=== PATIENT | female | born 1970 | race Caucasian/White ===

== ENCOUNTER 2017-07-28 09:56 | Emergency (ER) | payer BC ==
[~2017-07-28] VITALS: Ht 162.6 cm; Wt 95.7 kg
[~2017-07-28 09:56] MED LIST: FLONASE; HYDROCODONE; IMITREX100 MG; LOSARTAN POTAS100 MG PO; MONTELUKAST SOD10 MG PO; NORTRIPTYLINE H25 MG; PROMETHAZINE; PROPRANOLOL HCL80 MG PO; PROTONIX; SINGULAIR
--- OUTSIDE RECORDS SUMMARY | 2017-07-28 09:59 | XMS REPORT | Summary of Care ---
Author Author Mellissa Weldon M.A. Organization Unknown Address [facility] Phone Unavailable Care Team Providers Care Icu Manager Name Role Phone JOSE Rudd, MARGAUX Gonsalez Unavailable LUDWIG DILLON N.P. Unavailable Unavailable JOSE CLEMENTE MO, MARGAUX SALAZAR Unavailable Unavailable Unavailable Unavailable Functional Status Name Dates Details Functional status health issues are not documented Status: Name Dates Details Cognitive status health issues are not documented Status: Problems Name Dates Details Hematuria (599.70, R31.9) Status: Active Mitral valve prolapse syndrome (424.0, I34.1) Status: Active Abnormal glucose (790.29, R73.09) Status: Active Screening for malignant neoplasm of breast (V76.10, Z12.31) Status: Active Hyperglycemia (790.29, R73.9) Status: Active Acute recurrent sinusitis (461.9, J01.91) Status: Active Tracheobronchitis (490, J40) Status: Active Acute bronchitis (466.0, J20.9) Status: Active Acute situational disturbance (308.3, F43.0) Status: Active Anxiety (300.00, F41.9) Status: Active Depression (311, F32.9) Status: Active Palpitation (785.1, R00.2) Status: Active Tachycardia (785.0, R00.0) Status: Active Snoring (786.09, R06.83) Status: Active Dizziness (780.4, R42) Status: Active Urinary frequency (788.41, R35.0) Status: Active Pelvic pressure in female (625.8, R10.2) Status: Active 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) Status: Active Urinary incontinence (788.30, R32) Status: Active TMJ (temporomandibular joint syndrome) (524.60, M26.609) Status: Active Chest pain (786.50, R07.9) Status: Active Palpitations (785.1, R00.2) Status: Active Burning with urination (788.1, R30.0) Status: Active Sinusitis (473.9, J32.9) Status: Active Vertigo (780.4, R42) Status: Active Nausea and vomiting (787.01, R11.2) Status: Active Chronic gastroesophageal reflux disease (530.81, K21.9) Status: Active Ear pressure, left (388.8, H93.8X2) Status: Active Neck pain on left side (723.1, M54.2) Status: Active Myofascial pain on left side (729.1, M79.1) Status: Active Allergic conjunctivitis of both eyes (372.14, H10.13) Status: Active Allergic rhinitis (477.9, J30.9) Status: Active BPPV (benign paroxysmal positional vertigo) (386.11, H81.10) Status: Active Hyperlipidemia (272.4, E78.5) Status: Active Acute sinusitis (461.9, J01.90) Status: Active Marcie vaginitis (112.1, B37.3) Status: Active History of Urinary urgency (788.63, R39.15) Status: Resolved Urinary urgency (788.63, R39.15) Status: Active Otalgia of left ear (388.70, H92.02) Status: Active Immunity status testing (V72.61, Z01.84) Status: Active Hepatic steatosis (571.8, K76.0) Status: Active Postcholecystectomy diarrhea (564.4, R19.7) Status: Active Immunity status testing (V72.61, Z01.84) Status: Active Hepatic steatosis (571.8, K76.0) Status: Active History of RUQ abdominal pain (789.01, R10.11) Status: Resolved Acute URI (465.9, J06.9) Status: Active Orthostatic hypotension (458.0, I95.1) Status: Active Asthma (493.90, J45.909) Status: Active Low back pain radiating to right lower extremity (724.2, M54.5) Status: Active Elevated hemoglobin A1c (790.29, R73.09) Status: Active Screening for hypothyroidism (V77.0, Z13.29) Status: Active 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, M51.36) Status: Active DJD (degenerative joint disease), lumbar (721.3, M47.816) Status: Active Lumbar foraminal stenosis (724.02, M99.83) Status: Active Lower back pain (724.2, M54.5) Status: Active Need for hepatitis A immunization (V05.3, Z23) Status: Active Need for hepatitis B vaccination (V05.3, Z23) Status: Active Personal history of urinary tract infection (V13.02, Z87.440) Status: Active Acute right lumbar radiculopathy (724.4, M54.16) Status: Active Acute low back pain (724.2, M54.5) Status: Active Acute pharyngitis with influenza (487.1, J11.1) Status: Active Acute tracheobronchitis (466.0, J20.9) Status: Active Acute pharyngitis due to other specified organisms (462, J02.8) Status: Active Left otitis media (382.9, H66.92) Status: Active Acute non-recurrent maxillary sinusitis (461.0, J01.00) Status: Active GERD (gastroesophageal reflux disease) (530.81, K21.9) Status: Active Essential (primary) hypertension (401.9, I10) Status: Active Continuous left upper quadrant pain (789.02, R10.12) Status: Active Common migraine without aura (346.10, G43.009) Status: Active Hiatal hernia with GERD (530.81, K21.9) Status: Active History of anemia (V12.3, Z86.2) Status: Active Need for Tdap vaccination (V06.1, Z23) Status: Active Fatigue (780.79, R53.83) Status: Active Sleep apnea (780.57, G47.30) Status: Active Daytime somnolence (780.54, R40.0) Status: Active Migraine headache (346.90, G43.909) Status: Active Impaired fasting glucose (790.21, R73.01) Status: Active Pre-diabetes (790.29, R73.03) Status: Active Left upper quadrant pain (789.02, R10.12) Status: Active Acute bronchitis due to infection (466.0, J20.8) Status: Active Other acute sinusitis, recurrence not specified (461.8, J01.80) Status: Active Medications Name Dates Details Montelukast Sodium 10 MG Oral Tablet TAKE 1 TABLET BY MOUTH DAILY Quantity: 90 MARGAUX GARCIA M.D. * Start : 18-Aug-2013 Active Pantoprazole Sodium 40 MG Oral Tablet Delayed Release TAKE 1 TABLET BY MOUTH DAILY * Quantity: 90 Refills: 2 MARGAUX GARCIA M.D. * Start : 02-Jan-2014 Active Azelastine HCl - 0.05 % Ophthalmic Solution INSTILL 1 DROP IN EACH EYE TWICE DAILY NEEDED * Quantity: 6 Refills: 0 MARGAUX GARCIA M.D. * Start : 23-Jun-2015 Active TRUEtest Test In Vitro Strip Use as directed by physician * Quantity: 100 Refills: 0 DILLON N.P.LUDWIG * Start : 03-Aug-2015 Active Fluticasone Propionate 50 MCG/ACT Nasal Suspension SHAKE LIQUID AND USE 1 SPRAY IN EACH NOSTRIL TWICE DAILY * Quantity: 16 Refills: 0 MARGAUX GARCIA M.D. * Start : 29-Jan-2017 Active Gabapentin 300 MG Oral Capsule TAKE 1 CAPSULE BY MOUTH THREE TIMES DAILY * Quantity: 90 Refills: 0 MARGAUX GARCIA M.D. * Start : 23-May-2017 Active Excedrin Migraine TABS as needed * Refills: 0 Active Proventil HFA 108 (90 Base) MCG/ACT Inhalation Aerosol Solution INHALE 2 PUFFS BY MOUTH EVERY 4 HOURS NEEDED FOR WHEEZING * Quantity: 1 Refills: 2 MARGAUX GARCIA M.D. * Start : 05-Jul-2017 Active 6.7 GM Inhaler Albuterol Sulfate (2.5 MG/3ML) 0.083% Inhalation Nebulization Solution * Refills: 0 Active Cefdinir 300 MG Oral Capsule TAKE 1 CAPSULE EVERY 12 HOURS DAILY. * Quantity: 20 Refills: 0 DILLON N.P., LUDWIG * Start : 26-Jul-2017 End : 05-Aug-2017 Active Benzonatate 100 MG Oral Capsule 1-2 caps as needed every 8 hours wit mucinex DM or Delsym OTC. * Quantity: 30 Refills: 1 DILLON N.P., LUDWIG * Start : 26-Jul-2017 Active PredniSONE 10 MG Oral Tablet 1 tab po bid x 5d, then 1 tab po qd x 5d. * Quantity: 15 Refills: 0 DILLON N.P., LUDWIG * Start : 26-Jul-2017 Active Mucinex DM TB12 TAKE 1 TO 2 TABLETS EVERY 12 HOURS NEEDED. * Refills: 0 Active Allergies and Adverse Reactions Name Dates Details Amoxicillin TABS (Allergy) Status: Active Sulfa Drugs (Allergy) Status: Active Adhesive Tape (Allergy) Status: Active Past Medical History Name Dates Details History of Chronic migraine without aura, without mention of intractable migraine without mention of status migrainosus (346.70, G43.709) Status: Resolved History of essential hypertension (V12.59, Z86.79) Status: Resolved History of Fatty liver (571.8, K76.0) Status: Resolved History of RUQ abdominal pain (789.01, R10.11) Status: Resolved History of sinusitis (V12.69, Z87.09) Status: Resolved History of Urinary urgency (788.63, R39.15) Status: Resolved Personal history of asthma (V12.69, Z87.09) Status: Resolved Procedures Procedure Dates Details History of Inguinal Hernia Repair Completed History of Right Breast Lumpectomy Completed History of Cholecystectomy Completed History of Anoscopy For Polyp Removal Completed History of Destruction Of Flat Warts By Laser Completed Immunization Name Dates Details Td (adult), unspecified formulation on: 18-Jul-2003 Hepatitis B on: 24-Oct-2003 Fluvirin INJ on: 19-Nov-2013 Influenza on: Jan-2016 Hepatitis A Lot #: [id number] on: 15-Feb-2016 Hep B (Recombinant) Lot #: [id number] on: 15-Feb-2016 Hepatitis B Lot #: [id number] on: 16-Mar-2016 Hepatitis A, adult Lot #: [id number] on: 21-Aug-2016 Hepatitis B, adult Lot #: [id number] on: 21-Aug-2016 Fluzone INJ on: 15-Dec-2016 Tdap (Adacel) Lot #: [id number] on: 15-Mar-2017 Family History Name Dates Details Family history of Cancer Comments: Family History Status: Active Family history of Diabetes Mellitus (V18.0) Comments: Family History Status: Active Family history of Coronary Artery Disease (V17.49) Comments: Family History Status: Active Family history of Hypothyroidism Comments: Family History Status: Active Name Dates Details Family history of Hypertension (V17.49) Status: Active Family history of Diabetes Mellitus (V18.0) Status: Active Name Dates Details Family history of liver cancer (V16.0, Z80.0) Status: Active Name Dates Details Family history of malignant neoplasm of thyroid (V16.8, Z80.8) Status: Active Social History Name Dates Details - Status: Name Dates Details Never smoker Vital Signs Date Test Result Details [id number] BP Systolic 135 mm[Hg] Status: Comments: Location: LUE; Position: Sitting BP Diastolic 81 mm[Hg] Status: Comments: Location: LUE; Position: Sitting Height 64 in Status: Weight 206.6 lb Status: Body Mass Index Calculated 35.46 kg/m2 Status: Body Surface Area Calculated 1.98 m2 Status: Temperature 97.6 f Status: Comments: Method: Oral Heart Rate 83 /min Status: Respiration Rate 18 /min Status: O2 SAT 97 % Status: 76-Ave-558096:45 BP Systolic 131 mm[Hg] Status: Comments: Location: LUE; Position: Sitting BP Diastolic 84 mm[Hg] Status: Comments: Location: LUE; Position: Sitting Height 64 in Status: Weight 212.25 lb Status: Body Mass Index Calculated 36.43 kg/m2 Status: Body Surface Area Calculated 2.01 m2 Status: Temperature 98.1 f Status: Comments: Method: Temporal Heart Rate 83 /min Status: Comments: Location: L Brachial Artery; Respiration Rate 16 /min Status: O2 SAT 98 % Status: Results Date Description Value Details Results not documented Plan of Care Name Dates Details Planned Observations Planned Goals not documented Instructions Name Dates Details Instructions not documented Encounters Appointment; LUDWIG DILLON NP Encounter Diagnosis: Problem not documented On: 18-Aug-2015 10:30 Appointment; IRAIS SEWELL NP Encounter Diagnosis: Problem not documented On: 06-Nov-2015 10:45 Appointment; MARGAUX GARCIA M.D. Encounter Diagnosis: Problem not documented On: 06-Jan-2016 13:45 Appointment; MARGAUX GARCIA M.D. Encounter Diagnosis: Problem not documented On: 17-Jan-2016 9:00 Appointment; MARGAUX GARCIA M.D. Encounter Diagnosis: Problem not documented On: 15-Feb-2016 9:00 Appointment; MARGAUX GARCIA M.D. Encounter Diagnosis: Problem not documented On: 28-Feb-2016 10:30 Appointment; MARGAUX GARCIA M.D. Encounter Diagnosis: Problem not documented On: 16-Mar-2016 8:00 Appointment; MARGAUX GARCIA M.D. Encounter Diagnosis: Problem not documented On: 04-May-2016 9:30 Appointment; MARGAUX GARCIA M.D. Encounter Diagnosis: Problem not documented On: 29-Jun-2016 13:45 Appointment; MARGAUX GARCIA M.D. Encounter Diagnosis: Problem not documented On: 13-Jul-2016 11:00 Appointment; MARGAUX GARCIA M.D. Encounter Diagnosis: Problem not documented On: 28-Jul-2016 11:00 Appointment; MARGAUX GARCIA M.D. Encounter Diagnosis: Problem not documented On: 21-Aug-2016 8:00 Appointment; MARGAUX GARCIA M.D. Encounter Diagnosis: Problem not documented On: 08-Sep-2016 10:00 Appointment; MARGAUX GARCIA M.D. Encounter Diagnosis: Problem not documented On: 19-Jan-2017 9:00 Appointment; MARGAUX GARCIA M.D. Encounter Diagnosis: Problem not documented On: 15-Mar-2017 9:00 Appointment; MARGAUX GARCIA M.D. Encounter Diagnosis: Problem not documented On: 04-May-2017 8:00 Appointment; MARGAUX GARCIA M.D. Encounter Diagnosis: Problem not documented On: 04-May-2017 8:15 Appointment; MARGAUX GARCIA M.D. Encounter Diagnosis: Problem not documented On: 01-Jun-2017 9:30 Appointment; LUDWIG DILLON NP Encounter Diagnosis: Problem not documented On: 26-Jul-2017 10:30 Appointment; LUDWIG DILLON NP Encounter Diagnosis: Problem not documented On: 28-Jul-2017 9:15
[2017-07-28] MEDS ORDERED: SODIUM CHLORIDE 0.9% 1000ML 1,000 ML IV STA (10:10)
[2017-07-28] MEDS ORDERED: ALBUTEROL SULF 0.083% NEB SOLN 3 ML NEB NEB NR (10:10)
[2017-07-28] MEDS ORDERED: IPRATROPIUM BROMIDE 0.02% 2.5 ML NEB NEB STA (10:10)
[2017-07-28] MEDS ORDERED: DEXAMETHASONE SOD PHOS 10 MG/1 ML VIAL IV ONE (10:15)
[2017-07-28] MEDS ORDERED: ACETAMINOPHEN/CODEINE ELIX 120-12 MG/5 ML UDC PO ONE (10:15)
[2017-07-28 10:38] LABS: BASOPHILS % 0.5 % (0.0-1.0); EOSINOPHILS % 0.5 % (0.0-6.0); HEMATOCRIT 40.1 % (34.2-44.1); HEMOGLOBIN 13.9 g/dL (12.0-16.0); LYMPHOCYTES # (AUTO) 0.9 (1.0-3.2); LYMPHOCYTES % 10.7 % (18.0-39.1); MEAN CORPUSCULAR HEMOGLOBIN 29.8 pg (28-32); MEAN CORPUSCULAR HGB CONC 34.7 g/dL (31-35); MEAN CORPUSCULAR VOLUME 86.1 fL (81-99); MONOCYTES # (AUTO) 0.7 (0.2-0.8); MONOCYTES % 8.5 % (4.4-11.3); NEUTROPHILS # (AUTO) 6.8 (2.1-6.9); NEUTROPHILS % 79.3 % (38.7-80.0); PLATELET COUNT 268 x10e3/uL (140-360); RED BLOOD COUNT 4.66 x10e6/uL (3.6-5.1); RED CELL DISTRIBUTION WIDTH 12.8 % (11.7-14.4)
[2017-07-28 10:53] LABS: CLARITY,URINE SL CLOUDY (CLEAR); COLOR,URINE YELLOW (YELLOW)
[2017-07-28 10:54] LABS: BILIRUBIN,URINE NEGATIVE (NEGATIVE); KETONES,URINE NEGATIVE (NEGATIVE); LEUKOCYTE ESTERASE ,URINE NEGATIVE (NEGATIVE); NITRITE,URINE NEGATIVE (NEGATIVE); PROTEIN,URINE DIPSTICK NEGATIVE (NEGATIVE); URINE UROBILINOGEN 0.2 mg/dL (0.2 - 1)
[2017-07-28 10:57] LABS: BACTERIA,URINE FEW /HPF; CREATINE KINASE 113 IU/L (29-168); EPITHELIAL CELLS,URINE FEW /LPF; RBC,URINE 0-5 /HPF (0-5); WBC,URINE (MAN) 0-5 /HPF (0-5)
[2017-07-28 10:59] LABS: ALANINE AMINOTRANSFERASE 26 IU/L (0-55); ALBUMIN 3.9 g/dL (3.5-5.0); ALBUMIN/GLOBULIN RATIO 0.9 (0.8-2.0); ALKALINE PHOSPHATASE 99 IU/L (40-150); ANION GAP 14.6 mmol/L (8-16); BLOOD UREA NITROGEN 10 mg/dL (7-26); BUN/CREATININE RATIO 13 (6-25); CALCIUM 9.9 mg/dL (8.4-10.2); CARBON DIOXIDE 23 mmol/L (22-29); CHLORIDE 101 mmol/L (98-107); CREATINE KINASE 342 IU/L (29-168); CREATININE, SERUM 0.78 mg/dL (0.57-1.11); EST GLOMERULAR FILTRATION RATE > 60 ML/MIN (60-); GLUCOSE 140 mg/dL (74-118); POTASSIUM 3.6 mmol/L (3.5-5.1); SODIUM 135 mmol/L (136-145)
--- NOTE | 2017-07-28 11:49 | Diagnostic Imaging Report ---
EXAMINATION: CHEST 2 VIEWS 07/28/2017 10:10 AM COMPARISON: None INDICATION: Shortness of breath DISCUSSION: LINES: None. LUNGS: The lungs are well inflated and clear. No pneumonia or pulmonary edema. PLEURA: No pleural effusion or pneumothorax. HEART AND MEDIASTINUM: The cardiomediastinal silhouette is unremarkable. BONES AND SOFT TISSUES: No acute osseous lesion. The soft tissues are normal. IMPRESSION: No acute cardiopulmonary disease. Darryl Herrera MD Signed by: Dr. Darryl Herrera M.D. on 07/28/2017 11:45 AM
[2017-07-28 12:38] VITALS: BP 128/75
== END 2017-07-28 12:40 | disposition home or self-care (01) ==
LOC: ER 10:01
DX: R05 Cough (principal); J20.9 Acute bronchitis, unspecified; J45.909 Unspecified asthma, uncomplicated
CPT/HCPCS: 36415; 71046; 80053; 81001; 82550; 82553; 83880; 84484; 85025; 85379; 87086; 93005; 99284; J1100; J7030

== ENCOUNTER 2018-10-07 08:05 | Observation (INO) | payer BC ==
[~2018-10-07] VITALS: Ht 162.6 cm; Wt 95.7 kg
--- OUTSIDE RECORDS SUMMARY | 2018-10-07 08:07 | XMS REPORT | Summary of Care ---
Author Author [facility] Outpatient Imaging [facility]patient [facility] Address Unknown Phone Unavailable Encounter HQ Encntr_alias(FIN) [id number] Date(s): 06/29/16 - 06/29/16 [facility] [address] [facility], [address] [place] [phone] Discharge Disposition: Home or Self Care Attending Physician: Bonnie Delcid MD Vital Signs No data available for this section Problem List No data available for this section Allergies, Adverse Reactions, Alerts No data available for this section Medications No data available for this section Results No data available for this section Immunizations No data available for this section Procedures No data available for this section Social History No data available for this section Assessment and Plan No data available for this section
--- OUTSIDE RECORDS SUMMARY | 2018-10-07 08:07 | XMS REPORT | Summary of Care ---
Author Author [facility] Outpatient [facility] - [place] Organization [facility] [place] Address Unknown Phone Unavailable Encounter HQ Encntr_alias(FIN) [id number] Date(s): 06/15/17 - 06/15/17 [facility] [place] [address] [place] [phone] Encounter Diagnosis Left upper quadrant pain (Final) - 06/21/17 Hepatomegaly, not elsewhere classified (Final) - Discharge Disposition: Home or Self Care Attending [...]
--- OUTSIDE RECORDS SUMMARY | 2018-10-07 08:07 | XMS REPORT | Summary of Care ---
Author Author [facility] Outpatient Imaging [facility] Outpatient Imaging [facility] Address Unknown Phone Unavailable Encounter HQ Encntr_alias(FIN) [id number] Date(s): 08/09/17 - 08/09/17 [facility] Imaging [facility] [address] [facility], [address] [place] [phone] Discharge Disposition: Home or Self Care Attending Physician: Karthikeyan Jennings MD Vital Signs No data available for [...]
--- OUTSIDE RECORDS SUMMARY | 2018-10-07 08:07 | XMS REPORT | Continuity of Care Document ---
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 Name Role Phone [employer] Unavailable Unavailable Problems Problem Status Onset Date Classification Date Reported Comments Source Left upper quadrant pain 06/22/2017 09/21/2017 [facility] [place] M54.5 - LOW BACK PAIN Active 06/29/2016 [facility] [place] R92.2 - INCONCLUSIVE MAMMOGRAM Active 12/31/2014 [facility] [place] V76.12 - SCREEN MAMMOGRA Active 12/10/2013 [facility] [place] Mastodynia 08/20/2017 [facility] [place] Hepatomegaly, not elsewhere classified 09/21/2017 [facility] [place] Medications Medication Details Route Status Patient Instructions Ordering Provider Order Date Source Losartan Potassium 100 Mg Tablet, 25 Mg Oral Daily Active 07/28/2017 [facility] Propranolol Hcl 80 Mg Cap.sa.24h, 80 Mg Oral Daily Active 07/28/2017 [facility] Flonase , Active 06/27/2016 [facility] Nortriptyline Hcl 25 Mg Capsule, Daily Active 06/27/2016 [facility] Singulair , Active 06/27/2016 [facility] Sumatriptan Succinate (Imitrex) 100 Mg Tablet, as needed for Headache Active 06/27/2016 [facility] Hydrocodone , Active 12/30/2013 [facility] Promethazine , Active 12/30/2013 [facility] Montelukast Sodium 10 Mg Tablet Daily Active [facility] Protonix Active [facility] Allergies, Adverse Reactions, Alerts Substance Category Reaction Severity Reaction type Status Date Reported Comments Source Sulfa (Sulfonamide Antibiotics) RASH Mild Allergy to Substance Active 06/28/2009 [facility] Amoxicillin RASH Mild Allergy to Substance Active 06/28/2009 [facility] ADHESIVE TAPE BLISTER TURN TO OPEN WOUND Mild Allergy to Substance Active 06/28/2009 [facility] Immunizations No Data Provided for This Section Results Order Name Results Value Reference Range Date Interpretation Comments Source Automated blood basophil count (count/volume) Automated blood basophil count (count/volume) 0.0 0.0 - 0.1 07/28/2017 [facility] Automated blood basophil count as percentage of total leukocytes Automated blood basophil count as percentage of total leukocytes 0.5 0.0 - 1.0 07/28/2017 [facility] Automated blood eosinophil count Automated blood eosinophil count 0.0 0.0 - 0.4 07/28/2017 [facility] Automated blood eosinophil count as percentage of total leukocytes Automated blood eosinophil count as percentage of total leukocytes 0.5 0.0 - 6.0 07/28/2017 [facility] Automated blood hematocrit (volume fraction) Automated blood hematocrit (volume fraction) 40.1 34.2 - 44.1 07/28/2017 [facility] Automated blood lymphocyte count as percentage ot total leukocytes Automated blood lymphocyte count as percentage ot total leukocytes 10.7 18.0 - 39.1 07/28/2017 [facility] Automated blood monocyte count as percentage of total leukocytes Automated blood monocyte count as percentage of total leukocytes 8.5 4.4 - 11.3 07/28/2017 [facility] Automated blood neutrophil count Automated blood neutrophil count 6.8 2.1 - 6.9 07/28/2017 [facility] Automated blood platelet count (count/volume) Automated blood platelet count (count/volume) 268 140 - 360 07/28/2017 [facility] Automated blood segmented neutrophil count as percentage of total leukocytes Automated blood segmented neutrophil count as percentage of total leukocytes 79.3 38.7 - 80.0 07/28/2017 [facility] Automated erythrocyte mean corpuscular hemoglobin (mass per erythrocyte) Automated erythrocyte mean corpuscular hemoglobin (mass per erythrocyte) 29.8 28 - 32 07/28/2017 [facility] Automated erythrocyte mean corpuscular hemoglobin concentration measurement (mass/volume) Automated erythrocyte mean corpuscular hemoglobin concentration measurement (mass/volume) 34.7 31 - 35 07/28/2017 [facility] Automated erythrocyte mean corpuscular volume Automated erythrocyte mean corpuscular volume 86.1 81 - 99 07/28/2017 [facility] Automated urine sediment leukocyte count by microscopy (number/high power field) Automated urine sediment leukocyte count by microscopy (number/high power field) <5 0 - 5 07/28/2017 [facility] Bacteria detection in urine sediment by light microscopy Bacteria detection in urine sediment by light microscopy FEW NONE 07/28/2017 [facility] Blood erythrocytes automated count (number/volume) Blood erythrocytes automated count (number/volume) 4.66 3.6 - 5.1 07/28/2017 [facility] Blood hemoglobin measurement (moles/volume) Blood hemoglobin measurement (moles/volume) 13.9 12.0 - 16.0 07/28/2017 [facility] Blood leukocytes automated count (number/volume) Blood leukocytes automated count (number/volume) 8.58 4.8 - 10.8 07/28/2017 [facility] Blood lymphocytes count (number/volume) Blood lymphocytes count (number/volume) 0.9 1.0 - 3.2 07/28/2017 [facility] Blood monocytes automated count (number/volume) Blood monocytes automated count (number/volume) 0.7 0.2 - 0.8 07/28/2017 [facility] Epithelial cells detection in urine sediment by light microscopy Epithelial cells detection in urine sediment by light microscopy FEW NONE 07/28/2017 [facility] Erythrocytes detection in urine sediment by light microscopy Erythrocytes detection in urine sediment by light microscopy <5 0 - 5 07/28/2017 [facility] Estimated glomerular filtration rate (GFR) determination Estimated glomerular filtration rate (GFR) determination >60 60 07/28/2017 [facility] Fibrin D-dimer DDU measurement in platelet poor plasma (mass/volume) Fibrin D-dimer DDU measurement in platelet poor plasma (mass/volume) 0.41 0.00 - 0.45 07/28/2017 [facility] Glucose measurement Glucose measurement 140 74 - 118 07/28/2017 [facility] Plasma globulin measurement (mass/volume) Plasma globulin measurement (mass/volume) 4.5 2.3 - 3.5 07/28/2017 [facility] Serum or plasma alanine aminotransferase measurement (enzymatic activity/volume) Serum or plasma alanine aminotransferase measurement (enzymatic activity/volume) 26 0 - 55 07/28/2017 [facility] Serum or plasma albumin measurement (mass/volume) Serum or plasma albumin measurement (mass/volume) 3.9 3.5 - 5.0 07/28/2017 [facility] Serum or plasma albumin/globulin mass ratio Serum or plasma albumin/globulin mass ratio 0.9 0.8 - 2.0 07/28/2017 [facility] Serum or plasma alkaline phosphatase measurement (enzymatic activity/volume) Serum or plasma alkaline phosphatase measurement (enzymatic activity/volume) 99 40 - 150 07/28/2017 [facility] Serum or plasma anion gap Serum or plasma anion gap 14.6 8 - 16 07/28/2017 [facility] Serum or plasma calcium measurement (mass/volume) Serum or plasma calcium measurement (mass/volume) 9.9 8.4 - 10.2 07/28/2017 [facility] Serum or plasma carbon dioxide, total measurement (moles/volume) Serum or plasma carbon dioxide, total measurement (moles/volume) 23 22 - 29 07/28/2017 [facility] Serum or plasma chloride measurement (moles/volume) Serum or plasma chloride measurement (moles/volume) 101 98 - 107 07/28/2017 [facility] Serum or plasma creatine kinase MB measurement (mass/volume) Serum or plasma creatine kinase MB measurement (mass/volume) 1.30 0 - 5.0 07/28/2017 [facility] Serum or plasma creatine kinase measurement (enzymatic activity/volume) Serum or plasma creatine kinase measurement (enzymatic activity/volume) 342 29 - 168 07/28/2017 [facility] Serum or plasma creatinine measurement (mass/volume) Serum or plasma creatinine measurement (mass/volume) 0.78 0.57 - 1.11 07/28/2017 [facility] Serum or plasma potassium measurement (moles/volume) Serum or plasma potassium measurement (moles/volume) 3.6 3.5 - 5.1 07/28/2017 [facility] Serum or plasma protein measurement (mass/volume) Serum or plasma protein measurement (mass/volume) 8.4 6.5 - 8.1 07/28/2017 [facility] Serum or plasma sodium measurement (moles/volume) Serum or plasma sodium measurement (moles/volume) 135 136 - 145 07/28/2017 [facility] Serum or plasma total bilirubin measurement (mass/volume) Serum or plasma total bilirubin measurement (mass/volume) 0.6 0.2 - 1.2 07/28/2017 [facility] Serum or plasma urea nitrogen measurement (mass/volume) Serum or plasma urea nitrogen measurement (mass/volume) 10 7 - 26 07/28/2017 [facility] Serum or plasma urea nitrogen/creatinine mass ratio Serum or plasma urea nitrogen/creatinine mass ratio 13 6 - 25 07/28/2017 [facility] Specific gravity of Urine by Test strip Specific gravity of Urine by Test strip 1.015 1.010 - 1.025 07/28/2017 [facility] Troponin I measurement by highly sensitive enzyme immunoassay Troponin I measurement by highly sensitive enzyme immunoassay <0.001 0 - 0.300 07/28/2017 [facility] Urine clarity Urine clarity SL CLOUDY CLEAR 07/28/2017 [facility] Urine color determination Urine color determination YELLOW YELLOW 07/28/2017 [facility] Urine erythrocytes detection Urine erythrocytes detection TRACE NEGATIVE 07/28/2017 [facility] Urine glucose detection Urine glucose detection NEGATIVE NEGATIVE 07/28/2017 [facility] Urine ketones detection by automated test strip Urine ketones detection by automated test strip NEGATIVE NEGATIVE 07/28/2017 [facility] Urine leukocyte esterase detection by dipstick Urine leukocyte esterase detection by dipstick NEGATIVE NEGATIVE 07/28/2017 [facility] Urine nitrite detection Urine nitrite detection NEGATIVE NEGATIVE 07/28/2017 [facility] Urine pH measurement by automated test strip Urine pH measurement by automated test strip 6 5 - 7 07/28/2017 [facility] Urine protein measurement by test strip (mass/volume) Urine protein measurement by test strip (mass/volume) NEGATIVE NEGATIVE 07/28/2017 [facility] Urine total bilirubin measurement (mass/volume) Urine total bilirubin measurement (mass/volume) NEGATIVE NEGATIVE 07/28/2017 [facility] Urine urobilinogen measurement by test strip (mass/volume) Urine urobilinogen measurement by test strip (mass/volume) 0.2 0.2 - 1 07/28/2017 [facility] Red Cell Distribution Width 12.8 11.7 - 14.4 07/28/2017 [facility] IM GRANULOCYTES % 0.5 0.0 - 1.0 07/28/2017 [facility] Absolute Immature Granulocyte (auto 0.04 0 - 0.1 07/28/2017 [facility] Aspartate Amino Transf (AST/SGOT) 23 5 - 34 07/28/2017 [facility] B-Type Natriuretic Peptide 14.9 0 - 100 07/28/2017 [facility] Pathology Reports No Data Provided for This Section Diagnostic Reports Report Value Date Source Breast Mammo Scrn BERT incl CAD MA BILATERAL DIGITAL SCREENING MAMMOGRAM WITH CAD: 07/03/2018 CLINICAL: Encounter For Screening Mammogram For Malignant Neoplasm Of Breast/Z12.31. Current study was evaluated with a Computer Aided Detection (CAD) system. COMPARISON:Comparison is made to exams dated: 05/14/2017 mammogram, 01/07/2015 mammogram, 12/06/2012 mammogram, and 04/30/2009 mammogram - [facility]. TECHNIQUE: Mammographic views were obtained using digital acquisition. Current study was also evaluated with a Computer Aided Detection (CAD) system. FINDINGS: There are scattered fibroglandular densities in both breasts. There is a benign mass in the right breast. There also is a biopsy clip in the right breast. No significant masses, calcifications, or other findings are seen in either breast. There has been no significant interval change. IMPRESSION: BENIGN RECOMMENDATION:There is no mammographic evidence of malignancy. A 1 year screening mammogram is recommended.(07/04/2019) This exam was interpreted at [id number] at [facility]. Professional services are provided by the [facility]. Kathrine Huang M.D. to/penrad:07/04/2018 07:41:17 Sewing Machine Tester(s): RT Blayne(R)(M), [facility] letter sent: BI-RADS 1/2 Mammogram BI-RADS: 2 Benign 07/03/2018 [place] [facility] Pelvis w Pelvis Transvaginal US EXAM: Pelvis w Pelvis Transvaginal US HISTORY: - R10.2 Pelvic and perineal pain COMPARISON: None Technique: Transabdominal Transvaginal Waldron scale and color doppler with limited spectral doppler imaging of the uterus and ovaries. Findings: The uterus measures 7.6 x 3.4 x 4.3 cm. The endometrial stripe measures 0.4 cm. The right ovary measures 3.5 x 2.3 x 2.8 cm. There is normal doppler flow. There is a 2.4 x 2.0 x 2.5 cm complex cyst in the right ovary. The left ovary measures 2.3 x 1.2 x 2.1 cm. There is normal doppler flow. There are nabothian cysts in the cervix. There is no free fluid. IMPRESSION: Complex cyst in the left ovary measures up to 2.3 cm. Recommendations for f/u of complex cysts1: Indeterminate cyst - other, not classic for but suggestive of hemorrhagic cyst, endometrioma or dermoid: Pre-menopause: < 7 cm: US f/u 6-12 weeks. If unchanged, f/u with US or consider MR w/IVC. If these do not confirm endometrioma or dermoid, consider surgical evaluation. >7 cm: Consider MR w/IVC or surgical evaluation. 1. Recommendations based upon the 2010 SRU Consensus Conference Statement on the Management of asymptomatic ovarian and adnexal cysts imaged at US. Radiology. 2009;256(3):273-54 07/03/2018 [facility] [place] [facility] Sinus paranasal series DX EXAM: PARANASAL SINUS 3 VIEWS DATE: 08/09/2017 11:32 AM CDT INDICATION: - J01.91 Acute recurrent sinusitis, unspecified COMPARISON: None TECHNIQUE: 3 views of the paranasal sinuses DISCUSSION: Mild peripheral opacification of the maxillary sinuses, right worse in left. No air-fluid levels. No sinus atelectasis or sinus wall thickening. No bony abnormality identified. IMPRESSION: Mild bilateral peripheral opacification of the maxillary sinuses, right greater than left, consistent with mucosal disease. 08/09/2017 [facility] Abdomen complete US EXAM: Abdomen complete US HISTORY: R10.12 Left upper quadrant pain - R10.12 Left upper quadrant pain COMPARISON: None FINDINGS: Liver: Measures 18 cm in length (normal: 13-17 cm). Echogenicity is increased, suggesting fatty infiltration and/or chronic hepatocellular disease. This decreases sensitivity for focal liver lesions although none is seen. Portal vein is patent with hepatopedal flow. Biliary: The gallbladder is absent. There is no biliary duct dilation. Mid common bile duct measures 4 mm in diameter. Pancreas: No focal lesion. However, certain portions are obscured by overlying bowel gas and unable to be evaluated. Spleen: Measures 10.6 cm in maximal dimension (normal < 13 cm). No focal lesion is seen. Kidneys: Right and left measure 10.9 and 11.4 cm in length, respectively (normal for age). No hydronephrosis, suspicious renal mass, or large shadowing stone. Vascular: Visualized portions of the IVC are patent. No obvious aneurysmal dilatation of the aorta. IMPRESSION: Mild hepatomegaly. Hepatic echogenicity suggests fatty infiltration and/or chronic hepatocellular disease. 06/15/2017 [facility] [place] [facility] Ribs unilateral DX Clinical History : , - continuous left upper quadrant pain Exam : Left rib series 05/14/2017 10:15 AM NURSERYPERSON Comparisons : none Findings : There is no acute fracture or dislocation of the ribs. There is no periosteal reaction to suggest non-displaced fracture. There is no evidence of pneumothorax. The visualized portions of the lungs are clear without focal consolidation or pleural effusion. The heart and mediastinal contours are normal in appearance. The thoracic spine is age appropriate. The shoulders are unremarkable. Limited evaluation of the upper abdomen demonstrates no gross abnormalities. Patient is status post cholecystectomy. Impression: No acute fracture or dislocation of the left ribs. 05/14/2017 [facility] Breast Limited Uni US COMPLETE ULTRASOUND OF LEFT BREAST: 05/14/2017 CLINICAL: N64.4 Mastodynia/N64.4 Mastodynia. COMPARISON:Comparison is made to exams dated: 05/14/2017 mammogram, 01/07/2015 mammogram, 12/06/2012 mammogram, and 04/30/2009 mammogram - [facility]. TECHNIQUE: Color flow and real-time ultrasound of the left breast four quadrants were performed on the areas of interest. FINDINGS: No abnormalities were seen sonographically in the left breast. No sonographic correlate is identified for the patient's breast pain. IMPRESSION: BENIGN RECOMMENDATION:Clinical management of the patient's pain is recommended. There is no sonographic evidence of malignancy. A 1 year screening mammogram is recommended.(05/15/2018) This exam was interpreted at [id number] for [facility]. Professional services are provided by the [facility]. Shahbaz Perez M.D., cm/kimberly:05/14/2017 10:14:35 Sewing Machine Tester(s): Rubina Muñoz [facility] letter sent: BI-RADS 1/2 Ultrasound BI-RADS: 2 Benign 05/14/2017 [facility] Breast Mammo Diag BERT incl CAD MA BILATERAL DIGITAL DIAGNOSTIC MAMMOGRAM WITH CAD: 05/14/2017 CLINICAL: N64.4 Mastodynia/N64.4 Mastodynia. Current study was evaluated with a Computer Aided Detection (CAD) system. COMPARISON:Comparison is made to exams dated: 01/07/2015 mammogram, 12/06/2012 mammogram, and 04/30/2009 mammogram - [facility]. TECHNIQUE: Mammographic views were obtained using digital acquisition. Current study was also evaluated with a Computer Aided Detection (CAD) system. FINDINGS: The tissue of both breasts is heterogeneously dense, which could obscure detection of small masses. There is a biopsy clip in the right breast. No significant masses, calcifications, or other findings are seen in either breast. IMPRESSION: BENIGN RECOMMENDATION:There is no mammographic abnormality seen in the left breast to correspond with the pain; however, further workup with ultrasound is recommended. There is no mammographic evidence of malignancy. This exam was interpreted at [id number] for [facility]. Professional services are provided by the [facility]. Shahbaz Perez M.D. cm/penrad:05/14/2017 10:13:42 Sewing Machine Tester(s): RT Blayne(R)(M), [facility] Mammogram BI-RADS: 2 Benign 05/14/2017 [place] [facility] Spine lumbar wo contrast MRI MRI LUMBAR SPINE WITHOUT CONTRAST 07/14/2016 9:08 AM CDT COMPARISON: 03/07/2013 MRI exam. TECHNIQUE: Sagittal T1, sagittal T2 with fat saturation, axial T1 and axial T2 images were obtained. No intravenous gadolinium was given. FINDINGS: The conus medullaris terminates at the L1-L2 level. T12-L1: Unremarkable. L1-L2: Unremarkable. L2-L3: Moderate facet arthrosis. No central canal or foraminal stenosis. L3-L4: Stable mild disc desiccation with approximately 2 mm disc bulge, without central canal stenosis. Mild bilateral foraminal stenosis due to disc bulge encroachment is present, with minimal mass effect on the bilateral L3 exiting nerve roots. L4-L5: Stable significant disc desiccation and approximately 3 mm posterior disc osteophyte complex with minimal central canal stenosis. There is stable mild bilateral foraminal stenosis without significant mass effect on exiting nerve roots. L5-S1: Unremarkable. IMPRESSION: 1. L3-L4 mild bilateral foraminal stenosis with minimal mass effect on bilateral L3 nerve roots. 2. Stable L4-L5 Yolanda changes with mild central canal stenosis and mild bilateral foraminal stenosis. 07/14/2016 [facility] Spine Lumbar Comp w Bend views DX EXAM: XR LUMBAR SPINE 7 VIEWS DATE: 06/29/2016 4:13 PM CDT INDICATION: M54.5 Low back pain COMPARISON: Lumbar spine radiograph on 01/10/2013 and lumbar spine magnetic resonance imaging on 03/07/2013. TECHNIQUE: AP, lateral, coned lateral, LPO, RPO, flexion, extension views of the lumbar spine FINDINGS: 5 nonrib bearing, lumbar-type vertebral bodies are present. Vertebral body heights and disk heights are preserved. There is no spondylolysis or spondylolisthesis. There is no abnormal motion upon flexion or extension. No soft tissue abnormality is identified. Surgical clips are appreciated in the right upper quadrant of the abdomen. IMPRESSION: No acute abnormality. 06/29/2016 [facility] Chest 2 views DX Exam: Two-view chest x-ray Reason for Exam: Chest pain. Right upper quadrant abdominal pain. Comparison Exam: None Discussion: Cardiomediastinal silhouette is within normal limits. Both hemidiaphragms well visualized. No pulmonary edema or pleural effusions. No focal lung consolidations. Trachea is midline. No acute bony abnormalities. Impression: 1. No acute cardiopulmonary abnormalities. 01/11/2016 [facility] Abdomen complete US EXAM: Abdomen ultrasound. CLINICAL HX: R10.11 Right upper quadrant pain. . . TECHNIQUE: Grayscale and Doppler sonogram of the abdomen. COMPARISON: Abdomen ultrasound: 05/27/2009. FINDINGS: Pancreas: Visualized portion is unremarkable. Aorta: Visualized portion is unremarkable. IVC: Visualized portion is unremarkable. Liver: Parenchyma: Diffuse increased echogenicity Length: 15.3 cm. Main portal vein: Diameter: 0.9 cm. Normal directional flow. Gallbladder: Surgically absent. Common bile duct: Diameter: 0.2 cm. Right kidney: Length: 11 cm. No hydronephrosis. Left kidney: Length: 11.4 cm. No hydronephrosis. Spleen: Measures 10 cm. IMPRESSION: 1. Diffuse increased echogenicity of the liver which can be seen with fatty infiltration (favored) and other chronic hepatocellular disease. 01/11/2016 [facility] Digital Mammo Screening Bert MA - DIGITAL MAMMO SCREENING BERT MA BILATERAL DIGITAL SCREENING MAMMOGRAM WITH CAD: 01/07/2015 CLINICAL: Routine. Current study was evaluated with a Computer Aided Detection (CAD) system. Comparison is made to exams dated: 12/06/2012 mammogram and 04/30/2009 mammogram - [facility]. The tissue of both breasts is heterogeneously dense, which could obscure detection of small masses. There is a biopsy clip in the right breast. No significant masses, calcifications, or other findings are seen in either breast. There has been no significant interval change. IMPRESSION: BENIGN There is no mammographic evidence of malignancy. A 1 year screening mammogram is recommended. Schuyler kaur/penrad:01/07/2015 11:41:20 Sewing Machine Tester: Angelica PÉREZ(R)(M), [facility] This exam was dictated and interpreted by [id number] for [facility]. letter sent: Normal exam Mammogram BI-RADS: 2 Benign 01/07/2015 [facility] Spine lumbar wo contrast MRI LUMBAR SPINE MRI Mar 07, 2013 08:49:59 AM. TECHNIQUE: Sagittal T1, sagittal T2 with fat saturation, axial T1 and axial T2 images were obtained. FINDINGS: The vertebrae are normal in shape, signal intensity and alignment. The intervertebral disks are well hydrated and normal in height, except for L4-L5 which is significantly desiccated and L3-L4 which is mildly desiccated. The spinal canal is normal in size and the foramina are patent. The paravertebral soft tissues are normal. The conus medullaris terminates normally at the T12-L1 level. There is no intradural mass lesion. L1-L2: Unremarkable L2-L3: Unremarkable L3-L4: Mild disc bulge, facet hypertrophy, and ligamentum flavum thickening without evidence of disc herniation nor significant stenosis. L4-L5: Mild disc bulge with midline radial annular tear, facet hypertrophy, and ligamentum flavum thickening without evidence of disc herniation nor significant stenosis. L5-S1: Mild facet hypertrophy without evidence of disc herniation nor significant stenosis. IMPRESSION: Small radial annular tear at L4-L5 without ruben herniation may result in locoregional pain. No explanation for patient's right lumbar radiculopathy. Consider MR of the pelvis to evaluate for piriformis syndrome. 03/07/2013 NEPTALI Bello Spine lumbar minimum 4 views EXAMINATION: Lumbar spine series DISCUSSION: There is normal alignment of the lumbar spine vertebral bodies. No fractures or dislocations are seen. The pedicles and transverse processes are intact. If clinical concern persists may consider further evaluation with CT and/or MRI of the lumbar spine. IMPRESSION: Normal lumbar spine series. 01/10/2013 NEPTALI Bello Consultation Notes No Data Provided for This Section Discharge Summaries No Data Provided for This Section History and Physicals No Data Provided for This Section Vital Signs No Data Provided for This Section Encounters Location Location Details Encounter Type Encounter Number Reason For Visit Attending Provider ADM Date DC Date Status Source [facility] [place] [facility] [id number] Dara Reece 01/07/2015 01/08/2015 [facility] [place] [facility] [place] [facility] [id number] Margaux Delcid 01/11/2016 01/12/2016 [facility] [place] [facility] [place] [facility] [id number] Margaux Delcid 06/29/2016 06/30/2016 [facility] [place] [facility] [id number] Margaux Delcid 07/14/2016 07/15/2016 [facility] [place] [facility] [place] [facility] [id number] Calos Narayanan 05/14/2017 05/15/2017 [facility] [place] [facility] [place] [facility] [id number] Margaux Delcid 06/15/2017 06/16/2017 [facility] [place] Departed Emergency Room [id number] MAHESH SKY MD 07/28/2017 07/28/2017 [facility] [place] [facility] [id number] Karthikeyan Jennings 08/09/2017 08/10/2017 [facility] [place] [facility] [id number] Dara Reece 07/03/2018 07/04/2018 [facility] [place] Procedures Procedure Code Date Perfomer Comments Source X-ray of chest, two views [id number] 07/28/2017 JOSE DANIEL LR [facility] Assessment and Plan No Data Provided for This Section Plan of Care Plan of Care Date Source Discharge Date 07/28/17 12:40pm Disposition HOME, SELF-CARE Condition at Discharge Stable Instructions/Education Provided Bronchitis (Acute) - Adult Forms Provided Work/School Excuse Prescriptions See Medication Section Referrals MARGAUX DELCID Address: [address] [place] [address] Additional Instructions/Education 1. increase oral fluids 2. continue medications as prescribed 3. follow up with pcp in 1-2 dyas without fail 4. return to ed as needed 07/28/2017 [facility] Social History Social History Date Source No data available for this section 07/04/2018 [place] Bello No data available for this section 08/10/2017 [place] Cheek Smoking Status Start Date Stop Date Never Smoker 07/28/2017 [facility] Family History No Data Provided for This Section Advance Directives Order Name Results Value Date Source Advance Directives Advance Directives Directive Response Recorded Date/Time Does the patient have an advance directive? No 01/25/08 5:34pm If yes, is advance directive on file with [facility]? No 01/25/08 5:34pm If not on file with [facility] will patient provide a copy? Yes 06/27/16 7:44am Do you have a Directive to Physician? No 07/28/17 10:20am Do you have a Medical Power of Aprn? No 07/28/17 10:20am Do you have an out of hospital Do Not Resuscitate Order? No 07/28/17 10:20am Do you have any special needs we should be aware of? No 07/28/17 10:20am Do you have a support person here with you today? No 07/28/17 10:20am Did patient receive Notice of Privacy Practices? Yes 07/28/17 10:20am Did patient receive patient rights and responsibilities? Yes 07/28/17 10:20am 07/28/2017 [facility] Functional Status No Data Provided for This Section
--- OUTSIDE RECORDS SUMMARY | 2018-10-07 08:07 | XMS REPORT | Summary of Care ---
Author Author [facility] [place] Organization [facility] [place] Address Unknown Phone Unavailable Encounter HQ Juan Carlosntr_aliyee(FIN) [id number] Date(s): 01/07/15 - 01/07/15 [facility] [place] [address] [place], [place] [address] [phone] Discharge Disposition: Home Attending Physician: Dara Reece MD Vital Signs No data available for [...]
--- OUTSIDE RECORDS SUMMARY | 2018-10-07 08:07 | XMS REPORT | Summary of Care ---
Author Author [facility] - [place] Organization [facility] [place] Address Unknown Phone Unavailable Encounter HQ Juan Carlosntr_aliyee(FIN) [id number] Date(s): 01/07/15 - 01/07/15 [facility] [place] [address] [place] [address]- [facility] [phone] Discharge Disposition: Home Attending Physician: Dara Reece [...]
--- OUTSIDE RECORDS SUMMARY | 2018-10-07 08:07 | XMS REPORT | Summary of Care ---
Author Author [facility] Outpatient Imaging - [facility] [place] Address Unknown Phone Unavailable Encounter HQ Encntr_alias(FIN) [id number] Date(s): 05/14/17 - 05/14/17 [facility] Out[facility] - [place] [address] [place] [phone] Encounter Diagnosis Mastodynia (Final) - Left upper quadrant pain (Final) - 05/17/17 Discharge Disposition: Home or Self Care Attending Physician: Calos Narayanan MD Vital Signs No data available for [...]
--- OUTSIDE RECORDS SUMMARY | 2018-10-07 08:07 | XMS REPORT | Summary of Care ---
Author Author [facility] [place] Organization [facility] [place] Address Unknown Phone Unavailable Encounter HQ Encntr_alias(FIN) [id number] Date(s): 07/14/16 - 07/14/16 [facility] [place] [address] [place] [phone] Discharge Disposition: Home or Self Care Attending [...]
--- OUTSIDE RECORDS SUMMARY | 2018-10-07 08:07 | XMS REPORT | Summary of Care ---
Author Author [facility] [place] Organization [facility] [place] Address Unknown Phone Unavailable Encounter HQ Encntr_alias(FIN) [id number] Date(s): 07/03/18 - 07/03/18 [facility] - [place] [address] [place] [address] [phone] Discharge Disposition: Home or Self Care Attending Physician: Dara Reece MD Referring Physician: Dara Reece MD Vital Signs No [...]
--- OUTSIDE RECORDS SUMMARY | 2018-10-07 08:07 | XMS REPORT ---
Author Author [facility] Address Unknown Phone Unavailable Care Team Providers Care Music Leader Name Role Phone Jose SKY Unavailable Unavailable Problems This patient has no known problems. Allergies, Adverse Reactions, Alerts This patient has no known allergies or adverse reactions. Medications This patient has no known medications. Results Test Description Test Time Test Comments Text Results Atomic Results Result Comments CHEST [address] [address] Patient Name: MICAH GONSALEZ MR #: [id number] : 1970 Age/Sex: 47/F Req #: [id number] Adm Physician: Ordered by: MAHESH SKY MD Report #: [id number] Location: ER Room/Bed: Procedure: [id number] DX/CHEST 2 VIEWS Exam Date: 07/28/17 Exam Time: 1030 REPORT STATUS: Signed EXAMINATION: CHEST 2 VIEWS 07/28/2017 10:10 AM COMPARISON: None INDICATION: Shortness of breath DISCUSSION: LINES: None. LUNGS: The lungs are well inflated and clear. No pneumonia or pulmonary edema. PLEURA: No pleural effusion or pneumothorax. HEART AND MEDIASTINUM: The cardiomediastinal silhouette is unremarkable. BONES AND SOFT TISSUES: No acute osseous lesion. The soft tissues are normal. IMPRESSION: No acute cardiopulmonary disease. Kong Benson MD Signed by: Dr. Kong Benson M.D. on 07/28/2017 11:45 AM Dictated By: KONG BENSON MD [id number] Transcribed By: BERNIE on 07/28/17 1145 COPY TO: MAHESH SKY MD
--- OUTSIDE RECORDS SUMMARY | 2018-10-07 08:07 | XMS REPORT | Summary of Care ---
Author Author [facility] [place] [facility] [place] Address Unknown Phone Unavailable Encounter HQ Encntr_alias(FIN) [id number] Date(s): 01/11/16 - 01/11/16 [facility] [place] [address] [place] [phone] Discharge Disposition: Home or Self Care Attending [...]
--- OUTSIDE RECORDS SUMMARY | 2018-10-07 08:08 | XMS REPORT | Summary of Care ---
Author Author Kofi Huitron, Niurka Lewis Unknown Address Unknown Phone Unavailable Care Team Providers Care Rotary Engraver Name Role Phone JOSE Rudd, MARGAUX Unavailable Unavailable NUGENT N.P., LOLI Unavailable Unavailable VIANEY N.P., DEVI Unavailable Unavailable JOSE CLEMENTE IA, MARGAUX MARTIN Unavailable Unavailable VIANEY MERCHANDISER, DEVI Unavailable Unavailable MAGDALENA CLEMENTE IA, ALFREDO OCONNELL Unavailable Unavailable Unavailable Unavailable Functional Status Name Dates Details Functional status health issues are not documented Status: Name Dates Details Cognitive status health issues are not documented Status: Problems Name Dates Details Hematuria (599.70, R31.9) Status: Active Mitral valve prolapse syndrome (424.0, I34.1) Status: Active Abnormal glucose (790.29, R73.09) Status: Active Screening for malignant neoplasm of breast (V76.10, Z12.39) Status: Active Tracheobronchitis (490, J40) Status: Active [...] (temporomandibular joint syndrome) (524.60, M26.609) Status: Active Palpitations (785.1, R00.2) Status: Active Burning with urination (788.1, R30.0) Status: Active Vertigo (780.4, R42) Status: Active Nausea and vomiting (787.01, R11.2) Status: Active Chronic gastroesophageal reflux disease (530.81, K21.9) Status: Active Neck pain on left side (723.1, M54.2) Status: Active Myofascial pain on left side (729.1, M79.18) Status: Active Allergic conjunctivitis of both eyes (372.14, H10.13) Status: Active BPPV (benign paroxysmal positional vertigo) (386.11, H81.10) Status: Active Hyperlipidemia (272.4, E78.5) Status: Active Marcie vaginitis (112.1, B37.3) Status: [...] Active Orthostatic hypotension (458.0, I95.1) Status: Active Screening for hypothyroidism (V77.0, Z13.29) [...] tract infection (V13.02, Z87.440) Status: Active Acute pharyngitis with influenza (487.1, J11.1) Status: Active Acute tracheobronchitis (466.0, J20.9) Status: Active Acute pharyngitis due to other specified organisms (462, J02.8) Status: Active Acute non-recurrent maxillary sinusitis (461.0, [...] Active Migraine headache (346.90, G43.909) Status: Active Left upper quadrant pain (789.02, R10.12) Status: Active Failure of outpatient treatment (V49.89, Z78.9) Status: Active Fever (780.60, R50.9) Status: Active Symptoms of upper respiratory infection (URI) (786.09, R09.89) Status: Active Chest pain (786.50, R07.9) Status: Active Acute recurrent sinusitis (461.9, J01.91) Status: Active Maxillary opacification (793.0, R93.0) Status: Active Acute bronchitis due to other specified organisms (466.0, J20.8) Status: Active Moderate persistent asthma with acute exacerbation (493.92, J45.41) Status: Active Ear pressure, left (388.8, H93.8X2) Status: Active Yeast infection (112.9, B37.9) Status: Active Elevated hemoglobin A1c (790.29, R73.09) Status: Active Hyperglycemia (790.29, R73.9) Status: Active Impaired fasting glucose (790.21, R73.01) Status: Active Obesity (BMI 30-39.9) (278.00, E66.9) Status: Active Left maxillary sinusitis (473.0, J32.0) Status: Active Acute suppurative otitis media of left ear without spontaneous rupture of tympanic membrane, recurrence not specified (382.00, H66.002) Status: Active Acute non-recurrent sinusitis of other sinus (461.8, J01.80) Status: Active Sinusitis (473.9, J32.9) Status: Active Screening for diabetes mellitus (V77.1, Z13.1) Status: Active Screening for lipid disorders (V77.91, Z13.220) Status: Active Acute right lumbar radiculopathy (724.4, M54.16) Status: Active Low back pain radiating to right lower extremity (724.2, M54.5) Status: Active Encounter for well adult exam with abnormal findings (V70.0, Z00.01) Status: Active Acute bronchitis due to infection (466.0, J20.8) Status: Active Pre-diabetes (790.29, R73.03) Status: Active Complex cyst of right ovary (620.2, N83.291) Status: Active Depression screening negative (V79.0, Z13.31) Status: Active Obesity (BMI 30.0-34.9) (278.00, E66.9) Status: Active Encounter to discuss test results (V65.49, Z71.2) Status: Active Acute low back pain (724.2, M54.5) Status: Active Acute exacerbation of mild persistent extrinsic asthma (493.02, J45.31) Status: Active Allergic rhinitis (477.9, J30.9) Status: Active Medications Name Dates Details Montelukast Sodium 10 MG Oral Tablet TAKE 1 TABLET BY MOUTH DAILY Quantity: 90 MARGAUX GARCIA M.D. * Start : 18-Aug-2013 Active Pantoprazole Sodium 40 MG Oral Tablet Delayed Release TAKE 1 TABLET BY MOUTH DAILY. PATIENT NEEDS APPOINTMENT * Quantity: 90 Refills: 1 MARGAUX GARCIA M.D. * Start : 16-Aug-2018 Active Gabapentin 300 MG Oral Capsule TAKE 1 CAPSULE BY MOUTH THREE TIMES DAILY * Quantity: 270 Refills: 0 JOSE Rudd MARGAUX * Start : 28-Jul-2016 Active Albuterol Sulfate (2.5 MG/3ML) 0.083% Inhalation Nebulization Solution USE 1 UNIT DOSE FOUR TIMES A DAY UNTIL WELL * Quantity: 1 Refills: 1 MARGAUX GARCIA M.D. Active 60 x 3 ML Plas Cont Budesonide 0.5 MG/2ML Inhalation Suspension USE 1 UNIT DOSE VIA NEBULIZER EVERY 12 HOURS UNTIL WELL * Quantity: 1 Refills: 1 JOSE Rudd, MARGAUX * Start : 31-Jul-2017 Active 30 x 2 ML Plas Cont Azelastine HCl - 0.15 % Nasal Solution One spray each nostril twice a day * Quantity: 1 Refills: 1 MARGAUX GARCIA M.D. * Start : 21-Aug-2017 Active 30 ML [place] Btl OneTouch Verio w/Device Kit For daily glucose monitoring * Quantity: 1 Refills: 0 NUGENT N.P., LOLI * Start : 18-Sep-2017 Active OneTouch Verio In Vitro Strip CHECK 2 TIMES DAILY * Quantity: 2 Refills: 2 NUGENT N.P., LOLI * Start : 18-Sep-2017 Active 100 Strip Box OneTouch Addison Martinez Fine For glucose monitoring twice daily * Quantity: 2 Refills: 2 NUGENT N.P., LOLI * Start : 18-Sep-2017 Active 100 Unit Box Naproxen 500 MG Oral Tablet * Refills: 0 Active Azelastine HCl - 0.05 % Ophthalmic Solution * Refills: 0 Active Olopatadine HCl - 0.2 % Ophthalmic Solution * Refills: 0 Active Fluticasone Propionate 50 MCG/ACT Nasal Suspension SPRAY ONE SPRAY IN EACH NOSTRIL TWICE DAILY * Quantity: 16 Refills: 0 MARGAUX GARCIA M.D. Active predniSONE 10 MG Oral Tablet Take 3 tabs by mouth once daily for 3 days, then 2 tabs by mouth daily for 3 day s, then 1 tab by mouth daily for 3 days * Quantity: 18 Refills: 0 VIANEY N.P., DEVI * Start : 01-Oct-2018 Active Flovent HFA 110 MCG/ACT Inhalation Aerosol Inhale 1 puff twice daily. Rinse mouth after * Quantity: 1 Refills: 2 VIANEY N.P., DEVI * Start : 01-Oct-2018 Active 12 GM Inhaler ProAir HFA 108 (90 Base) MCG/ACT Inhalation Aerosol Solution INHALE 1 TO 2 PUFFS EVERY 4 TO 6 HOURS NEEDED. * Quantity: 1 Refills: 2 VIANEY N.P., DEVI * Start : 01-Oct-2018 Active 8.5 GM Inhaler Symbicort 80-4.5 MCG/ACT Inhalation Aerosol INHALE 2 PUFFS TWICE DAILY. RINSE MOUTH AFTER USE. * Quantity: 1 Refills: 2 VIANEY N.P., DEVI * Start : 02-Oct-2018 Active 10.2 GM Inhaler Allergies and Adverse Reactions Name Dates Details [...] Influenza on: Jan-2016 Hepatitis A Lot #: [id number] on: 15-Feb-2016 Hep B (Recombinant) Lot #: [id number] on: 15-Feb-2016 Hepatitis B Lot #: [id number] on: 16-Mar-2016 Hepatitis A, adult Lot #: [id number] on: 21-Aug-2016 Hepatitis B, adult Lot #: [id number] on: 21-Aug-2016 Fluzone INJ on: 15-Dec-2016 Tdap (Adacel) Lot #: [id number] on: 15-Mar-2017 Family History Name Dates Details [...] smoker Vital Signs Date Test Result Details [id number]-48200:15 BP Systolic 110 mm[Hg] Status: Comments: Location: E; Position: Sitting BP Diastolic 77 mm[Hg] Status: Comments: Location: LUE; Position: Sitting Height 64 in Status: Weight 203.375 lb Status: Body Mass Index Calculated 34.91 kg/m2 Status: Body Surface Area Calculated 1.97 m2 Status: Temperature 96.9 f Status: Comments: Method: Temporal Heart Rate 66 /min Status: Respiration Rate 16 /min Status: O2 SAT 99 % Status: Results Date Description Value Details Results not documented Plan of Care Name Dates Details Planned Observations Planned Goals not documented Planned Encounters Appointment; DEVI WINTERS NP On: 21-Oct-2018 16:30 Interventions Provided Medication Changes* Montelukast Sodium 10 MG Oral Tablet - Renew Instructions Name Dates Details Instructions not documented Encounters Appointment; MARGAUX GARCIA M.D. Encounter Diagnosis: Problem [...] Problem not documented On: 26-Jul-2017 10:30 Appointment; MARGAUX GARCIA M.D. Encounter Diagnosis: Problem not documented On: 31-Jul-2017 13:15 Appointment; MARGAUX GARCIA M.D. Encounter Diagnosis: Problem not documented On: 03-Aug-2017 8:15 Appointment; LUDWIG DILLON NP Encounter Diagnosis: Problem not documented On: 09-Aug-2017 10:00 Appointment; MARGAUX GARCIA M.D. Encounter Diagnosis: Problem not documented On: 21-Aug-2017 14:15 Appointment; JEAN-PIERRE RANGEL M.D. Encounter Diagnosis: Problem not documented On: 13-Sep-2017 9:00 Appointment; [address] Encounter Diagnosis: Problem not documented On: 17-Sep-2017 13:00 Appointment; JEAN-PIERRE RANGEL M.D. Encounter Diagnosis: Problem not documented On: 04-Oct-2017 10:15 Appointment; CIRO [address] Encounter Diagnosis: Problem not documented On: 05-Nov-2017 15:00 Appointment; GRAZYNA ROSS P.A. Encounter Diagnosis: Problem not documented On: 20-Mar-2018 15:00 Appointment; MARGAUX GARCIA M.D. Encounter Diagnosis: Problem not documented On: 22-Mar-2018 10:30 Appointment; DEVI WINTERS NP Encounter Diagnosis: Problem not documented On: 29-Apr-2018 10:00 Appointment; MARGAUX GARCIA M.D. Encounter Diagnosis: Problem not documented On: 09-Jul-2018 14:15 Appointment; DEVI WINTERS NP Encounter Diagnosis: Problem not documented On: 01-Oct-2018 9:00
[2018-10-07] MEDS ORDERED: SODIUM CHLORIDE 0.9% 1000ML 1,000 ML IV STA (08:28)
[2018-10-07] MEDS ORDERED: ALBUTEROL SULF 0.083% NEB SOLN 3 ML NEB NEB STA (08:34)
[2018-10-07] MEDS ORDERED: METHYLPREDNISOLONE SOD SUCC 125 MG/2ML VIAL IV ONE (08:45)
[2018-10-07] MEDS ORDERED: IPRATROPIUM BROMIDE 0.02% 2.5 ML NEB NEB ONE (08:45)
[2018-10-07] MEDS ORDERED: ASPIRIN 81 MG CHEW TAB PO ONE (09:00)
--- NOTE | 2018-10-07 09:21 | Diagnostic Imaging Report ---
EXAMINATION: CHEST 2 VIEWS INDICATION: Cough COMPARISON: Chest radiograph 07/28/2017 FINDINGS: TUBES and LINES: None. LUNGS: The lung volumes are normal. No focal consolidation or pulmonary edema. PLEURA: No pleural effusion or pneumothorax. HEART AND MEDIASTINUM: The cardiomediastinal silhouette is normal in size and contour. BONES AND SOFT TISSUES: No acute fracture or dislocation. UPPER ABDOMEN: No free air under the diaphragm. IMPRESSION: No focal pneumonia or pulmonary edema. Signed by: Faith Arevalo MD on 10/07/2018 9:18 AM
--- NOTE | 2018-10-07 09:23 | NUR ---
PATIENT TO ROOM 7 AT THIS TIME; RT NOTIFIED OF NEED FOR NEB TREATMENTS
[2018-10-07 09:27] LABS: BASOPHILS # (AUTO) 0.1 (0.0-0.1); BASOPHILS % 0.8 % (0.0-1.0); EOSINOPHILS # (AUTO) 0.2 (0.0-0.4); EOSINOPHILS % 2.4 % (0.0-6.0); HEMATOCRIT 37.1 % (34.2-44.1); LYMPHOCYTES # (AUTO) 3.2 (1.0-3.2); LYMPHOCYTES % 33.5 % (18.0-39.1); MEAN CORPUSCULAR HEMOGLOBIN 29.8 pg (28-32); MEAN CORPUSCULAR VOLUME 85.1 fL (81-99); MONOCYTES # (AUTO) 0.6 (0.2-0.8); MONOCYTES % 6.6 % (4.4-11.3); NEUTROPHILS # (AUTO) 5.4 (2.1-6.9); NEUTROPHILS % 56.3 % (38.7-80.0); PLATELET COUNT 310 x10e3/uL (140-360); RED BLOOD COUNT 4.36 x10e6/uL (3.6-5.1); RED CELL DISTRIBUTION WIDTH 13.3 % (11.7-14.4)
[2018-10-07 09:29] LABS: BILIRUBIN,URINE NEGATIVE (NEGATIVE); CLARITY,URINE CLEAR (CLEAR); COLOR,URINE YELLOW (YELLOW); KETONES,URINE NEGATIVE (NEGATIVE); LEUKOCYTE ESTERASE ,URINE NEGATIVE (NEGATIVE); NITRITE,URINE NEGATIVE (NEGATIVE); PROTEIN,URINE DIPSTICK NEGATIVE (NEGATIVE); URINE UROBILINOGEN 0.2 mg/dL (0.2 - 1)
[2018-10-07 09:51] LABS: ALANINE AMINOTRANSFERASE 21 IU/L (0-55); ALBUMIN/GLOBULIN RATIO 1.2 (0.8-2.0); ALKALINE PHOSPHATASE 79 IU/L (40-150); ANION GAP 15.3 mmol/L (8-16); BACTERIA,URINE FEW /HPF; BLOOD UREA NITROGEN 9 mg/dL (7-26); BUN/CREATININE RATIO 11 (6-25); CALCIUM 9.3 mg/dL (8.4-10.2); CARBON DIOXIDE 22 mmol/L (22-29); CHLORIDE 108 mmol/L (98-107); CREATINE KINASE 48 IU/L (29-168); CREATININE, SERUM 0.79 mg/dL (0.57-1.11); EPITHELIAL CELLS,URINE FEW /LPF; EST GLOMERULAR FILTRATION RATE > 60 ML/MIN (60-); GLUCOSE 116 mg/dL (74-118); MAGNESIUM 2.2 MG/DL (1.3-2.1); POTASSIUM 3.3 mmol/L (3.5-5.1); SODIUM 142 mmol/L (136-145)
[2018-10-07 09:54] LABS: PREGNANCY TEST, URINE NEGATIVE (NEGATIVE)
[2018-10-07 10:00] LABS: INR 0.89; PROTHROMBIN TIME 12.5 seconds (11.9-14.5)
[2018-10-07 10:01] LABS: PARTIAL THROMBOPLASTIN TIME 30.5 seconds (23.8-35.5)
[2018-10-07 10:10] LABS: THYROID STIMULATING HORMONE 3.236 uIU/mL (0.350-4.940)
[2018-10-07] MEDS ORDERED: POTASSIUM CHLORIDE 20 MEQ TAB CR PO STA (10:16)
[2018-10-07] MEDS: ALBUTEROL/IPRATROPIUM 3 ML NEB NEB SCH ×4 (11:00→23:00)
--- OUTSIDE RECORDS SUMMARY | 2018-10-07 11:11 | XMS REPORT | Continuity of Care Document ---
Author Author [employer] Organization [employer] Address Unknown Phone Unavailable Care Team Providers Care Spray Technician Name Role Phone Connexity Information SeeControl Unavailable Unavailable Problems Problem Status Onset Date Classification Date Reported Comments Source Left upper quadrant pain 06/22/2017 09/21/2017 [facility] [place] M54.5 - LOW BACK PAIN Active 06/29/2016 [facility] [place] R92.2 - INCONCLUSIVE MAMMOGRAM Active 12/31/2014 [facility] [place] V76.12 - SCREEN MAMMOGRA Active 12/10/2013 [facility] [place] Mastodynia 08/20/2017 [facility] [place] Hepatomegaly, not elsewhere classified 09/21/2017 [facility] [place] Medications Medication Details Route Status Patient Instructions Ordering Provider Order Date Source Losartan Potassium 100 Mg Tablet, 25 Mg Oral Daily Active 07/28/2017 [facility] Propranolol Hcl 80 Mg Cap.sa.24h, 80 Mg Oral Daily Active 07/28/2017 [facility] Flonase , Active 06/27/2016 [facility] Nortriptyline Hcl 25 Mg Capsule, Daily Active 06/27/2016 [facility] Singulair , Active 06/27/2016 [facility] Sumatriptan Succinate (Imitrex) 100 Mg Tablet, as needed for Headache Active 06/27/2016 [facility] Hydrocodone , Active 12/30/2013 [facility] Promethazine , Active 12/30/2013 [facility] Montelukast Sodium 10 Mg Tablet Daily Active [facility] Protonix Active [facility] Allergies, Adverse Reactions, Alerts Substance Category Reaction Severity Reaction type Status Date Reported Comments Source Sulfa (Sulfonamide Antibiotics) RASH Mild Allergy to Substance Active 06/28/2009 [facility] Amoxicillin RASH Mild Allergy to Substance Active 06/28/2009 [facility] ADHESIVE TAPE BLISTER TURN TO OPEN WOUND Mild Allergy to Substance Active 06/28/2009 [facility] Immunizations No Data Provided for This Section Results Order Name Results Value Reference Range Date Interpretation Comments Source Automated blood basophil count (count/volume) Automated blood basophil count (count/volume) 0.0 0.0 - 0.1 07/28/2017 [facility] Automated blood basophil count as percentage of total leukocytes Automated blood basophil count as percentage of total leukocytes 0.5 0.0 - 1.0 07/28/2017 [facility] Automated blood eosinophil count Automated blood eosinophil count 0.0 0.0 - 0.4 07/28/2017 [facility] Automated blood eosinophil count as percentage of total leukocytes Automated blood eosinophil count as percentage of total leukocytes 0.5 0.0 - 6.0 07/28/2017 [facility] Automated blood hematocrit (volume fraction) Automated blood hematocrit (volume fraction) 40.1 34.2 - 44.1 07/28/2017 [facility] Automated blood lymphocyte count as percentage ot total leukocytes Automated blood lymphocyte count as percentage ot total leukocytes 10.7 18.0 - 39.1 07/28/2017 [facility] Automated blood monocyte count as percentage of total leukocytes Automated blood monocyte count as percentage of total leukocytes 8.5 4.4 - 11.3 07/28/2017 [facility] Automated blood neutrophil count Automated blood neutrophil count 6.8 2.1 - 6.9 07/28/2017 [facility] Automated blood platelet count (count/volume) Automated blood platelet count (count/volume) 268 140 - 360 07/28/2017 [facility] Automated blood segmented neutrophil count as percentage of total leukocytes Automated blood segmented neutrophil count as percentage of total leukocytes 79.3 38.7 - 80.0 07/28/2017 [facility] Automated erythrocyte mean corpuscular hemoglobin (mass per erythrocyte) Automated erythrocyte mean corpuscular hemoglobin (mass per erythrocyte) 29.8 28 - 32 07/28/2017 [facility] Automated erythrocyte mean corpuscular hemoglobin concentration measurement (mass/volume) Automated erythrocyte mean corpuscular hemoglobin concentration measurement (mass/volume) 34.7 31 - 35 07/28/2017 [facility] Automated erythrocyte mean corpuscular volume Automated erythrocyte mean corpuscular volume 86.1 81 - 99 07/28/2017 [facility] Automated urine sediment leukocyte count by microscopy (number/high power field) Automated urine sediment leukocyte count by microscopy (number/high power field) <5 0 - 5 07/28/2017 [facility] Bacteria detection in urine sediment by light microscopy Bacteria detection in urine sediment by light microscopy FEW NONE 07/28/2017 [facility] Blood erythrocytes automated count (number/volume) Blood erythrocytes automated count (number/volume) 4.66 3.6 - 5.1 07/28/2017 [facility] Blood hemoglobin measurement (moles/volume) Blood hemoglobin measurement (moles/volume) 13.9 12.0 - 16.0 07/28/2017 [facility] Blood leukocytes automated count (number/volume) Blood leukocytes automated count (number/volume) 8.58 4.8 - 10.8 07/28/2017 [facility] Blood lymphocytes count (number/volume) Blood lymphocytes count (number/volume) 0.9 1.0 - 3.2 07/28/2017 [facility] Blood monocytes automated count (number/volume) Blood monocytes automated count (number/volume) 0.7 0.2 - 0.8 07/28/2017 [facility] Epithelial cells detection in urine sediment by light microscopy Epithelial cells detection in urine sediment by light microscopy FEW NONE 07/28/2017 [facility] Erythrocytes detection in urine sediment by light microscopy Erythrocytes detection in urine sediment by light microscopy <5 0 - 5 07/28/2017 [facility] Estimated glomerular filtration rate (GFR) determination Estimated glomerular filtration rate (GFR) determination >60 60 07/28/2017 [facility] Fibrin D-dimer DDU measurement in platelet poor plasma (mass/volume) Fibrin D-dimer DDU measurement in platelet poor plasma (mass/volume) 0.41 0.00 - 0.45 07/28/2017 [facility] Glucose measurement Glucose measurement 140 74 - 118 07/28/2017 [facility] Plasma globulin measurement (mass/volume) Plasma globulin measurement (mass/volume) 4.5 2.3 - 3.5 07/28/2017 [facility] Serum or plasma alanine aminotransferase measurement (enzymatic activity/volume) Serum or plasma alanine aminotransferase measurement (enzymatic activity/volume) 26 0 - 55 07/28/2017 [facility] Serum or plasma albumin measurement (mass/volume) Serum or plasma albumin measurement (mass/volume) 3.9 3.5 - 5.0 07/28/2017 [facility] Serum or plasma albumin/globulin mass ratio Serum or plasma albumin/globulin mass ratio 0.9 0.8 - 2.0 07/28/2017 [facility] Serum or plasma alkaline phosphatase measurement (enzymatic activity/volume) Serum or plasma alkaline phosphatase measurement (enzymatic activity/volume) 99 40 - 150 07/28/2017 [facility] Serum or plasma anion gap Serum or plasma anion gap 14.6 8 - 16 07/28/2017 [facility] Serum or plasma calcium measurement (mass/volume) Serum or plasma calcium measurement (mass/volume) 9.9 8.4 - 10.2 07/28/2017 [facility] Serum or plasma carbon dioxide, total measurement (moles/volume) Serum or plasma carbon dioxide, total measurement (moles/volume) 23 22 - 29 07/28/2017 [facility] Serum or plasma chloride measurement (moles/volume) Serum or plasma chloride measurement (moles/volume) 101 98 - 107 07/28/2017 [facility] Serum or plasma creatine kinase MB measurement (mass/volume) Serum or plasma creatine kinase MB measurement (mass/volume) 1.30 0 - 5.0 07/28/2017 [facility] Serum or plasma creatine kinase measurement (enzymatic activity/volume) Serum or plasma creatine kinase measurement (enzymatic activity/volume) 342 29 - 168 07/28/2017 [facility] Serum or plasma creatinine measurement (mass/volume) Serum or plasma creatinine measurement (mass/volume) 0.78 0.57 - 1.11 07/28/2017 [facility] Serum or plasma potassium measurement (moles/volume) Serum or plasma potassium measurement (moles/volume) 3.6 3.5 - 5.1 07/28/2017 [facility] Serum or plasma protein measurement (mass/volume) Serum or plasma protein measurement (mass/volume) 8.4 6.5 - 8.1 07/28/2017 [facility] Serum or plasma sodium measurement (moles/volume) Serum or plasma sodium measurement (moles/volume) 135 136 - 145 07/28/2017 [facility] Serum or plasma total bilirubin measurement (mass/volume) Serum or plasma total bilirubin measurement (mass/volume) 0.6 0.2 - 1.2 07/28/2017 [facility] Serum or plasma urea nitrogen measurement (mass/volume) Serum or plasma urea nitrogen measurement (mass/volume) 10 7 - 26 07/28/2017 [facility] Serum or plasma urea nitrogen/creatinine mass ratio Serum or plasma urea nitrogen/creatinine mass ratio 13 6 - 25 07/28/2017 [facility] Specific gravity of Urine by Test strip Specific gravity of Urine by Test strip 1.015 1.010 - 1.025 07/28/2017 [facility] Troponin I measurement by highly sensitive enzyme immunoassay Troponin I measurement by highly sensitive enzyme immunoassay <0.001 0 - 0.300 07/28/2017 [facility] Urine clarity Urine clarity SL CLOUDY CLEAR 07/28/2017 [facility] Urine color determination Urine color determination YELLOW YELLOW 07/28/2017 [facility] Urine erythrocytes detection Urine erythrocytes detection TRACE NEGATIVE 07/28/2017 [facility] Urine glucose detection Urine glucose detection NEGATIVE NEGATIVE 07/28/2017 [facility] Urine ketones detection by automated test strip Urine ketones detection by automated test strip NEGATIVE NEGATIVE 07/28/2017 [facility] Urine leukocyte esterase detection by dipstick Urine leukocyte esterase detection by dipstick NEGATIVE NEGATIVE 07/28/2017 [facility] Urine nitrite detection Urine nitrite detection NEGATIVE NEGATIVE 07/28/2017 [facility] Urine pH measurement by automated test strip Urine pH measurement by automated test strip 6 5 - 7 07/28/2017 [facility] Urine protein measurement by test strip (mass/volume) Urine protein measurement by test strip (mass/volume) NEGATIVE NEGATIVE 07/28/2017 [facility] Urine total bilirubin measurement (mass/volume) Urine total bilirubin measurement (mass/volume) NEGATIVE NEGATIVE 07/28/2017 [facility] Urine urobilinogen measurement by test strip (mass/volume) Urine urobilinogen measurement by test strip (mass/volume) 0.2 0.2 - 1 07/28/2017 [facility] Red Cell Distribution Width 12.8 11.7 - 14.4 07/28/2017 [facility] IM GRANULOCYTES % 0.5 0.0 - 1.0 07/28/2017 [facility] Absolute Immature Granulocyte (auto 0.04 0 - 0.1 07/28/2017 [facility] Aspartate Amino Transf (AST/SGOT) 23 5 - 34 07/28/2017 [facility] B-Type Natriuretic Peptide 14.9 0 - 100 07/28/2017 [facility] Pathology Reports No Data Provided for This [...] mammogram, 12/06/2012 mammogram, and 04/30/2009 mammogram - [facility]. TECHNIQUE: Mammographic views were obtained [...] is recommended.(07/04/2019) This exam was interpreted at [id number] at [facility]. Professional services are provided by the [facility]. Kathrine Huang M.D. to/penrad:07/04/2018 07:41:17 Boxing Instructor(s): RT Blayne(R)(M), [facility] [place] Bello letter sent: BI-RADS 1/2 [...] and adnexal cysts imaged at US. Radiology. 2009;256(3):573-54 07/03/2018 [facility] [place] Sinus paranasal series [...] than left, consistent with mucosal disease. 08/09/2017 [facility] Abdomen complete US EXAM: Abdomen complete US [...] : Left rib series 05/14/2017 10:15 AM CATALOG LIBRARIAN Comparisons : none Findings : There is [...] mammogram, 12/06/2012 mammogram, and 04/30/2009 mammogram - [facility]. TECHNIQUE: Color flow and real-time [...] is recommended.(05/15/2018) This exam was interpreted at [id number] for NEPTALI Bello. Professional services are provided by the [facility]. Shahbaz Perez M.D., cm/kimberly:05/14/2017 10:14:35 Boxing Instructor(s): Rubina Muñoz [facility] letter sent: BI-RADS 1/2 Ultrasound BI-RADS: 2 Benign 05/14/2017 NE[facility]I Bello Breast Mammo Diag BERT incl CAD MA BILATERAL DIGITAL DIAGNOSTIC MAMMOGRAM WITH CAD: 05/14/2017 CLINICAL: N64.4 Mastodynia/N64.4 Mastodynia. Current study was evaluated with a Computer Aided Detection (CAD) system. COMPARISON:Comparison is made to exams dated: 01/07/2015 mammogram, 12/06/2012 mammogram, and 04/30/2009 mammogram - [facility]. TECHNIQUE: Mammographic views were obtained [...] of malignancy. This exam was interpreted at [id number] for NEPTALI Bello. Professional services are provided by the [facility]. Shahbaz Perez M.D. cm/penrad:05/14/2017 10:13:42 Boxing Instructor(s): RT Blayne(R)(M), [facility] Mammogram BI-RADS: 2 Benign 05/14/2017 [...] the abdomen. IMPRESSION: No acute abnormality. 06/29/2016 [facility] Chest 2 views DX Exam: Two-view chest x-ray Reason for Exam: Chest pain. Right upper quadrant abdominal pain. Comparison Exam: None Discussion: Cardiomediastinal silhouette is within normal limits. Both hemidiaphragms well visualized. No pulmonary edema or pleural effusions. No focal lung consolidations. Trachea is midline. No acute bony abnormalities. Impression: 1. No acute cardiopulmonary abnormalities. 01/11/2016 [facility] Abdomen complete US EXAM: Abdomen ultrasound. CLINICAL [...] (favored) and other chronic hepatocellular disease. 01/11/2016 [facility] Digital Mammo Screening Bert MA - DIGITAL MAMMO SCREENING BERT MA BILATERAL DIGITAL SCREENING MAMMOGRAM WITH CAD: 01/07/2015 CLINICAL: Routine. Current study was evaluated with a Computer Aided Detection (CAD) system. Comparison is made to exams dated: 12/06/2012 mammogram and 04/30/2009 mammogram - [facility]. The tissue of both breasts [...] screening mammogram is recommended. Schuyler kaur/penrad:01/07/2015 11:41:20 Boxing Instructor: Angelica PÉREZ(R)(M), [facility] This exam was dictated and interpreted by [id number] for NEPTALI Bello. letter sent: Normal exam [...] Provider ADM Date DC Date Status Source [facility] [place] [facility] [id number] Dara Reece 01/07/2015 01/08/[address] [facility] [place] [facility] [id number] Margaux Delcid 01/11/2016 01/12/[address] [place] [facility] Out[facility] - [place] Out[facility] [id number] Margaux Delcid 06/29/2016 06/30/2016 [facility] Outpatient Imaging - [place] [facility] [id number] Margaux Delcid 07/14/2016 07/15/[address] [place] [facility] [place] [facility] [id number] Calos Narayanan 05/14/2017 05/15/[address] [place] [facility] [place] [facility] [id number] Margaux Delcid 06/15/2017 06/16/2017 [facility] [place] Departed Emergency Room [id number] MAHESH SKY MD 07/28/2017 07/28/2017 [facility] Outpatient Imaging [facility] [place] Out[facility] [id number] Karthikeyan Jennings 08/09/2017 08/10/2017 [facility] [place] [facility] [id number] Dara Reece 07/03/2018 07/04/2018 [facility] [place] Procedures Procedure Code Date Perfomer Comments Source X-ray of chest, two views [id number] 07/28/2017 JOSE DANIEL LR [facility] Assessment and Plan No Data Provided for This Section Plan of Care Plan of Care Date Source Discharge Date 07/28/17 12:40pm Disposition HOME, SELF-CARE Condition at Discharge Stable Instructions/Education Provided Bronchitis (Acute) - Adult Forms Provided Work/School Excuse Prescriptions See Medication Section Referrals MARGAUX DELCID Address: [address] [place] [address] Additional Instructions/Education 1. increase oral fluids 2. continue medications as prescribed 3. follow up with pcp in 1-2 dyas without fail 4. return to ed as needed 07/28/2017 [facility] Social History Social History Date Source No data available for this section 07/04/2018 [place] No data available for this section 08/10/2017 [place] Smoking Status Start Date Stop Date Never Smoker 07/28/2017 [facility] Family History No Data Provided for This Section Advance Directives Order Name Results Value Date Source Advance Directives Advance Directives Directive Response Recorded Date/Time Does the patient have an advance directive? No 01/25/08 5:34pm If yes, is advance directive on file with [facility]? No 01/25/08 5:34pm If not on file with [facility] will patient provide a copy? Yes 06/27/16 7:44am Do you have a Directive to Physician? No 07/28/17 10:20am Do you have a Medical Power of Division Commander? No 07/28/17 10:20am Do you have an [...] rights and responsibilities? Yes 07/28/17 10:20am 07/28/2017 [facility] Functional Status No Data Provided for This Section
[2018-10-07] MEDS: ACETAMINOPHEN 325 MG TAB PO PRN ×2 (11:27→20:51)
[2018-10-07] MEDS: AZITHROMYCIN 500MG/NS 250 ML 250 ML IV SCH (11:27)
[2018-10-07 12:50] VITALS: BP 131/90
--- NOTE | 2018-10-07 12:50 | NUR ---
RCD PT FROM ER BY WHEEL CHAIR PT IS ALERT AND ORIENTED VITALS CHECKED PT RESTING ON BED NO SIGNS OF ANY DISTRESS NOTED ADMISSION ASSESSMENT AND HISTORY DONE INSTRUCTED TO PT REGARDING HOSPITAL POLICY AND ROUTINE BED LOW AND LOCKED CALL LIGHT IN REACH
[2018-10-07] MEDS ORDERED: SODIUM CHLORIDE 0.9% 250ML 250 ML ONE (13:14)
[2018-10-07 13:33] VITALS: BP 131/90
[2018-10-07 13:45] VITALS: BP 130/90
[2018-10-07 16:00] VITALS: BP 118/69
[2018-10-07] MEDS ORDERED: PREDNISONE 20 MG TAB PO ONE (18:00)
--- NOTE | 2018-10-07 18:44 | NUR ---
PT RESTING ON BED BED SIDE REPORT GIVEN TO ONCOMING NURSE
--- NOTE | 2018-10-07 18:52 | Consultation ---
DATE OF CONSULTATION: 10/07/2018 Cardiology Consultation Ms. Castelan is a pleasant 48-year-old woman, who presented to the emergency roomwith complaints of shortness of breath and left-sided chest and arm discomfort. HISTORY OF PRESENT ILLNESS: The patient reports that she has been short of breath for several days, especially fall at work and uses her inhaler and only gradually started noticing left shoulder and left arm discomfort. Not sure what the origin is. She has never had it before. PAST MEDICAL HISTORY: Significant for long-standing asthma. She uses an inhaler at home. She denies hypertension or diabetes. Reports she has been following a ketogenic diet lately. PERSONAL AND SOCIAL HISTORY: She is nonsmoker. FAMILY HISTORY: Father of liver cancer. Mother is alive with diabetes and hypertension. PHYSICAL EXAMINATION: GENERAL: At this time shows a pleasant obese woman, who appears to be comfortable. HEAD, EYES, EARS, NOSE, THROAT: Unremarkable. NECK: No jugular venous distention thorax. Chest wall is nontender. HEART: Sounds S1, S2 are equal. No murmurs. LUNGS: Clear. ABDOMEN: Protuberant. Normal bowel sounds. EXTREMITIES: No cyanosis, clubbing, or edema. EKG is unremarkable. Her BNP is less than 10. Troponin normal. Potassium 3.3. White count 9.5. Echocardiogram shows normal left ventricular function. EF 55% to 60%. ASSESSMENTS: 1. Musculoskeletal, probably pain. Chest pain, etiology not clear. 1. Asthma. PLAN: We will give one dose of prednisone now, both for lung problems and for possible musculoskeletal pain. We will plan to perform stress Myoview in the morning if she remains otherwise stable. Thank you for asking me to see her in consultation. MD CURTIS Rodriguez/JED /[id number]
[2018-10-07 18:54] LABS: CREATINE KINASE MB 0.6 ng/mL (0-5.0)
[2018-10-07 20:00] VITALS: BP 122/67
[2018-10-07 22:10] VITALS: BP 125/70
[2018-10-08] VITALS: BP 127/79
[2018-10-08 04:00] VITALS: BP 118/75
[2018-10-08] MEDS: ALBUTEROL/IPRATROPIUM 3 ML NEB NEB SCH ×4 (04:19→16:00)
[2018-10-08] MEDS: ACETAMINOPHEN 325 MG TAB PO PRN (06:02)
[2018-10-08 06:08] LABS: BASOPHILS % 0.1 % (0.0-1.0); HEMATOCRIT 38.8 % (34.2-44.1); HEMOGLOBIN 12.8 g/dL (12.0-16.0); LYMPHOCYTES # (AUTO) 1.6 (1.0-3.2); LYMPHOCYTES % 11.3 % (18.0-39.1); MEAN CORPUSCULAR HEMOGLOBIN 29.2 pg (28-32); MEAN CORPUSCULAR VOLUME 88.6 fL (81-99); MONOCYTES # (AUTO) 0.6 (0.2-0.8); MONOCYTES % 4.6 % (4.4-11.3); NEUTROPHILS # (AUTO) 11.5 (2.1-6.9); NEUTROPHILS % 83.3 % (38.7-80.0); PLATELET COUNT 300 x10e3/uL (140-360); RED BLOOD COUNT 4.38 x10e6/uL (3.6-5.1); RED CELL DISTRIBUTION WIDTH 13.4 % (11.7-14.4)
[2018-10-08 06:28] LABS: ALANINE AMINOTRANSFERASE 20 IU/L (0-55); ALBUMIN 3.7 g/dL (3.5-5.0); ALBUMIN/GLOBULIN RATIO 1.1 (0.8-2.0); ALKALINE PHOSPHATASE 70 IU/L (40-150); ANION GAP 14.8 mmol/L (8-16); BLOOD UREA NITROGEN 6 mg/dL (7-26); BUN/CREATININE RATIO 8 (6-25); CARBON DIOXIDE 21 mmol/L (22-29); CHLORIDE 106 mmol/L (98-107); CHOL/HDL RATIO 2.2 (3.0-3.6); CHOLESTEROL 151 MD/DL (0-199); CREATININE, SERUM 0.71 mg/dL (0.57-1.11); EST GLOMERULAR FILTRATION RATE > 60 ML/MIN (60-); GLUCOSE 145 mg/dL (74-118); HDL CHOLESTEROL 68 MG/DL (40-60); LDL CHOLESTEROL 63 MG/DL (60-130); POTASSIUM 3.8 mmol/L (3.5-5.1); SODIUM 138 mmol/L (136-145); TRIGLYCERIDES 98 MG/DL (0-149)
[2018-10-08 06:52] LABS: CREATINE KINASE MB 0.4 ng/mL (0-5.0)
[2018-10-08 07:52] VITALS: BP 130/64
[2018-10-08 07:53] VITALS: BP 130/64
[2018-10-08] MEDS: AZITHROMYCIN 500MG/NS 250 ML 250 ML IV SCH (08:42)
[2018-10-08] MEDS ORDERED: ASPIRIN 81 MG ENTERIC COATED PO SCH (09:00)
[2018-10-08 12:00] VITALS: BP 136/62
[2018-10-08] MEDS ORDERED: ONDANSETRON HCL INJ 2MG/ML 2ML 2 MG/ML VIAL IV PRN (12:30)
--- NOTE | 2018-10-08 14:54 | NUR ---
PT DISCUSSED IN BARRIER ROUNDS; PENDING STRESS TEST RESULTS AND PLAN FOR HOME TODAY
[2018-10-08 16:18] VITALS: BP 122/62
--- NOTE | 2018-10-08 17:39 | Myoview Stress Test ---
DATE OF STUDY: 10/07/2018 17:32:00 Stress Test - Treadmill ONLY The patient had resting perfusion images after injection of 11 mCi of technetium-99m Myoview. The patient exercised on Arturo protocol for a total of 5 minutes and 7 seconds. At maximum exercise, she was given 33 mCi of technetium-99m Myoview. Perfusion images were taken by rotational tomography. Comparison of resting and stress images show no evidence of any perfusion defect. Additionally, gated wall motion images were obtained and calculated ejection fraction normal at 68%. The EKG stress test showed no ischemia as well. FINAL IMPRESSION: 1. Negative stress Cardiolite perfusion with normal images. 2. Normal left ventricular function with calculated ejection fraction of 68%. MD CURTIS Rodriguez/EJD /[id number]
== END 2018-10-08 17:47 | disposition home or self-care (01) ==
LOC: ER 08:05 → ERHOLD 11:07 → MED/SURG2 13:03 → IMCU 22:24
PROVIDERS: ADMIT Internal Medicine; ATTEND Internal Medicine
DX: R07.89 Other chest pain (principal); Z79.51 Long term (current) use of inhaled steroids; J45.901 Unspecified asthma with (acute) exacerbation
CPT/HCPCS: 36415 ×2; 71046; 78452; 80053 ×2; 80061; 81001; 81025; 82550 ×2; 82553 ×2; 82948; 83735; 83880; 84443; 84484 ×2; 85025 ×2; 85610; 85730; 87086; 93005; 93017; 93306; 94640 ×4; 99284; A9502; G0378 ×2; J0456 ×2; J2405; J2930; J7030; J7050; J7512

== ENCOUNTER 2019-11-04 12:28 | Emergency (ER) | payer BC ==
[~2019-11-04] VITALS: Ht 162.6 cm; Wt 95.7 kg
--- NOTE | 2019-11-04 12:57 | NUR ---
3 ATTEMPTS TRYING TO GET EKG. PT TAKING DEEP BREATHS. MD AWARE. WILL TRY IN ROOM
--- NOTE | 2019-11-04 12:58 | Emergency Department Note ---
History of Present Illnes History of Present Illness Chief Complaint: Chest Pain History of Present Illness This is a 49 year old female Chief Complaint Comment STATES CP STARTED AROUND 1000 THIS MORNING AND STATES WHEN SHE TRIED TO GET OUT OF BED THE ROOM WAS SPINNING STATES HX OF VERTIGO BUT NOT THIS BAD STATES SHE KEPT FALLING OVER C/O NAUSEA NO VOMITING AND DIZZY SPELLS STATES SHE DOESN'T CURRENTLY HAVE CP MORE LIKE AN ACHE. Historian: Patient Arrival Mode: Car Corrugator Operator Required: No Onset (how long ago): hour(s) (2) Location: Head Quality: Dizzy Radiation: Reports non-radiation Severity: moderate Onset quality: sudden Duration (how long): hour(s) (2) Timing of current episode: sporadic Progression: waxing and waning Chronicity: recurrent Context: Reports recent illness (Sinus infection); Denies recent surgery Relieving factors: none Exacerbating factors: none Associated symptoms: Reports denies other symptoms Treatments prior to arrival: none Past Medical/Family History Physician Review I have reviewed the patient's past medical and family history. Any updates have been documented here. Past Medical History Recent Fever: No Clinical Suspicion of Infectio: No New/Unexplained Change in Ment: No Past Medical History: Hypertension, Asthma Other Medical History: HYPOGLYCEMIC Past Surgical History: Cholecysctectomy Other Surgery: HERNIA REPAIR ,UTRINE ABLATION , Social History Physically hurt or threatened: No Other Last Tetanus: UTD Review of Systems Review of Systems Constitutional: Reports no symptoms EENTM: Reports no symptoms Cardiovascular: Reports as per HPI, Reports chest pain (resolved now) Respiratory: Reports no symptoms Gastrointestinal: Reports no symptoms Genitourinary: Reports no symptoms Musculoskeletal: Reports no symptoms Integumentary: Reports no symptoms Neurological: Reports no symptoms, Reports other (Dizzy, room spinning) Psychological: Reports no symptoms Endocrine: Reports no symptoms Hematological/Lymphatic: Reports no symptoms Physical Exam Related Data Allergies: Coded Allergies: Sulfa (Sulfonamide Antibiotics) (Verified Allergy, Mild, RASH, 10/07/18) amoxicillin (Verified Allergy, Mild, RASH, 06/28/09) Uncoded Allergies: ADHESIVE TAPE (Allergy, Mild, BLISTER TURN TO OPEN WOUND, 06/28/09) Triage Vital Signs Vital Signs Date Time Temp Pulse Resp B/P (MAP) Pulse Ox O2 Delivery O2 Flow Rate FiO2 11/04/19 12:47 98.1 89 18 169/100 100 Room Air Vital signs reviewed: Yes Physical Exam CONSTITUTIONAL Constitutional: Present well-developed, Present well-nourished HENT HENT: Present normocephalic, Present atraumatic, Present oropharynx clear/moist, Present nose normal HENT L/R: Present left ext ear normal, Present right ext ear normal EYES Eyes: Reports PERRL, Reports conjunctivae normal NECK Neck: Present ROM normal PULMONARY Pulmonary: Present effort normal, Present breath sounds normal CARDIOVASCULAR Cardiovascular: Present regular rhythm, Present heart sounds normal, Present capillary refill normal, Present normal rate GASTROINTESTINAL Abdominal: Present soft, Present nontender, Present bowel sounds normal GENITOURINARY Genitourinary: Present exam deferred SKIN Skin: Present warm, Present dry MUSCULOSKELETAL Musculoskeletal: Present ROM normal NEUROLOGICAL Neurological: Present alert, Present oriented x 3, Present no gross motor or sensory deficits; Absent cranial nerve deficit, Absent sensory deficit (No cerebellar signs) PSYCHOLOGICAL Psychological: Present mood/affect normal, Present judgement normal Results Laboratory Lab results reviewed: Yes Imaging Imaging results reviewed: Yes Procedures 12 Lead ECG Interpretation ECG Interpretation : Corrugator Operator: Interpreted by ED physician Date: Nov 04, 2019 Rhythm: sinus rhythm Rate: normal QRS axis: normal ST segments normal: Yes T waves flattening: all Clinical Impression: non-specific ECG Assessment & Plan Medical Decision Making MDM 49-year-old female with history of recurrent vertigo presents to emergency department for an episode of chest pain approximately 3 hours ago and dizziness which is positional. Examination is very consistent with peripheral cause of vertigo. CT head is unremarkable. Cardiac pulmonary workup is unremarkable without cardiac cause of chest pain. She was given meclizine and Zofran which moderately relieved her symptoms. I discussed results in management patient and she will continue to take meclizine and Zofran at home as needed. Instructed her on maneuvers to help with BPPV. She'll follow up with her primary care provider or return to the emergency department or worsening symptoms. Patient is appropriate for discharge. Reassessment Reassessment time: 12:57 Reassessment Dizzy, vomiting Assessment & Plan Final Impression: (1) Vertigo Depart Disposition: HOME, SELF-CARE Last Vital Signs Date Time Temp Pulse Resp B/P (MAP) Pulse Ox O2 Delivery O2 Flow Rate FiO2 11/04/19 12:47 98.1 89 18 169/100 100 Room Air Home Meds Active Scripts Ondansetron Hcl* (ZOFRAN*) 4 Mg Tablet, 4 MG PO Q12H for nausea, #10 Prov:CALISTA ROD MD 11/04/19 Meclizine Hcl (MECLIZINE HCL) 12.5 Mg Tablet, 25 MG PO DAILY for dizziness, #10 TAB Prov:CALISTA ROD MD 11/04/19 Reported Medications Montelukast Sodium (MONTELUKAST SODIUM) 10 Mg Tablet, 10 MG PO DAILY, #30 TAB 06/27/16 [Protonix] No Conflict Check 05/22/11 CALISTA ROD MD Nov 04, 2019 12:58
[2019-11-04] MEDS ORDERED: MECLIZINE HCL 12.5 MG TAB PO ONE (13:00)
[2019-11-04] MEDS ORDERED: ONDANSETRON HCL INJ 2MG/ML 2ML 2 MG/ML VIAL ONE (13:12)
[2019-11-04] MEDS ORDERED: ONDANSETRON HCL INJ 2MG/ML 2ML 2 MG/ML VIAL IV STA (13:16)
[2019-11-04 13:25] LABS: BASOPHILS # (AUTO) 0.1 (0.0-0.1); BASOPHILS % 0.8 % (0.0-1.0); EOSINOPHILS # (AUTO) 0.3 (0.0-0.4); EOSINOPHILS % 3.4 % (0.0-6.0); HEMATOCRIT 39.6 % (34.2-44.1); HEMOGLOBIN 13.5 g/dL (12.0-16.0); LYMPHOCYTES # (AUTO) 1.6 (1.0-3.2); LYMPHOCYTES % 20.2 % (18.0-39.1); MEAN CORPUSCULAR HGB CONC 34.1 g/dL (31-35); MONOCYTES # (AUTO) 0.5 (0.2-0.8); MONOCYTES % 6.6 % (4.4-11.3); NEUTROPHILS # (AUTO) 5.3 (2.1-6.9); NEUTROPHILS % 67.9 % (38.7-80.0); PLATELET COUNT 281 x10e3/uL (140-360); RED CELL DISTRIBUTION WIDTH 13.4 % (11.7-14.4)
--- OUTSIDE RECORDS SUMMARY | 2019-11-04 13:26 | XMS REPORT | Summary of Care ---
Author Author [facility] Outpatient Imaging - [facility] Organization [facility] Outpatient Imaging - [facility] Address Unknown Phone Unavailable Encounter HQ Encntr_aliyee(FIN) [id number] Date(s): 01/24/19 - 01/24/19 [facility] Outpatient Imaging [facility] [address], [address] [place], [place] [address] [phone] Discharge Disposition: Home or Self Care Attending Physician: Bonnie Delcid MD Referring Physician: Bonnie Delcid MD Vital Signs No [...]
--- OUTSIDE RECORDS SUMMARY | 2019-11-04 13:26 | XMS REPORT | Summary of Care ---
Author Author [facility] Outpatient Imaging - [facility] Organization [facility] Outpatient Imaging - [facility] Address Unknown Phone Unavailable Encounter HQ Encntr_alias(FIN) [id number] Date(s): 12/06/18 - 12/06/18 [facility] Outpatient Imaging [facility] [address], [address] [place], [place] [address] [phone] Discharge Disposition: Home or Self Care Attending [...]
--- OUTSIDE RECORDS SUMMARY | 2019-11-04 13:26 | XMS REPORT ---
Author Author MICAH Nichols Organization Unknown Address Unknown Phone Care Team Providers Care Pvc Loader Name Role Phone NicholsAnn santiago PP Unavailable Reason for Referral No Reason for Referral was given. History of Present Illness No HPI available. 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 (Active) * Pantoprazole Sodium 40 MG Intravenous Solution Reconstituted; INFUSE MG PRN (Active) * Nortriptyline HCl 25 MG Oral Capsule; TAKE 1 CAPSULE DAILY (Active) * Propranolol HCl ER 80 MG Oral Capsule Extended Release 24 Hour; daily (Active) * B-12 CAPS; TAKE 1 CAPSULE DAILY (Active) * Multi-Vitamin TABS; TAKE 1 TABLET DAILY. (Active) * Probiotic Oral Capsule; TAKE 1 CAPSULE DAILY (Active) * Collagen CAPS; TAKE 1 CAPSULE DAILY (Active) * Vitamin D3 2000 UNIT Oral Capsule; TAKE 1 CAPSULE DAILY (Active) * Vitamin E CAPS; TAKE 1 CAPSULE DAILY (Active) * Fish Oil 1200 MG Oral Capsule; TAKE 2 CAPSULE DAILY (Active) * Vicodin TABS; TAKE TABLET PRN (Active) * Advil 200 MG Oral Capsule; TAKE 3 CAPSULE DAILY (Active) * Imitrex 100 MG Oral Tablet; TAKE TABLET PRN (Active) * Losartan Potassium 25 MG Oral Tablet; TAKE 1 TABLET DAILY DIRECTED.; Start Date: 01/10/2013; End Date: (Active) * PredniSONE 10 MG Oral Tablet; TAKE 2 TABLETS BY MOUTH QD X7DAYS THEN 1 TABLET BY MOUTH QD X7 DAYS.; Start Date: 01/10/2013; End Date: (Active) Allergies and Adverse Reactions * Amoxicillin TABS (Active) * Sulfa Drugs (Active) Past Medical History * History of Urinary Tract Infection (V13.02); (Resolved) * History of Hypertension (401.9); (Resolved) * History of Asthma (493.90); (Resolved) * History of Chronic Common Migraine (Without Aura) (346.70); (Resolved) * History of Fatty Liver (571.8); (Resolved) Procedures Procedure Procedure Date Date Completed Status Inguinal Hernia Repair - - Resolved Right Breast Lumpectomy - - Resolved Cholecystectomy - - Resolved Anoscopy For Polyp Removal - - Resol ava Immunization * Hepatitis B - Administered on: 10/24/2003 Family History * Family history of Cancer (Active) * Family history of Diabetes Mellitus (V18.0); (Active) * Family history of Coronary Artery Disease (V17.49); (Active) * Family history of Hypothyroidism (Active) * Maternal history of Hypertension (V17.49); (Active) * Maternal history of Diabetes Mellitus (V18.0); (Active) Social History * Marital History - Currently (Active) * Never A Smoker (Active) * Never Drank Alcohol (Active) * Never Used Drugs (Active) Treatment Plan * [QLH] HEMOGLOBIN A1c 01/27/2013 Routine * [QLH] CMP W/EGFR 01/27/2013 Routine * [QLH] CBC (INCLUDES DIFF/PLT) 01/27/2013 Routine * [QLH] IRON, TOTAL 01/27/2013 Routine * [QLH] SED RATE BY MODIFIED WESTERGREN 01/27/2013 Routine * [QLH] CULTURE, URINE, ROUTINE 01/10/2013 Routine * [QLH] URINALYSIS, COMPLETE 01/10/2013 Routine Advance Directives * No Advance Directives available. Encounters * AUDIT 01/10/2013 * FUP, Provider: MARGAUX GARCIA, Status: Tirso, Time: 10:45 AM 02/07/2013
--- OUTSIDE RECORDS SUMMARY | 2019-11-04 13:26 | XMS REPORT ---
Author Author MICAH Cerna Organization Unknown Address Unknown Phone Care Team Providers Care Sewer Name Role Phone Paulina Cerna PP Reason for Referral No Reason for Referral was given. History of Present Illness No HPI available. Problems * Normal Routine History And Physical Adult (V70.0); (Active) Medication * Montelukast Sodium 10 MG Oral Tablet (Active) * Pantoprazole Sodium 40 MG Intravenous Solution Reconstituted (Active) * Nortriptyline HCl 25 MG Oral Capsule (Active) * Propranolol HCl ER 80 MG Oral Capsule Extended Release 24 Hour (Active) * B-12 CAPS (Active) Allergies and Adverse Reactions * Amoxicillin TABS (Active) * Sulfa Drugs (Active) Past Medical History * History of Asthma (493.90); (Resolved) * History of Convulsions (780.39); (Resolved) * History of Chronic Common Migraine (Without Aura) (346.70); (Resolved) * History of Urinary Tract Infection (V13.02); (Resolved) * History of Fatty Liver (571.8); (Resolved) * History of Hypertension (401.9); (Resolved) Procedures Procedure Procedure Date Date Completed Status Cholecystectomy - - Resolved Inguinal Hernia Repair - - Resolved Right Breast Lumpectomy - - Resolved Immunization * Hepatitis B - Administered on: 10/24/2003 Family History * Family history of Diabetes Mellitus (V18.0); (Active) * Family history of Cancer (Active) * Family history of Coronary Artery Disease (V17.49); (Active) Social History * Marital History - Currently (Active) * Never Drank Alcohol (Active) * Never Used Drugs (Active) * Never A Smoker (Active) Advance Directives * No Advance Directives available. Encounters * AUDIT 10/24/2012
--- OUTSIDE RECORDS SUMMARY | 2019-11-04 13:26 | XMS REPORT | Summary of Care ---
Author Author [facility] Outpatient Imaging [facility] Organization [facility] Outpatient Imaging [facility] Address Unknown Phone Unavailable Encounter HQ Encntr_alias(FIN) [id number] Date(s): 10/09/18 - 10/09/18 [facility] Outpatient Imaging [place] Discharge Disposition: Home or Self Care Attending Physician: Karthikeyan Jennings MD Referring Physician: Karthikeyan Jennings MD Vital Signs No [...]
--- OUTSIDE RECORDS SUMMARY | 2019-11-04 13:26 | XMS REPORT ---
Author Author MICAH GARCIA Organization Unknown Address Unknown Phone Care Team Providers Care Safety Advisor Name Role Phone MARGAUX GARCIA PP Unavailable Reason for Referral No Reason [...] Capsule; TAKE 1 CAPSULE DAILY (Active) * B-12 CAPS; TAKE 1 CAPSULE DAILY (Active) * Multi-Vitamin TABS; TAKE 1 TABLET DAILY. (Active) * Propranolol HCl ER 80 MG Oral Capsule Extended Release 24 Hour; daily (Active) * Probiotic Oral Capsule; TAKE 1 CAPSULE DAILY (Active) * Collagen CAPS; TAKE 1 CAPSULE DAILY (Active) * Vitamin D3 2000 UNIT Oral Capsule; TAKE 1 CAPSULE DAILY (Active) * Vitamin E CAPS; TAKE 1 CAPSULE DAILY (Active) * Fish Oil 1200 MG Oral Capsule; TAKE 2 CAPSULE DAILY (Active) * Advil 200 MG Oral Capsule; TAKE 3 CAPSULE DAILY (Active) * Imitrex 100 MG Oral Tablet; TAKE TABLET PRN (Active) * Losartan Potassium 50 MG Oral Tablet; TAKE 1 TABLET DAILY DIRECTED.; Start Date: 01/10/2013 (Active) Allergies and Adverse Reactions * Amoxicillin [...] Never Used Drugs (Active) Treatment Plan * [[facility]] IRON, TOTAL 01/13/2013 Routine Advance Directives * No Advance Directives available. Encounters * AUDIT 04/08/2013 * OWEN, Provider: MARGAUX GARCIA, Status: Tirso, Time: 9:45 AM 04/11/2013
--- OUTSIDE RECORDS SUMMARY | 2019-11-04 13:26 | XMS REPORT ---
Author Author MICAH Nichols Organization Unknown Address Unknown Phone Care Team Providers Care Finishing Tunnel Operator Name Role Phone NicholsAnn PP Unavailable Reason for Referral No Reason for Referral was given. History of Present Illness No HPI available. 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 Encounters * AUDIT 01/10/2013 * FUP, Provider: MARGAUX GARCIA, Status: Tirso, Time: 10:45 AM 02/07/2013
--- OUTSIDE RECORDS SUMMARY | 2019-11-04 13:26 | XMS REPORT | Continuity of Care Document ---
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 M54.9 - DORSALGIA, UNSPECIFIED Active 01/24/2019 [facility] M77.12 - LATERAL EPICONDYLITIS, LEFT EL Active 12/06/2018 [facility] R19.7 - DIARRHEA, UNSPECIFIED Active 10/09/2018 [facility] Left upper quadrant pain 06/22/2017 09/21/2017 [facility] [place] M54.5 - LOW BACK PAIN Active 06/29/2016 [facility] R92.2 - INCONCLUSIVE MAMMOGRAM Active 12/31/2014 [facility] [place] V76.12 - SCREEN MAMMOGRA Active 12/10/2013 [facility] [place] Mastodynia 08/20/2017 [facility] [place] Hepatomegaly, not elsewhere classified 09/21/2017 [facility] [place] 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 [facility] Hyperglycemia Active 06/22/2013 [facility] Hypertension Active 06/22/2013 [facility] Anemia Active 06/22/2013 [facility] Lower Back Pain Active 06/22/2013 [facility] Hematuria Active 06/22/2013 [facility] Prediabetes Active 06/22/2013 [facility] Acute Sinusitis Active 06/22/2013 [facility] Common Migraine (Without Aura) Active 06/22/2013 [facility] Medications Medication Details Route Status Patient Instructions Ordering Provider Order Date Source Metoprolol 10 mg, Route: IV, O NCE, Dosing Weight 98.182, kg, Start date: 03/18/19 8:38:00 [employer]AT [employer] MECH[employer]IC, Stop date: 03/18/19 8:38:00 [employer]IC Inactive 03/18/[address] [facility] pantoprazole 40 MG Granules [Protonix] = 1 Pack, PO, Daily, # 30 ea, 0 Refill(s) Active 03/18/2019 [facility] nter sucralfate 1 g oral tablet 1 g m = 1 tab, PO, QID, 0 Refill(s) Active 03/18/[address] [facility] Albuterol 0.83 MG/ML Inhalant Solution 2.49 mg = 3 mL, INHALATION, Q6H, PRN wheezing, coughing, or shortness of breath, # 240 ea, 1 Refill(s) Active 03/18/[address] [facility] Symbicort 80/4.5 inhalation aerosol with adapter 2 puff, INHALATION, BID, # 6.9 gm, 0 Refill(s) Active 03/18/2019 [facility] nter montelukast 10 mg oral tablet 10 mg = 1 tab, PO, Bedtime, # 90 tab, 0 Refill(s) Active 03/18/2019 [facility] nter gabapentin 300 MG Oral Capsule 300 mg = 1 cap, PO, TID, # 270 cap, 0 Refill(s) Active 03/18/[address] [facility] Nitroglycerin 0.4 mg, Route: S L, ONCE, Dosing Weight 98.182, kg, Start date: 03/18/19 8:00:00 [employer]CH[employer]IC, Stop date: 03/18/19 8:00:00 [employer]IC Inactive 03/18/[address] [facility] SUMAtriptan Succinate 100 MG Oral Tablet ; Start Date: 06/22/2013 (Active) Active 06/22/2013 [facility] Fluticasone Propionate 50 MCG/ACT Nasal Suspension ; Start Date: 04/11/2013 (Active) Active 04/11/2013 [facility] Azithromycin 500 MG Oral Tablet ; Start Date: 04/11/2013 (Active) Active 04/11/2013 [facility] Losartan Potassium 50 MG Oral Tablet ; Start Date: 01/10/2013 (Active) Active 01/10/2013 [facility] Losartan Potassium 25 MG Oral Tablet ; Start Date: 01/10/2013 (Active) Active 01/10/2013 [facility] PredniSONE 10 MG Oral Tablet ; Start Date: 01/10/2013 (Active) Active 01/10/2013 [facility] Losartan Potassium 100 MG Oral Tablet ; Start Date: 01/10/2013 (Active) Active 01/10/2013 [facility] Montelukast Sodium 10 MG Oral Tablet (Active) Active [facility] Pantoprazole Sodium 40 MG Intravenous So lution Reconstituted (Active) A ctive [facility] Nortriptyline HCl 25 MG Oral Capsule (Active) Active [facility] Propranolol HCl ER 80 MG Oral Capsule Ex tended Release 24 Hour (Active) A ctive [facility] B-12 CAPS (Active) Active [facility] Multi-Vitamin TABS (Active) Active [facility] Probiotic Oral Capsule (Activ e) Active [facility] Collagen CAPS (Active) Active [facility] Vitamin D3 2000 UNIT Oral Capsule (Active) Active [facility] Vitamin E CAPS (Active) Active [facility] Fish Oil 1200 MG Oral Capsule (Active) Active [facility] Advil 200 MG Oral Capsule (Ac tive) Active [facility] Imitrex 100 MG Oral Tablet (A ctive) Active [facility] Vicodin TABS (Active) Active [facility] Propranolol HCl ER 80 MG Oral Capsule Ex tended Release 24 Hour (Active) A ctive [facility] Minastrin 24 Fe 1-20 MG-MCG(24) Oral Tablet Chewable (Active) Active [facility] Allergies, Adverse Reactions, Alerts Substance Category Reaction Severity Reaction type Status Date Reported Comments Source sulfa drugs Assertion Drug allergy Active [facility] amoxicillin Assertion Drug allergy Active [facility] Tape Assertion Allergy to substance Active [facility] Amoxicillin TABS drug allergy drug allergy Active [facility] Sulfa Drugs drug allergy drug allergy Active [facility] Immunizations Immunization Date Given Site Status Last Updated Comments Source Hepatitis B 10/24/2003 completed [facility] Results Order Name Results Value Reference Range Date Interpretation Comments Source CHEM PANEL POC Creatinine 0.8 0.5 - 1.4 03/18/[address] [facility] CHEM PANEL eGFR 87 03/18/2019 Result Comment: The eGFR is calculated using the CKD-EPI formula. In most young, healthy individuals the eGFR will be >90 mL/min/1.73m2. The eGFR declines with age. An eGFR of 60-89 may be normal in some populations, particularly the elderly, for whom the CKD-EPI formula has not been extensively validated. Use of the eGFR is not recommended in the following populations:

Individuals with unstable creatinine concentrations, including patients and those with serious co-morbid conditions.

Patients with extremes in muscle mass or diet.

The data above are obtained from the National Kidney Disease Education Program (NKDEP) which additionally recommends that when the eGFR is used in patients with extremes of body mass index for purposes of drug dosing, the eGFR should be multiplied by the estimated BMI. [facility] Pathology Reports No Data Provided for This Section Diagnostic Reports Report Value Date Source Heart/coronary art/graft w contrast CTA CORONARY CT ANGIOGRAPHY WITH CALCIUM SCORE REPORT DATE: March 18, 2019 QUALITY:Excellent CLINICAL HISTORY AND INDICATION: 48 year-old patient with chest pain here for evaluation of suspected coronary artery disease. This study is performed to avoid an invasive coronary angiogram and to assess risk of an acute coronary syndrome. 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 A dedicated, limited window, coronary imaging protocol was used, with single breath hold, prospective ECG gating, and automated arrhythmia rejection. 85 cc of low osmolar contrast agent: Om nipaque-350 was delivered via a 18 gauge IV catheter, utilizing a power injector, at 5 cc/sec injection rate, and followed by 50 cc of normal saline bolus as a chaser. Collimated images were reformatted at 0.5 mm intervals, and sent to an offline independent workstation for interpretation, using 3D anatomic reconstructions: curved multiplanar reconstructions (MPR), maximum intensity projections (MIP), and multi-planar imaging. For optimal image acquisition, (0.4) mg of sublingual Nitroglycerin was administered immediately prior to scanning, and a total of 10 mg of Metoprolol were administered IV 10 min. prior to scanning. Effective radiation dose administered: 3 mSv. Heart rate during image acquisition was approximately: 60 bpm. FINDINGS: This study is performed with a limited imaging window, and a dedicated protocol for visualization of the cardiac structures and epicardial coronary arteries. No extracardiac findings are reported in this study; imaging extracardiac findings requires additional imaging protocols, as clinically indicated. Atria and ventricles are normal in size. Valves with normal morphology. No intracardiac masses. No pericardial effusion, thickening, calcification or cysts. Aorta, pulmonary arteries and their main branches: normal anatomy. Pulmonary veins and venae cavae: normal anatomy. CORONARY ARTERY CALCIUM SCORE: Total: 0. Vessel Score Left Main Coronary Artery 0 Left Anterior Descending / Diagonals 0 Left Circumflex / Obtuse Marginals 0 Right Coronary / PDA / JERICA 0 CORONARY ARTERY DESCRIPTIONS: The coronary arteries arise in normal position. Left main coronary artery: Normal caliber vessel that bifurcates into the LAD and LCx. A ramus intermedius is also seen and appears patent with no evidence of plaque or stenosis. LM is patent with no evidence of plaque or stenosis. Left anterior descending coronary artery: Normal caliber vessel that gives off 2 patent diagonal branches. LAD is patent with no evidence of plaque or stenosis. Left circumflex coronary artery: Normal caliber, nondominant vessel that gives off 2 patent obtuse marginal branches. LCX is patent with no evidence of plaque or stenosis. Right Coronary artery: Normal caliber, dominant vessel that gives off 2 patent acute marginal branches, and terminates into PL and PDA branches. RCA is patent with no evidence of plaque or stenosis. IMPRESSIONS: 1. Total calcium score: 0. 2. No evidence of coronary plaque or st enosis, by CT angiography. 3. CAD-RADS: 0 (consider nonatheros clerotic causes of chest pain). 03/18/[address] 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 TECHNIQUE: AP, lateral swimmer's and lateral radiographs of the thoracic spine FINDINGS: Vertebral body heights, disc heights and alignment are preserved. Mild osteophyte formation seen throughout the thoracic spine No soft tissue abnormality is identified. IMPRESSION: No acute abnormality. Mild osteophyte formation throughout the thoracic spine. 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 Katherine and pulmonary vasculature are normal. Cardiomediastinal silhouette is normal in appearance. No acute bony abnormality is identified. Mild multilevel spondylosis is again seen in the thoracic spine. IMPRESSION: No acute cardiopulmonary abnormality. No significant change from 01/11/2016. 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 COMPARISON: CT of the abdomen and pelvis of 10/09/2018. TECHNIQUE: Supine and upright AP views of the abdomen FINDINGS: Lines, devices, and tubes: Surgical clips are again seen in the right upper quadrant of the abdomen from prior cholecystectomy. Lower thorax: Unremarkable where visualized. Bowel: Nonobstructive bowel gas pattern. No pneumatosis is seen. No free air is detected. Solid organs: No abnormal mass or organomegaly seen. Stable calcified phleboliths are seen within the pelvis. Bones: Normal. IMPRESSION: No acute intra-abdominal or intrapelvic findings. Bowel gas pattern is nonobstructive. The patient is status post cholecystectomy. 01/24/2019 [facility] Forearm 2 views DX EXAM: XR LE FT HUMERUS 2 VIEWS EXAM: XR LEFT FOREARM 2 VIEWS DATE: 12/06/2018 12:34 CDT INDICATION: - pain of left upper extremity COMPARISON: None TECHNIQUE: AP and lateral radiographs of the humerus and left forearm FINDINGS: No acute fracture or malalignment is identified. No osseous lesions No soft tissue abnormality is identified. IMPRESSION: 1. No acute abnormality in the left abigail aviva or left forearm. 2. No osseous lesions, joint or soft tis raymundo abnormality. 12/06/2018 [facility] Humerus 2 views DX EXAM: XR LE FT HUMERUS 2 VIEWS EXAM: XR LEFT FOREARM 2 VIEWS DATE: 12/06/2018 12:34 CDT INDICATION: - pain of left upper extremity COMPARISON: None TECHNIQUE: AP and lateral radiographs of the humerus and left forearm FINDINGS: No acute fracture or malalignment is identified. No osseous lesions No soft tissue abnormality is identified. IMPRESSION: 1. No acute abnormality in the left abigail aviva or left forearm. 2. No osseous lesions, joint or soft tis raymundo abnormality. 12/06/2018 [facility] Abdomen/Pelvis w IV contrast CT CT ABDOMEN AND PELVIS WITH CONTRAST DATED 10/09/2018. CLINICAL INDICATION: Diarrhea. Left lower quadrant abdominal pain. COMPARISON: None. TECHNIQUE: A CT of the abdomen and pelvis was performed using helical images from the thoracic outlet through the pubic symphysis after the administration of oral and intravenous contrast. Sagittal and coronal reconstructions were performed. IV CONTRAST: 100cc Omnipaque 300 GI CONTRAST: Yes CT imaging performed at this location utilizes radiation dose optimization techniques which include one or more of the following: -Automated exposure control -Adjustment of the mA and/or kV accordin g to patient size -Use of iterative reconstruction SyndicateRoom CT Radiation Dose DLP 1026 mGy-cm FINDINGS: SOLID ORGANS: No acute CT abnormalities of the liver, spleen, pancreas, adrenal glands or kidneys are detected. There is no CT evidence of acute renal collecting system obstruction or calcified renal collecting system stone BILIARY: The patient is status post cholecystectomy. No significant biliary ductal dilatation is identified. BOWEL: No acute CT abnormalities of the bowel are identified. The stomach and duodenum are unremarkable. No small bowel dilatation is present to suggest obstruction. The appendix is identified and is not acutely inflamed. There is no evidence of diverticular disease or inflammatory colonic wall thickening. PERITONEUM: No free intraperitoneal air or significant free intraperitoneal fluid. RETROPERITONEUM: The abdominal aorta is normal in caliber. No retroperitoneal mass or adenopathy. PELVIS: No abnormalities of the ovaries or adnexa are identified. The urinary bladder is unremarkable. LOWER CHEST: The lung bases appear clear of acute disease. ADDITIONAL COMMENTS: None. IMPRESSION: 1. No acute CT abnormalities of the abd omen or pelvis are detected. SL:131 10/09/2018 [facility] Breast Mammo Scrn BERT incl CAD MA BILATERAL DIGITAL SCREENING MAMMOGRAM WITH CAD: 07/03/2018 CLINICAL: Encounter For Screening Mammogram For Malignant Neoplasm Of Breast/Z12.31. Current study was evaluated with a Computer Aided Detection (CAD) system. COMPARISON:Comparison is made to exams dated: 05/14/2017 mammogram, 01/07/2015 mammogram, 12/06/2012 mammogram, and 04/30/2009 mammogram - [facility]. TECHNIQUE: Mammographic views were obtained using digital [...] is recommended.(07/04/2019) This exam was interpreted at [id number] at [facility]. Professional services are provided by the [facility] Diagnostic Imaging. Kathrine Huang M.D. to/penrad:07/04/2018 07:41:17 [employer] Operator(s): RT Blayne(R)(M), [facility] letter sent: BI-RADS 1/2 Mammogram BI-RADS: 2 Benign 07/03/2018 [facility] Pelvis w Pelvis Transvaginal US Correction for typo in the impression. The complex ovarian cyst is on the RIGHT. EXAM: Pelvis w Pelvis Transvaginal US HISTORY: [...] cm: Consider MR w/IVC or surgical evaluation. _ 1. Recommendations based upon the 2010 S RU Consensus Conference Statement on the Management of asymptomatic ovarian and adnexal cysts imaged at US. Radiology. 2009;256(3):943-54 07/03/2018 [facility] [place] Sinus paranasal series DX EXAM : PARANASAL SINUS 3 VIEWS DATE: 08/09/2017 11:32 [...] than left, consistent with mucosal disease. 08/09/2017 [facility] Abdomen complete US EXAM: Abdo men complete US HISTORY: R10.12 Left upper quadrant [...] fatty infiltration and/or chronic hepatocellular disease. 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 05/14/2017 [facility] [place] Breast Limited Uni US COMPLETE ULTRASOUND OF LEFT BREAST: 05/14/2017 CLINICAL: N64.4 Mastodynia/N64.4 Mastodynia. COMPARISON:Comparison is made to exams dated: 05/14/2017 mammogram, 01/07/2015 mammogram, 12/06/2012 mammogram, and 04/30/2009 mammogram - [facility]. TECHNIQUE: Color flow and real-time ultrasound of [...] is recommended.(05/15/2018) This exam was interpreted at [id number] for Eugenia. Professional services are provided by the [facility] Division of Diagnostic Imaging. Shahbaz Perez M.D., cm/penrad:05/14/2017 10:14:35 [employer] Operator(s): Rubina Muñoz [facility] letter sent: BI-RADS 1/2 Ultrasound BI-RADS: 2 Benign 05/14/2017 [facility] Breast Mammo Diag BERT incl CAD MA BILATERAL DIGITAL DIAGNOSTIC MAMMOGRAM WITH CAD: 05/14/2017 CLINICAL: N64.4 Mastodynia/N64.4 Mastodynia. Current study was evaluated with a Computer Aided Detection (CAD) system. COMPARISON:Comparison is made to exams dated: 01/07/2015 mammogram, 12/06/2012 mammogram, and 04/30/2009 mammogram - [facility]. TECHNIQUE: Mammographic views were obtained using digital [...] of malignancy. This exam was interpreted at [id number] for Eugenia. Professional services are provided by the [facility] Division of Diagnostic Imaging. Shahbaz Perez M.D., cm/penrad:05/14/2017 10:13:42 [employer] Operator(s): Maryanne Aguilera, RT(R)(M), [facility] Mammogram BI-RADS: 2 Benign 05/14/2017 [facility] Spine lumbar wo contrast MRI M RI LUMBAR SPINE WITHOUT CONTRAST 07/14/2016 9:08 AM [...] Unremarkable. IMPRESSION: 1. L3-L4 mild bilateral foraminal stenos is with minimal mass effect on bilateral L3 nerve roots. 2. Stable L4-L5 Yolanda changes with mild central canal stenosis and mild bilateral foraminal stenosis. 07/14/2016 [facility] Spine Lumbar Comp w Bend views DX [...] the abdomen. IMPRESSION: No acute abnormality. 06/29/2016 [facility] Chest 2 views DX Exam: Two-vie w chest x-ray Reason for Exam: Chest pain. Right upper quadrant abdominal pain. Comparison Exam: None Discussion: Cardiomediastinal silhouette is within normal limits. Both hemidiaphragms well visualized. No pulmonary edema or pleural effusions. No focal lung consolidations. Trachea is midline. No acute bony abnormalities. Impression: 1. No acute cardiopulmonary abnormaliti es. 01/11/2016 [facility] Abdomen complete US EXAM: Abdomen ultrasound. CLINICAL [...] (favored) and other chronic hepatocellular disease. 01/11/2016 [facility] Digital Mammo Screening Bert MA - DIGITAL MAMMO SCREENING BERT MA BILATERAL DIGITAL SCREENING MAMMOGRAM WITH CAD: 01/07/2015 CLINICAL: Routine. Current study was evaluated with a Computer Aided Detection (CAD) system. Comparison is made to exams dated: 12/06/2012 mammogram and 04/30/2009 mammogram - [facility]. The tissue of both breasts is heterogeneously dense, which could obscure detection of small masses. There is a biopsy clip in the right breast. No significant masses, calcifications, or other findings are seen in either breast. There has been no significant interval change. IMPRESSION: BENIGN There is no mammographic evidence of malignancy. A 1 year screening mammogram is recommended. Schuyler kaur/penrad:01/07/2015 11:41:20 [employer] Operator: Angelica PÉREZ(Sera)(M), [facility] This exam was dictated and interpreted by [id number] for Eug[facility]. letter sent: Normal exam Mammogram BI-RADS: 2 Benign 01/07/2015 [facility] [place] Spine lumbar wo contrast MRI L UMBAR SPINE MRI Mar 07, 2013 08:49:59 AM. [...] pelvis to evaluate for piriformis syndrome. 03/07/2013 [facility] Spine lumbar minimum 4 views E XAMINATION: Lumbar spine series DISCUSSION: There is normal alignment of the lumbar spine vertebral bodies. No fractures or dislocations are seen. The pedicles and transverse processes are intact. If clinical concern persists may consider further evaluation with CT and/or MRI of the lumbar spine. IMPRESSION: Normal lumbar spine series. 01/10/2013 [facility] Consultation Notes No Data Provided for This Section Discharge Summaries No Data Provided for This Section History and Physicals No Data Provided for This Section Vital Signs Vital Sign Value Date Comments Source Heart Rate 79 03/18/[address] [facility] Respitory Rate 18 03/18/[address] [facility] Systolic (mm Hg) 121 03/18/[address] [facility] Diastolic (mm Hg) 76 03/18/[address] [facility] Heart Rate 59 03/18/[address] [facility] Respitory Rate 18 03/18/[address] [facility] Systolic (mm Hg) 125 03/18/[address] [facility] Diastolic (mm Hg) 63 03/18/[address] [facility] Heart Rate 62 03/18/[address] [facility] Respitory Rate 18 03/18/[address] [facility] Systolic (mm Hg) 123 03/18/[address] [facility] Diastolic (mm Hg) 65 03/18/[address] [facility] Height 162.56 cm 03/18/[address] [facility] Weight 98.182 03/18/[address] [facility] BMI Calculated 37.15 03/18/[address] [facility] Encounters Location Location Details Encounter Type Encounter Number Reason For Visit Attending Provider ADM Date DC Date Status Source AUDIT [id number] 10/24/2012 10/24/2012 [facility] AUDIT [id number] 01/10/2013 01/10/2013 [facility] AUDIT [id number] 01/10/2013 01/10/2013 [facility] AUDIT [id number] 02/05/2013 02/06/2013 [facility] OWEN Provkeerthi courtney: MARGAUX DELCID, Status: Pen, Time: 10:45 AM [id number] 02/08/20 13 01/10/2013 [facility] Mirian WEAVER courtney: MARGAUX DELCID, Status: Pen, Time: 1:00 PM [id number] 02/08/20 13 02/06/2013 [facility] AUDIT [id number] 02/07/2013 02/07/2013 [facility] AUDIT [id number] 04/08/2013 04/08/2013 [facility] OWEN Provkeerthi courtney: MARGAUX DELCID, Status: Pen, Time: 9:45 AM [id number] 04/11/19 14 04/08/2013 [facility] AUDIT [id number] 04/12/2013 04/12/2013 [facility] AUDIT [id number] 06/22/2013 06/22/2013 [facility] OWEN Provkeerthi courtney: MARGAUX DELCID, Status: Pen, Time: 8:00 AM [id number] 08/30/19 14 06/22/2013 [facility] [place] [facility] [id number] 04 Dara Reece 01/07/2015 01/08/2015 [facility] [place] [facility] [place] [facility] [id number] 05 Margaux Delcid 01/11/2016 01/12/2016 [facility] [place] [facility] [place] [facility] [id number] 06 Margaux Delcid [facility]/29[facility]2016 [facility] [facility] [place] [facility] [id number] 07 Margaux Kinneyine 07/14/2016 07/15/2016 [facility] [place] [facility] [place] [facility] [id number] Calos Narayanan 05/14/2017 05/15/2017 [facility] [place] [facility] [place] [facility] [id number] 09 Margaux Kinneyine 06/15/2017 06/16/2017 [facility] [place] [facility] [place] [facility] [id number] Karthikeyan Jennings 08/09/2017 08/10/2017 [facility] [place] [facility] [id number] Dara Reece 07/03/2018 07/04/2018 [facility] [place] [facility] Out[facility] [place] [facility] [id number] 12 Karthikeyan Jennings 10/09/2018 10/10/2018 [id number] [facility] [place] [facility] [id number] 13 Margaux Delcid 12/06/2018 12/07/2018 [facility] [place] [facility] [id number] 14 Margaux Kinneyine 01/24/2019 01/25/2019 [facility] [id number] Kristopher Alicea 03/1803/19/[address] [facility] Procedures No Data Provided for This Section Assessment and Plan No Data Provided for This Section Plan of Care Plan of Care Date Source [QLH] IRON, TOTAL 01/13/2013 Routine[QLH ] CMP W/EGFR 08/17/2013 Routine[QLH] HEMOGLOBIN A1c 08/17/2013 [facility] Digital Mammo Screening Bert [id number] 05/09/2013 Routine 06/22/2013 [facility] [QLH] IRON, TOTAL 01/13/2013 Routine[QLH ] CMP W/EGFR 08/17/2013 Routine[QLH] HEMOGLOBIN A1c 08/17/2013 Routine 04/12/2013 [facility] [QLH] IRON, TOTAL 01/13/2013 Routine 04/08/2013 [facility] [QLH] IRON, TOTAL 01/13/2013 Routine 02/07/2013 [facility] [QLH] IRON, TOTAL 01/13/2013 Routine 02/06/2013 [facility] [QLH] HEMOGLOBIN A1c 01/27/2013 Routine[ QLH] CMP W/EGFR 01/27/2013 Routine[QLH] CBC (INCLUDES DIFF/PLT) 01/27/2013 Routine[QLH] IRON, TOTAL 01/27/2013 Routine[QLH] SED RATE BY MODIFIED WESTERGREN 01/27/2013 Routine[QLH] CULTURE, URINE, ROUTINE 01/10/2013 Routine[QLH] URINALYSIS, COMPLETE 01/10/2013 Routine 01/10/2013 [facility] [QLH] HEMOGLOBIN A1c 01/27/2013 Routine[ QLH] CMP W/EGFR 01/27/2013 Routine[QLH] CBC (INCLUDES DIFF/PLT) 01/27/2013 Routine[QLH] IRON, TOTAL 01/27/2013 Routine[QLH] SED RATE BY MODIFIED WESTERGREN 01/27/2013 Routine 01/10/2013 [facility] Social History Social History Date Source Social History TypeResponse 03/19/[address] [facility] No data available for this section 01/25/2019 [place] Cheek No data available for this section 10/10/2018 [id number] No data available for this section 07/04/2018 [place] Curiel Marital History - Currently (Active) Never A Smoker (Active) Never Drank Alcohol (Active) Never Used Drugs (Active) Occupation: Comments: [employer] (Active) 06/22/2013 [facility] Family History Value Date S ource Family history of Cancer (Active) Family history of Diabetes Mellitus (V18.0); (Active) Family history of Coronary Artery Disease (V17.49); (Active) Family history of Hypothyroidism (Active) Maternal history of Hypertension (V17.49); (Active) Maternal history of Diabetes Mellitus (V18.0); (Active) 06/22/2013 [facility] Family history of Cancer (Active) Family history of Diabetes Mellitus (V18.0); (Active) Family history of Coronary Artery Disease (V17.49); (Active) Family history of Hypothyroidism (Active) Maternal history of Hypertension (V17.49); (Active) Maternal history of Diabetes Mellitus (V18.0); (Active) 04/12/2013 [facility] Family history of Cancer (Active) Family history of Diabetes Mellitus (V18.0); (Active) Family history of Coronary Artery Disease (V17.49); (Active) Family history of Hypothyroidism (Active) Maternal history of Hypertension (V17.49); (Active) Maternal history of Diabetes Mellitus (V18.0); (Active) 04/08/2013 [facility] Family history of Cancer (Active) Family history of Diabetes Mellitus (V18.0); (Active) Family history of Coronary Artery Disease (V17.49); (Active) Family history of Hypothyroidism (Active) Maternal history of Hypertension (V17.49); (Active) Maternal history of Diabetes Mellitus (V18.0); (Active) 02/07/2013 [facility] Family history of Cancer (Active) Family history of Diabetes Mellitus (V18.0); (Active) Family history of Coronary Artery Disease (V17.49); (Active) Family history of Hypothyroidism (Active) Maternal history of Hypertension (V17.49); (Active) Maternal history of Diabetes Mellitus (V18.0); (Active) 02/06/2013 [facility] Family history of Cancer (Active) Family history of Diabetes Mellitus (V18.0); (Active) Family history of Coronary Artery Disease (V17.49); (Active) Family history of Hypothyroidism (Active) Maternal history of Hypertension (V17.49); (Active) Maternal history of Diabetes Mellitus (V18.0); (Active) 01/10/2013 [facility] Family history of Cancer (Active) Family history of Diabetes Mellitus (V18.0); (Active) Family history of Coronary Artery Disease (V17.49); (Active) Family history of Hypothyroidism (Active) Maternal history of Hypertension (V17.49); (Active) Maternal history of Diabetes Mellitus (V18.0); (Active) 01/10/2013 [facility] Family history of Diabetes Mellitus (V18 .0); (Active) Family history of Cancer (Active) Family history of Coronary Artery Disease (V17.49); (Active) 10/24/2012 [facility] Advance Directives Order Name Results Value Date Source Advance Directives Advance Dir ectives No Advance Directives available. 06/22/2013 [facility] Advance Directives Advance Dir ectives No Advance Directives available. 04/12/2013 [facility] Advance Directives Advance Dir ectives No Advance Directives available. 04/08/2013 [facility] Advance Directives Advance Dir ectives No Advance Directives available. 02/07/2013 [facility] Advance Directives Advance Dir ectives No Advance Directives available. 02/06/2013 [facility] Advance Directives Advance Dir ectives No Advance Directives available. 01/10/2013 [facility] Advance Directives Advance Dir ectives No Advance Directives available. 01/10/2013 [facility] Advance Directives Advance Dir ectives No Advance Directives available. 10/24/2012 [facility] Functional Status No Data Provided for This Section
--- OUTSIDE RECORDS SUMMARY | 2019-11-04 13:26 | XMS REPORT | Summary of Care ---
Author Author [facility] Address Unknown Phone Unavailable Encounter TAZ Stein(RIGO) [id number] Date(s): 03/18/19 - 03/18/19 [facility] [address] [facility] provided by [facility] [place] [address]- Discharge Disposition: Home or Self Care Attending Physician: Kristopher Alicea MD Referring Physician: Kristopher Alicea MD Vital Signs 1 2 3 Most recent to oldest [Reference Range]: 162.56 cm (03/18/19 7:52 AM) Height 121/76 mmHg (03/18/19 8:43 AM) 125/63 mmHg (03/18/19 8:34 AM) 123/65 mmHg (03/18/19 8:28 AM) Blood Pressure [90-140/60-90 mmHg] 18 BRMIN (03/18/19 8:43 AM) 18 BRMIN (03/18/19 8:34 AM) 18 BRMIN (03/18/19 8:28 AM) Respiratory Rate [14-20 BRMIN] 79 bpm (03/18/19 8:43 AM) 59 bpm *LOW* (03/18/19 8:34 AM) 62 bpm (03/18/19 8:28 AM) Peripheral Pulse Rate [60-100 bpm] 98.182 kg (03/18/19 7:52 AM) Weight 37.15 m2 (03/18/19 7:52 AM) Body Mass Index Problem List No data available for this section Allergies, Adverse Reactions, Alerts Substance Reaction Severity Status sulfa drugs Active amoxicillin Active Tape Active Medications albuterol 0.083% inhalation solution 2.49 mg = 3 mL, INHALATION, Q6H, PRN wheezing, coughing, or shortness of breath, # 240 ea, 1 Refill(s) Start Date: 03/18/19 Stop Date: 05/17/19 Status: Ordered gabapentin 300 mg oral capsule 300 mg = 1 cap, PO, TID, # 270 cap, 0 Refill(s) Start Date: 03/18/19 Status: Ordered metoprolol 5 mg/5 ml INJ 10 mg, Route: IV, ONCE, Dosing Weight 98.182, kg, Start date: 03/18/19 8:38:[address], Stop date: 03/18/19 8:38:00 LEATHER SCRAPER Start Date: 03/18/19 Stop Date: 03/18/19 Status: Completed montelukast 10 mg oral tablet 10 mg = 1 tab, PO, Bedtime, # 90 tab, 0 Refill(s) Start Date: 03/18/19 Status: Ordered nitroglycerin 0.4 mg, Route: SL, ONCE, Dosing Weight 98.182, kg, Start date: 03/18/19 8:00:00 LEATHER SCRAPER, Stop date: 03/18/19 8:00:00 LEATHER SCRAPER Start Date: 03/18/19 Stop Date: 03/18/19 Status: Completed Protonix 40 mg oral granule = 1 Pack, PO, Daily, # 30 ea, 0 Refill(s) Start Date: 03/18/19 Status: Ordered sucralfate 1 g oral tablet 1 gm = 1 tab, PO, QID, 0 Refill(s) Start Date: 03/18/19 Status: Ordered Symbicort 80/4.5 inhalation aerosol with adapter 2 puff, INHALATION, BID, # 6.9 gm, 0 Refill(s) Start Date: 03/18/19 Status: Ordered Results Most recent to 1 oldest [Reference Range]: eGFR 87 mL/min/1.73m2 1 *NA* (03/18/19 8:14 AM) POC Creatinine 0.8 mg/dL [0.5-1.4 mg/dL] (03/18/19 8:14 AM) 1Result Comment: The eGFR is calculated using the [...] from the National Kidney Disease Education Program ( NKDEP) which additionally recommends that when the eGFR is used in patients with extremes of body mass index for purposes of drug dosing, the eGFR should be mul tiplied by the estimated BMI. Immunizations No data available for this section Procedures No data available for this section Social History Social History Type Response Assessment and Plan No data available for this section
--- OUTSIDE RECORDS SUMMARY | 2019-11-04 13:26 | XMS REPORT ---
Author Author MICAH Nichols Organization Unknown Address Unknown Phone Care Team Providers Care Dinkey Operator Slag Name Role Phone NicholsAnn santiago PP Unavailable [...] DIRECTED.; Start Date: 01/10/2013; End Date: (Active) Allergies [...] Never Used Drugs (Active) Treatment Plan * [QL] IRON, TOTAL 01/13/2013 Routine Advance Directives * No Advance Directives available. Encounters * AUDIT 02/07/2013 * [facility], Provider: MARGAUX GARCIA, Status: Tirso, Time: 9:45 AM 04/11/2013
--- OUTSIDE RECORDS SUMMARY | 2019-11-04 13:26 | XMS REPORT ---
Author Author MICAH GARCIA Organization Unknown Address Unknown Phone Care Team Providers Care Terminal Manager Name Role Phone MARGAUX GARCIA PP Unavailable [...] TABLET DAILY DIRECTED.; Start Date: 01/10/2013 (Active) * PredniSONE 10 MG Oral Tablet; [...] Never Used Drugs (Active) Treatment Plan * [[facility]] IRON, TOTAL 01/13/2013 Routine Advance Directives * No Advance Directives available. Encounters * AUDIT 02/05/2013 * [facility], Provider: MARGAUX GARCIA, Status: Tirso, Time: 1:00 PM 02/07/2013
--- OUTSIDE RECORDS SUMMARY | 2019-11-04 13:26 | XMS REPORT ---
Author Author MICAH GARCIA Organization Unknown Address Unknown Phone Care Team Providers Care Raw Juice Weigher Name Role Phone MARGAUX GARCIA PP Unavailable Reason for Referral No Reason for Referral was given. History of Present Illness No HPI available. 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); (Active) * Hyperglycemia (790.29); (Active) * Hypertension (401.9); (Active) * Anemia (285.9); (Active) * Lower Back Pain (724.2); (Active) * Hematuria (599.70); (Active) * Prediabetes (790.29); (Active) * Acute Sinusitis (461.9); (Active) Medication * Montelukast Sodium 10 MG [...] Oral Tablet; TAKE TABLET PRN (Active) * Minastrin 24 Fe 1-20 MG-MCG(24) Oral Tablet Chewable (Active) * Azithromycin 500 MG Oral Tablet; TAKE ONE TABLET BY MOUTH QD FOR 7 DAYS.; Start Date: 04/11/2013 (Active) * Fluticasone Propionate 50 MCG/ACT Nasal Suspension; USE 1 SPRAY IN EACH NOSTRIL ONCE DAILY.; Start Date: 04/11/2013 (Active) * Losartan Potassium 100 MG Oral Tablet; TAKE 1 TABLET ONCE DAILY.; Start Date: 01/10/2013 (Active) Allergies and Adverse [...] Plan * [QL] IRON, TOTAL 01/13/2013 Routine * [QL] CMP W/EGFR 08/17/2013 Routine * [QLH] HEMOGLOBIN A1c 08/17/2013 Routine Advance Directives * No Advance Directives available. Encounters * AUDIT 04/12/2013 * [facility], Provider: MARGAUX GARCIA, Status: Tirso, Time: 8:00 AM 08/29/2013
--- OUTSIDE RECORDS SUMMARY | 2019-11-04 13:26 | XMS REPORT ---
Author Author MICAH GARCIA Organization Unknown Address Unknown Phone Care Team Providers Care Employment Evaluator/Case Manager Name Role Phone MARGAUX GARCIA PP [...] (790.29); (Active) * Acute Sinusitis (461.9); (Active) * Visit For: Screening Exam Malignant Neoplasm Breast (V76.10); (Active) * Common Migraine (Without Aura) (346.10); (Active) Medication * Montelukast Sodium 10 MG Oral Tablet; TAKE 1 TABLET DAILY. (Active) * Pantoprazole Sodium 40 MG Intravenous Solution Reconstituted; INFUSE MG PRN (Active) * Nortriptyline HCl 25 MG Oral Capsule; TAKE 1 CAPSULE DAILY (Active) * Propranolol HCl ER 80 MG Oral Capsule Extended Release 24 Hour; daily (Active) * Imitrex 100 MG Oral Tablet; TAKE TABLET PRN (Active) * Minastrin 24 Fe 1-20 MG-MCG(24) Oral Tablet Chewable (Active) * Fluticasone Propionate 50 MCG/ACT Nasal Suspension; USE 1 SPRAY IN EACH NOSTRIL ONCE DAILY.; Start Date: 04/11/2013 (Active) * Losartan Potassium 100 MG Oral Tablet; TAKE 1 TABLET ONCE DAILY.; Start Date: 01/10/2013 (Active) * SUMAtriptan Succinate 100 MG Oral Tablet; TAKE ONE TABLET BY MOUTH ONSET NEEDED FOR HEADACHE; Start Date: 06/22/2013 (Active) Allergies and Adverse Reactions * Amoxicillin TABS (Active) * Sulfa Drugs (Active) * Adhesive Tape (Active) Past Medical History * History of [...] (Active) * Never Used Drugs (Active) * Occupation: Comments: [employer] (Active) Treatment Plan * [QLH] IRON, TOTAL 01/13/2013 Routine * [QLH] CMP W/EGFR 08/17/2013 Routine * [QLH] HEMOGLOBIN A1c 08/17/2013 Routine * [facility] Digital Mammo Screening Bert [id number] 05/09/2013 Routine Advance Directives * No Advance Directives available. Encounters * AUDIT 06/22/2013 * [facility], Provider: MARGAUX GARCIA, Status: Tirso, Time: 8:00 AM 08/29/2013
--- NOTE | 2019-11-04 13:27 | NUR ---
BLANKET GIVEN FOR PT REQUEST AND COMFORT
--- OUTSIDE RECORDS SUMMARY | 2019-11-04 13:27 | XMS REPORT | Summary of Care ---
Author Author MICAH Win R.N. 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 Name Role Phone JOSE Rudd, MARGAUX Unavailable Unavailable Quirino Huitron, Erin Unavailable Unavailable NUGENT N.P., LOLI Unavailable Unavailable VIANEY N.P., DEVI Unavailable Unavailable JOSE CLEMENTE [place], MARGAUX MARTIN Unavailable Unavailable VIANEY REGULATORY ATTORNEY, DEVI Unavailable Unavailable SHOLA CLEMENTE, JELLY Cobb Unavailable Unavailable MAGDALENA CLEMENTE [place], ALFREDO OCONNELL Unavailable Unavailable Nixon CLEMENTE, Kristopher Unavailable Unavailable Unavailable Unavailable Functional Status Name Dates Details Functional status health issues are not documented Status: Name Dates Details Cognitive status health issues are not d ocumented Status: Problems Name Dates Details Hematuria (599.70, R31.9) Status: Active Mitral valve prolapse syndrome (424.0, I 34.1) Status: Active Abnormal glucose (790.29, R73.09) Status: Active Screening for malignant neoplasm of tasha st (V76.10, Z12.39) Status: Active Tracheobronchitis (490, J40) Status: Active Acute bronchitis (466.0, J20.9) Status: Active Acute situational disturbance (308.3, F4 3.0) Status: Active Depression (311, F32.9) Status: Active Palpitation (785.1, R00.2) Status: Active Tachycardia (785.0, R00.0) Status: Active Snoring (786.09, R06.83) Status: Active Dizziness (780.4, R42) Status: Active Urinary frequency (788.41, R35.0) Status: Active Pelvic pressure in female (625.8, R10.2) Status: Active 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) Status: Active Urinary incontinence (788.30, R32) Status: Active TMJ (temporomandibular joint syndrome) ( 524.60, M26.609) Status: Active Palpitations (785.1, R00.2) Status: Active Burning with urination (788.1, R30.0) Status: Active Vertigo (780.4, R42) Status: Active Chronic gastroesophageal reflux disease (530.81, K21.9) Status: Active Neck pain on left side (723.1, M54.2) Status: Active Myofascial pain on left side (729.1, M79 .18) Status: Active Allergic conjunctivitis of both eyes (37 2.14, H10.13) Status: Active BPPV (benign paroxysmal positional verti go) (386.11, H81.10) Status: Active Marcie vaginitis (112.1, B37.3) Status: Active History of Urinary urgency (788.63, R39. 15) Status: Resolved Urinary urgency (788.63, R39.15) Status: Active Otalgia of left ear (388.70, H92.02) Status: Active Immunity status testing (V72.61, Z01.84) Status: Active Hepatic steatosis (571.8, K76.0) Status: Active Immunity status testing (V72.61, Z01.84) Status: Active Hepatic steatosis (571.8, K76.0) Status: Active History of RUQ abdominal pain (789.01, R 10.11) Status: Resolved Acute URI (465.9, J06.9) Status: Active Orthostatic hypotension (458.0, I95.1) Status: Active Screening for hypothyroidism (V77.0, Z13 .29) Status: Active Degeneration of intervertebral disc of l umbar region (722.52, M51.36) Status: Active DJD (degenerative joint disease), lumbar (721.3, M47.816) Status: Active Lumbar foraminal stenosis (724.02, M48.0 61) Status: Active Lower back pain (724.2, M54.5) Status: Active Need for hepatitis A immunization (V05.3 , Z23) Status: Active Need for hepatitis B vaccination (V05.3, Z23) Status: Active Personal history of urinary tract infect ion (V13.02, Z87.440) Status: Active Acute pharyngitis with influenza (487.1, J11.1) Status: Active Acute tracheobronchitis (466.0, J20.9) Status: Active Acute pharyngitis due to other specified organisms (462, J02.8) Status: Active GERD (gastroesophageal reflux disease) ( 530.81, K21.9) Status: Active Continuous left upper quadrant pain (789 .02, R10.12) Status: Active Common migraine without aura (346.10, G4 3.009) Status: Active Hiatal hernia with GERD (530.81, K21.9) Status: Active History of anemia (V12.3, Z86.2) Status: Active Need for Tdap vaccination (V06.1, Z23) Status: Active Fatigue (780.79, R53.83) Status: Active Sleep apnea (780.57, G47.30) Status: Active Daytime somnolence (780.54, R40.0) Status: Active Migraine headache (346.90, G43.909) Status: Active Left upper quadrant pain (789.02, R10.12 ) Status: Active Failure of outpatient treatment (V49.89, Z78.9) Status: Active Fever (780.60, R50.9) Status: Active Symptoms of upper respiratory infection (URI) (786.09, R09.89) Status: Active Acute recurrent sinusitis (461.9, J01.91 ) Status: Active Maxillary opacification (793.0, R93.0) Status: Active Acute bronchitis due to other specified organisms (466.0, J20.8) Status: Active Moderate persistent asthma with acute ex acerbation (493.92, J45.41) Status: Active Ear pressure, left (388.8, H93.8X2) Status: Active Yeast infection (112.9, B37.9) Status: Active Elevated hemoglobin A1c (790.29, R73.09) Status: Active Hyperglycemia (790.29, R73.9) Status: Active Impaired fasting glucose (790.21, R73.01 ) Status: Active Obesity (BMI 30-39.9) (278.00, E66.9) Status: Active Left maxillary sinusitis (473.0, J32.0) Status: Active Acute suppurative otitis media of left e ar without spontaneous rupture of tympanic membrane, recurrence not specified (382.00, H66.002) Status: Active Acute non-recurrent sinusitis of other s inus (461.8, J01.80) Status: Active Sinusitis (473.9, J32.9) Status: Active Screening for diabetes mellitus (V77.1, Z13.1) Status: Active Screening for lipid disorders (V77.91, Z 13.220) Status: Active Acute right lumbar radiculopathy (724.4, M54.16) Status: Active Low back pain radiating to right lower e xtremity (724.2, M54.5) Status: Active Encounter for well adult exam with abnor mal findings (V70.0, Z00.01) Status: Active Acute bronchitis due to infection (466.0 , J20.8) Status: Active Pre-diabetes (790.29, R73.03) Status: Active Complex cyst of right ovary (620.2, N83. 291) Status: Active Depression screening negative (V79.0, Z1 3.31) Status: Active Obesity (BMI 30.0-34.9) (278.00, E66.9) Status: Active Allergic rhinitis (477.9, J30.9) Status: Active Acute low back pain (724.2, M54.5) Status: Active Left lower quadrant abdominal tenderness (789.64, R10.814) Status: Active Diarrhea (787.91, R19.7) Status: Active Pain of left upper extremity (729.5, M79 .602) Status: Active History of diabetes mellitus (V12.29, Z8 6.39) Status: Active Bilateral sciatica (724.3, M54.31) Status: Active BMI 36.0-36.9,adult (V85.36, Z68.36) Status: Active Encounter to discuss test results (V65.4 9, Z71.2) Status: Active Acute non-recurrent maxillary sinusitis (461.0, J01.00) Status: Active Acute exacerbation of mild persistent ex trinsic asthma (493.02, J45.31) Status: Active Sore throat (462, J02.9) Status: Active Flu-like symptoms (780.99, R68.89) Status: Active Essential (primary) hypertension (401.9, I10) Status: Active Anxiety (300.00, F41.9) Status: Active Hyperlipidemia (272.4, E78.5) Status: Active Bilateral posterior neck pain (723.1, M5 4.2) Status: Active Headache, cervicogenic (784.0, R51) Status: Active Acute abdominal pain syndrome (789.00, R 10.0) Status: Active Loose stools (787.7, R19.5) Status: Active Acute bilateral thoracic back pain (724. 1, M54.6) Status: Active Thoracic spondylosis (721.2, M47.814) Status: Active Generalized postprandial abdominal pain (789.07, R10.84) Status: Active Postcholecystectomy diarrhea (564.4, R19 .7) Status: Active Postprandial nausea (787.02, R11.0) Status: Active Abdominal bloating (787.3, R14.0) Status: Active Precordial pain (786.51, R07.2) Status: Active Chronic pain of left upper extremity (72 9.5, M79.602) Status: Active Mild persistent asthma without complicat ion (493.90, J45.30) Status: Active Lateral epicondylitis of left elbow (726 .32, M77.12) Status: Active At risk for coronary artery disease (V49 .89, Z91.89) Status: Active Hospital discharge follow-up (V67.59, Z0 9) Status: Active Class 2 severe obesity due to excess anne marie ories with serious comorbidity and body mass index (BMI) of 35.0 to 35.9 in adult (278.01, E66.01) Status: Active Never smoked cigarettes (V49.89, Z78.9) Status: Active Insect bite of thigh, left, subsequent e ncounter (V58.89, S70.362D) Status: Active Cellulitis of thigh (682.6, L03.119) Status: Active Class 2 obesity due to excess calories w ith body mass index (BMI) of 36.0 to 36.9 in adult, unspecified whether serious comorbidity present (278.00, E66.09) Status: Active Medications Name Dates Details Montelukast Sodium 10 MG Oral Tablet TAKE 1 TABLET BY MOUTH DAILY Quantity: 90 MARGAUX GARCIA M.D. * Start : 18-Aug-2013 Active Pantoprazole Sodium 40 MG Oral Tablet Delayed Release TAKE 1 TABLET BY MOUTH DAILY. PATIENT NEEDS APPOINTMENT * Quantity: 90 Refills: 1 SAEID GARCIA M.D.NDA * Start : 16-Aug-2018 Active Gabapentin 300 MG Oral Capsule TAKE 1 CAPSULE BY MOUTH THREE TIMES DAILY * Quantity: 270 Refills: 0 SAEID GARCIA M.D.NDA * Start : 28-Jul-2016 Active Albuterol Sulfate (2.5 MG/3ML) 0.083% Inhalation Nebulization Solution USE 1 UNIT DOSE FOUR TIMES A DAY UNTIL WELL * Quantity: 1 Refills: 1 MARGAUX GARCIA M.D. Active 60 x 3 ML Plas Cont Azelastine HCl - 0.15 % Nasal Solution One spray each nostril twice a day * Quantity: 1 Refills: 1 MARGAUX GARCIA M.D. * Start : 21-Aug-2017 Active 30 ML [place] Btl OneTouch Verio w/Device Kit For daily glucose monitoring * Quantity: 1 Refills: 0 NUGENT N.P., LOLI * Start : 18-Sep-2017 Active OneTouch Verio In Vitro Strip CHECK 2 TIMES DAILY * Quantity: 2 Refills: 2 NUGENT N.P., LOLI * Start : 18-Sep-2017 Active 100 Strip Box OneTouch [facility] [place] For glucose monitoring twice daily * Quantity: 2 Refills: 2 NUGENT N.P., LOLI * Start : 18-Sep-2017 Active 100 Unit Box Fluticasone Propionate 50 MCG/ACT Nasal Suspension SPRAY ONE SPRAY IN EACH NOSTRIL TWICE DAILY * Quantity: 16 Refills: 0 MARGAUX GRACIA M.D. Active Azelastine HCl - 0.05 % Ophthalmic Solution INSTILL 1 DROP IN EACH EYE TWICE DAILY NEEDED. * Quantity: 1 Refills: 2 MARGAUX GARCIA M.D. Active 6 ML Bottle ProAir HFA 108 (90 Base) MCG/ACT Inhalation Aerosol Solution INHALE 1 TO 2 PUFFS EVERY 4 TO 6 HOURS NEEDED. * Quantity: 1 Refills: 2 VIANEY N.P., DEVI * Start : 01-Oct-2018 Active 8.5 GM Inhaler Symbicort 80-4.5 MCG/ACT Inhalation Aerosol INHALE 2 PUFFS TWICE DAILY. RINSE MOUTH AFTER USE. * Quantity: 1 Refills: 2 JOSE Abdullahi.Bob, MARGAUX * Start : 02-Oct-2018 Active 10.2 GM Inhaler Sucralfate 1 GM Oral Tablet TAKE 1 TABLET BY MOUTH FOUR TIMES DAILY( 30 MINUTES BEFORE MEALS AND AT BEDTIME) * Quantity: 120 Refills: 0 GOODINE Bradly.Valdemar., MARGAUX * Start : 24-Jan-2019 Active Colestipol HCl - 1 GM Oral Tablet TAKE ONE TABLET BY MOUTH ONCE or TWICE DAILY * Quantity: 60 Refills: 1 GOODINE Bradly.Valdemar., MARGAUX * Start : 27-Jan-2019 Active Clindamycin HCl - 300 MG Oral Capsule TAKE 1 CAPSULE FOUR TIMES A DAY WITH FOOD FOR 10 DAYS * Quantity: 40 Refills: 0 GOODINE M.D., MARGAUX * Start : 24-Mar-2019 Active Triamcinolone Acetonide 0.1 % External Cream APPLY AND RUB IN A THIN FILM TO AFFECTED SKIN TWICE DAILY(AM AND PM) FOR 7-10 days ONLY * Quantity: 1 Refills: 0 GOODINE Bradly.Valdemar., MARGAUX * Start : 27-Mar-2019 Active 30 GM Tube Allergies and Adverse Reactions Name Dates Details Amoxicillin TABS (Allergy) Status: Activ e Sulfa Drugs (Allergy) Status: Active Adhesive Tape (Allergy) Status: Active Past Medical History Name Dates Details History of Chronic migraine without aura , without mention of intractable migraine without mention of status migrainosus (346.70, G43.709) Status: Resolved History of essential hypertension (V12.5 9, Z86.79) Status: Resolved History of Fatty liver (571.8, K76.0) Status: Resolved History of RUQ abdominal pain (789.01, R 10.11) Status: Resolved History of sinusitis (V12.69, Z87.09) Status: Resolved History of Urinary urgency (788.63, R39. 15) Status: Resolved Personal history of asthma (V12.69, Z87. 09) Status: Resolved Procedures Procedure Dates Details CTA Coronary art w/ calcium evaluation 26043 Date: 04-Mar-20 19 History of Inguinal Hernia Repair Comple julien History of Cholecystectomy Completed History of Anoscopy For Polyp Removal Co mpleted History of Destruction Of Flat Warts By Laser Completed History of Right Breast Lumpectomy Compl eted Immunization Name Dates Details Td (adult), unspecified formulation on: 18-Jul-2003 Hepatitis B on: 24-Oct-2003 Fluvirin INJ on: 19-Nov-2013 Influenza on: Jan-2016 Hepatitis A Lot #: [id number] on: 15-Feb-2016 Hep B (Recombinant) Lot #: [id number] on: 15-Feb-2016 Hepatitis B Lot #: [id number] on: 16-Mar-2016 Hepatitis A, adult Lot #: [id number] on: 21-Aug-2016 Hepatitis B, adult Lot #: [id number] on: 21-Aug-2016 Fluzone INJ on: 15-Dec-2016 Tdap (Adacel) Lot #: [id number] on: 15-Mar-2017 Family History Name Dates Details Family history of Cancer Comments: Family History Status: Active Family history of Diabetes Mellitus (V18 .0) Comments: Family History Status: Active Family history of Coronary Artery Diseas e (V17.49) Comments: Family History Status: Active Family history of Hypothyroidism Comments: Family History Status: Active Name Dates Details Family history of Diabetes Mellitus (V18 .0) Status: Active Family history of essential hypertension (V17.49, Z82.49) Status: Active Name Dates Details Family history of liver cancer (V16.0, Z 80.0) Status: Active Name Dates Details Family history of malignant neoplasm of thyroid (V16.8, Z80.8) Status: Active Social History Name Dates Details - Status: Name Dates Details Never smoker Never smoker Vital Signs Date Test Result Details :11 BP Systolic 112 mm[Hg] Status: Comments: Lo cation: LUE; Position: Sitting BP Diastolic 72 mm[Hg] Status: Comments: Lo cation: LUE; Position: Sitting Height 64 in Status: Weight 212.4 lb Status: Body Mass Index Calculated 36.46 kg/m2 Status: Body Surface Area Calculated 2.01 m2 Status: Temperature 97.6 f Status: Comments: Me thod: Temporal Heart Rate 79 /min Status: Comments: Lo cation: L Radial; Respiration Rate 16 /min Status: Comments: Qu ality: Normal Physical Findings 0 Status: Comments: Pa in Scale :53 BP Systolic 104 mm[Hg] Status: Comments: Lo cation: LUE; Position: Sitting BP Diastolic 70 mm[Hg] Status: Comments: Lo cation: LUE; Position: Sitting Height 64 in Status: Weight 215 lb Status: Body Mass Index Calculated 36.9 kg/m2 Status: Body Surface Area Calculated 2.02 m2 Status: Temperature 97.3 f Status: Comments: Me thod: Temporal Heart Rate 85 /min Status: Comments: Lo cation: L Radial; Respiration Rate 16 /min Status: Comments: Qu ality: Normal Results Date Description Value Details :52 CT Heart, coronary art, grafts w contras t 59026 Heart, coronary art, grafts w contrast CT SEE NO PIO Comments: CORONARY CT ANGIOGRAPHY WITH CALCIUM SCORE REPORTDATE: March 18, 2019QUALITY:ExcellentCLINICAL HISTORY AND INDICATION:48 year-old patient with chest pain here for evaluation of suspected coronaryartery disease. This study is performed to avoid an invasive coronary angiogram and to assessrisk of an acute coronary syndrome.COMPARISON: noneTECHNIQUE:After obtaining a preliminary laser specialist image, coronary calcium imaging wasfollowed by contrast imaging performed on a [employer] ONE KALIA, 320 detectorrows - 640 slice, Likelii scanner.A dedicated, limited window, coronary imaging protocol was used, with singlebreath hold, prospective ECG gating, and automated arrhythmia rejection.85 cc of low osmolar contrast agent: Omnipaque-350 was delivered via a 18gauge IV catheter, utilizing a power injector, at 5 cc/sec injection rate, andfollowed by 50 cc of normal saline bolus as a chaser.Collimated images were reformatted at 0.5 mm intervals, and sent to an offlineindependent workstation for inter pretation, using 3D anatomic reconstructions:curved multiplanar reconstructions (MPR), maximum intensity projections (MIP),and multi-planar imaging.For optimal image acquisition, (0.4) mg of sublingual Nitroglycerin wasadministered immediately prior to scanning, and a total of 10 mg of Metoprololwere administered IV 10 min. prior to scanning.Effective radiation dose administered: 3 mSv.Heart rate during image acquisition was approximately: 60 bpm.FINDINGS:This study is performed with a limited imaging window, and a dedicated protocolfor visualization of the cardiac structures and epicardial coronary arteries.No extracardiac findings are reported in this study; imaging extracardiacfindings requires additional imaging protocols, as clinically indicated.Atria and ventricles are normal in size.Valves with normal morphology.No intracardiac masses.No pericardial effusion, thickening, calcification or cysts.Aorta, pulmonary arteries and their main branches: normal anatomy.Pulmonary veins and venae cavae: normal anatomy.CORONARY ARTERY CALCIUM SCORE: Total: 0. Vessel ScoreLeft Main Coronary Artery 0Left Anterior Descending / Diagonals 0Left Circumflex / Obtuse Marginals 0Right Coronary / PDA / JERICA 0CORONARY ARTERY DESCRIPTIONS:The coronary arteries arise in normal position.Left main coronary artery: Normal caliber vessel that bifurcates into the LADand LCx. A ramus intermedius is also seen and appears patent with no evidenceof plaque or stenosis. LM is patent with no evidence of plaque or stenosis.Left anterior descending coronary artery: Normal caliber vessel that gives off2 patent diagonal branches. LAD is patent with no evidence of plaque orstenosis.Left circumflex coronary artery: Normal caliber, nondominant vessel thatgives off 2 patent obtuse marginal branches. LCX is patent with no evidence ofplaque or stenosis.Right Coronary artery: Normal caliber, dominant vessel that gives off 2patent acute marginal branches, and terminates into PL and PDA branches. RCA ispatent with no evidence of plaque or stenosis.IMPRESSIONS:1. Total calcium sc ore: 0.2. No evidence of coronary plaque or stenosis, by CT angiography.3. CAD-RADS: 0 (consider nonatherosclerotic causes of chest pain).--Read by: Edinson Astorga MDDictated Date/time: 03/18/19 14:29Electronically Signed by: Edinson Astorga MD 03/18/1914:43FINAL REPORT Plan of Care Name Dates Details Planned Observations Planned Goals not documented Planned Encounters Appointment; KRISTOPHER ALTAMIRANO M .D. On: 25-Apr-2019 13:40 Instructions Name Dates Details Instructions not documented [...] Diagnosis: Problem not documented On: 01-Oct-2018 9:00 Appointment; DEVI WINTERS NP Encounter Diagnosis: Problem not documented On: 09-Oct-2018 13:00 Appointment; MARGAUX GARCIA M.D. Encounter Diagnosis: Problem not documented On: 06-Dec-2018 10:30 Appointment; ALFREDO NICHOLS M.D. Encounter Diagnosis: Problem not documented On: 11-Jan-2019 10:30 Appointment; MARGAUX GARCIA M.D. Encounter Diagnosis: Problem not documented On: 24-Jan-2019 11:30 Appointment; MARGAUX GARCIA M.D. Encounter Diagnosis: Problem not documented On: 27-Jan-2019 8:15 Appointment; LOLI NUGENT NP Encounter Diagnosis: Problem not documented On: 08-Feb-2019 9:15 Appointment; MARGAUX GARCIA M.D. Encounter Diagnosis: Problem not documented On: 18-Feb-2019 14:15 Appointment; KRISTOPHER ALTAMIRANO M .D. Encounter Diagnosis: Problem not documented On: 04-Mar-2019 13:00 Appointment; MARGAUX GARCIA M.D. Encounter Diagnosis: Problem not documented On: 24-Mar-2019 15:45 Appointment; MARGAUX GARCIA M.D. Encounter Diagnosis: Problem not documented On: 27-Mar-2019 9:00
--- OUTSIDE RECORDS SUMMARY | 2019-11-04 13:27 | XMS REPORT | Summary of Care ---
Author Author MICAH Kirby R.N. Organization Unknown Address Unknown Phone Unavailable Care Team Providers Care Clinical Science Liaison Name Role Phone JOSE Rudd, MARGAUX Unavailable Unavailable NUGENT N.P., LOLI Unavailable Unavailable VIANEY N.P., DEVI Unavailable Unavailable JOSE CLEMENTE [place], MARGAUX MARTIN Unavailable Unavailable VIANEY DATA PROCESSING OPERATOR, DEVI Unavailable Unavailable SHOLA CLEMENTE, JELLY Cobb Unavailable Unavailable MAGDALENA CLEMENTE [place], ALFREDO OCONNELL Unavailable Unavailable Nixon CLEMENTE, Kristopher [...] E66.09) Status: Active Medications Name Dates [facility] TAKE 1 TABLET BY MOUTH DAILY Quantity: 90 JOSE Abdullahi.Valdemar.SAEIDMARGAUX * Start : 18-Aug-2013 Active Pantoprazole Sodium 40 MG Oral Tablet Delayed Release TAKE 1 TABLET BY MOUTH DAILY. PATIENT NEEDS APPOINTMENT * Quantity: 90 Refills: 0 GOODCOSME Abdullahi.Valdemar., MARGAUX * Start : 02-Jan-2014 Active Gabapentin 300 MG Oral Capsule TAKE 1 CAPSULE BY MOUTH THREE TIMES DAILY * Quantity: 270 Refills: 0 JOSE Abdullahi.Valdemar.SAEIDMARGAUX * Start : 28-Jul-2016 Active Albuterol Sulfate (2.5 MG/3ML) 0.083% Inhalation Nebulization Solution USE 1 UNIT DOSE FOUR TIMES A DAY UNTIL WELL * Quantity: 1 Refills: 1 JOSE Abdullahi.Valdemar.MARGAUX Active 60 x 3 ML Plas Cont Azelastine HCl - 0.15 % Nasal Solution One spray each nostril twice a day * Quantity: 1 Refills: 1 JOSE Abdullahi.Valdemar.SAEIDMARGAUX * Start : 21-Aug-2017 Active 30 ML [place] Btl OneTouch Verio w/Device Kit For daily glucose monitoring * Quantity: 1 Refills: 0 NUGENT N.P., LOLI * Start : 18-Sep-2017 Active OneTouch Verio In Vitro Strip CHECK 2 TIMES DAILY * Quantity: 2 Refills: 2 NUGENT N.P., LOLI * Start : 18-Sep-2017 Active 100 Strip Box OneTouch Deladi Martinez Fine MISC For glucose monitoring twice daily * Quantity: 2 Refills: 2 NUGENT N.P., LOLI * Start : 18-Sep-2017 Active 100 Unit Box Fluticasone Propionate 50 MCG/ACT Nasal Suspension SPRAY ONE SPRAY IN EACH NOSTRIL TWICE DAILY * Quantity: 16 Refills: 0 JOSE M.D.MARGAUX Active Azelastine HCl - 0.05 % Ophthalmic Solution INSTILL 1 DROP IN EACH EYE TWICE DAILY NEEDED. * Quantity: 1 Refills: 2 JOSE Abdullahi.Valdemar.MARGAUX Active 6 ML Bottle ProAir HFA 108 (90 Base) MCG/ACT Inhalation Aerosol Solution INHALE 1 TO 2 PUFFS EVERY 4 TO 6 HOURS NEEDED. * Quantity: 1 Refills: 2 VIANEY N.P., DEVI * Start : 01-Oct-2018 Active 8.5 GM Inhaler Symbicort 80-4.5 MCG/ACT Inhalation Aerosol INHALE 2 PUFFS TWICE DAILY. RINSE MOUTH AFTER USE. * Quantity: 1 Refills: 2 TAYLAINE Bradly.Valdemar., MARGAUX * Start : 02-Oct-2018 Active 10.2 [...] DAILY * Quantity: 60 Refills: 1 GOODINE M.D., MARGAUX * Start : 27-Jan-2019 Active Triamcinolone Acetonide 0.1 % External Cream APPLY AND RUB IN A THIN FILM TO AFFECTED SKIN TWICE DAILY(AM AND PM) FOR 7-10 days ONLY * Quantity: 1 Refills: 0 GOODINE M.D., MARGAUX * Start : 27-Mar-2019 Active 30 GM Tube Clindamycin HCl - 300 MG Oral Capsule TAKE 1 CAPSULE FOUR TIMES A DAY WITH FOOD FOR 10 DAYS * Quantity: 40 Refills: 0 GOODINE M.D., MARGAUX * Start : 24-Mar-2019 Active Allergies and Adverse Reactions Name Dates [...] Details CTA Coronary art w/ calcium evaluation 90220 Date: 04-Mar-20 19 History of Inguinal Hernia Repair Comple julien History of Cholecystectomy Completed History of Anoscopy For Polyp Removal Co mpleted History of Destruction Of Flat Warts By Laser Completed History of Right Breast Lumpectomy Compl eted Immunization Name Dates Details Td (adult), unspecified formulation on: 18-Jul-2003 Hepatitis B on: 24-Oct-2003 Fluvirin INJ on: 19-Nov-2013 Influenza on: Jan-2016 Hepatitis A Lot #: [id number] on: 15-Feb-2016 Hep B (Recombinant) Lot #: [id number] on: 15-Feb-2016 Hepatitis B Lot #: [id number] on: 16-Mar-2016 Hepatitis A, adult Lot #: [id number] on: 21-Aug-2016 Hepatitis B, adult Lot #: [id number] on: 21-Aug-2016 Fluzone INJ on: 15-Dec-2016 Tdap (Adacel) Lot #: [id number] on: 15-Mar-2017 Family History Name Dates Details [...] Findings 0 Status: Comments: Pa in Scale Results Date Description Value Details Results not documented Plan of Care Name Dates Details Planned Observations Planned Goals not documented Planned Encounters Appointment; KRISTOPHER ALTAMIRANO M .D. On: 25-Apr-2019 13:40 Interventions Provided Medication Changes* Pantoprazole Sodium 40 MG Oral Tablet Delayed Release - Renew Instructions Name Dates Details Instructions [...]
--- OUTSIDE RECORDS SUMMARY | 2019-11-04 13:27 | XMS REPORT | Summary of Care ---
Author MICAH Dai M.D. Organization Unknown Address Unknown Phone Unavailable Care Team Providers Care Elevator Constructor Name Role Phone JOSE Rudd, MARGAUX Unavailable Unavailable NUGENT N.P., LOLI Unavailable Unavailable VIANEY N.P., DEVI Unavailable Unavailable JOSE CLEMENTE [place], MARGAUX MARTIN Unavailable Unavailable VIANEY COMMUNITY DEVELOPMENT DIRECTOR, DEVI Unavailable Unavailable SHOLA CLEMENTE, JELLY Cobb Unavailable Unavailable MAGDALENA CLEMENTE [place], ALFREDO OCONNELL Unavailable Unavailable Nixon CLEMENTE, Kristopher [...] E66.09) Status: Active Medications Name Dates Details [facility] Sodium 10 MG Oral Tablet TAKE 1 [...] a day * Quantity: 1 Refills: 1 SAEID GARCIA M.D.NDA * Start : 21-Aug-2017 Active 30 ML [place] Btl OneTouch Verio w/Device Kit For daily [...] DAILY * Quantity: 16 Refills: 0 JOSE Abdullahi.MARGAUX Rojas Active Azelastine HCl - 0.05 % Ophthalmic [...] AFTER USE. * Quantity: 1 Refills: 2 GOODINE Bradly.Valdemar., MARGAUX * Start : 02-Oct-2018 Active 10.2 GM Inhaler Sucralfate 1 GM Oral Tablet TAKE 1 TABLET BY MOUTH FOUR TIMES DAILY( 30 MINUTES BEFORE MEALS AND AT BEDTIME) * Quantity: 120 Refills: 0 GOODINE Bradly.D., MARGAUX * Start : 24-Jan-2019 Active Colestipol HCl - 1 GM Oral Tablet TAKE ONE TABLET BY MOUTH ONCE or TWICE DAILY * Quantity: 60 Refills: 1 GOODINE M.D., MARGAUX * Start : 27-Jan-2019 Active Clindamycin [...] Details CTA Coronary art w/ calcium evaluation 06154 Date: 04-Mar-20 19 History of Inguinal Hernia Repair Comple julien History of Cholecystectomy Completed History of Anoscopy For Polyp Removal Co mpleted History of Destruction Of Flat Warts By Laser Completed History of Right Breast Lumpectomy Compl eted Immunization Name Dates Details Td (adult), unspecified formulation on: 18-Jul-2003 Hepatitis B on: 24-Oct-2003 Fluvirin INJ on: 19-Nov-2013 Influenza on: Jan-2016 Hepatitis A Lot #: [id number] on: 15-Feb-2016 Hep B (Recombinant) Lot #: [id number] on: 15-Feb-2016 Hepatitis B Lot #: [id number] on: 16-Mar-2016 Hepatitis A, adult Lot #: [id number] on: 21-Aug-2016 Hepatitis B, adult Lot #: [id number] on: 21-Aug-2016 Fluzone INJ on: 15-Dec-2016 Tdap (Adacel) Lot #: [id number] on: 15-Mar-2017 Family History Name Dates Details [...] ality: Normal Results Date Description Value Details [id number] CT Heart, coronary art, grafts w contras t 07084 Heart, coronary art, grafts w contrast CT SEE NO PIO Comments: CORONARY CT ANGIOGRAPHY WITH CALCIUM SCORE REPORTDATE: March 18, 2019QUALITY:ExcellentCLINICAL HISTORY AND INDICATION:48 year-old patient with chest pain here for evaluation of suspected coronaryartery disease. This study is performed to avoid an invasive coronary angiogram and to assessrisk of an acute coronary syndrome.COMPARISON: noneTECHNIQUE:After obtaining a preliminary nurse practitioner image, coronary calcium imaging wasfollowed by contrast imaging performed on a [employer]itro[employer] ONE KALIA, 320 detectorrows - 640 slice, SpinTheCam scanner.A dedicated, limited window, coronary imaging protocol [...] On: 25-Apr-2019 13:40 Interventions Provided Medication Changes* Triamcinolone Acetonide 0.1 % External Cream - Start Plan* For insect bite in the left thigh: * - START Triamcinolone Acetonide 0.1% cream, apply to affected area BID x 7-10 days * - START Mupirocin 2 % ointment, apply to affected area daily x 2 days * - Continue Clindamycin HCl 300 mg, QID until completed * Class 2 obesity Weight: 212.4 lb BMI: 36.46 * Return to clinic sooner if symptoms worsen or fail to improve. Instructions Name Dates Details Instructions not documented [...]
--- OUTSIDE RECORDS SUMMARY | 2019-11-04 13:27 | XMS REPORT | Summary of Care ---
Author Author MICAH Kirby R.N. Organization Unknown Address Unknown Phone Unavailable Care Team Providers Care Marketing Business Analyst Name Role Phone JOSE Rudd, MARGAUX Unavailable Unavailable NUGENT N.P., LOLI Unavailable Unavailable VIANEY N.P., DEVI Unavailable Unavailable JOSE CLEMENTE [place], MARGAUX MARTIN Unavailable Unavailable VIANEY LOOM OPERATOR, DEVI Unavailable Unavailable SHOLA CLEMENTE, JELLY Cobb Unavailable Unavailable MAGDALENA CLEMENTE [place], ALFREDO OCONNELL Unavailable Unavailable Nixon CLEMENTE, Kristopher [...] E66.09) Status: Active Medications Name Dates Details [facility] Sodium 10 MG Oral Tablet TAKE 1 [...] * Start : 21-Aug-2017 Active 30 ML [place] Btl OneTouch Verio w/Device Kit For daily [...] Details CTA Coronary art w/ calcium evaluation 27110 Date: 04-Mar-20 19 History of Inguinal Hernia Repair Comple julien History of Cholecystectomy Completed History of Anoscopy For Polyp Removal Co mpleted History of Destruction Of Flat Warts By Laser Completed History of Right Breast Lumpectomy Compl eted Immunization Name Dates Details Td (adult), unspecified formulation on: 18-Jul-2003 Hepatitis B on: 24-Oct-2003 Fluvirin INJ on: 19-Nov-2013 Influenza on: Jan-2016 Hepatitis A Lot #: [id number] on: 15-Feb-2016 Hep B (Recombinant) Lot #: [id number] on: 15-Feb-2016 Hepatitis B Lot #: [id number] on: 16-Mar-2016 Hepatitis A, adult Lot #: [id number] on: 21-Aug-2016 Hepatitis B, adult Lot #: [id number] on: 21-Aug-2016 Fluzone INJ on: 15-Dec-2016 Tdap (Adacel) Lot #: [id number] on: 15-Mar-2017 Family History Name Dates Details [...] On: 25-Apr-2019 13:40 Interventions Provided Medication Changes* Montelukast Sodium 10 [...]
--- OUTSIDE RECORDS SUMMARY | 2019-11-04 13:27 | XMS REPORT | Summary of Care ---
Author Author MICAH Kirby R.N. Organization Unknown Address Unknown Phone Unavailable Care Team Providers Care Global Manager Name Role Phone JOSE Rudd, MARGAUX Unavailable Unavailable NUGENT N.P., LOLI Unavailable Unavailable Kofi Huitron, Niurka Unavailable Unavailable VIANEY N.P., DEVI Unavailable Unavailable JOSE CLEMENTE [place], MARGAUX MARTIN Unavailable Unavailable VIANEY INSURANCE CLAIM REPRESENTATIVE, DEVI Unavailable Unavailable SHOLA CLEMENTE, JELLY Cobb Unavailable Unavailable MAGDALENA CLEMENTE [place], ALFREDO OCONNELL Unavailable Unavailable Nixon CLEMENTE, Kristopher [...] Active Orthostatic hypotension (458.0, I95.1) Status: Active Degeneration of intervertebral disc of l umbar region (722.52, M51.36) Status: Active DJD (degenerative joint disease), lumbar (721.3, M47.816) Status: Active Lumbar foraminal stenosis (724.02, M48.0 61) Status: Active Lower back pain (724.2, M54.5) Status: Active Need for hepatitis A immunization (V05.3 , Z23) Status: Active Need for hepatitis B vaccination (V05.3, Z23) Status: Active Screening for hypothyroidism (V77.0, Z13 .29) Status: Active Personal history of urinary tract infect ion (V13.02, Z87.440) Status: Active Acute tracheobronchitis (466.0, J20.9) Status: Active Acute pharyngitis due to other specified organisms (462, J02.8) Status: Active Acute pharyngitis with influenza (487.1, J11.1) Status: Active GERD (gastroesophageal reflux disease) ( [...] Active Thoracic spondylosis (721.2, M47.814) Status: Active Postprandial nausea (787.02, R11.0) Status: Active Postcholecystectomy diarrhea (564.4, R19 .7) Status: Active Abdominal bloating (787.3, R14.0) Status: Active Generalized postprandial abdominal pain (789.07, R10.84) Status: Active Precordial pain (786.51, R07.2) Status: Active At risk for coronary artery disease (V49 .89, Z91.89) Status: Active Lateral epicondylitis of left elbow (726 .32, M77.12) Status: Active Chronic pain of left upper extremity (72 9.5, M79.602) Status: Active Mild persistent asthma without complicat ion (493.90, J45.30) Status: Active Hospital discharge follow-up (V67.59, Z0 [...] TABLET BY MOUTH DAILY Quantity: 90 JOSE Cespedes.MARGAUX * Start : 18-Aug-2013 Active Pantoprazole Sodium 40 MG Oral Tablet Delayed Release TAKE 1 TABLET BY MOUTH DAILY. PATIENT NEEDS APPOINTMENT * Quantity: 90 Refills: 0 SAEID GARCIA M.D.NDA * Start : 02-Jan-2014 Active Gabapentin 300 [...] * Start : 21-Aug-2017 Active 30 ML [place] Btl OneTouch Verio w/Device Kit For daily glucose monitoring * Quantity: 1 Refills: 0 NUGENT N.P., LOLI * Start : 18-Sep-2017 Active OneTouch Verio In Vitro Strip CHECK 2 TIMES DAILY * Quantity: 2 Refills: 2 NUGENT N.P., LOLI * Start : 18-Sep-2017 Active 100 Strip Box OneTouch [facility]ison Bustillo [facility] [place] For glucose monitoring twice daily * Quantity: 2 Refills: 2 NUGENT N.P., LOLI * Start : 18-Sep-2017 Active 100 Unit Box Fluticasone Propionate 50 MCG/ACT Nasal Suspension SPRAY ONE SPRAY IN EACH NOSTRIL TWICE DAILY * Quantity: 16 Refills: 0 MARGAUX GARCIA M.D. Active Azelastine HCl - 0.05 % [...] DAILY. RINSE MOUTH AFTER USE. * Quantity: 3 Refills: 0 GOODINE Bradly.Bob, MARGAUX * Start : 02-Oct-2018 Active 10.2 [...] DAYS * Quantity: 40 Refills: 0 GOODINE M.Valdemar., MARGAUX * Start : 24-Mar-2019 Active Triamcinolone [...] Details CTA Coronary art w/ calcium evaluation 76643 Date: 04-Mar-20 19 History of Inguinal Hernia Repair Comple julien History of Cholecystectomy Completed History of Anoscopy For Polyp Removal Co mpleted History of Destruction Of Flat Warts By Laser Completed History of Right Breast Lumpectomy Compl eted Immunization Name Dates Details Td (adult), unspecified formulation on: 18-Jul-2003 Hepatitis B on: 24-Oct-2003 Fluvirin INJ on: 19-Nov-2013 Influenza on: Jan-2016 Hepatitis A Lot #: [id number] on: 15-Feb-2016 Hep B (Recombinant) Lot #: [id number] on: 15-Feb-2016 Hepatitis B Lot #: [id number] on: 16-Mar-2016 Hepatitis A, adult Lot #: [id number] on: 21-Aug-2016 Hepatitis B, adult Lot #: [id number] on: 21-Aug-2016 Fluzone INJ on: 15-Dec-2016 Tdap (Adacel) Lot #: [id number] on: 15-Mar-2017 Family History Name Dates Details [...] smoker Vital Signs Date Test Result Details No Known Vitals to report Results Date Description Value Details Results not documented Plan of Care Name Dates Details Planned Observations Planned Goals not documented Planned Encounters Appointment; KRISTOPHER ALTAMIRANO M .D. On: 17-Jun-2019 11:40 Interventions Provided Medication Changes* Symbicort 80-4.5 MCG/ACT Inhalation Aerosol - Renew Instructions Name Dates Details Instructions [...] Diagnosis: Problem not documented On: 27-Mar-2019 9:00 Appointment; KRISTOPHER ALTAMIRANO M .D. Encounter Diagnosis: Problem not documented On: 25-Apr-2019 13:40
--- OUTSIDE RECORDS SUMMARY | 2019-11-04 13:27 | XMS REPORT | Continuity of Care Document ---
Author Author [facility] t Organization [facility] Address [address] [place] [address] Phone Unavailable Care Team Providers Care Mobile Device Developer Name Role Phone Bradly DELCID PCP JELLY JOLLEY M.D. Attphys Unavailable MIRA LOMAS P.A. Attphys Unavailable JAYLEEN FAIRBANKS M.D. Attphys Unavailable STEPHANE MAURICIO M.D. Attphys Unavailable KRISTOPHER ALTAMIRANO M.D. Attphys UnavailBONNIE Sanon M.D. Attphys Unavailable Kristopher Altamirano Attphys LOLI NUGENT APRN Attphys Unavailable Zelda Delcid Attphys ALFREDO JENNINGS M.D. Attphys Unavailable Darryl Jennings Attphys DEVI WINTERS APRN Attphys Unavailable JIM PINEDA Attphys Unavailable Dara Reece Attphys GRAZYNA ROSS P.A. Attphys Unavailable CIRO PATRICIA RD Attphys Unavailable JEAN-PIERRE RANGEL M.D. Attphys Unavailable LUDWIG DILLON APRN Attphys Unavailable Jose SKY Attphys Unavailable LUDWIG DILLON NP Attphys Unavailable Meng Narayanan Attphys IRAIS SEWELL NP Attphys Unavailable NESS LAN M.D. Attphys Unavailable PINEDA, JIM Admphys Unavailable Payers Payer Name Policy Type Policy Number Effective Date Expiration Date [employer]za [employer] [place] Ppo [id number] 2013 00:00:00 Formerly [facility] Problems Condition Name Condition Details Condition Category Status Onset Date Resolution Date Last Treatment Date Treating Clinician Comments Source CHEST PAIN CHES T PAIN Active 03/11/2019 [facility] Diagnosis Active 2019-03-11 00:00:00 2019-03-18 07:51:00 Adele Do M54.9 - DORSALGIA, UNSPECIFIED M54.9 - DORSALGIA, UNSPECIFIED Active 01/24/2019 [facility] Diagnosis Active 2019-01-24 00:01:00 2019-03-13 14:12:00 [facility] M77.12 - LATERAL EPICONDYLITIS, LEFT EL M77.12 - LATERAL EPICONDYLITIS, LEFT EL Active 12/06/2018 [facility] Diagnosis Active 2018-12-06 00:01:00 2019-03-13 14:11:00 emoribaron Do R19.7 - DIARRHEA, UNSPECIFIED R19.7 - DIARRHEA, UNSPECIFIED Active 10/09/2018 [facility] Diagnosis Active 2018-10-09 00:01:00 2019-03-13 14:11:00 [facility] M54.5 - LOW BACK PAIN M54. 5 - LOW BACK PAIN Active 06/29/2016 [facility] Active 2016-06-29 00:01:00 2016-07-10 07:05:00 Adele Do R92.2 - INCONCLUSIVE MAMMOGRAM R92.2 - INCONCLUSIVE MAMMOGRAM Active 12/31/2014 [facility] Diagnosis Active 2014-12-31 00:01:00 2015-01-07 08:21:00 Adele Do V76.12 - SCREEN MAMMOGRA V76. 12 - SCREEN MAMMOGRA Active 12/10/2013 [facility] Diagnosis Active 2013-12-10 00:01:00 2014-06-14 12:35:00 [facility] Hi Asthma Asthma Problem Active [facility] Chest pain Chest pain Problem Active [facility] History of Chronic migraine without aura , without mention of intractable migraine without mention of status migrainosus History of Chronic migraine without aura, without mention of intractable migraine without mention of status migrainosus Problem Resolved [facility] History of essential hypertension History of essential hypertens ion Problem Resolved [facility] Hepatic steatosis Hepatic steatosis Problem Active [facility] Personal history of asthma Personal history of asthma Problem Resolved [facility] Mitral valve prolapse syndrome Mitral valve prolapse syndrome Problem Active [facility] Depression Depression [facility] Tachycardia Tachycardia Problem Active [facility] Dizziness and giddiness Dizziness and giddiness Problem Active [facility] Urinary frequency Urinary frequency Problem Active [facility] 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 [facility] Urinary incontinence Urinary incontinence Problem Active [facility] TMJ (temporomandibular joint syndrome) TMJ (temporomandibula r joint syndrome) Problem Active [facility] Hiatal hernia with GERD Hiatal hernia with GERD Problem Active [facility] Bilateral posterior neck pain Bilateral posterior neck pain Problem Active [facility] Myofascial pain on left side Myofascial pain on left side Problem Active [facility] BPPV (benign paroxysmal positional vertigo) BPPV (ted gn paroxysmal positional vertigo) Problem Active [facility] Orthostatic hypotension Orthostatic hypotension Problem Active [facility] Degeneration of intervertebral disc of lumbar region D egeneration of intervertebral disc of lumbar region Problem Active [facility] DJD (degenerative joint disease), lumbar DJD (degenera tive joint disease), lumbar Problem Active [facility] Lumbar foraminal stenosis Lumbar foraminal stenosis Problem Active [facility] Left upper quadrant pain Left upper quadrant pain Problem Active [facility] Common migraine without aura Common migraine without aura Problem Active [facility] Sleep apnea Sleep apnea Problem Active [facility] Daytime somnolence Daytime somnolence Problem Active [facility] Migraine headache Migraine headache Problem Active [facility] Moderate persistent asthma with acute exacerbation Mod erate persistent asthma with acute exacerbation Problem Active [facility] Hyperglycemia Hyperglycemia Problem Active [facility] Impaired fasting glucose Impaired fasting glucose Problem Active [facility] Complex cyst of right ovary Complex cyst of right ovary Problem Active [facility] Allergic rhinitis Allergic rhinitis Problem Active [facility] Postcholecystectomy diarrhea Postcholecystectomy diarrhea Problem Active [facility] Chronic pain of left upper extremity Chronic pain of left up per extremity Problem Active [facility] Bilateral sciatica Bilateral sciatica Problem Active [facility] BMI 36.0-36.9,adult BMI 36.0-36.9,adult Problem Active [facility] Essential (primary) hypertension Essential (primary) hypertensio n Problem Active [facility] Anxiety Anxiety Problem Active [facility] Hyperlipidemia Hyperlipidemia Problem Active [facility] Headache, cervicogenic Headache, cervicogenic Problem Active [facility] Acute bilateral thoracic back pain Acute bilateral thoracic back pain Problem Active [facility] Thoracic spondylosis Thoracic spondylosis Problem Active [facility] Generalized postprandial abdominal pain Generalized postpran dial abdominal pain Problem Active [facility] Mild persistent asthma without complication Mild persi stent asthma without complication Problem Active [facility] Lateral epicondylitis of left elbow Lateral epicondylitis of lef t elbow Problem Active [facility] Class 2 severe obesity due to excess anne marie ories with serious comorbidity and body mass index (BMI) of 35.0 to 35.9 in adult Class 2 severe obesity due to excess calories with serious comorbidity and body mass index (BMI) of 35.0 to 35.9 in adult Problem Active [facility] History of Infected insect bite of thigh, left, initia l encounter History of Infected insect bite of thigh, left, initial encounter Problem Resolved [facility] Suspected 2019 novel coronavirus infection Suspected 2 019 novel coronavirus infection Problem Active [facility] Acute non-recurrent maxillary sinusitis Acute non-recurrent maxillary sinusitis Problem Active [facility] Mastodynia Mast odynia 08/20/2017 [facility] Problem 2017-08-20 13:25:39 Adele Do Hepatomegaly, not elsewhere classified Hepatomegaly, not elsewhere classified 09/21/2017 [facility] Problem 2017-09-21 11:47:59 Adele Do 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 [facility] Problem Active 2013-06-22 18:00:28 Adele Do Hyperglycemia Hype rglycemia Active 06/22/2013 [facility] Problem Active 2013-06-22 18:00:28 [facility] Hypertension Hype rtension Active 06/22/2013 [facility] Problem Active 2013-06-22 18:00:28 Yao Do Anemia Anem ia Active 06/22/2013 [facility] Problem Active 2013-06-22 18:00:28 Steve Do Lower Back Pain Lowe r Back Pain Active 06/22/2013 [facility] Problem Active 2013-06-22 18:00:28 M leónribaron Do Hematuria Tyrell turia Active 06/22/2013 [facility] Problem Active 2013-06-22 18:00:28 Adele Do Acute Sinusitis Acut e Sinusitis Active 06/22/2013 [facility] Problem Active 2013-06-22 18:00:28 M emorib[facility] Hi Common Migraine (Without Aura) Common Migraine (Without Aura) Active 06/22/2013 [facility] Problem Active 2013-06-22 18:00:28 Adele Do Allergies, Adverse Reactions, Alerts Allergy Name Allergy Type Status Severity Reaction(s) Onset Date Inacti ve Date Treating Clinician Comments Source Sulfa (Sulfonamide Antibiotics) Allergy to Substance Active Mild RASH 2018-10-07 00:00:00 [facility] ADHESIVE TAPE Allergy to Substance Active Mild BLISTER TURN TO OPEN WOUND 2009-06-28 00:00:00 [facility] Amoxicillin TABS Allergy to drug (finding) Active [facility] Sulfa Drugs Allergy to drug (finding) Active [facility] Adhesive Tape Allergy to substance (finding) Active [facility] sulfa drugs sulfa drugs Active [facility] amoxicillin [facility]ox[facility] Amoxicillin TABS Amoxicillin TABS Active [facility] Sulfa Drugs Sulfa Drugs Active [facility] Family History Family Member Diagnosis Comments Start Date Stop Date Source Unknown Family Member Family history of Cancer Family History [facility] Unknown Family Member Family history of Diabetes Mellitus Family Hist ory [facility] Unknown Family Member Family history of Coronary Artery Disease Family History [facility] Unknown Family Member Family history of Hypothyroidism Family History [facility] Unknown Family Member Family History 2012-10-24 07:37:47 2 07:37:47 Adele Do Mother Family history of Diabetes Mellitus [facility] Mother Family history of essential hypertension [facility] Father Family history of liver cancer [facility] Brother Family history of malignant neoplasm of thyroid [facility] Social History Social Habit Start Date Stop Date Quantity Comments Source Social History 2013-06-22 18:00:28 2013-06-22 18:00:28 Adele Do Smoking Status Start Date Stop Date Source Never smoked tobacco (finding) [facility] Medications Ordered Medication Name Filled Medication Name Start Date Stop Da te Current Medication? Ordering Clinician Indication Dosage Frequency Signature (SIG) Comments Components Source predniSONE 20 MG Oral Tablet predniSONE 20 MG Oral Tablet 2019-10-18 0 00:00:00 Yes JELLY JOLLEY M.D. QD TAKE 3 TABLETS DAILY FOR 3 DAYS, THEN 2 TABLETS DAILY FOR 3 DAYS, THEN 1 TABLET DAILY FOR 3 DAYS. [facility] Cefdinir 300 MG Oral Capsule Cefdinir 300 MG Oral Capsule 10-26 00:00:00 2019-11-06 23:59:00 Yes JELLY JOLLEY M.D. 1 Q0.5D TAKE 1 CAPSULE TWICE DAILY [facility] Benzonatate 100 MG Oral Capsule Benzonatate 100 MG Oral Caps ule 2019-09-13 00:00:00 Yes MIRA Urbina 1-2 PO Q8H PRN c ough [facility] Meclizine HCl - 12.5 MG Oral Tablet Meclizine HCl - 12.5 MG Oral Tablet 2019-08-21 00:00:00 Yes JAYLEEN FAIRBANKS M.D. Q 0.3333D TAKE 1 TABLET 3 TIMES DAILY NEEDED. [facility] Azelastine HCl - 0.05 % Ophthalmic Solution Azelastine HCl - 0.05 % Ophthalmic Solution 2019-08-01 00:00:00 Yes BONNIE DELCID M.D. Q0.5D INSTILL 1 DROP IN EACH EYE TWICE DAILY NEEDED [facility] Albuterol Sulfate (2.5 MG/3ML) 0.083% Inhalation Nebul ization Solution Albuterol Sulfate (2.5 MG/3ML) 0.083% Inhalation Nebulization Solution 2019-06-16 00:00:00 Yes BONNIE DELCID M.D. INHALE 1 VIAL BY MOUTH VIA NEBULIZER FOUR TIMES DAILY DIRECTED [facility] Metoprolol 2019-03-18 14:38:00 No 10 mg, Route: IV, ONCE, Dosing Weight 98.182, kg, Start date: 03/18/19 8:38:00 DREDGE RUNNER, Stop date: 03/18/19 8:38:00 DREDGE RUNNER [facility] pantoprazole 40 MG Granules [Protonix] 2019-03-18 14:01:00 Yes = 1 Pack, PO, Daily, # 30 ea, 0 Refill(s) Me stew Do sucralfate 1 g oral tablet 2019-03-18 14:01:00 Yes 1 gm = 1 tab, PO, QID, 0 Refill(s) Adele Do Albuterol 0.83 MG/ML Inhalant Solution 2019-03-18 14:01:00 Yes 2.49 mg = 3 mL, INHALATION, Q6H, PRN wheezing, coughing, or shortness of breath, # 240 ea, 1 Refill(s) Adele Do Symbicort 80/4.5 inhalation aerosol with adapter 2019-03-18 14:01:00 Yes 2 puff, INHALATION, BID, # 6.9 gm, 0 Refill(s) Adele Do montelukast 10 mg oral tablet 2019-03-18 14:01:00 Yes 10 mg = 1 tab, PO, Bedtime, # 90 tab, 0 Refill(s) Yao rial Hi gabapentin 300 MG Oral Capsule 2019-03-18 14:01:00 Yes 300 mg = 1 cap, PO, TID, # 270 cap, 0 Refill(s) [facility] [place] Nitroglycerin 2019-03-18 14:00:00 No 0.4 mg, Route: SL, ONCE, Dosing Weight 98.182, kg, Start date: 03/18/19 8:00:00 DREDGE RUNNER, Stop date: 03/18/19 8:00:00 DREDGE RUNNER Adele Meekann Symbicort 80-4.5 MCG/ACT Inhalation Aerosol Symbicort 80-4.5 MCG/ACT Inhalation Aerosol 2018-10-02 00:00:00 Yes BONNIE DELCID M.D. Q0.5D INHALE 2 PUFFS TWICE DAILY. RINSE MOUTH AFTER USE. [facility] ProAir HFA 108 (90 Base) MCG/ACT Inhalation Aerosol So lution ProAir HFA 108 (90 Base) MCG/ACT Inhalation Aerosol Solution 2018-10-01 00:00:00 Milton WINTERS APRN INHALE 1 TO 2 PUFFS EVERY 4 TO 6 HOURS A S NEEDED. [facility] OneTouch Verio w/Device Kit OneTouch Verio w/Device Kit 2017-09-18 00:00:00 Yes LOLI NUGENT APRN For daily glucose monitoring [facility] OneTouch Verio In Vitro Strip OneTouch Verio In Vitro Strip 2017 00:00:00 Yes LOLI NUGENT APRN CHECK 2 TIMES DAILY [facility] Rachelle Delica Lancets Fine MISC OneTouch Delica Lancets Fi ne MISC 2017-09-18 00:00:00 Yes LOLI NUGENT APRN For glucose monitorin g twice daily [facility] Azelastine HCl - 0.15 % Nasal Solution Azelastine HCl - 0.15 % Nasal Solution 2017-08-21 00:00:00 Yes JELLY JOLLEY M.D. One spray each nostril twice a day [facility] Gabapentin 300 MG Oral Capsule Gabapentin 300 MG Oral Capsul e 2016-07-28 00:00:00 Yes BONNIE DELCID M.D. Q0.3333D TAKE 1 CAPSULE BY MOUTH THREE TIMES DAILY [facility] Fluticasone Propionate 50 MCG/ACT Nasal Suspension Flu ticasone Propionate 50 MCG/ACT Nasal Suspension 2015-11-06 00:00:00 Yes BONNIE DELCID M.D. Q0.5D SHAKE LIQUID AND USE 1 SPRAY IN EACH NOSTRIL TWICE DAILY NEED ED [facility] Pantoprazole Sodium 40 MG Oral Tablet Delayed Release Pantoprazole Sodium 40 MG Oral Tablet Delayed Release 2014-01-02 00:00:00 Yes BONNIE Galicia TAKE 1 TABLET BY MOUTH DAILY [facility] Montelukast Sodium 10 MG Oral Tablet Montelukast Sodium 10 M G Oral Tablet 2013-08-18 00:00:00 Yes BONNIE DELCID M.D. TAKE 1 TABLET BY MOUTH DAILY [facility] Montelukast Sodium 10 MG Oral Tablet 2013-06-22 18:00:28 Ye s (Active) Adele Do Pantoprazole Sodium 40 MG Intravenous Solution Reconstituted 2013-06-22 18:00:28 Yes (Active) Steve Do Nortriptyline HCl 25 MG Oral Capsule 2013-06-22 18:00:28 Ye s (Active) Adele Do Imitrex 100 MG Oral Tablet 2013-06-22 18:00:28 Yes (Active) Adele Do Propranolol HCl ER 80 MG Oral Capsule Extended Release 24 Ho ur 2013-06-22 18:00:28 Yes (Active) Memkranthi Do Minastrin 24 Fe 1-20 MG-MCG(24) Oral Tablet Chewable 2 18:00:28 Yes (Active) Adele Kina alcantar SUMAtriptan Succinate 100 MG Oral Tablet 2013-06-22 05:00:00 Yes ; Start Date: 06/22/2013 (Active) Adele Meekann Propranolol HCl ER 80 MG Oral Capsule Extended Release 24 Ho ur 2013-04-12 17:15:32 Yes (Active) Memor ial Hi B-12 CAPS 2013-04-12 17:15:32 Yes (Active) Adele Do Multi-Vitamin TABS 2013-04-12 17:15:32 Yes (Active) Adele Do Probiotic Oral Capsule 2013-04-12 17:15:32 Yes (Active) Adele Do Collagen CAPS 2013-04-12 17:15:32 Yes (Acti ve) [facility] Hi Vitamin D3 2000 UNIT Oral Capsule 2013-04-12 17:15:32 Yes (Active) Adele Do Vitamin E CAPS 2013-04-12 17:15:32 Yes (Act vamshi) [facility] Fish Oil 1200 MG Oral Capsule 2013-04-12 17:15:32 Yes (Active) Adele Do Advil 200 MG Oral Capsule 2013-04-12 17:15:32 Yes (Active) Adele Do Fluticasone Propionate 50 MCG/ACT Nasal Suspension 2013-03 06:00:00 Yes ; Start Date: 04/11/2013 (Active) Adele Do Azithromycin 500 MG Oral Tablet 2013-04-11 06:00:00 Yes ; Start Date: 04/11/2013 (Active) Adele Castanon nn Vicodin TABS 2013-02-06 00:31:03 Yes (Activ e) Adele Do Losartan Potassium 50 MG Oral Tablet 2013-01-10 05:00:00 Ye s ; Start Date: 01/10/2013 (Active) Adele gutierres Losartan Potassium 25 MG Oral Tablet 2013-01-10 05:00:00 Ye s ; Start Date: 01/10/2013 (Active) Adele gutierres PredniSONE 10 MG Oral Tablet 2013-01-10 05:00:00 Yes ; Start Date: 01/10/2013 (Active) Adele Do Losartan Potassium 100 MG Oral Tablet 2013-01-10 05:00:00 Y es ; Start Date: 01/10/2013 (Active) [facility] Montelukast Sodium 10 Mg Tablet Montelukast Sodium 10 Mg Tablet Yes 10 Daily [facility] Protonix Protonix Yes [facility] Losartan Potassium 100 Mg Tablet, 25 Mg Oral Losartan Potassium 100 Mg Tablet, 25 Mg Oral 2017-07-28 00:00:00 No 25 Daily [facility] Propranolol Hcl 80 Mg Cap.sa.24h, 80 Mg Oral Propranol ol Hcl 80 Mg Cap.sa.24h, 80 Mg Oral 2017-07-28 00:00:00 No 80 Daily [facility] Flonase , Flonase , 2016-06-27 00:00:00 No [facility] Nortriptyline Hcl 25 Mg Capsule, Nortriptyline Hcl 25 Mg Capsule , 2016-06-27 00:00:00 No Daily [facility] Singulair , Singulair , 2016-06-27 00:00:00 No [facility] Sumatriptan Succinate (Imitrex) 100 Mg Tablet, Sumatri ptan Succinate (Imitrex) 100 Mg Tablet, 2016-06-27 00:00:00 No as needed for Headache [facility] Hydrocodone , Hydrocodone , 2013-12-30 00:00:00 No [facility] Promethazine , Promethazine , 2013-12-30 00:00:00 No [facility] Immunizations Ordered Immunization Name Filled Immunization Name Date Status Comments Source Tdap (Adacel) 2017-03-15 10:18:00 [facility] Fluzone [facility]J 2016-12-15 00:00:00 Completed [facility] Hepatitis B, adult 2016-08-21 08:39:00 Completed [facility] Hepatitis A, adult 2016-08-21 08:38:00 Completed [facility] Hepatitis B 2016-03-16 08:25:00 Completed [facility] Hep B (Recombinant) 2016-02-15 10:26:00 Completed [facility] Hepatitis A 2016-02-15 10:24:00 Completed [facility] Fluvirin INJ 2013-11-19 00:00:00 [facility] Hepatitis B 2003-10-24 00:00:00 Completed [facility] Td (adult), unspecified formulation 2003-07-18 00:00:00 Co mpleted [facility] Influenza Unknown Completed [facility] Vital Signs Vital Name Observation Time Observation Value Comments Source Systolic blood pressure 2019-08-21 13:22:00 126 mm[Hg] Loca tion: LUE; Position: Sitting [facility] Diastolic blood pressure 2019-08-21 13:22:00 82 mm[Hg] Loc ation: LUE; Position: Sitting [facility] Body height 2019-08-21 13:22:00 64 [in_us] [facility] Weight 2019-08-21 13:22:00 217.0625 [lb_av] [facility] Body mass index (BMI) [Ratio] 2019-08-21 13:22:00 37.26 kg/m2 [facility] Body temperature 2019-08-21 13:22:00 97.8 [degF] Method: Temporal [facility] Heart Rate 2019-08-21 13:22:00 84 /min [facility] Respiratory rate 2019-08-21 13:22:00 16 /min [facility] Systolic blood pressure 2019-07-16 10:07:00 131 mm[Hg] Loca tion: LUE; Position: Sitting [facility] Diastolic blood pressure 2019-07-16 10:07:00 83 mm[Hg] Loc ation: LUE; Position: Sitting [facility] Body height 2019-07-16 10:07:00 64 [in_us] [facility] Weight 2019-07-16 10:07:00 217 [lb_av] [facility] Body mass index (BMI) [Ratio] 2019-07-16 10:07:00 37.25 kg/m2 [facility] Body temperature 2019-07-16 10:07:00 97.5 [degF] Method: Temporal [facility] Heart Rate 2019-07-16 10:07:00 77 /min Location: L Radial; [facility] Respiratory rate 2019-07-16 10:07:00 16 /min Quality: Normal [facility] BP Systolic 2019-03-27 09:11:00 112 mm[Hg] Location: LUE; Positi on: Sitting [facility] BP Diastolic 2019-03-27 09:11:00 72 mm[Hg] Location: ANGELAE; Positi on: Sitting [facility] Height 2019-03-27 09:11:00 64 [in_us] [facility] Weight 2019-03-27 09:11:00 212.4 [lb_av] [facility] Body Mass Index Calculated 2019-03-27 09:11:00 36.46 kg/m2 [facility] Temperature 2019-03-27 09:11:00 97.6 [degF] Method: Temporal [facility] Heart Rate 2019-03-27 09:11:00 79 /min Location: L Radial; [facility] Respiration Rate 2019-03-27 09:11:00 16 /min Quality: Normal [facility] BP Systolic 2019-03-24 15:53:00 104 mm[Hg] Location: ANGELAE; Positi on: Sitting [facility] BP Diastolic 2019-03-24 15:53:00 70 mm[Hg] Location: LUE; Positi on: Sitting [facility] Height 2019-03-24 15:53:00 64 [in_us] [facility] Weight 2019-03-24 15:53:00 215 [lb_av] [facility] Body Mass Index Calculated 2019-03-24 15:53:00 36.9 kg/m2 [facility] Temperature 2019-03-24 15:53:00 97.3 [degF] Method: [facility] Heart Rate 2019-03-24 15:53:00 85 /min Location: L Radial; [facility] Respiration Rate 2019-03-24 15:53:00 16 /min Quality: Normal [facility] Heart Rate 2019-03-18 14:43:00 [facility] Respitory Rate 2019-03-18 14:43:00 Adisori al [place] Systolic (mm Hg) 2019-03-18 14:43:00 Yao marianna Hi Diastolic (mm Hg) 2019-03-18 14:43:00 Mem orial Hi Heart Rate 2019-03-18 14:34:00 [facility] Respitory Rate 2019-03-18 14:34:00 Memori al [place] Systolic (mm Hg) 2019-03-18 14:34:00 Yao rial [place] Diastolic (mm Hg) 2019-03-18 14:34:00 Mem orial Hi Heart Rate 2019-03-18 14:28:00 [facility] Respitory Rate 2019-03-18 14:28:00 Memori al Hi Systolic (mm Hg) 2019-03-18 14:28:00 Yao rial Hi Diastolic (mm Hg) 2019-03-18 14:28:00 [facility] orial Hi Height 2019-03-18 13:52:00 162[facility]56 [facility] 2019-03-18 13:52:00 [facility] [place] BMI Calculated 2019-03-18 13:52:00 Becca al Hi BP Systolic 2019-03-04 13:16:00 120 mm[Hg] Location: KIEL; Positi on: Sitting [facility] BP Diastolic 2019-03-04 13:16:00 79 mm[Hg] Location: KIEL; Positi on: Sitting [facility] Height 2019-03-04 13:16:00 64 [in_us] [facility] Weight 2019-03-04 13:16:00 213 [lb_av] [facility] Body Mass Index Calculated 2019-03-04 13:16:00 36.56 kg/m2 [facility] Rate 2019-03-04 13:16:00 84 /min [facility] Respiration Rate 2019-03-04 13:16:00 16 /min [facility] BP Systolic 2019-02-18 14:31:00 120 mm[Hg] Location: KIEL; Positi on: Sitting [facility] BP Diastolic 2019-02-18 14:31:00 74 mm[Hg] Location: ANGELAE; Positi on: Sitting [facility] Height 2019-02-18 14:31:00 64 [in_us] [facility] Weight 2019-02-18 14:31:00 213 [lb_av] [facility] Body Mass Index Calculated 2019-02-18 14:31:00 36.56 kg/m2 [facility] Heart Rate 2019-02-18 14:31:00 88 /min Location: L Radial; [facility] Respiration Rate 2019-02-18 14:31:00 16 /min [facility] Temperature 2019-02-18 14:31:00 97.7 [degF] Method: Temporal [facility] BP Systolic 2019-02-08 09:20:00 127 mm[Hg] Location: KIEL; Positi on: Sitting [facility] BP Diastolic 2019-02-08 09:20:00 78 mm[Hg] Location: KIEL; Positi on: Sitting [facility] Height 2019-02-08 09:20:00 64 [in_us] [facility] Weight 2019-02-08 09:20:00 215 [lb_av] [facility] Body Mass Index Calculated 2019-02-08 09:20:00 36.9 kg/m2 [facility] Heart Rate 2019-02-08 09:20:00 81 /min Location: L Brachial Artery; [facility] Respiration Rate 2019-02-08 09:20:00 18 /min [facility] Temperature 2019-02-08 09:20:00 98.1 [degF] [facility] BP Systolic 2019-01-27 08:22:00 115 mm[Hg] Location: KIEL; Positi on: Sitting [facility] BP Diastolic 2019-01-27 08:22:00 72 mm[Hg] Location: KIEL; Positi on: Sitting [facility] Height 2019-01-27 08:22:00 64 [in_us] [facility] Weight 2019-01-27 08:22:00 210 [lb_av] [facility] Body Mass Index Calculated 2019-01-27 08:22:00 36.05 kg/m2 [facility] Temperature 2019-01-27 08:22:00 97.5 [degF] Method: Temporal [facility] Heart Rate 2019-01-27 08:22:00 83 /min Location: L Radial; [facility] Respiration Rate 2019-01-27 08:22:00 16 /min Quality: Normal [facility] BP Systolic 2019-01-24 11:39:00 115 mm[Hg] Location: LUE; Positi on: Sitting [facility] BP Diastolic 2019-01-24 11:39:00 63 mm[Hg] Location: LUE; Positi on: Sitting [facility] Height 2019-01-24 11:39:00 64 [in_us] [facility] Weight 2019-01-24 11:39:00 213.4 [lb_av] [facility] Body Mass Index Calculated 2019-01-24 11:39:00 36.63 kg/m2 [facility] Temperature 2019-01-24 11:39:00 97.3 [degF] Method: Temporal [facility] Heart Rate 2019-01-24 11:39:00 86 /min Location: L Radial; [facility] Respiration Rate 2019-01-24 11:39:00 16 /min Quality: Normal [facility] BP Systolic 2019-01-11 10:39:00 119 mm[Hg] Location: ANGELAE; Positi on: Sitting [facility] BP Diastolic 2019-01-11 10:39:00 75 mm[Hg] Location: ANGELAE; Positi on: Sitting [facility] Height 2019-01-11 10:39:00 64 [in_us] [facility] Weight 2019-01-11 10:39:00 213.5 [lb_av] [facility] Body Mass Index Calculated 2019-01-11 10:39:00 36.65 kg/m2 [facility] Temperature 2019-01-11 10:39:00 98.7 [degF] Method: Temporal [facility] Heart Rate 2019-01-11 10:39:00 80 /min [facility] Respiration Rate 2019-01-11 10:39:00 16 /min [facility] BP Systolic 2018-12-06 11:37:00 128 mm[Hg] Location: RUE; Positi on: Sitting [facility] BP Diastolic 2018-12-06 11:37:00 82 mm[Hg] Location: RUE; Positi on: Sitting [facility] BP Systolic 2018-12-06 10:55:00 97 mm[Hg] Location: LUE; Positi on: Sitting [facility] BP Diastolic 2018-12-06 10:55:00 65 mm[Hg] Location: LUE; Positi on: Sitting [facility] Height 2018-12-06 10:55:00 64 [in_us] [facility] Weight 2018-12-06 10:55:00 206.5 [lb_av] [facility] Body Mass Index Calculated 2018-12-06 10:55:00 35.45 kg/m2 [facility] Temperature 2018-12-06 10:55:00 97.1 [degF] Method: Temporal [facility] Heart Rate 2018-12-06 10:55:00 91 /min Location: L Radial; [facility] Respiration Rate 2018-12-06 10:55:00 16 /min Quality: [facility] BP Systolic 2018-10-09 13:12:00 138 mm[Hg] Location: ANGELAE; Positi on: Sitting [facility] BP Diastolic 2018-10-09 13:12:00 82 mm[Hg] Location: ANGELAE; Positi on: Sitting [facility] Height 2018-10-09 13:12:00 64 [in_us] [facility] Weight 2018-10-09 13:12:00 199.375 [lb_av] Unive [facility] Body Mass Index Calculated 2018-10-09 13:12:00 34.22 kg/m2 [facility] Temperature 2018-10-09 13:12:00 96.7 [degF] Method: Temporal [facility] Heart Rate 2018-10-09 13:12:00 93 /min Location: L Brachial Artery; [facility] Respiration Rate 2018-10-09 13:12:00 16 /min [facility] O2 SAT 2018-10-09 13:12:00 98 % Source: RA [facility] BP Systolic 2018-10-01 09:15:00 110 mm[Hg] Location: ANGELAE; Positi on: Sitting [facility] BP Diastolic 2018-10-01 09:15:00 77 mm[Hg] Location: LUE; Positi on: Sitting [facility] Height 2018-10-01 09:15:00 64 [in_us] [facility] Weight 2018-10-01 09:15:00 203.375 [lb_av] [facility] Body Mass Index Calculated 2018-10-01 09:15:00 34.91 kg/m2 [facility] Temperature 2018-10-01 09:15:00 96.9 [degF] Method: Temporal [facility] Heart Rate 2018-10-01 09:15:00 66 /min [facility] Respiration Rate 2018-10-01 09:15:00 16 /min [facility] O2 SAT 2018-10-01 09:15:00 99 % [facility] BP Systolic 2018-07-09 14:23:00 117 mm[Hg] Location: KIEL; Positi on: Sitting [facility] BP Diastolic 2018-07-09 14:23:00 71 mm[Hg] Location: KIEL; Positi on: Sitting [facility] Height 2018-07-09 14:23:00 64 [in_us] [facility] Weight 2018-07-09 14:23:00 195.9 [lb_av] [facility] Body Mass Index Calculated 2018-07-09 14:23:00 33.63 kg/m2 [facility] Temperature 2018-07-09 14:23:00 97.8 [degF] Method: Temporal [facility] Heart Rate 2018-07-09 14:23:00 76 /min Location: L Radial; [facility] Respiration Rate 2018-07-09 14:23:00 16 /min Quality: Normal [facility] BP Systolic 2018-04-29 10:19:00 115 mm[Hg] Location: ABEL Positi on: Sitting [facility] BP Diastolic 2018-04-29 10:19:00 77 mm[Hg] Location: KIEL; Positi on: Sitting [facility] Height 2018-04-29 10:19:00 64 [in_us] [facility] Weight 2018-04-29 10:19:00 200.0625 [lb_av] [facility] Body Mass Index Calculated 2018-04-29 10:19:00 34.34 kg/m2 [facility] Temperature 2018-04-29 10:19:00 98 [degF] Method: Temporal [facility] Heart Rate 2018-04-29 10:19:00 89 /min Location: L Brachial Artery; [facility] Respiration Rate 2018-04-29 10:19:00 16 /min Quality: Normal [facility] BP Systolic 2018-03-22 10:44:00 135 mm[Hg] Location: LUE; Positi on: Sitting [facility] BP Diastolic 2018-03-22 10:44:00 80 mm[Hg] Location: LUE; Positi on: Sitting [facility] Height 2018-03-22 10:44:00 64 [in_us] [facility] Weight 2018-03-22 10:44:00 211 [lb_av] [facility] Body Mass Index Calculated 2018-03-22 10:44:00 36.22 kg/m2 [facility] Temperature 2018-03-22 10:44:00 97.6 [degF] Method: Temporal [facility] Heart Rate 2018-03-22 10:44:00 98 /min Location: L Radial; [facility] Respiration Rate 2018-03-22 10:44:00 16 /min Quality: Normal [facility] BP Systolic 2018-03-20 15:10:00 126 mm[Hg] Location: LUE; Positi on: Sitting [facility] BP Diastolic 2018-03-20 15:10:00 81 mm[Hg] Location: ANGELAE; Positi on: Sitting [facility] Height 2018-03-20 15:10:00 64 [in_us] [facility] Weight 2018-03-20 15:10:00 215.125 [lb_av] [facility] Body Mass Index Calculated 2018-03-20 15:10:00 36.93 kg/m2 [facility] Temperature 2018-03-20 15:10:00 97.7 [degF] Method: Temporal [facility] Heart Rate 2018-03-20 15:10:00 76 /min [facility] Respiration Rate 2018-03-20 15:10:00 16 /min [facility] Weight 2017-09-17 17:43:00 210.2 [lb_av] [facility] Body Mass Index Calculated 2017-09-17 17:43:00 36.08 kg/m2 [facility] Height 2017-09-17 17:43:00 64 [in_us] [facility] BP Systolic 2017-08-21 14:13:00 112 mm[Hg] Location: LUE; Positi on: Sitting [facility] BP Diastolic 2017-08-21 14:13:00 72 mm[Hg] Location: LUE; Positi on: Sitting [facility] Height 2017-08-21 14:13:00 64 [in_us] [facility] Weight 2017-08-21 14:13:00 207 [lb_av] [facility] Body Mass Index Calculated 2017-08-21 14:13:00 35.53 kg/m2 [facility] Temperature 2017-08-21 14:13:00 97.6 [degF] Method: Temporal [facility] Heart Rate 2017-08-21 14:13:00 83 /min Location: L Radial; [facility] Respiration Rate 2017-08-21 14:13:00 16 /min Quality: [facility] BP Systolic 2017-08-09 10:31:00 130 mm[Hg] Location: LUE; Positi on: Sitting [facility] BP Diastolic 2017-08-09 10:31:00 85 mm[Hg] Location: LUE; Positi on: Sitting [facility] Height 2017-08-09 10:31:00 64 [in_us] [facility] Weight 2017-08-09 10:31:00 207.375 [lb_av] [facility] Body Mass Index Calculated 2017-08-09 10:31:00 35.6 kg/m2 [facility] Temperature 2017-08-09 10:31:00 98.2 [degF] Method: Temporal [facility] Heart Rate 2017-08-09 10:31:00 79 /min Location: L Brachial Artery; [facility] Respiration Rate 2017-08-09 10:31:00 16 /min [facility] BP Systolic 2017-08-03 08:22:00 139 mm[Hg] Location: LUE; Positi on: Sitting [facility] BP Diastolic 2017-08-03 08:22:00 89 mm[Hg] Location: LUE; Positi on: Sitting [facility] Height 2017-08-03 08:22:00 64 [in_us] [facility] Weight 2017-08-03 08:22:00 204.3125 [lb_av] [facility] Body Mass Index Calculated 2017-08-03 08:22:00 35.07 kg/m2 [facility] Temperature 2017-08-03 08:22:00 97.3 [degF] Method: Temporal [facility] Heart Rate 2017-08-03 08:22:00 82 /min [facility] Respiration Rate 2017-08-03 08:22:00 18 /min [facility] BP Systolic 2017-07-31 13:02:00 138 mm[Hg] Location: ANGELAE; Positi on: Sitting [facility] BP Diastolic 2017-07-31 13:02:00 75 mm[Hg] Location: KIEL; Positi on: Sitting [facility] Height 2017-07-31 13:02:00 64 [in_us] [facility]i [facility] Weight 2017-07-31 13:02:00 208 [lb_av] [facility] Body Mass Index Calculated 2017-07-31 13:02:00 35.7 kg/m2 [facility] Temperature 2017-07-31 13:02:00 97.7 [degF] Method: Temporal [facility] Heart Rate 2017-07-31 13:02:00 80 /min Location: L Radial; [facility] Respiration Rate 2017-07-31 13:02:00 18 /min Quality: Wheezing [facility] BP Systolic 2017-07-28 09:25:00 135 mm[Hg] Location: KIEL; Positi on: Sitting [facility] BP Diastolic 2017-07-28 09:25:00 81 mm[Hg] Location: KIEL; Positi on: Sitting [facility] Height 2017-07-28 09:25:00 64 [in_us] [facility]i [facility] Weight 2017-07-28 09:25:00 206.6 [lb_av] [facility] ity [facility] Body Mass Index Calculated 2017-07-28 09:25:00 35.46 kg/m2 [facility] Temperature 2017-07-28 09:25:00 97.6 [degF] Method: Oral [facility] Heart Rate 2017-07-28 09:25:00 83 /min [facility] Respiration Rate 2017-07-28 09:25:00 18 /min [facility] O2 SAT 2017-07-28 09:25:00 97 % [facility] BP Systolic 2017-07-26 10:45:00 131 mm[Hg] Location: LUE; Positi on: Sitting [facility] BP Diastolic 2017-07-26 10:45:00 84 mm[Hg] Location: LUE; Positi on: Sitting [facility] Height 2017-07-26 10:45:00 64 [in_us] [facility] Weight 2017-07-26 10:45:00 212.25 [lb_av] Univer [facility] Body Mass Index Calculated 2017-07-26 10:45:00 36.43 kg/m2 [facility] Temperature 2017-07-26 10:45:00 98.1 [degF] Method: Temporal [facility] Heart Rate 2017-07-26 10:45:00 83 /min Location: L Brachial Artery; [facility] Respiration Rate 2017-07-26 10:45:00 16 /min [facility] O2 SAT 2017-07-26 10:45:00 98 % [facility] BP Systolic 2017-06-01 09:42:00 123 mm[Hg] Location: LUE; Positi on: Sitting [facility] BP Diastolic 2017-06-01 09:42:00 79 mm[Hg] Location: LUE; Positi on: Sitting [facility] Height 2017-06-01 09:42:00 64 [in_us] [facility] Weight 2017-06-01 09:42:00 209.1875 [lb_av] [facility] Body Mass Index Calculated 2017-06-01 09:42:00 35.91 kg/m2 [facility] Temperature 2017-06-01 09:42:00 97.1 [degF] Method: Temporal [facility] Heart Rate 2017-06-01 09:42:00 78 /min Location: L Brachial Artery; [facility] Respiration Rate 2017-06-01 09:42:00 16 /min Quality: Normal [facility] BP Systolic 2017-05-04 08:58:00 108 mm[Hg] Location: LUE; Positi on: Sitting [facility] BP Diastolic 2017-05-04 08:58:00 80 mm[Hg] Location: LUE; Positi on: Sitting [facility] BP Systolic 2017-05-04 08:13:00 96 mm[Hg] Location: LUE; Positi on: Sitting [facility] BP Diastolic 2017-05-04 08:13:00 63 mm[Hg] Location: LUE; Positi on: Sitting [facility] Height 2017-05-04 08:13:00 64 [in_us] [facility] Weight 2017-05-04 08:13:00 212.3125 [lb_av] [facility] Body Mass Index Calculated 2017-05-04 08:13:00 36.44 kg/m2 [facility] Temperature 2017-05-04 08:13:00 97.5 [degF] Method: Temporal [facility] Heart Rate 2017-05-04 08:13:00 61 /min [facility] Respiration Rate 2017-05-04 08:13:00 16 /min [facility] BP Systolic 2017-03-15 09:59:00 120 mm[Hg] Location: LUE; Positi on: Sitting [facility] BP Diastolic 2017-03-15 09:59:00 82 mm[Hg] Location: LUE; Positi on: Sitting [facility] BP Systolic 2017-03-15 09:16:00 124 mm[Hg] Location: LUE; Positi on: Sitting [facility] BP Diastolic 2017-03-15 09:16:00 79 mm[Hg] Location: LUE; Positi on: Sitting [facility] Height 2017-03-15 09:16:00 64 [in_us] [facility] Weight 2017-03-15 09:16:00 213.1875 [lb_av] [facility] Body Mass Index Calculated 2017-03-15 09:16:00 36.59 kg/m2 [facility] Temperature 2017-03-15 09:16:00 97.3 [degF] Method: Temporal [facility] Respiration Rate 2017-03-15 09:16:00 16 /min Quality: [facility] Heart Rate 2017-03-15 09:16:00 68 /min [facility] BP Systolic 2017-01-19 09:04:00 120 mm[Hg] Location: ABEL Positi on: Sitting [facility] BP Diastolic 2017-01-19 09:04:00 82 mm[Hg] Location: KIEL; Positi on: Sitting [facility] Height 2017-01-19 09:04:00 64 [in_us] [facility] Weight 2017-01-19 09:04:00 217.0625 [lb_av] [facility] Body Mass Index Calculated 2017-01-19 09:04:00 37.26 kg/m2 [facility] Temperature 2017-01-19 09:04:00 97.8 [degF] Method: Temporal [facility] Respiration Rate 2017-01-19 09:04:00 16 /min Quality: Normal U [facility] Heart Rate 2017-01-19 09:04:00 65 /min [facility] Procedures Procedure Date / Time Performed Performing Clinician Oumar ALCAZARath - COVID-19/SARS-Cov-2 2019-09-13 00:00:00 [facility] [] CULTURE, AEROBIC AND ANAEROBIC W/GRAM STAIN 2019-03-24 00:0 0:00 [facility] CTA Coronary art w/ calcium evaluation [id number] 2019-03-04 00:00:00 [facility] [[facility]] CBC (INCLUDES DIFF/PLT) 2019-01-24 00:00:00 [facility] [[facility]] CMP W/EGFR 2019-01-24 00:00:00 [facility] [[facility]] LIPASE 2019-01-24 00:00:00 [facility] [[facility]] SED RATE BY MODIFIED WESTERGREN 2019-01-24 00:00:00 [facility] [[facility]] C-REACTIVE PROTEIN 2019-01-24 00:00:00 [facility] XRAY Humerus AP lateral [id number] 2018-12-06 00:00:00 [facility] XRAY Forearm AP lateral [id number] 2018-12-06 00:00:00 [facility] [[facility]] URINALYSIS, COMPLETE W/REFLEX TO CULTURE 2018-10-10 00:00: 00 [facility] [[facility]] CBC (INCLUDES DIFF/PLT) 2018-10-09 00:00:00 [facility] [QL] CMP W/EGFR 2018-10-09 00:00:00 [facility] [QL] AMYLASE 2018-10-09 00:00:00 [facility] [QL] LIPASE 2018-10-09 00:00:00 [facility] CT Abdomen/Pelvis w contrast [id number] 2018-10-09 00:00:00 [facility] X-ray of chest, two views 2018-10-07 00:00:00 MIN HURTADO CH I [facility] [QL] CMP W/EGFR 2018-07-09 00:00:00 [facility] [[facility]] HEMOGLOBIN A1c 2018-07-09 00:00:00 [facility]] CMP W/EGFR 2018-03-22 00:00:00 [facility] [[facility]] CBC (INCLUDES DIFF/PLT) 2018-03-22 00:00:00 [facility] [] LIPID PANEL WITH REFLEX TO DIRECT LDL 2018-03-22 00:00:00 [facility] [[facility]] TSH, 3RD GENERATION W/REFLEX TO FT4 2018-03-22 00:00:00 [facility] [[facility]] HEMOGLOBIN A1c 2018-03-22 00:00:00 [facility] XRAY Sinus paranasal series [id number] 2017-08-09 00:00:00 [facility] [[facility]] HEMOGLOBIN A1c 2017-03-15 00:00:00 [facility] [[facility]] CMP W/EGFR 2017-03-15 00:00:00 [facility] [[facility]] CBC (INCLUDES DIFF/PLT) 2017-03-15 00:00:00 [facility] US Abdomen complete [id number] 2017-03-15 00:00:00 [facility] X[facility] Ribs unilateral [id number] 2017-03-15 00:00:00 [facility] History of Inguinal Hernia Repair [facility] History of Right Breast Lumpectomy [facility] History of Cholecystectomy [facility]ive [facility] History of Anoscopy For Polyp Removal [facility] History of Destruction Of Flat Warts By Laser [facility] Plan of Care Planned Activity Planned Date Details Comments Source Diagnostic Test Pending 2019-03-04 00:00:00 CTA Coronary art w/ calcium evaluation [id number] [code = 51772] [facility] Diagnostic Test Pending 2019-01-24 00:00:00 [QLH] CBC (INCLU JAREK DIFF/PLT) [code = [QLH] CBC (INCLUDES DIFF/PLT)] [facility] Diagnostic Test Pending 2019-01-24 00:00:00 [QLH] CMP W/EGFR [code = [QLH] CMP W/EGFR] [facility] Pending 2019-01-24 00:00:00 [QLH] LIPASE [code = [QLH] LIPASE] [facility] Diagnostic Test Pending 2019-01-24 00:00:00 [QLH] SED RATE B Y MODIFIED WESTERGREN [code = [QLH] SED RATE BY MODIFIED WESTERGREN] [facility] Diagnostic Test Pending 2019-01-24 00:00:00 [QLH] C-REACTIVE PROTEIN [code = [QLH] C-REACTIVE PROTEIN] [facility] Test Pending 2018-07-09 00:00:00 [QLH] CMP W/EGFR [code = [QLH] CMP W/EGFR] [facility] Test Pending 2018-07-09 00:00:00 [QLH] HEMOGLOBIN A1c [code = [QLH] HEMOGLOBIN A1c] [facility] Test Pending 2017-03-15 00:00:00 XRAY Ribs unilat eral 11768 [code = 58420] [facility] Pending 2017-03-15 00:00:00 US Abdomen compl ete 63238 [code = 49322] [facility] Future Scheduled Test 2013-06-22 18:00:28 Plan of Care [code = 1877 6-5] [facility] Scheduled Test 2013-04-12 17:15:32 Plan of Care [code = 1877 6-5] [facility] Scheduled Test 2013-04-08 06:45:17 Plan of Care [code = 1877 6-5] [facility] Scheduled Test 2013-02-07 20:03:00 Plan of Care [code = 1877 6-5] [facility] Future Scheduled Test 2013-02-06 00:31:03 Plan of Care [code = 1877 6-5] [facility] Scheduled Test 2013-01-10 17:17:29 Plan of Care [code = 1877 6-5] [facility] Future Scheduled Test 2013-01-10 16:48:31 Plan of Care [code = 1877 6-5] [facility] Encounters Start Date/Time End Date/Time Encounter Type Admission Type Attendi [facility] Care Department Encounter ID Source 2019-10-27 14:00:00 2019-10-27 14:00:00 Appointment; RENETTA JOLLEY M.D. BORTOLOTTI, JULIE, M.D. [facility] [id number] [facility] 2019-09-13 11:15:00 2019-09-13 11:15:00 Appointment; ANN LOMAS P.A. SPOONER, JOSEPH, P.A. [facility] [id number] [facility] 2019-08-21 13:00:00 2019-08-21 13:00:00 Appointment; JAYLEEN FAIRBANKS M.D. JAYSWAL, MALAY, M.D. [facility] [id number] [facility] 2019-07-16 10:00:00 2019-07-16 10:00:00 Appointment; JAMIE MAURICIO M.D. MOHEYUDDIN, AMINA, M.D. [facility] [id number] [facility] 2019-06-17 11:40:00 2019-06-17 11:40:00 Appointment; KRISTOPHER NAVARRO M.D. CHARITAKIS, KONSTANTINOS, M.D. [facility] UTP [id number] [facility] 2019-04-25 13:40:00 2019-04-25 13:40:00 Appointment; KRISTOPHER NAVARRO M.D. CHARITAKIS, KONSTANTINOS, M.D. [facility] UTP [id number] [facility] 2019-03-27 09:00:00 2019-03-27 09:00:00 Appointment; YVONNE DELCID M.D. GOODINE, GLENDA, M.D. [facility] [id number] [facility] 2019-03-24 15:45:00 2019-03-24 15:45:00 Appointment; YVONNE DELCID M.D. GOODINE, GLENDA, M.D. [facility] [id number] [facility] 2019-03-18 07:43:00 2019-03-18 23:59:00 Outpatient Krist[facility] [id number] 2019-03-18 07:43:00 2019-03-18 07:43:00 Outpatient [facility] [address] [place] [address] 2019-03-04 13:00:00 2019-03-04 13:00:00 Appointment; KRISTOPHER NAVARRO M.D. CHARITAKIS, KONSTANTINOS, M.D. [facility] [id number] [facility] 2019-02-18 14:15:00 2019-02-18 14:15:00 Appointment; YVONNE DELCID M.D. GOODINE, GLENDA, M.D. [facility] [id number] [facility] 2019-02-08 09:15:00 2019-02-08 09:15:00 Appointment; LOLI NUGENT AP RN TRAN, THUY, APRN [facility] 1 [id number] [facility] 2019-01-27 08:15:00 2019-01-27 08:15:00 Appointment; YVONNE DELCID M.D. GOODINE, GLENDA, M.D. [facility] [id number] [facility] 2019-01-24 12:58:00 2019-01-24 23:59:00 Outpatient Bonnie Delcid OIB OIB [id number] 2019-01-24 11:30:00 2019-01-24 11:30:00 Appointment; GOODINE, Tobin HEATON GLENDA, M.D. [facility] [id number] [facility] 2019-01-11 10:30:00 2019-01-11 10:30:00 Appointment; ALFREDO JENNINGS M.D. MURPHY, THOMAS, M.D. [facility] [id number] [facility] 2018-12-06 12:23:00 2018-12-06 23:59:00 Outpatient Bonnie Delcid MHOIB MHOIB [id number] 2018-12-06 10:30:00 2018-12-06 10:30:00 Appointment; YVONNE DELCID M.D. GOODINE, GLENDA, M.D. [facility] [id number] [facility] 2018-10-09 15:48:00 2018-10-09 23:59:00 Outpatient Alfredo Jennings [id number] 2018-10-09 13:00:00 2018-10-09 13:00:00 Appointment; DEVI WINTERS A PRN SAXE, KAILA, APRN [facility] [id number] [facility] 2018-10-07 11:07:00 2018-10-08 17:47:00 Discharged Inpatient (obs) 1 REBEKAH PINEDAOLD [facility] [id number] [facility] 2018-10-01 09:00:00 2018-10-01 09:00:00 Appointment; DEVI WINTERS A PRN SAXE, KAILA, APRN [facility] [id number] [facility] 2018-07-09 14:15:00 2018-07-09 14:15:00 Appointment; YVONNE DELCID M.D. GOODINE, GLENDA, M.D. [facility] [id number] [facility] 2018-07-03 10:15:00 2018-07-03 23:59:00 Outpatient Reece, Jackquelin MHHOIP MHHOIP [id number] 2018-04-29 10:00:00 2018-04-29 10:00:00 Appointment; DEVI WINTERS A PRN SAXE, KAILA, APRN [facility] [id number] [facility] 2018-03-22 10:30:00 2018-03-22 10:30:00 Appointment; YVONNE DELCID M.D. GOODINE, GLENDA, M.D. [facility] [id number] [facility] 2018-03-20 15:00:00 2018-03-20 15:00:00 Appointment; GRAZYNA ROSS P.A. CAMPOS, BERTHA, P.A. [facility] [id number] [facility] 2017-11-05 15:00:00 2017-11-05 15:00:00 Appointment; CIRO PATRICIA RD WRIGHT, TISH, RD [facility] [id number] [facility] 2017-10-04 10:15:00 2017-10-04 10:15:00 Appointment; JEAN-PIERRE RANGEL M.D. BYRD, MICHAEL, M.D. [facility] [id number] [facility] 2017-09-17 13:00:00 2017-09-17 13:00:00 Appointment; CIRO PATRICIA RD WRIGHT, TISH, RD [facility] [id number] [facility] 2017-09-13 09:00:00 2017-09-13 09:00:00 Appointment; JEAN-PIERRE RANGEL M.D. BYRD, MICHAEL, M.D. [facility] [id number] [facility] 2017-08-21 14:15:00 2017-08-21 14:15:00 Appointment; YVONNE DELCID M.D. GOODINE, GLENDA, M.D. [facility] [id number] [facility] 2017-08-09 11:26:00 2017-08-09 23:59:00 Outpatient Kevin Jennings MHOIB MHOIB [id number] 2017-08-09 10:00:2017-08-09 10:00:00 Appointment; LUDWIG DILLON A PRN BECK, SHERI, APRN [facility] [id number] [facility] 2017-08-03 08:15:00 2017-08-03 08:15:00 Appointment; YVONNE DELCID M.D. GOODINE, GLENDA, M.D. [facility] [id number] [facility] 2017-07-31 13:15:00 2017-07-31 13:15:00 Appointment; YVONNE DELCID M.D. GOODINE, GLENDA, M.D. [facility] [id number] [facility] 2017-07-28 10:01:00 2017-07-28 12:40:00 Departed Emergency Room 1 MAHESH SKY [facility] [id number] [facility] 2017-07-28 09:15:00 2017-07-28 09:15:00 Appointment; LUDWIG DILLON N P BECK, SHERI, NP [facility] [address] [id number] [facility] 2017-07-26 10:30:00 2017-07-26 10:30:00 Appointment; LUDWIG DILLON A PRN BECK, SHERI, APRN [facility] [id number] [facility] 2017-06-15 10:58:00 2017-06-15 23:59:00 Outpatient Bonnie Delcid [facility] [id number] 2017-06-01 09:30:00 2017-06-01 09:30:00 Appointment; YVONNE DELCID M.D. GOODINE, GLENDA, M.D. [facility] [id number] [facility] 2017-05-14 08:51:00 2017-05-14 23:59:00 [facility] [id number] 2017-05-04 08:15:00 2017-05-04 08:15:00 Appointment; YVONNE DELCID M.D. GOODINE, GLENDA, M.D. [facility] [id number] [facility] 2017-05-04 08:00:00 2017-05-04 08:00:00 Appointment; YVONNE DELCID M.D. GOODINE, GLENDA, M.D. UTP [facility] [id number] [facility] 2017-03-15 09:00:00 2017-03-15 09:00:00 Appointment; YVONNE DELCID M.D. GOODINE, GLENDA, M.D. [facility] [id number] [facility] 2017-01-19 09:00:00 2017-01-19 09:00:00 Appointment; YVONNE DELCID M.D. GOODINE, GLENDA, M.D. [facility] [id number] [facility] 2016-09-08 10:00:00 2016-09-08 10:00:00 Appointment; YVONNE DELCID M.D. GOODINE, GLENDA, M.D. UTP [facility] [id number] [facility] 2016-08-21 08:00:00 2016-08-21 08:00:00 Appointment; YVONNE DELCID M.D. GOODINE, GLENDA, M.D. [facility] [id number] [facility] 2016-07-28 11:00:00 2016-07-28 11:00:00 Appointment; YVONNE DELCID M.D. GOODINE, GLENDA, M.D. UTP [facility] [id number] [facility] 2016-07-14 08:40:00 2016-07-14 23:59:00 Outpatient Bonnie DelcidHOIP MHHOIP [id number] 2016-07-13 11:00:00 2016-07-13 11:00:00 Appointment; YVONNE DELCID M.D. GOODINE, GLENDA, M.D. UTP [facility] [id number] [facility] 2016-06-29 16:11:00 2016-06-29 23:59:00 Outpatient Bonnie Delcid MHOIB MHOIB [id number] 2016-06-29 13:45:00 2016-06-29 13:45:00 Appointment; YVONNE DELCID M.D. GOODINE, GLENDA, M.D. [facility] UTP [id number] [facility] 2016-05-04 09:30:00 2016-05-04 09:30:00 Appointment; YVONNE DELCID M.D. GOODINE, GLENDA, M.D. [facility] UTP [id number] [facility] 2016-03-16 08:00:00 2016-03-16 08:00:00 Appointment; YVONNE DELCID M.D. GOODINE, GLENDA, M.D. [facility] UTP [id number] [facility] 2016-02-28 10:30:00 2016-02-28 10:30:00 Appointment; YVONNE DELCID M.D. GOODINE, GLENDA, M.D. [facility] UTP [id number] [facility] 2016-02-15 09:00:00 2016-02-15 09:00:00 Appointment; YVONNE DELCID M.D. GOODINE, GLENDA, M.D. [facility] UTP [id number] [facility] 2016-01-17 09:00:00 2016-01-17 09:00:00 Appointment; YVONNE DELCID M.D. GOODINE, GLENDA, M.D. [facility] UTP [id number] [facility] 2016-01-11 11:07:00 2016-01-11 23:59:00 [facility] [id number] 2016-01-06 13:45:00 2016-01-06 13:45:00 Appointment; YVONNE DELCID M.D. GOODINE, GLENDA, M.D. [facility] UTP [id number] [facility] 2015-11-06 10:45:00 2015-11-06 10:45:00 Appointment; IRAIS JONAS NP TEJADA-FOSTER, NORMA, NP [facility] UTP [id number] [facility] 2015-08-18 10:30:00 2015-08-18 10:30:00 Appointment; LUDWIG DILLON N P BECK, SHERI, NP [facility] UTP [id number] [facility] 2015-06-23 11:15:00 2015-06-23 11:15:00 Appointment; NESS LAN M.D. ECO, LOURDES, M.D. [facility] [id number] [facility] 2015-01-07 08:13:00 2015-01-07 23:59:00 Outpatient Dara Reece [facility] [id number] 2015-01-07 08:13:00 2015-01-07 23:59:00 Outpatient Dara Reece [facility] [id number] 2013-06-22 13:00:29 2013-06-22 13:00:28 Outpatient MHIE MHIE [id number] 2013-04-12 11:15:33 2013-04-12 11:15:32 Outpatient MHIE MHIE [id number] 2013-04-08 00:45:18 2013-04-08 00:45:17 Outpatient MHIE MHIE [id number] 2013-02-07 14:03:01 2013-02-07 14:03:00 Outpatient MHIE MHIE [id number] 2013-02-05 18:31:04 2013-02-05 18:31:03 Outpatient MHIE MHIE [id number] 2013-01-10 12:17:29 2013-01-10 12:17:29 Outpatient MHIE MHIE [id number] 2013-01-10 11:48:31 2013-01-10 11:48:31 Outpatient MHIE MHIE [id number] 2012-10-24 02:38:12 2012-10-24 02:37:47 Outpatient MHIE MHIE [id number] Results Test Description Test Time Test Comments Results Result Comments Source CHEM PANEL 2019-03-18 14:14:00 0.8 Steve Do CHEM PANEL 2019-03-18 14:14:[address] Heart, coronary art, grafts w contrast [id number] 2019-03-18 07:52 :[address] ANGIOGRAPHY WITH CALCIUM SCORE REPORTDATE: March 18, 2019QUALITY:ExcellentCLINICAL HISTORY AND INDICATION:48 year-old patient with chest pain here for evaluation of suspected coronaryartery disease. This study is performed to avoid an invasive coronary angiogram and to assessrisk of an acute coronary syndrome.COMPARISON: noneTECHNIQUE:After obtaining a preliminary talent acquisition assistant image, coronary calcium imaging wasfollowed by contrast imaging performed on a Aquillion ONE KALIA, 320 detectorrows - 640 slice, Lifetable scanner.A dedicated, limited window, coronary imaging protocol [...] Signed by: Edinson Astorga MD 03/18/1914:43FINAL REPORT [facility] [O] Influenza A and B, Rapid Method (In Office) 2019-02-08 1 0:00:00 Test Item INFLUENZA A & B Rapid (test code = INFLUENZA A & B Rapid) Negative N [facility][O] Streptococcus Test Rapid (In Office)2019-02-08 09:30:00* Test Item Value Reference Range Interpretation Comments Group A Strep Screen; Normal (test code = 71362-7) Negative N [facility][H] CMP [id number] 14:17:00* Test Item Value Reference Range Interpretation Comments GLUCOSE; Normal (test code = 1547-9) 98 mg/dl 65-99 N Fasting reference interval UREA NITROGEN (BUN) (test code = UREA NITROGEN (BUN)) 12 mg/dl 7-25 N CREATININE (test code = CREATININE) 0.70 mg/dl 0.50-1.10 N eGFR NON- (test code = eGFR NON-NATHAN N GEORGIAN) 102 {ML/MIN/1.7} > OR = 60 N eGFR (test code = eGFR ) 11 8 {ML/MIN/1.7} > OR = 60 N BUN/CREATININE RATIO (test code = BUN/CREATININE RATIO) NOT APPLICA BLE 6-22 SODIUM (test code = SODIUM) 138 mmol/L 135-146 N POTASSIUM (test code = POTASSIUM) 4.1 mmol/L 3.5-5.3 N CHLORIDE (test code = CHLORIDE) 104 mmol/L 98-110 N CARBON DIOXIDE (test code = CARBON DIOXIDE) 24 mmol/L 20-32 N CALCIUM (test code = CALCIUM) 9.5 mg/dl 8.6-10.2 N PROTEIN, TOTAL (test code = PROTEIN, TOTAL) 7.2 g/dl 6.1-8.1 N ALBUMIN (test code = ALBUMIN) 4.3 g/dl 3.6-5.1 N GLOBULIN (test code = GLOBULIN) 2.9 {G/DL CALC} 1.9-3.7 N ALBUMIN/GLOBULIN RATIO (test code = ALBUMIN/GLOBULIN RATIO) 1.5 {CALC} 1.0-2.5 N BILIRUBIN, TOTAL; Normal (test code = 79511-6) 0.4 mg/dl 0.2-1.2 N ALKALINE PHSPHATASE (test code = ALKALINE PHSPHATASE) 74 u/l 33-115 N AST; Normal (test code = 1916-6) 10 u/l 10-35 N ALT; Normal (test code = 1742-6) 14 u/l 6-29 N [facility]] CBC (INCLUDES DIFF/PLT)2018-10-10 14:17:00* Test Item Value Reference Range Interpretation Comments WHITE BLOOD CELL COUNT (test code = WHITE BLOOD CELL COUNT) 10.1 {Thousand/u} 3.8-10.8 N RED BLOOD CELL COUNT (test code = RED BLOOD CELL COUNT) 4.70 {Million/uL} 3.80-5.10 N HEMAGLOBIN; Normal (test code = 57636-9) 13.8 g/dl 11.7-15.5 N HEMATOCRIT; Normal (test code = 4544-3) 40.2 % 35.0-45.0 N MCV; Normal (test code = 787-2) 85.5 fL 80.0-100.0 N MCHC; Normal (test code = 55825-1) 34.3 g/dl 32.0-36.0 N RDW; Normal (test code = 788-0) 13.7 % 11.0-15.0 N PLATELET COUNT; Normal (test code = 777-3) 335 {Thousand/u} 140-400 N MPV; Normal (test code = 95359-3) 9.0 fL 7.5-12.5 N ABSOLUTE NEUTROPHILS (test code = ABSOLUTE NEUTROPHILS) 6737 {cells/uL} 6964-6341 N ABSOLUTE LYMPHOCYTES (test code = ABSOLUTE LYMPHOCYTES) 2303 {cells/uL} 850-3900 N ABSOLUTE MONOCYTES (test code = ABSOLUTE MONOCYTES) 737 {cells/uL} 200-950 N ABSOLUTE EOSINOPHILS (test code = ABSOLUTE EOSINOPHILS) 253 {cells/ uL} 15-500 N ABSOLUTE BASOPHILS (test code = ABSOLUTE BASOPHILS) 71 {cells/uL} 0 -200 N NEUTROPHILS (test code = NEUTROPHILS) 66.7 % N LYMPHOCYTES (test code = LYMPHOCYTES) 22.8 % N MONOCYTES; Normal (test code = 05954-2) 7.3 % N EOSINOPHILS; Normal (test code = 31562-3) 2.5 % N BASOPHILS; Normal (test code = 02038-8) 0.7 % N [facility]] [id number] 14:17:00* Test Item Value Reference Range Interpretation Comments AMYLASE (test code = AMYLASE) 35 u/l 21-101 N [facility]] [id number] 14:17:00* Test Item Value Reference Range Interpretation Comments LIPASE (test code = LIPASE) 41 u/l 7-60 N [facility]domen/Pelvis w contrast [id number] 18:05:00CT ABDOMEN AND PELVIS WITH CONTRAST DATED 10/09/2018.CLINICAL INDICATION: Diarrhea. Left lower quadrant abdominal pain.COMPARISON: None.TECHNIQUE: A CT of the abdomen and pelvis was performed using helical imagesfrom the thoracic outlet through the pubic symphysis after the administrationof oral and intravenous contrast. Sagittal and coronal reconstructions wereperformed.IV CONTRAST: 100cc Omnipaque 300 GI CONTRAST: YesCT imaging performed at this location utilizes radiation dose optimizationtechniques which include one or more of the following:-Automated exposure control-Adjustment of the mA and/or kV according to patient size-Use of iterative reconstruction techniqueCT Radiation Dose DLP 1026 mGy-cmFINDINGS:S OLID ORGANS: No acute CT abnormalities of the liver, spleen, pancreas, adrenalgl ands or kidneys are detected. There is no CT evidence of acute renalcollecting s ystem obstruction or calcified renal collecting system stoneBILIARY: The patient is status post cholecystectomy. No significant biliaryductal dilatation is iden tified.BOWEL: No acute CT abnormalities of the bowel are identified. The stomach andduodenum are unremarkable. No small bowel dilatation is present to suggestob struction. The appendix is identified and is not acutely inflamed. There isno ev idence of diverticular disease or inflammatory colonic wall thickening.PERITONEU M: No free intraperitoneal air or significant free intraperitonealfluid.RETROPER ITONEUM: The abdominal aorta is normal in caliber. No retroperitonealmass or noel nopathy. PELVIS: No abnormalities of the ovaries or adnexa are identified. The u rinarybladder is unremarkable.LOWER CHEST: The lung bases appear clear of acute disease.ADDITIONAL COMMENTS: None.IMPRESSION:1. No acute CT abnormalities of th e abdomen or pelvis are detected.SL:131--Read by: Salvador Watersicta julien Date/time: 10/10/18 04:34Electronically Signed by: Salvador Waters 10/11/1903:39[facility]] Urine Dipstick (In Office)2018-10-09 13:18:00* Test Item Value Reference Range Interpretation Comments Glucose (test code = Glucose) normal N LEUKOCYTES (test code = LEUKOCYTES) neg N NITRITE; Normal (test code = 19169-3) neg N UROBILINOGEN; Normal (test code = 15320-5) normal N PROTEIN; Normal (test code = 62231-6) normal N pH (test code = pH) 6 URINE BLOOD; Normal (test code = 81061-2) neg N SPECIFIC GRAVITY (test code = 2965-2) 1.000 KETONES; Normal (test code = 01599-5) neg N BILIRUBIN; Normal (test code = 18820-5) normal N COLOR URINE (test code = 5778-6) yellow APPEARANCE (test code = 5767-9) clear [facility] - Treadmill [id number] 16:35:00 [place] [address] Patient Name : MICAH GONSALEZ MR #: [id number] : 1970 Age /Sex: 48/F Adm Physician : JIM PINEDA Admit Date : 10/07/18 Location : [facility] Room/Bed : [place] [address] REPORT: Lynn pedersen Stress Test DATE OF STUDY: 10/07/2018 17:32:00 Stress Test - Jose admill ONLY The patient had resting perfusion images after injection of 11 mCi of technetium-99m Myoview. The patient exercised on Arturo protocol for a total of 5 minutes and 7 seconds. At maximum exercise, she was given 3 3 mCi of technetium-99m Myoview. Perfusion images were taken by rotational to naila. Comparison of resting and stress images show no evidence of any perfusion defect. Additionally, gated wall motion images were obtained and ca lculated ejection fraction normal at 68%. The EKG stress test showed no ischemia as well. FINAL IMPRESSION: 1. Negative stress Cardiolite per fusion with normal images. 2. Normal left ventricular function with calculated ejection fraction of 68%. MD CURTIS Worthington/JED /[id number] Signature Date Dictated By: GORDON CHAPARRO MD Transcribed By: JED on 10/08/18 <Electronically signed by BIB CHAPARRO MD><<Signature on File>>10/15/18 0856 COPY TO: Creatine Kinase [id number] 06:54:00* Test Item Value Reference Range Interpretation Comments Creatine Kinase MB (test code = 57234-0) 0.40 0-5.0 [facility] [id number] 06:54:00* Test Item Value Reference Range Interpretation Comments Troponin I (test code = CBQ4465) 0.002 0-0.300 [facility] [id number] 06:47:00* Test Item Value Reference Range Interpretation Comments Creatine Kinase (test code = 2157-6) 33 29-168 [facility] [id number] 06:32:00* Test Item Value Reference Range Interpretation Comments Sodium Level (test code = 2951-2) 138 136-145 [facility]assium [id number] 06:32:00* Test Item Value Reference Range Interpretation Comments Potassium Level (test code = 2823-3) 3.8 3.5-5.1 [facility] HospitalChloride [id number] 06:32:00* Test Item Value Reference Range Interpretation Comments Chloride Level (test code = 2075-0) 106 98-107 [facility] HospitalCarbon Dioxide Fiixs3761-76-37 06:32:00* Test Item Value Reference Range Interpretation Comments Carbon Dioxide Level (test code = 2028-9) 21 22-29 L [facility] HospitalAnion [id number] 06:32:00* Test Item Value Reference Range Interpretation Comments Anion Gap (test code = 62539-3) 14.8 8-16 [facility] HospitalBlood Urea Yimijzis3373-24-97 06:32:00* Test Item Value Reference Range Interpretation Comments Blood Urea Nitrogen (test code = 3094-0) 6 7-26 L [facility] HospitalCreatinine2019-07-23 06:32:00* Test Item Value Reference Range Interpretation Comments Creatinine (test code = 2160-0) 0.71 0.57-1.11 [facility] HospitalBUN/Creatinine Oaray1358-87-13 06:32:00* Test Item Value Reference Range Interpretation Comments BUN/Creatinine Ratio (test code = 3097-3) 8 6-25 [facility] HospitalEstimat Glomerular Filtration Rate 2018-10-08 06:32:00* Test Item Value Reference Range Interpretation Comments Estimat Glomerular Filtration Rate (test code = 402615439) > 60 >60 Ranges were taken from the National Kidney Disease Education Program and the [facility] Kidney Foundation literature.Reference ranges:60 or greater: Efkiod81-24 ( for 3 consecutive months): Chronic kidney disease 15 or less: Kidney failureFormerly [facility] HospitalGlucose Yqzdu8193-06-25 06:32:00* Test Item Value Reference Range Interpretation Comments Glucose Level (test code = VBS0160) 145 74-118 H [facility] HospitalCalcium Rziya7770-46-48 06:32:00* Test Item Value Reference Range Interpretation Comments Calcium Level (test code = 63517-7) 9.0 8.4-10.2 [facility] HospitalTotal Drogjxoic4120-28-42 06:32:00* Test Item Value Reference Range Interpretation Comments Total Bilirubin (test code = 1975-2) 0.4 0.2-1.2 [facility] HospitalAspartate Amino Transf (AST/SGOT) 2018-10-08 06:32:00* Test Item Value Reference Range Interpretation Comments Aspartate Amino Transf (AST/SGOT) (test code = Aspartate Amino Transf (AST/SGOT)) 11 5-34 [facility] HospitalAlanine Aminotransferase (ALT/SGPT) 2018-10-08 06:32:00* Test Item Value Reference Range Interpretation Comments Alanine Aminotransferase (ALT/SGPT) (test code = 1742-6) 20 0-55 [facility] HospitalTotal Qdkkdma2420-74-56 06:32:00* Test Item Value Reference Range Interpretation Comments Total Protein (test code = 2885-2) 7.1 6.5-8.1 [facility] HospitalAlbumin2019-07-23 06:32:00* Test Item Value Reference Range Interpretation Comments Albumin (test code = 1751-7) 3.7 3.5-5.0 [facility] HospitalGlobulin2019-07-23 06:32:00* Test Item Value Reference Range Interpretation Comments Globulin (test code = 05474-8) 3.4 2.3-3.5 [facility] HospitalAlbumin/Globulin Ccmpt8874-13-02 06:32:00 * Test Item Value Reference Range Interpretation Comments Albumin/Globulin Ratio (test code = 1759-0) 1.1 0.8-2.0 [facility] HospitalAlkaline Edtlyzeauzp6020-19-72 06:32:00* Test Item Value Reference Range Interpretation Comments Alkaline Phosphatase (test code = 6768-6) 70 40-150 [facility] HospitalTriglycerides Roodg7681-97-05 06:32:00* Test Item Value Reference Range Interpretation Comments Triglycerides Level (test code = 2571-8) 98 0-149 [facility] HospitalCholesterol Njpwe1479-01-58 06:32:00* Test Item Value Reference Range Interpretation Comments Cholesterol Level (test code = 2093-3) 151 0-199 Less than 200 mg/dL Low Njqa652 - 239 mg/dL Borderline Vnps194 m g/dl and greater High Risk [facility] HospitalLDL Atrfcdpjmnv5638-91-92 06:32:00* Test Item Value Reference Range Interpretation Comments LDL Cholesterol (test code = 2089-1) 63 60-130 [facility] HospitalHDL Qpxkvhtzpym9743-27-90 06:32:00* Test Item Value Reference Range Interpretation Comments HDL Cholesterol (test code = 2085-9) 68 40-60 H [facility] HospitalCholesterol/HDL Edtdg1538-65-70 06:32:00 * Test Item Value Reference Range Interpretation Comments Cholesterol/HDL Ratio (test code = 9830-1) 2.2 3.0-3.6 L [facility] HospitalWhite Blood Apsof9315-50-35 06:26:00* Test Item Value Reference Range Interpretation Comments White Blood Count (test code = 6690-2) 13.76 4.8-10.8 H [facility] HospitalRed Blood Acmbx9536-87-97 06:26:00* Test Item Value Reference Range Interpretation Comments Red Blood Count (test code = 789-8) 4.38 3.6-5.1 [facility] HospitalHemoglobin2019-07-23 06:26:00* Test Item Value Reference Range Interpretation Comments Hemoglobin (test code = 22154-4) 12.8 12.0-16.0 [facility] HospitalHematocrit2019-07-23 06:26:00* Test Item Value Reference Range Interpretation Comments Hematocrit (test code = 4544-3) 38.8 34.2-44.1 [facility] HospitalMean Corpuscular Jpbnjk8267-43-79 06:26:00* Test Item Value Reference Range Interpretation Comments Mean Corpuscular Volume (test code = 787-2) 88.6 81-99 [facility] HospitalMean Corpuscular Gyngfhsbja1730-31-73 06:26:00* Test Item Value Reference Range Interpretation Comments Mean Corpuscular Hemoglobin (test code = 785-6) 29.2 28-32 [facility] HospitalMean Corpuscular Hemoglobin Concent 2018-10-08 06:26:00* Test Item Value Reference Range Interpretation Comments Mean Corpuscular Hemoglobin Concent (test code = 786-4) 33.0 31-35 [facility] HospitalRed Cell Distribution Rdpjc4207-72-99 06:26:00* Test Item Value Reference Range Interpretation Comments Red Cell Distribution Width (test code = 52169-4) 13.4 11.7 -14.4 [facility] HospitalPlatelet Lwaax7681-90-10 06:26:00* Test Item Value Reference Range Interpretation Comments Platelet Count (test code = 777-3) 300 140-360 [facility] HospitalNeutrophils (%) (Auto)2018-10-08 06:26:00 * Test Item Value Reference Range Interpretation Comments Neutrophils (%) (Auto) (test code = 11993-9) 83.3 38.7-80.0 H [facility] HospitalLymphocytes (%) (Auto)2018-10-08 06:26:00 * Test Item Value Reference Range Interpretation Comments Lymphocytes (%) (Auto) (test code = 736-9) 11.3 18.0-39.1 L [facility] HospitalMonocytes (%) (Auto)2018-10-08 06:26:00* Test Item Value Reference Range Interpretation Comments Monocytes (%) (Auto) (test code = 5905-5) 4.6 4.4-11.3 [facility] HospitalEosinophils (%) (Auto)2018-10-08 06:26:00 * Test Item Value Reference Range Interpretation Comments Eosinophils (%) (Auto) (test code = 713-8) 0.0 0.0-6.0 [facility] HospitalBasophils (%) (Auto)2018-10-08 06:26:00* Test Item Value Reference Range Interpretation Comments Basophils (%) (Auto) (test code = 706-2) 0.1 0.0-1.0 [facility] HospitalIM GRANULOCYTES %2018-10-08 06:26:00* Test Item Value Reference Range Interpretation Comments IM GRANULOCYTES % (test code = IM GRANULOCYTES %) 0.7 0.0- 1.0 [facility] HospitalNeutrophils # (Auto)2018-10-08 06:26:00* Test Item Value Reference Range Interpretation Comments Neutrophils # (Auto) (test code = 751-8) 11.5 2.1-6.9 H [facility] HospitalLymphocytes # (Auto)2018-10-08 06:26:00* Test Item Value Reference Range Interpretation Comments Lymphocytes # (Auto) (test code = 24538-3) 1.6 1.0-3.2 [facility] HospitalMonocytes # (Auto)2018-10-08 06:26:00* Test Item Value Reference Range Interpretation Comments Monocytes # (Auto) (test code = 742-7) 0.6 0.2-0.8 [facility] HospitalEosinophils # (Auto)2018-10-08 06:26:00* Test Item Value Reference Range Interpretation Comments Eosinophils # (Auto) (test code = 711-2) 0.0 0.0-0.4 [facility] HospitalBasophils # (Auto)2018-10-08 06:26:00* Test Item Value Reference Range Interpretation Comments Basophils # (Auto) (test code = 704-7) 0.0 0.0-0.1 [facility] HospitalAbsolute Immature Granulocyte (auto 2018-10-08 06:26:00* Test Item Value Reference Range Interpretation Comments Absolute Immature Granulocyte (auto (reji t code = Absolute Immature Granulocyte (auto) 0.09 0-0.1 [facility] HospitalThyroid Stimulating Hormone (TSH) 2018-10-07 10:16:00* Test Item Value Reference Range Interpretation Comments Thyroid Stimulating Hormone (TSH) (test code = 48082-1) 3.236 0.350-4.940 [facility] HospitalProthrombin Hrrw8272-74-78 10:05:00* Test Item Value Reference Range Interpretation Comments Prothrombin Time (test code = 5902-2) 12.5 11.9-14.5 [facility] HospitalProthromb Time International Ratio 2018-10-07 10:05:00* Test Item Value Reference Range Interpretation Comments Prothromb Time International Ratio (test code = 6301-6) 0.89 Oral Anticoagulant Therapy INR Values:1. Low Intensity Therapy 1.5 - 2.02 . Moderate Intensity Therapy 2.0 - 3.03. High Intensity Therapy(1) 2.5 - 3. 54. High Intensity Therapy(2) 3.0 - 4.05. Panic Value INR > 5.0 [facility] HospitalActivated Partial Thromboplast Time 2018-10-07 10:05:00* Test Item Value Reference Range Interpretation Comments Activated Partial Thromboplast Time (test code = 06382-8) 30.5 23.8-35.5 [facility] HospitalB-Type Natriuretic Visklwa1848-52-44 10:04:00* Test Item Value Reference Range Interpretation Comments B-Type Natriuretic Peptide (test code = 35499-9) < 10.0 0-100 [facility] HospitalUrine Zmph5155-78-80 09:54:00* Test Item Value Reference Range Interpretation Comments Urine Test (test code = 2106-3) NEGATIVE NEGATIVE [facility] HospitalMagnesium Tqgig8027-97-22 09:52:00* Test Item Value Reference Range Interpretation Comments Magnesium Level (test code = 84310-5) 2.2 1.3-2.1 H [facility] HospitalUrine XKN1436-09-78 09:51:00* Test Item Value Reference Range Interpretation Comments Urine WBC (test code = 5821-4) NONE 0-5 [facility] HospitalUrine GSN3373-54-38 09:51:00* Test Item Value Reference Range Interpretation Comments Urine RBC (test code = 63747-9) NONE 0-5 [facility] HospitalUrine Cxecezlj9639-90-33 09:51:00* Test Item Value Reference Range Interpretation Comments Urine Bacteria (test code = 80351-7) FEW NONE [facility] HospitalUrine Epithelial Oqlhv0510-74-12 09:51:00 * Test Item Value Reference Range Interpretation Comments Urine Epithelial Cells (test code = 02600-1) FEW NONE [facility] HospitalUrine Utgom0547-05-41 09:39:00* Test Item Value Reference Range Interpretation Comments Urine Color (test code = 5778-6) YELLOW YELLOW [facility] HospitalUrine Harnzri7601-84-63 09:39:00* Test Item Value Reference Range Interpretation Comments Urine Clarity (test code = 92347-6) CLEAR CLEAR [facility] HospitalUrine Specific Jdsxyep1698-09-64 09:39:00 * Test Item Value Reference Range Interpretation Comments Urine Specific [place] (test code = 5811-5) <=1.005 1.010-1.02 5 [facility] HospitalUrine dH0040-33-82 09:39:00* Test Item Value Reference Range Interpretation Comments Urine pH (test code = 55796-3) 6.5 5-7 [facility] HospitalUrine Leukocyte Rvguowgj8665-63-02 09:39:00* Test Item Value Reference Range Interpretation Comments Urine Leukocyte Esterase (test code = 37167-7) NEGATIVE NEGATIV E [facility] HospitalUrine Zppkftz3625-55-45 09:39:00* Test Item Value Reference Range Interpretation Comments Urine Nitrite (test code = 66697-6) NEGATIVE NEGATIVE [facility] HospitalUrine Wobpydt8722-20-65 09:39:00* Test Item Value Reference Range Interpretation Comments Urine Protein (test code = 55126-5) NEGATIVE NEGATIVE [facility] HospitalUrine Glucose (UA)2018-10-07 09:39:00* Test Item Value Reference Range Interpretation Comments Urine Glucose (UA) (test code = 29432-9) NEGATIVE NEGATIVE [facility] HospitalUrine Pkhmnke2989-70-83 09:39:00* Test Item Value Reference Range Interpretation Comments Urine Ketones (test code = 61346-1) NEGATIVE NEGATIVE [facility] HospitalUrine Xpemwgkqmsxk1997-25-78 09:39:00* Test Item Value Reference Range Interpretation Comments Urine Urobilinogen (test code = 92051-2) 0.2 0.2-1 [facility] HospitalUrine Jvtvmjjbb8907-94-97 09:39:00* Test Item Value Reference Range Interpretation Comments Urine Bilirubin (test code = 1977-8) NEGATIVE NEGATIVE [facility] HospitalUrine Gaujs3803-01-75 09:39:00* Test Item Value Reference Range Interpretation Comments Urine Blood (test code = 12939-3) NEGATIVE NEGATIVE [facility] HospitalCHEST 2 OTBLN0008-60-06 09:16:00 [place] [address] Patient Name: MICAH GONSALEZ MR #: [id number] : 1970 Age/Sex: 48/F Req #: [id number] Adm Physician: Ordered by: MIN HURTADO MD Report #: [id number] Location: ER Room/Bed: Procedure: [id number] DX/CHEST 2 VIEWS Exam Date: 10/07/18 Exam Time: 0900 REPORT STATUS: Signed EXAMINATI ON: CHEST 2 VIEWS INDICATION: Cough COMPARISON: Chest radiograph 07/28/2017 FINDINGS: TUBES and LINES: None. LUNGS: The lung vo lumes are normal. No focal consolidation or pulmonary edema. PLEURA: No pl eural effusion or pneumothorax. HEART AND MEDIASTINUM: The cardiomediastin al silhouette is normal in size and contour. BONES AND SOFT TISSUES: No a cute fracture or dislocation. UPPER ABDOMEN: No free air under the diaphrag m. IMPRESSION: No focal pneumonia or pulmonary edema. Signed by: Telly Osuna MD on 10/07/2018 9:18 AM Dictated By: ALISSON OSUNA MD Electronica lly Signed By: ALISSON OSUNA MD on 10/07/18917 Transcribed By: BERNIE on 917 COPY TO: MIN HURTADO MD [O] Urine Dipstick (In Office) 2018-03-22 10:58:00* Test Item Value Reference Range Interpretation Comments Glucose (test code = Glucose) neg N LEUKOCYTES (test code = LEUKOCYTES) neg N NITRITE; Normal (test code = 73898-6) neg N UROBILINOGEN; Normal (test code = 12002-4) neg N PROTEIN; Normal (test code = 94320-4) neg N pH (test code = pH) 5 N URINE BLOOD (test code = 70469-3) trace SPECIFIC GRAVITY; Normal (test code = 2965-2) 1.000 N KETONES; Normal (test code = 69012-9) neg N BILIRUBIN; Normal (test code = 76346-9) neg N COLOR URINE; Normal (test code = 5778-6) light yellow N APPEARANCE; Normal (test code = 5767-9) clear N [facility]AY Sinus paranasal series [id number] 11:33:00EXAM: PARANASAL SINUS 3 VIEWSDATE: 08/09/2017 11:32 AM CDTINDICATION: - J01.91 Acute recurrent sinusitis, unspecifiedCOMPARISON: NoneTECHNIQUE: 3 views of the paranasal sinusesDISCUSSION: Mild peripheral opacification of the maxillary sinuses, right worsein left. No air-fluid levels. No sinus atelectasis or sinus wall thickening. Nobony abnormality identified.IMPRESSION: Mild bilateral peripheral opacification of the maxillary sinuses, right greaterthan left, consistent with mucosal disease.--Read by: Jeremy Watkins MDDictated Date/time: 08/09/17 14:28Electronically Signed by: Jeremy Watkins MD 08/09/1813:29FINAL REPORTUnGarfield [facility] PhysiciansB-Type Natriuretic Zwuugtl6460-63-78 11:10:00* Test Item Value Reference Range Interpretation Comments B-Type Natriuretic Peptide (test code = 86755-2) 14.9 0-100 [facility] HospitalCreatine Kinase QB6856-11-56 11:09:00* Test Item Value Reference Range Interpretation Comments Creatine Kinase MB (test code = 97981-8) 1.30 0-5.0 [facility] HospitalTroponin G4807-25-77 11:09:00* Test Item Value Reference Range Interpretation Comments Troponin I (test code = HCF9006) -0.001 0-0.300 [facility] Zfkaw9074-46-64 11:02:00* Test Item Value Reference Range Interpretation Comments Sodium Level (test code = 2951-2) 135 136-145 L [facility] HospitalPotassium Fenmb5605-92-35 11:02:00* Test Item Value Reference Range Interpretation Comments Potassium Level (test code = 2823-3) 3.6 3.5-5.1 [facility] HospitalChloride Ivrll0600-54-44 11:02:00* Test Item Value Reference Range Interpretation Comments Chloride Level (test code = 2075-0) 101 98-107 [facility] HospitalCarbon Dioxide Mpwqx0827-55-04 11:02:00* Test Item Value Reference Range Interpretation Comments Carbon Dioxide Level (test code = 2028-9) 23 22-29 [facility] HospitalAnion Hnv6886-54-42 11:02:00* Test Item Value Reference Range Interpretation Comments Anion Gap (test code = 52086-8) 14.6 8-16 [facility] HospitalBlood Urea Gamcxrhk5319-19-23 11:02:00* Test Item Value Reference Range Interpretation Comments Blood Urea Nitrogen (test code = 3094-0) 10 7-26 [facility] HospitalCreatinine2018-05-12 11:02:00* Test Item Value Reference Range Interpretation Comments Creatinine (test code = 2160-0) 0.78 0.57-1.11 [facility] HospitalBUN/Creatinine Bifjw5514-61-42 11:02:00* Test Item Value Reference Range Interpretation Comments BUN/Creatinine Ratio (test code = 3097-3) 13 6-25 [facility] HospitalEstimat Glomerular Filtration Rate 2017-07-28 11:02:00* Test Item Value Reference Range Interpretation Comments Estimat Glomerular Filtration Rate (test code = 48684-6) 60- >60 Ranges were taken from the National Kidney Disease Education Program and the [facility] literature.Reference ranges:60 or greater: Katsae21-39 ( for 3 consecutive months): Chronic kidney disease 15 or less: Kidney failureFormerly [facility] HospitalGlucose Hqfnl8914-38-91 11:02:00* Test Item Value Reference Range Interpretation Comments Glucose Level (test code = BLM4402) 140 74-118 H [facility] HospitalCalcium Decgw0825-63-99 11:02:00* Test Item Value Reference Range Interpretation Comments Calcium Level (test code = 75896-3) 9.9 8.4-10.2 [facility] HospitalTotal Izcuwmvfy8749-87-29 11:02:00* Test Item Value Reference Range Interpretation Comments Total Bilirubin (test code = 1975-2) 0.6 0.2-1.2 [facility] HospitalAspartate Amino Transf (AST/SGOT) 2017-07-28 11:02:00* Test Item Value Reference Range Interpretation Comments Aspartate Amino Transf (AST/SGOT) (test code = Aspartate Amino Transf (AST/SGOT)) 23 5-34 [facility] HospitalAlanine Aminotransferase (ALT/SGPT) 2017-07-28 11:02:00* Test Item Value Reference Range Interpretation Comments Alanine Aminotransferase (ALT/SGPT) (test code = 1742-6) 26 0-55 [facility] HospitalTotal Hqtcejd7228-46-59 11:02:00* Test Item Value Reference Range Interpretation Comments Total Protein (test code = 2885-2) 8.4 6.5-8.1 H [facility] HospitalAlbumin2018-05-12 11:02:00* Test Item Value Reference Range Interpretation Comments Albumin (test code = 1751-7) 3.9 3.5-5.0 [facility] HospitalGlobulin2018-05-12 11:02:00* Test Item Value Reference Range Interpretation Comments Globulin (test code = 22852-3) 4.5 2.3-3.5 H [facility] HospitalAlbumin/Globulin Cfbso0951-83-17 11:02:00 * Test Item Value Reference Range Interpretation Comments Albumin/Globulin Ratio (test code = 1759-0) 0.9 0.8-2.0 [facility] HospitalAlkaline Eknrbvsdzty0887-42-02 11:02:00* Test Item Value Reference Range Interpretation Comments Alkaline Phosphatase (test code = 6768-6) 99 40-150 [facility] HospitalCreatine Mgygre9567-47-30 11:02:00* Test Item Value Reference Range Interpretation Comments Creatine Kinase (test code = 2157-6) 342 29-168 H [facility] HospitalUrine YUG5509-88-54 10:57:00* Test Item Value Reference Range Interpretation Comments Urine WBC (test code = 5821-4) 0-5 0-5 [facility] HospitalUrine ADK7279-93-26 10:57:00* Test Item Value Reference Range Interpretation Comments Urine RBC (test code = 26269-3) 0-5 0-5 [facility] HospitalUrine Ksszkouo6368-53-79 10:57:00* Test Item Value Reference Range Interpretation Comments Urine Bacteria (test code = 29376-3) FEW NONE [facility] HospitalUrine Epithelial Oprss9515-45-65 10:57:00 * Test Item Value Reference Range Interpretation Comments Urine Epithelial Cells (test code = 93263-1) FEW NONE [facility] HospitalUrine Orwjd4517-13-60 10:54:00* Test Item Value Reference Range Interpretation Comments Urine Color (test code = 5778-6) YELLOW YELLOW [facility] HospitalUrine Nnckesd8418-44-39 10:54:00* Test Item Value Reference Range Interpretation Comments Urine Clarity (test code = 60928-6) SL CLOUDY CLEAR [facility] HospitalUrine Specific Gkvodfd6230-55-43 10:54:00 * Test Item Value Reference Range Interpretation Comments Urine Specific [place] (test code = 5811-5) 1.015 1.010-1.02 5 [facility] HospitalUrine wO8479-25-45 10:54:00* Test Item Value Reference Range Interpretation Comments Urine pH (test code = 01703-1) 6 5-7 [facility] Leukocyte Jhnykimd6054-88-48 10:54:00* Test Item Value Reference Range Interpretation Comments Urine Leukocyte Esterase (test code = 5799-2) NEGATIVE NEGATIVE [facility] Qqcdqdx2728-86-92 10:54:00* Test Item Value Reference Range Interpretation Comments Urine Nitrite (test code = 84992-9) NEGATIVE NEGATIVE [facility] Wlzzbsv3951-47-30 10:54:00* Test Item Value Reference Range Interpretation Comments Urine Protein (test code = 5804-0) NEGATIVE NEGATIVE [facility] Glucose (UA)2017-07-28 10:54:00* Test Item Value Reference Range Interpretation Comments Urine Glucose (UA) (test code = 2349-9) NEGATIVE NEGATIVE [facility] Mgiezrt4911-45-60 10:54:00* Test Item Value Reference Range Interpretation Comments Urine Ketones (test code = 24732-6) NEGATIVE NEGATIVE [facility] Ukmnmwluvcee1827-35-40 10:54:00* Test Item Value Reference Range Interpretation Comments Urine Urobilinogen (test code = 73127-0) 0.2 0.2-1 [facility] Jdnktdgph1524-06-16 10:54:00* Test Item Value Reference Range Interpretation Comments Urine Bilirubin (test code = 1978-6) NEGATIVE NEGATIVE [facility] Cchsb3001-60-02 10:54:00* Test Item Value Reference Range Interpretation Comments Urine Blood (test code = 21957-6) TRACE NEGATIVE H [facility] HospitalD-Dimer Quantitative (PE/DVT)2017-07-28 10:53:00* Test Item Value Reference Range Interpretation Comments D-Dimer Quantitative (PE/DVT) (test code = 03039-8) 0.41 0. 00-0.45 As with all in vitro diagnostic tests, the test results should be interpreted by the physician in conjunction with clinical findings and other test results.Test results are reported in NEW D-dimer units(ug/mLFEU).[facility] HospitalWhite Blood Jshnf4385-94-39 10:39:00* Test Item Value Reference Range Interpretation Comments White Blood Count (test code = 6690-2) 8.58 4.8-10.8 [facility] HospitalRed Blood Rwpfs2562-96-17 10:39:00* Test Item Value Reference Range Interpretation Comments Red Blood Count (test code = 789-8) 4.66 3.6-5.1 [facility] HospitalHemoglobin2018-05-12 10:39:00* Test Item Value Reference Range Interpretation Comments Hemoglobin (test code = 23489-6) 13.9 12.0-16.0 [facility] HospitalHematocrit2018-05-12 10:39:00* Test Item Value Reference Range Interpretation Comments Hematocrit (test code = 4544-3) 40.1 34.2-44.1 [facility] HospitalMean Corpuscular Cvzbeb6042-17-01 10:39:00* Test Item Value Reference Range Interpretation Comments Mean Corpuscular Volume (test code = 787-2) 86.1 81-99 [facility] HospitalMean Corpuscular Kbfqpdsfhk5546-99-53 10:39:00* Test Item Value Reference Range Interpretation Comments Mean Corpuscular Hemoglobin (test code = 785-6) 29.8 28-32 [facility] HospitalMean Corpuscular Hemoglobin Concent 2017-07-28 10:39:00* Test Item Value Reference Range Interpretation Comments Mean Corpuscular Hemoglobin Concent (test code = 786-4) 34.7 31-35 [facility] HospitalRed Cell Distribution Cafuo2373-70-30 10:39:00* Test Item Value Reference Range Interpretation Comments Red Cell Distribution Width (test code = 66068-0) 12.8 11.7 -14.4 [facility] HospitalPlatelet Gcngu5207-55-61 10:39:00* Test Item Value Reference Range Interpretation Comments Platelet Count (test code = 777-3) 268 140-360 [facility] HospitalNeutrophils (%) (Auto)2017-07-28 10:39:00 * Test Item Value Reference Range Interpretation Comments Neutrophils (%) (Auto) (test code = 90031-2) 79.3 38.7-80.0 [facility] HospitalLymphocytes (%) (Auto)2017-07-28 10:39:00 * Test Item Value Reference Range Interpretation Comments Lymphocytes (%) (Auto) (test code = 736-9) 10.7 18.0-39.1 L [facility] HospitalMonocytes (%) (Auto)2017-07-28 10:39:00* Test Item Value Reference Range Interpretation Comments Monocytes (%) (Auto) (test code = 5905-5) 8.5 4.4-11.3 [facility] HospitalEosinophils (%) (Auto)2017-07-28 10:39:00 * Test Item Value Reference Range Interpretation Comments Eosinophils (%) (Auto) (test code = 713-8) 0.5 0.0-6.0 [facility] HospitalBasophils (%) (Auto)2017-07-28 10:39:00* Test Item Value Reference Range Interpretation Comments Basophils (%) (Auto) (test code = 706-2) 0.5 0.0-1.0 [facility] HospitalIM GRANULOCYTES %2017-07-28 10:39:00* Test Item Value Reference Range Interpretation Comments IM GRANULOCYTES % (test code = IM GRANULOCYTES %) 0.5 0.0- 1.0 [facility]2017-07-28 10:39:00* Test Item Value Reference Range Interpretation Comments Neutrophils # (Auto) (test code = 751-8) 6.8 2.1-6.9 [facility]Lymphocytes # (Auto)2017-07-28 10:39:00* Test Item Value Reference Range Interpretation Comments Lymphocytes # (Auto) (test code = 16833-8) 0.9 1.0-3.2 L [facility]Mon[facility] (Auto)2017-07-28 10:39:00* Test Item Value Reference Range Interpretation Comments Monocytes # (Auto) (test code = 742-7) 0.7 0.2-0.8 [facility]Eosinophils [facility] (Auto)2017-07-28 10:39:00* Test Item Value Reference Range Interpretation Comments Eosinophils # (Auto) (test code = 711-2) 0.0 0.0-0.4 [facility]Basophils # (Auto)2017-07-28 10:39:00* Test Item Value Reference Range Interpretation Comments Basophils # (Auto) (test code = 704-7) 0.0 0.0-0.1 [facility]Absolute Immature Granulocyte (auto 2017-07-28 10:39:00* Test Item Value Reference Range Interpretation Comments Absolute Immature Granulocyte (auto (reji t code = Absolute Immature Granulocyte (auto) 0.04 0-0.1 [facility] [address] [facility] [address] [place] [address] Patient Name: MICAH GONSALEZ MR #: [id number] : 1970 Age/Sex: 47/F Req #: [id number] Adm Physician: Ordered by: MAHESH SKY MD Report #: [id number] Location: ER Room/Bed: Procedure: [id number] DX/CHEST 2 VIEWS Exam Date: 07/28/17 Exam Time: 1030 REPORT STATUS: S igned EXAMINATION: CHEST 2 VIEWS 07/28/2017 10:10 AM COMPARISON: Non e INDICATION: Shortness of breath DISCUSSION: LINES: None. LUNGS: The lungs are well inflated and clear. No pneumonia or pulmonary edema . PLEURA: No pleural effusion or pneumothorax. HEART AND MEDIASTINUM: The cardiomediastinal silhouette is unremarkable. BONES AND SOFT TISSUES: No acute osseous lesion. The soft tissues are normal. IMPRESSION: N o acute cardiopulmonary disease. Kong Herrera MD Signed by: Dr. Kong Herrera M.D. on 07/28/2017 11:45 AM Dictated By: KONG HERRERA MD [id number] Transcribed By : BERNIE on 07/28/17 1145 COPY TO: MAHESH SKY MD
--- OUTSIDE RECORDS SUMMARY | 2019-11-04 13:28 | XMS REPORT | Summary of Care ---
Author Author MICAH MAURICIO M.D. Organization Unknown Address Unknown Phone Unavailable Care Team Providers Care Assistant Front Desk Manager Name Role Phone JOSE Rudd, MARGAUX Unavailable Unavailable NUGENT LEISURE TRAVEL AGENT, LOLI Unavailable Unavailable VIANEY LEISURE TRAVEL AGENT, DEVI Unavailable Unavailable LULY Rudd, STEPHANE Unavailable Unavailable JOSE CLEMENTE PA, MARGAUX MARTIN Unavailable Unavailable VIANEY SKIP LOCATOR, DEVI Unavailable Unavailable SHOLA CLEMENTE, JELLY Cobb Unavailable Unavailable MAGDALENA CLEMENTE PA, ALFREDO OCONNELL Unavailable Unavailable LULY CLEMENTE, STEPHANE Unavailable Unavailable Nixon CLEMENTE, Kristopher Unavailable Unavailable [...] Active Migraine headache (346.90, G43.909) Status: Active Failure of outpatient treatment (V49.89, [...] abnor mal findings (V70.0, Z00.01) Status: Active Pre-diabetes (790.29, R73.03) Status: Active [...] non-recurrent maxillary sinusitis (461.0, J01.00) Status: Active Sore throat (462, J02.9) Status: [...] postprandial abdominal pain (789.07, R10.84) Status: Active Postprandial nausea (787.02, R11.0) Status: [...] Never smoked cigarettes (V49.89, Z78.9) Status: Active Acute bronchitis due to infection (466.0 , J20.8) Status: Active Acute exacerbation of mild persistent ex trinsic asthma (493.02, J45.31) Status: Active Resolved abdominal pain Status: Active 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 * Start : 18-Aug-2013 Active Pantoprazole Sodium 40 MG Oral Tablet Delayed Release TAKE 1 TABLET BY MOUTH DAILY. PATIENT NEEDS APPOINTMENT * Quantity: 90 Refills: 0 MARGAUX GARCIA M.D. * Start : 02-Jan-2014 Active Fluticasone Propionate 50 MCG/ACT Nasal Suspension SHAKE LIQUID AND USE 1 SPRAY IN EACH NOSTRIL TWICE DAILY ONLY IF NEEDED * Quantity: 16 Refills: 0 MARGAUX GARCIA M.D. * Start : 06-Nov-2015 Active Gabapentin 300 MG Oral Capsule TAKE 1 CAPSULE BY MOUTH THREE TIMES DAILY * Quantity: 270 Refills: 0 MARGAUX GARCIA M.D. * Start : 28-Jul-2016 Active Albuterol Sulfate (2.5 MG/3ML) 0.083% Inhalation Nebulization Solution INHALE 1 VIAL BY MOUTH VIA NEBULIZER FOUR TIMES DAILY DIRECTED * Quantity: 1 Refills: 0 MARGAUX GARCIA M.D. * Start : 16-Jun-2019 Active 60 x 3 ML Plas Cont Cefdinir 300 MG Oral Capsule TAKE 1 CAPSULE EVERY 12 HOURS DAILY. * Quantity: 20 Refills: 0 STEPHANE MAURICIO M.D. * Start : 26-Jul-2017 End : 26-Jul-2019 Active predniSONE 10 MG Oral Tablet TAKE 3 TABLETS DAILY AFTER BREAKFAST FOR 3 DAYS, FOLLOWED BY 2 TABLETS DAILY FOR 4 DAYS THEN 1 TABLET DAILY FOR 4 DAYS * Quantity: 21 Refills: 0 TOSIN MAURICIO M.D.A * Start : 26-Jul-2017 Active Azelastine HCl - 0.15 % Nasal Solution One spray each nostril twice a day * Quantity: 1 Refills: 1 MARGAUX GARCIA M.D. * Start : 21-Aug-2017 Active 30 ML [place] Btl OneTouch Verjuan antonio w/Device Kit For daily glucose monitoring * Quantity: 1 Refills: 0 LOLI NUGENT APRN * Start : 18-Sep-2017 Active OneTouch Verio In Vitro Strip CHECK 2 TIMES DAILY * Quantity: 2 Refills: 2 LOLI NUGENT APRN * Start : 18-Sep-2017 Active 100 Strip Box MadieTowalter Bustillo MISC For glucose monitoring twice daily * Quantity: 2 Refills: 2 LOLI NUGENT APRN * Start : 18-Sep-2017 Active 100 Unit Box Azelastine HCl - 0.05 % Ophthalmic Solution INSTILL 1 DROP IN EACH EYE TWICE DAILY NEEDED. * Quantity: 1 Refills: 2 SAEID GARCIA M.D.NDA Active 6 ML Bottle ProAir HFA 108 (90 Base) MCG/ACT Inhalation Aerosol Solution INHALE 1 TO 2 PUFFS EVERY 4 TO 6 HOURS NEEDED. * Quantity: 1 Refills: 2 DEVI WINTERS APRN * Start : 01-Oct-2018 Active 8.5 GM Inhaler Symbicort 80-4.5 MCG/ACT Inhalation Aerosol INHALE 2 PUFFS TWICE DAILY. RINSE MOUTH AFTER USE. * Quantity: 3 Refills: 0 JOSE Rudd MARGAUX * Start : 02-Oct-2018 Active 10.2 GM Inhaler Sucralfate 1 GM Oral Tablet TAKE 1 TABLET BY MOUTH FOUR TIMES DAILY( 30 MINUTES BEFORE MEALS AND AT BEDTIME) * Quantity: 120 Refills: 0 JOSE Rudd MARGAUX * Start : 24-Jan-2019 Active Colestipol HCl - 1 GM Oral Tablet TAKE ONE TABLET BY MOUTH ONCE or TWICE DAILY * Quantity: 60 Refills: 1 JOSE Abdullahi.D., MARGAUX * Start : 27-Jan-2019 Active Allergies and Adverse Reactions Name Dates [...] 09) Status: Resolved Procedures Procedure Dates Details History of Inguinal Hernia Repair Comple julien History of Cholecystectomy Completed History of Anoscopy For Polyp Removal Co mpleted History of Destruction Of Flat Warts By Laser Completed History of Right Breast Lumpectomy Compl eted Immunization Name Dates Details Td (adult), unspecified formulation on: 18-Jul-2003 Hepatitis B on: 24-Oct-2003 Fluvirin INJ on: 19-Nov-2013 Influenza on: Jan-2016 Hepatitis A Lot #: [id number] on: 15-Feb-2016 Hep B (Recombinant) Lot #: [id number] on: 15-Feb-2016 Hepatitis B Lot #: [id number] on: 16-Mar-2016 Hepatitis A, adult Lot #: [id number] on: 21-Aug-2016 Hepatitis B, adult Lot #: [id number] on: 21-Aug-2016 Fluzone INJ on: 15-Dec-2016 Tdap (Adacel) Lot #: [id number] on: 15-Mar-2017 Family History Name Dates Details [...] Details - Status: Name Dates Details Never smoked tobacco (finding) Never smoked tobacco (finding) Vital Signs Date Test Result Details [id number] Systolic blood pressure 131 mm[Hg] Status: Comments : Location: LUE; Position: Sitting Diastolic blood pressure 83 mm[Hg] Status: Comment s: Location: LUE; Position: Sitting Body height 64 in Status: Weight 217 lb Status: Body mass index (BMI) [Ratio] 37.25 kg/m2 Status: Body surface area Derived from formula 2.03 m2 S tatus: Body temperature 97.5 f Status: Comments: Me thod: Temporal Heart Rate 77 /min Status: Comments: Lo cation: L Radial; Respiratory rate 16 /min Status: Comments: Qu livty: Normal Results Date Description Value Details Results not documented Plan of Care Name Dates Details Planned Observations Planned Goals not documented Interventions Provided Medication Changes* Cefdinir 300 MG Oral Capsule - Renew * predniSONE 10 MG Oral Tablet - Renew Plan* 1. Acute maxillary sinusitis, L>R * - Patient advised to drink plenty of fluid stop keep mucus thin, sleep with head propped up, inhale steam 3-4x/day, use salt water nasal spray to loosen up mucus, and take otc medication for pain and headaches * - Warm towels on face may help with pain. * - Patient to call if symptoms last longer than one week, has a fever over 101F, a bad headache not relieved by over the counter meds, changes in mucous to thick and green or vision changes * - Rx sent for cefdinir and prednisone Instructions Name Dates Details Instructions not documented Encounters Appointment; LUDWIG DILLON APRN Encounter Diagnosis: Problem not documented On: 26-Jul-2017 10:30 Appointment; MARGAUX GARCIA M.D. Encounter Diagnosis: Problem not documented On: 31-Jul-2017 13:15 Appointment; MARGAUX GARCIA M.D. Encounter Diagnosis: Problem not documented On: 03-Aug-2017 8:15 Appointment; LUDWIG DILLON APRN Encounter Diagnosis: Problem not documented On: 09-Aug-2017 [...] documented On: 22-Mar-2018 10:30 Appointment; DEVI WINTERS APRN Encounter Diagnosis: Problem not documented On: 29-Apr-2018 10:00 Appointment; MARGAUX GARCIA M.D. Encounter Diagnosis: Problem not documented On: 09-Jul-2018 14:15 Appointment; DEVI WINTERS APRN Encounter Diagnosis: Problem not documented On: 01-Oct-2018 9:00 Appointment; DEVI WINTERS APRN Encounter Diagnosis: Problem not documented On: 09-Oct-2018 13:00 Appointment; MARGAUX GARCIA M.D. Encounter Diagnosis: Problem not documented On: 06-Dec-2018 10:30 Appointment; ALFREDO NICHOLS M.D. Encounter Diagnosis: Problem not documented On: 11-Jan-2019 10:30 Appointment; MARGAUX GARCIA M.D. Encounter Diagnosis: Problem not documented On: 24-Jan-2019 11:30 Appointment; MARGAUX GARCIA M.D. Encounter Diagnosis: Problem not documented On: 27-Jan-2019 8:15 Appointment; LOLI NUGENT APRN Encounter Diagnosis: Problem not documented On: 08-Feb-2019 [...] Diagnosis: Problem not documented On: 25-Apr-2019 13:40 Appointment; KRISTOPHER ALTAMIRANO M .D. Encounter Diagnosis: Problem not documented On: 17-Jun-2019 11:40 Appointment; STEPHANE MAURICIO M.D. Encounter Diagnosis: Problem not documented On: 16-Jul-2019 10:00
--- OUTSIDE RECORDS SUMMARY | 2019-11-04 13:28 | XMS REPORT | Summary of Care ---
Author MICAH Dai M.D. Organization Unknown Address Unknown Phone Unavailable Care Team Providers Care Electrical Intern Name Role Phone JOSE Rudd, MARGAUX Unavailable Unavailable NUGENT AUTOMOTIVE ENGINEER, LOLI Unavailable Unavailable VIANEY AUTOMOTIVE ENGINEER, DEVI Unavailable Unavailable JOSE CLEMENTE [place], MARGAUX MARTIN Unavailable Unavailable VIANEY DIRECT RESPONSE CONSULTANT, DEVI Unavailable Unavailable SHOLA CLEMENTE, JELLY Cobb Unavailable Unavailable MAGDALENA CLEMENTE [place], ALFREDO OCONNELL Unavailable Unavailable Nixon CLEMENTE, Kristopher [...] * Start : 21-Aug-2017 Active 30 ML [place] Btl OneTouch Verio w/Device Kit For daily glucose monitoring * Quantity: 1 Refills: 0 NUGENT [place], LOLI * Start : 18-Sep-2017 Active OneTouch Verio In Vitro Strip CHECK 2 TIMES DAILY * Quantity: 2 Refills: 2 NUGENT AUTOMOTIVE ENGINEER, LOLI * Start : 18-Sep-2017 Active 100 Strip Box OneTouch Addison Bustillo [facility] [place] For glucose monitoring twice daily * Quantity: 2 Refills: 2 NUGENT AUTOMOTIVE ENGINEER, LOLI * Start : 18-Sep-2017 Active 100 [...] USE. * Quantity: 3 Refills: 0 GOODINE M.D., MARGAUX * Start : 02-Oct-2018 Active 10.2 GM Inhaler Sucralfate 1 GM Oral Tablet TAKE 1 TABLET BY MOUTH FOUR TIMES DAILY( 30 MINUTES BEFORE MEALS AND AT BEDTIME) * Quantity: 120 Refills: 0 GOODINE M.D., MARGAUX * Start : 24-Jan-2019 Active Colestipol [...] Influenza on: Jan-2016 Hepatitis A Lot #: [id number] on: 15-Feb-2016 Hep B (Recombinant) Lot #: [id number] on: 15-Feb-2016 Hepatitis B Lot #: [id number] on: 16-Mar-2016 Hepatitis A, adult Lot #: [id number] on: 21-Aug-2016 Hepatitis B, adult Lot #: [id number] on: 21-Aug-2016 Fluzone INJ on: 15-Dec-2016 Tdap (Adacel) Lot #: [id number] on: 15-Mar-2017 Family History Name Dates Details [...] (finding) Vital Signs Date Test Result Details No Known Vitals to report Results Date Description Value Details Results not documented Plan of Care Name Dates Details Planned Observations Planned Goals not documented Planned Encounters Appointment; KRISTOPHER ALTAMIRANO M .D. On: 17-Jun-2019 11:40 Interventions Provided Medication Changes* Symbicort 80-4.5 MCG/ACT Inhalation Aerosol - Renew * Triamcinolone Acetonide 0.1 % External Cream - Start Instructions Name Dates Details Instructions not documented Encounters Appointment; MARGAUX GARCIA M.D. Encounter Diagnosis: Problem not documented On: 01-Jun-2017 9:30 Appointment; LUDWIG DILLON APRN Encounter Diagnosis: Problem not documented On: 26-Jul-2017 10:30 Appointment; AMRGAUX GARCIA M.D. Encounter Diagnosis: Problem not documented [...] Problem not documented On: 01-Oct-2018 9:00 Appointment; DVEI WINTERS APRN Encounter Diagnosis: Problem not documented [...]
--- OUTSIDE RECORDS SUMMARY | 2019-11-04 13:28 | XMS REPORT | Summary of Care ---
Author MICAH Dai M.D. Organization Unknown Address Unknown Phone Unavailable Care Team Providers Care Marketing And Development Coordinator Name Role Phone JOSE Rudd, MARGAUX Unavailable Unavailable NUGENT SOFTWARE DEVELOPMENT PROJECT MANAGER, LOLI Unavailable Unavailable VAINEY SOFTWARE DEVELOPMENT PROJECT MANAGER, DEVI Unavailable Unavailable JOSE CLEMENTE [place], MARGAUX MARTIN Unavailable Unavailable VIANEY BURLAP BAG SEWER, DEVI Unavailable Unavailable SHOLA CLEMENTE, JELLY Cobb [...] serious comorbidity present (278.00, E66.09) Status: Active Acute bronchitis due to infection (466.0 , J20.8) Status: Active Acute exacerbation of mild persistent ex trinsic asthma (493.02, J45.31) Status: Active Resolved abdominal pain Status: Active Postcholecystectomy diarrhea (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.4, 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 .7) Status: Active Medications Name Dates Details Montelukast [...] * Start : 21-Aug-2017 Active 30 ML [place] Btl OneTouch Verio w/Device Kit For daily glucose monitoring * Quantity: 1 Refills: 0 NUGENT SOFTWARE DEVELOPMENT PROJECT MANAGER, LOLI * Start : 18-Sep-2017 Active OneTouch Verio In Vitro Strip CHECK 2 TIMES DAILY * Quantity: 2 Refills: 2 NUGENT SOFTWARE DEVELOPMENT PROJECT MANAGER, LOLI * Start : 18-Sep-2017 Active 100 Strip Box OneTouch [place] [facility] [place] twice daily * Quantity: 2 Refills: 2 NUGENT SOFTWARE DEVELOPMENT PROJECT MANAGER, LOLI * Start : 18-Sep-2017 Active 100 [...] Influenza on: Jan-2016 Hepatitis A Lot #: [id number] on: 15-Feb-2016 Hep B (Recombinant) Lot #: [id number] on: 15-Feb-2016 Hepatitis B Lot #: [id number] on: 16-Mar-2016 Hepatitis A, adult Lot #: [id number] on: 21-Aug-2016 Hepatitis B, adult Lot #: [id number] on: 21-Aug-2016 Fluzone INJ on: 15-Dec-2016 Tdap (Adacel) Lot #: [id number] on: 15-Mar-2017 Family History Name Dates Details [...] % External Cream - Start Plan* For acute bronchitis: Start doxycycline hyclate capsules 100 mg twice daily. * For exacerbation of mild persistent asthma: Continue albuterol inhalation therapy via nebulizer 4 times daily until well. Continue montelukast 10 mg daily. Continue Symbicort 80-4.5 2 inhalations twice daily * For acute cholecystectomy syndrome continue colestipol 1 g once or twice daily * For gastritis continue pantoprazole 40 mg daily and Carafate tablets 4 times daily to complete the prescription. * Follow-up with gastroenterology as scheduled * Remain well-hydrated throughout the course of the illness * Call or return to clinic if new or worsening symptoms. Instructions Name Dates Details Instructions not documented [...]
--- OUTSIDE RECORDS SUMMARY | 2019-11-04 13:28 | XMS REPORT | Summary of Care ---
Author MICAH Arthur R.N. Organization Unknown Address Unknown Phone Unavailable Care Team Providers Care Clothing Room Supervisor Name Role Phone MARGAUX GARCIA M.D. Unavailable Unavailable NUGENT SUBACUTE NURSE, LOLI Unavailable Unavailable VIANEY SUBACUTE NURSE, DEVI Unavailable Unavailable JOSE CLEMENTE [place], MARGAUX MARTIN Unavailable Unavailable VIANEY STARBUCKS CLERK, DEVI Unavailable Unavailable SHOLA CLEMENTE, JELLY Cobb Unavailable Unavailable MAGDALENA CLEMENTE [place], ALFREDO OCONNELL Unavailable Unavailable Nixon CLEMENTE, Kristopher [...] NEEDS APPOINTMENT * Quantity: 90 Refills: 0 JOSE Abdullahi.SAEID RojasNDA * Start : 02-Jan-2014 Active Fluticasone Propionate 50 MCG/ACT Nasal Suspension SHAKE LIQUID AND USE 1 SPRAY IN EACH NOSTRIL TWICE DAILY ONLY IF NEEDED * Quantity: 16 Refills: 0 JOSE Abdullahi.Valdemar.SAEIDMARGAUX * Start : 06-Nov-2015 Active Gabapentin 300 MG Oral Capsule TAKE 1 CAPSULE BY MOUTH THREE TIMES DAILY * Quantity: 270 Refills: 0 JOSE Abdullahi.MARGAUX Rojas * Start : 28-Jul-2016 Active Albuterol Sulfate [...] * Start : 21-Aug-2017 Active 30 ML [place] Btl OneTouch Verio w/Device Kit For daily glucose monitoring * Quantity: 1 Refills: 0 NUGENT SUBACUTE NURSE, LOLI * Start : 18-Sep-2017 Active OneTouch Verio In Vitro Strip CHECK 2 TIMES DAILY * Quantity: 2 Refills: 2 NUGENT SUBACUTE NURSE, LOLI * Start : 18-Sep-2017 Active 100 Strip Box OneTouch Deladi Lanccarol Fine MISC For glucose monitoring twice daily * Quantity: 2 Refills: 2 NUGENT SUBACUTE NURSE, LOLI * Start : 18-Sep-2017 Active 100 Unit Box Fluticasone Propionate 50 MCG/ACT Nasal Suspension SPRAY ONE SPRAY IN EACH NOSTRIL TWICE DAILY * Quantity: 16 Refills: 0 JOSE Abdullahi.SAEID RojasNDA Active Azelastine HCl - 0.05 % Ophthalmic Solution INSTILL 1 DROP IN EACH EYE TWICE DAILY NEEDED. * Quantity: 1 Refills: 2 JOSE AbdullahiMARGAUX [place] Active 6 ML Bottle ProAir HFA 108 (90 Base) MCG/ACT Inhalation Aerosol Solution INHALE 1 TO 2 PUFFS EVERY 4 TO 6 HOURS NEEDED. * Quantity: 1 Refills: 2 DEVI WINTERS APRN * Start : 01-Oct-2018 Active 8.5 GM Inhaler Symbicort 80-4.5 MCG/ACT Inhalation Aerosol INHALE 2 PUFFS TWICE DAILY. RINSE MOUTH AFTER USE. * Quantity: 3 Refills: 0 MARGAUX GARCIA M.D. * Start : 02-Oct-2018 Active 10.2 GM Inhaler Sucralfate 1 GM Oral Tablet TAKE 1 TABLET BY MOUTH FOUR TIMES DAILY( 30 MINUTES BEFORE MEALS AND AT BEDTIME) * Quantity: 120 Refills: 0 MARGAUX GARCIA M.D. * Start : 24-Jan-2019 Active Colestipol HCl - 1 GM Oral Tablet TAKE ONE TABLET BY MOUTH ONCE or TWICE DAILY * Quantity: 60 Refills: 1 MARGAUX GARCIA M.D. * Start : 27-Jan-2019 Active Clindamycin HCl - 300 MG Oral Capsule TAKE 1 CAPSULE FOUR TIMES A DAY WITH FOOD FOR 10 DAYS * Quantity: 40 Refills: 0 MARGAUX GARCIA M.D. * Start : 24-Mar-2019 Active Triamcinolone Acetonide 0.1 % External Cream APPLY AND RUB IN A THIN FILM TO AFFECTED SKIN TWICE DAILY(AM AND PM) FOR 7-10 days ONLY * Quantity: 1 Refills: 0 MARGAUX GARCIA M.D. * Start : 27-Mar-2019 Active 30 GM [...] Influenza on: Jan-2016 Hepatitis A Lot #: [id number] on: 15-Feb-2016 Hep B (Recombinant) Lot #: [id number] on: 15-Feb-2016 Hepatitis B Lot #: [id number] on: 16-Mar-2016 Hepatitis A, adult Lot #: [id number] on: 21-Aug-2016 Hepatitis B, adult Lot #: [id number] on: 21-Aug-2016 Fluzone INJ on: 15-Dec-2016 Tdap (Adacel) Lot #: [id number] on: 15-Mar-2017 Family History Name Dates Details [...] On: 17-Jun-2019 11:40 Interventions Provided Medication Changes* Albuterol Sulfate (2.5 MG/3ML) 0.083% Inhalation Nebulization Solution - Renew Instructions Name Dates Details Instructions [...]
--- OUTSIDE RECORDS SUMMARY | 2019-11-04 13:28 | XMS REPORT | Summary of Care ---
Author MICAH Dai M.D. Organization Unknown Address Unknown Phone Unavailable Care Team Providers Care Applications Administrator Name Role Phone JOSE Rudd, MARGAUX Unavailable Unavailable NUGENT CLINIC ASSISTANT, LOLI Unavailable Unavailable VIANEY CLINIC ASSISTANT, DEVI Unavailable Unavailable JOSE CLEMENTE [place], MARGAUX MARTIN Unavailable Unavailable VIANEY HONEY BLENDER, DEVI Unavailable Unavailable SHOLA CLEMENTE, JELLY Cobb Unavailable Unavailable MAGDALENA CLEMENTE [place], ALFREDO OCONNELL Unavailable Unavailable Nixon CLEMENTE, Kristopher [...] * Start : 21-Aug-2017 Active 30 ML [place] Btl OneTouch Verio w/Device Kit For daily glucose monitoring * Quantity: 1 Refills: 0 NUGENT CLINIC ASSISTANT, LOLI * Start : 18-Sep-2017 Active OneTouch Verio In Vitro Strip CHECK 2 TIMES DAILY * Quantity: 2 Refills: 2 NUGENT CLINIC ASSISTANT, LOLI * Start : 18-Sep-2017 Active 100 Strip Box OneTouch [place] [facility] [place] twice daily * Quantity: 2 Refills: 2 NUGENT CLINIC ASSISTANT, LOLI * Start : 18-Sep-2017 Active 100 [...] Influenza on: Jan-2016 Hepatitis A Lot #: [id number] on: 15-Feb-2016 Hep B (Recombinant) Lot #: [id number] on: 15-Feb-2016 Hepatitis B Lot #: [id number] on: 16-Mar-2016 Hepatitis A, adult Lot #: [id number] on: 21-Aug-2016 Hepatitis B, adult Lot #: [id number] on: 21-Aug-2016 Fluzone INJ on: 15-Dec-2016 Tdap (Adacel) Lot #: [id number] on: 15-Mar-2017 Family History Name Dates Details [...] M .D. On: 17-Jun-2019 11:40 Interventions Provided Plan* For insect bite in the left thigh: Much improved * - For site of itching may apply topical Triamcinolone Acetonide 0.1% cream, apply to affected area BID x 7-10 days. Avoid adhesives and tapes on the skin. * - Continue mupirocin 2 % ointment, apply to central ulcerated site for another 3 to 4 days. * - Continue Clindamycin HCl 300 mg, QID until completed. * - Continue wound care cleansing as instructed. * - No change in medications unless otherwise dictated by results of the wound culture * For class II obesity with BMI of 36.4 diet and exercise counseling for weight loss Instructions Name Dates Details Instructions not documented [...]
--- OUTSIDE RECORDS SUMMARY | 2019-11-04 13:28 | XMS REPORT | Summary of Care ---
Author Author MICAH Kirby R.N. Organization Unknown Address Unknown Phone Unavailable Care Team Providers Care Control Center Operator Name Role Phone MARGAUX GARCIA M.D. Unavailable Unavailable NUGENT BACCARAT MANAGER, LOLI Unavailable Unavailable VIANEY BACCARAT MANAGER, DEVI Unavailable Unavailable JOSE CLEMENTE [place], MARGAUX MARTIN Unavailable Unavailable VIANEY ELECTRICIAN SUPERVISOR, DEVI Unavailable Unavailable SHOLA CLEMENTE, JELLY Cobb Unavailable Unavailable MAGDALENA CLEMENTE [place], ALFREDO OCONNELL Unavailable Unavailable Nixon CLEMENTE, Kristopher [...] APPOINTMENT * Quantity: 90 Refills: 0 JOSE Abdullahi.Bob, MARGAUX * Start : 02-Jan-2014 Active Fluticasone Propionate 50 MCG/ACT Nasal Suspension SHAKE LIQUID AND USE 1 SPRAY IN EACH NOSTRIL TWICE DAILY ONLY IF NEEDED * Quantity: 16 Refills: 0 JOSE Abdullahi.Valdemar., MARGAUX * Start : 06-Nov-2015 Active Gabapentin 300 MG Oral Capsule TAKE 1 CAPSULE BY MOUTH THREE TIMES DAILY * Quantity: 270 Refills: 0 JOSE Abdullahi.Valdemar.MARGAUX * Start : 28-Jul-2016 Active Albuterol Sulfate [...] * Start : 21-Aug-2017 Active 30 ML [place] Btl OneTouch Verio w/Device Kit For daily glucose monitoring * Quantity: 1 Refills: 0 NUGENT BACCARAT MANAGER, LOLI * Start : 18-Sep-2017 Active OneTouch Verio In Vitro Strip CHECK 2 TIMES DAILY * Quantity: 2 Refills: 2 NUGENT BACCARAT MANAGER, LOLI * Start : 18-Sep-2017 Active 100 Strip Box OneTouch Deladi Martinez Fine MISC For glucose monitoring twice daily * Quantity: 2 Refills: 2 NUGENT BACCARAT MANAGER, LOLI * Start : 18-Sep-2017 Active 100 Unit Box Fluticasone Propionate 50 MCG/ACT Nasal Suspension SPRAY ONE SPRAY IN EACH NOSTRIL TWICE DAILY * Quantity: 16 Refills: 0 JOSE Abdullahi.SAEID RojasNDA Active Azelastine HCl - 0.05 % Ophthalmic Solution INSTILL 1 DROP IN EACH EYE TWICE DAILY NEEDED. * Quantity: 1 Refills: 2 GOODINE MARGAUX Rudd Active 6 ML Bottle ProAir HFA 108 [...] Influenza on: Jan-2016 Hepatitis A Lot #: [id number] on: 15-Feb-2016 Hep B (Recombinant) Lot #: [id number] on: 15-Feb-2016 Hepatitis B Lot #: [id number] on: 16-Mar-2016 Hepatitis A, adult Lot #: [id number] on: 21-Aug-2016 Hepatitis B, adult Lot #: [id number] on: 21-Aug-2016 Fluzone INJ on: 15-Dec-2016 Tdap (Adacel) Lot #: [id number] on: 15-Mar-2017 Family History Name Dates Details [...] Goals not documented Interventions Provided Medication Changes* Gabapentin 300 MG Oral Capsule - Renew Instructions Name Dates Details Instructions [...]
--- OUTSIDE RECORDS SUMMARY | 2019-11-04 13:28 | XMS REPORT | Summary of Care ---
Author MICAH Dai M.D. Organization Unknown Address Unknown Phone Unavailable Care Team Providers Care Senior Animator Name Role Phone JOSE Rudd, MARGAUX Unavailable Unavailable NUGENT BRIM STIFFENER, LOLI Unavailable Unavailable VIANEY BRIM STIFFENER, DEVI Unavailable Unavailable JOSE CLEMENTE [place], MARGAUX MARTIN Unavailable Unavailable VIANEY GEOSPATIAL APPLICATIONS DEVELOPER, DEVI Unavailable Unavailable SHOLA CLEMENTE, JELLY Cobb Unavailable Unavailable MAGDALENA CLEMENTE [place], ALFREDO OCONNELL Unavailable Unavailable Nixon CLEMENTE, Kristopher [...] * Start : 21-Aug-2017 Active 30 ML [place] Btl OneTouch Verio w/Device Kit For daily glucose monitoring * Quantity: 1 Refills: 0 NUGENT BRIM STIFFENER, LOLI * Start : 18-Sep-2017 Active OneTouch Verio In Vitro Strip CHECK 2 TIMES DAILY * Quantity: 2 Refills: 2 NUGENT BRIM STIFFENER, LOLI * Start : 18-Sep-2017 Active 100 Strip Box OneTouch Addison Bustillo [facility] [place] For glucose monitoring twice daily * Quantity: 2 Refills: 2 NUGENT BRIM STIFFENER, LOLI * Start : 18-Sep-2017 Active 100 [...] Influenza on: Jan-2016 Hepatitis A Lot #: [id number] on: 15-Feb-2016 Hep B (Recombinant) Lot #: [id number] on: 15-Feb-2016 Hepatitis B Lot #: [id number] on: 16-Mar-2016 Hepatitis A, adult Lot #: [id number] on: 21-Aug-2016 Hepatitis B, adult Lot #: [id number] on: 21-Aug-2016 Fluzone INJ on: 15-Dec-2016 Tdap (Adacel) Lot #: [id number] on: 15-Mar-2017 Family History Name Dates Details [...] On: 17-Jun-2019 11:40 Interventions Provided Medication Changes* Clindamycin HCl - 300 MG Oral Capsule - Start Plan* Insect bite of left thigh with central ulceration and surrounding cellulitis: * - Wound swabbed and sent for culture and sensitivity * - START Clindamycin 300 mg QID x 10 days with food and full glass of water * - Apply Mupirocin over affected area BID * - Wound care cleaning and instructions. * - Return to clinic in 72 hours for reevaluation * - Return to clinic sooner if increased redness, tenderness, pain, fever or chills or new symptoms. * Class 2 obesity with BMI of 36.9: Diet and exercise counseling Instructions Name Dates Details Instructions not documented [...]
--- OUTSIDE RECORDS SUMMARY | 2019-11-04 13:28 | XMS REPORT | Summary of Care ---
Author MICAH Dai M.D. Organization Unknown Address Unknown Phone Unavailable Care Team Providers Care Print Washer Name Role Phone JOSE Rudd, MARGAUX Unavailable Unavailable NUGENT N.P., LOLI Unavailable Unavailable VIANEY N.P., DEVI Unavailable Unavailable JOSE CLEMENTE [place], MARGAUX MARTIN Unavailable Unavailable VIANEY RUBBER INSULATOR, DEVI Unavailable Unavailable SHOLA CLEMENTE, JELLY Cobb Unavailable Unavailable MAGDALENA CLEMENTE [place], ALFREDO OCONNELL Unavailable Unavailable Nixon CLEMENTE, Kristopher [...] IF NEEDED * Quantity: 16 Refills: 0 SAEID GARCIA M.D.NDA * Start : 06-Nov-2015 Active Gabapentin 300 [...] * Start : 21-Aug-2017 Active 30 ML [place] Btl OneTouch Verio w/Device Kit For daily glucose monitoring * Quantity: 1 Refills: 0 NUGENT N.P., LOLI * Start : 18-Sep-2017 Active OneTouch Verio In Vitro Strip CHECK 2 TIMES DAILY * Quantity: 2 Refills: 2 NUGENT N.P., LOLI * Start : 18-Sep-2017 Active 100 Strip Box OneTouch Deladi Bustillo [facility] [place] [place] For glucose monitoring twice daily * Quantity: [...] NEEDED. * Quantity: 1 Refills: 2 VIANEY IngramDEVI * Start : 01-Oct-2018 Active 8.5 GM [...] Details CTA Coronary art w/ calcium evaluation [id number] Date: 04-Mar-20 19 History of Inguinal Hernia Repair Comple julien History of Cholecystectomy Completed History of Anoscopy For Polyp Removal Co mpleted History of Destruction Of Flat Warts By Laser Completed History of Right Breast Lumpectomy Compl eted Immunization Name Dates Details Td (adult), unspecified formulation on: 18-Jul-2003 Hepatitis B on: 24-Oct-2003 Fluvirin INJ on: 19-Nov-2013 Influenza on: Jan-2016 Hepatitis A Lot #: [id number] on: 15-Feb-2016 Hep B (Recombinant) Lot #: [id number] on: 15-Feb-2016 Hepatitis B Lot #: [id number] on: 16-Mar-2016 Hepatitis A, adult Lot #: [id number] on: 21-Aug-2016 Hepatitis B, adult Lot #: [id number] on: 21-Aug-2016 Fluzone INJ on: 15-Dec-2016 Tdap (Adacel) Lot #: [id number] on: 15-Mar-2017 Family History Name Dates Details [...] On: 17-Jun-2019 11:40 Interventions Provided Medication Changes* Fluticasone Propionate 50 MCG/ACT Nasal Suspension - Renew Instructions Name Dates Details Instructions [...] Problem not documented On: 04-Mar-2019 13:00 Appointment; MARGAXU GARCIA M.D. Encounter Diagnosis: Problem not documented On: 24-Mar-2019 15:45 Appointment; MARGAUX GARCIA M.D. Encounter Diagnosis: Problem not documented On: 27-Mar-2019 9:00 Appointment; KRISTOPHER ALTAMIRANO M .D. Encounter Diagnosis: Problem not documented On: 25-Apr-2019 13:40
--- OUTSIDE RECORDS SUMMARY | 2019-11-04 13:28 | XMS REPORT | Summary of Care ---
Author Author MICAH Kirby R.N. Organization Unknown Address Unknown Phone Unavailable Care Team Providers Care Psych Therapist Name Role Phone JOSE Rudd, MARGAUX Unavailable Unavailable NUGENT AUDIO VIDEO TECH, LOLI Unavailable Unavailable VIANEY AUDIO VIDEO TECH, DEVI Unavailable Unavailable LULY Rudd, STEPHANE Unavailable Unavailable JOSE CLEMENTE [place], MARGAUX MARTIN Unavailable Unavailable VIANEY MOLECULAR BIOLOGY DIRECTOR, DEVI Unavailable Unavailable SHOLA CLEMENTE, JELLY Cobb Unavailable Unavailable MAGDALENA CLEMENTE [place], ALFREDO OCONNELL Unavailable Unavailable LULY CLEMENTE, STEPHANE Unavailable Unavailable Nixon CLEMENTE, Kristopher Unavailable Unavailable Unavailable Unavailable Functional Status Name Dates Details Functional status health issues are not documented Status: Name Dates Details Cognitive status health issues are not d ocumented Status: Problems Name Dates Details History of RUQ abdominal pain (789.01, R 10.11) Status: Resolved Hepatic steatosis (571.8, K76.0) Status: Active Immunity status testing (V72.61, Z01.84) Status: Active Otalgia of left ear (388.70, H92.02) Status: Active Lumbar foraminal stenosis (724.02, M48.0 61) Status: Active Degeneration of intervertebral disc of l umbar region (722.52, M51.36) Status: Active Need for hepatitis A immunization (V05.3 , Z23) Status: Active DJD (degenerative joint disease), lumbar (721.3, M47.816) Status: Active Lower back pain (724.2, M54.5) Status: Active Need for hepatitis B vaccination (V05.3, Z23) Status: Active Acute pharyngitis due to other specified organisms (462, J02.8) Status: Active Acute tracheobronchitis (466.0, J20.9) Status: Active Hiatal hernia with GERD (530.81, K21.9) Status: Active Need for Tdap vaccination (V06.1, Z23) Status: Active History of anemia (V12.3, Z86.2) Status: Active Common migraine without aura (346.10, G4 3.009) Status: Active Continuous left upper quadrant pain (789 .02, R10.12) Status: Active Fatigue (780.79, R53.83) Status: Active Sleep apnea (780.57, G47.30) Status: Active Migraine headache (346.90, G43.909) Status: Active Daytime somnolence (780.54, R40.0) Status: Active Left upper quadrant pain (789.02, R10.12 ) Status: Active Encounter to discuss test results (V65.4 9, Z71.2) Status: Active Acute abdominal pain syndrome (789.00, R 10.0) Status: Active Abdominal bloating (787.3, R14.0) Status: Active Class 2 obesity due to excess calories w ith body mass index (BMI) of 36.0 to 36.9 in adult, unspecified whether serious comorbidity present (278.00, E66.09) Status: Active Generalized postprandial abdominal pain (789.07, R10.84) Status: Active Postprandial nausea (787.02, R11.0) Status: Active Acute bilateral thoracic back pain (724. 1, M54.6) Status: Active Thoracic spondylosis (721.2, M47.814) Status: Active Loose stools (787.7, R19.5) Status: Active Cellulitis of thigh (682.6, L03.119) Status: Active Bilateral posterior neck pain (723.1, M5 4.2) Status: Active Acute pharyngitis with influenza (487.1, J11.1) Status: Active Obesity (BMI 30-39.9) (278.00, E66.9) Status: Active Yeast infection (112.9, B37.9) Status: Active Sore throat (462, J02.9) Status: Active Flu-like symptoms (780.99, R68.89) Status: Active Snoring (786.09, R06.83) Status: Active Palpitation (785.1, R00.2) Status: Active History of diabetes mellitus (V12.29, Z8 6.39) Status: Active GERD (gastroesophageal reflux disease) ( 530.81, K21.9) Status: Active Screening for lipid disorders (V77.91, Z 13.220) Status: Active Pain of left upper extremity (729.5, M79 .602) Status: Active Screening for diabetes mellitus (V77.1, Z13.1) Status: Active Screening for hypothyroidism (V77.0, Z13 .29) Status: Active Hepatic steatosis (571.8, K76.0) Status: Active Mitral valve prolapse syndrome (424.0, I 34.1) Status: Active Hematuria (599.70, R31.9) Status: Active Abnormal glucose (790.29, R73.09) Status: Active Personal history of urinary tract infect ion (V13.02, Z87.440) Status: Active Obesity (BMI 30.0-34.9) (278.00, E66.9) Status: Active Urinary frequency (788.41, R35.0) Status: Active Tracheobronchitis (490, J40) Status: Active Tachycardia (785.0, R00.0) Status: Active Hyperlipidemia (272.4, E78.5) Status: Active Essential (primary) hypertension (401.9, I10) Status: Active Anxiety (300.00, F41.9) Status: Active Dizziness (780.4, R42) Status: Active Elevated hemoglobin A1c (790.29, R73.09) Status: Active Impaired fasting glucose (790.21, R73.01 ) Status: Active Hyperglycemia (790.29, R73.9) Status: Active Fever (780.60, R50.9) Status: Active BPPV (benign paroxysmal positional verti go) (386.11, H81.10) Status: Active Acute recurrent sinusitis (461.9, J01.91 ) Status: Active Symptoms of upper respiratory infection (URI) (786.09, R09.89) Status: Active Failure of outpatient treatment (V49.89, Z78.9) Status: Active Maxillary opacification (793.0, R93.0) Status: Active Burning with urination (788.1, R30.0) Status: Active Urinary urgency (788.63, R39.15) Status: Active Vertigo (780.4, R42) Status: Active Marcie vaginitis (112.1, B37.3) Status: Active Acute non-recurrent maxillary sinusitis (461.0, J01.00) Status: Active Low back pain radiating to right lower e xtremity (724.2, M54.5) Status: Active Allergic rhinitis (477.9, J30.9) Status: Active Left lower quadrant abdominal tenderness (789.64, R10.814) Status: Active Acute low back pain (724.2, M54.5) Status: Active Acute right lumbar radiculopathy (724.4, M54.16) Status: Active Diarrhea (787.91, R19.7) Status: Active Acute recurrent maxillary sinusitis (461 .0, J01.01) Status: Active Sinusitis (473.9, J32.9) Status: Active Screening for malignant neoplasm of [facility] (V76.10, Z12.39) Status: Active Allergic conjunctivitis of both eyes (37 2.14, H10.13) Status: Active Immunity status testing (V72.61, Z01.84) Status: Active Precordial pain (786.51, R07.2) Status: Active Acute bronchitis due to other specified organisms (466.0, J20.8) Status: Active History of Urinary urgency (788.63, R39. 15) Status: Resolved Acute bronchitis (466.0, J20.9) Status: Active TMJ (temporomandibular joint syndrome) ( 524.60, M26.609) Status: Active Acute situational disturbance (308.3, F4 3.0) Status: Active Pre-diabetes (790.29, R73.03) Status: Active Hospital discharge follow-up (V67.59, Z0 9) Status: Active Postcholecystectomy diarrhea (564.4, R19 .7) Status: Active Encounter for well adult exam with abnor mal findings (V70.0, Z00.01) Status: Active Chronic pain of left upper extremity (72 9.5, M79.602) Status: Active Moderate persistent asthma with acute ex acerbation (493.92, J45.41) Status: Active Acute bronchitis due to infection (466.0 , J20.8) Status: Active Acute suppurative otitis media of left e ar without spontaneous rupture of tympanic membrane, recurrence not specified (382.00, H66.002) Status: Active Complex cyst of right ovary (620.2, N83. 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 3) Status: Active Pelvic pressure in female (625.8, R10.2) Status: Active At risk for coronary artery disease (V49 .89, Z91.89) Status: Active Myofascial pain on left side (729.1, M79 .18) Status: Active Neck pain on left side (723.1, M54.2) Status: Active Mild persistent asthma without complicat ion (493.90, J45.30) Status: Active Headache, cervicogenic (784.0, R51) Status: Active Acute URI (465.9, J06.9) Status: Active Infected insect bite of thigh, left, ini tial encounter (916.5, S70.362A) Status: Active Depression screening negative (V79.0, Z1 3.31) Status: Active Palpitations (785.1, R00.2) Status: Active Urinary incontinence (788.30, R32) Status: Active Ear pressure, left (388.8, H93.8X2) Status: Active Orthostatic hypotension (458.0, I95.1) Status: Active Left maxillary sinusitis (473.0, J32.0) Status: Active Never smoked cigarettes (V49.89, Z78.9) Status: Active Depression (311, F32.9) Status: Active Bilateral sciatica (724.3, M54.31) Status: Active BMI 36.0-36.9,adult (V85.36, Z68.36) Status: Active Medications Name Dates Details Montelukast [...] HOURS DAILY. * Quantity: 20 Refills: 0 TOSIN MAURICIO M.D.A * Start : 26-Jul-2017 End : 26-Jul-2019 [...] * Start : 21-Aug-2017 Active 30 ML [place] Btl OneTouch Verio w/Device Kit For daily glucose monitoring * Quantity: 1 Refills: 0 LOLI NUGETN APRN * Start : 18-Sep-2017 Active OneTouch Verio In Vitro Strip CHECK 2 TIMES DAILY * Quantity: 2 Refills: 2 LOLI NUGENT APRN * Start : 18-Sep-2017 Active 100 Strip Box Rachelle Bustillo [facility] [place] For glucose monitoring twice daily * Quantity: 2 Refills: 2 LOLI NUGENT APRN * Start : 18-Sep-2017 Active 100 Unit Box Azelastine HCl - 0.05 % Ophthalmic Solution INSTILL 1 DROP IN EACH EYE TWICE DAILY NEEDED. * Quantity: 1 Refills: 2 GOODINE M.D. MARGAUX Active 6 ML Bottle ProAir HFA 108 (90 Base) MCG/ACT Inhalation Aerosol Solution INHALE 1 TO 2 PUFFS EVERY 4 TO 6 HOURS NEEDED. * Quantity: 1 Refills: 2 VIANEY BRIANNDEVI * Start : 01-Oct-2018 Active 8.5 GM Inhaler Symbicort 80-4.5 MCG/ACT Inhalation Aerosol INHALE 2 PUFFS TWICE DAILY. RINSE MOUTH AFTER USE. * Quantity: 3 Refills: 0 GOODINE M.D., MARGAUX * Start : 02-Oct-2018 Active 10.2 GM Inhaler Sucralfate 1 GM Oral Tablet TAKE 1 TABLET BY MOUTH FOUR TIMES DAILY 30 MINUTES BEFORE MEALS AND AT BEDTIME * Quantity: 120 Refills: 0 GOODINE M.D., MARGAUX * Start : 24-Jan-2019 Active Colestipol HCl - 1 GM Oral Tablet TAKE ONE TABLET BY MOUTH ONCE or TWICE DAILY * Quantity: 60 Refills: 1 GOODINE M.D., MARGAUX * Start : 27-Jan-2019 Active Allergies [...] julien History of Cholecystectomy Completed History of Destruction Of Flat Warts By Laser Completed History of Anoscopy For Polyp Removal Co mpleted History of Right Breast Lumpectomy Compl eted Immunization Name Dates Details Td (adult), unspecified formulation on: 18-Jul-2003 Hepatitis B on: 24-Oct-2003 Fluvirin INJ on: 19-Nov-2013 Influenza on: Jan-2016 Hepatitis A Lot #: [id number] on: 15-Feb-2016 Hep B (Recombinant) Lot #: [id number] on: 15-Feb-2016 Hepatitis B Lot #: [id number] on: 16-Mar-2016 Hepatitis A, adult Lot #: [id number] on: 21-Aug-2016 Hepatitis B, adult Lot #: [id number] on: 21-Aug-2016 Fluzone INJ on: 15-Dec-2016 Tdap (Adacel) Lot #: [id number] on: 15-Mar-2017 Family History Name Dates Details Family history of Diabetes Mellitus (V18 .0) Comments: Family History Status: Active Family history of Cancer Comments: Family History [...] (finding) Vital Signs Date Test Result Details [id number] Systolic blood pressure 131 mm[Hg] Status: Comments [...] Respiratory rate 16 /min Status: Comments: Qu ality: Normal Results Date Description Value Details Results not documented Plan of Care Name Dates Details Planned Observations Planned Goals not documented Interventions Provided Medication Changes* Montelukast Sodium 10 MG Oral Tablet - Renew * Sucralfate 1 GM Oral Tablet - Renew Instructions Name Dates [...]
--- OUTSIDE RECORDS SUMMARY | 2019-11-04 13:29 | XMS REPORT | Summary of Care ---
Author Author MICAH Braxton R.N. Organization Unknown Address [facility] Phone Unavailable Care Team Providers Care Wallpaper Scraper Name Role Phone JOSE Rudd, MARGAUX Unavailable Unavailable NUGENT HOUSE DECORATOR, LOLI Unavailable Unavailable VIANEY CROSS, DEVI Unavailable Unavailable TIKI Rudd, JAYLEEN Unavailable Unavailable LULY Rudd, STEPHANE Unavailable Unavailable JOSE CLEMENTE [place], MARGAUX MARTIN Unavailable Unavailable VIANEY RAMOS, DEVI Unavailable Unavailable SHOLA CLEMENTE, JELLY Cobb Unavailable Unavailable MAGDALENA CLEMENTE [place], ALFREDO OCONNELL Unavailable Unavailable LULY CLEMENTE, STEPHANE Unavailable Unavailable TIKI CLEMENTE, JAYLEEN K Unavailable Unavailable Nixon CLEMENTE, Kristopher Unavailable Unavailable [...] maxillary sinusitis (461 .0, J01.01) Status: Active Acute sinusitis (461.9, J01.90) Status: Active Dizziness and giddiness (780.4, R42) Status: Active Obesity (BMI 35.0-39.9 without comorbidi ty) (278.00, E66.9) Status: Active Medications Name Dates Details Montelukast [...] 1 SPRAY IN EACH NOSTRIL TWICE DAILY NEEDED * Quantity: 16 Refills: 0 MARGAUX [...] Active 60 x 3 ML Plas Cont predniSONE 10 MG Oral Tablet TAKE 3 TABLETS DAILY AFTER BREAKFAST FOR 3 DAYS, FOLLOWED BY 2 TABLETS DAILY FOR 4 DAYS THEN 1 TABLET DAILY FOR 4 DAYS * Quantity: 21 Refills: 0 STEPHANE MAURICIO M.D. * Start : 26-Jul-2017 Active Azelastine HCl - 0.15 % Nasal Solution One spray each nostril twice a day * Quantity: 1 Refills: 1 MARGAUX GARCIA M.D. * Start : 21-Aug-2017 Active 30 ML [place] Btl DinnDinn Verio w/Device Kit For daily glucose monitoring * Quantity: 1 Refills: 0 LOLI NUGENT APRN * Start : 18-Sep-2017 Active OneTouch Verio In Vitro Strip CHECK 2 TIMES DAILY * Quantity: 2 Refills: 2 LOLI NUGENT APRN * Start : 18-Sep-2017 Active 100 Strip Box OneTouch Addison Bustillo [facility] [place] monitoring twice daily * Quantity: 2 Refills: 2 LOLI NUGENT APRN * Start : 18-Sep-2017 Active 100 Unit Box Azelastine HCl - 0.05 % Ophthalmic Solution INSTILL 1 DROP IN EACH EYE TWICE DAILY NEEDED * Quantity: 1 Refills: 0 SAEID GARCIA M.D.NDA * Start : 01-Aug-2019 Active 6 ML Bottle ProAir HFA 108 (90 Base) MCG/ACT Inhalation Aerosol Solution INHALE 1 TO 2 PUFFS EVERY 4 TO 6 HOURS NEEDED. * Quantity: 1 Refills: 2 DEVI WINTERS APRN * Start : 01-Oct-2018 Active 8.5 GM Inhaler Symbicort 80-4.5 MCG/ACT Inhalation Aerosol INHALE 2 PUFFS TWICE DAILY. RINSE MOUTH AFTER USE. * Quantity: 3 Refills: 0 SAEID GARCIA M.D.NDA * Start : 02-Oct-2018 Active 10.2 GM Inhaler Sucralfate 1 GM Oral Tablet TAKE 1 TABLET BY MOUTH FOUR TIMES DAILY 30 MINUTES BEFORE MEALS AND AT BEDTIME * Quantity: 120 Refills: 0 SAEID GARCIA M.D.NDA * Start : 24-Jan-2019 Active Colestipol HCl - 1 GM Oral Tablet TAKE ONE TABLET BY MOUTH ONCE or TWICE DAILY * Quantity: 60 Refills: 1 SAEID GARCIA M.D.NDA * Start : 27-Jan-2019 Active Budesonide-Formoterol Fumarate 80-4.5 MCG/ACT Inhalation Aerosol INHALE 2 PUFFS BY MOUTH TWICE DAILY. RINSE MOUTH AFTER USE * Quantity: 30.6 Refills: 0 SAEID GARCIA M.D.NDA * Start : 01-Aug-2019 Active Azithromycin 250 MG Oral Tablet TAKE 2 TABLETS ON DAY 1 THEN TAKE 1 TABLET A DAY FOR 4 DAYS. * Quantity: 1 Refills: 0 JAYLEEN FAIRBANKS M.D. * Start : 21-Aug-2019 Active 6 Tablet Pack Meclizine HCl - 12.5 MG Oral Tablet TAKE 1 TABLET 3 TIMES DAILY NEEDED. * Quantity: 30 Refills: 1 TIKI Rudd, JAYLEEN * Start : 21-Aug-2019 Active Allergies and Adverse Reactions Name Dates Details Amoxicillin TABS (Allergy) Status: Activ e Sulfa Drugs (Allergy) Status: Active Adhesive Tape (Allergy) Status: Active Past Medical History Name Dates Details History of acute sinusitis (V12.69, Z87. 09) Status: Resolved History of Chronic migraine without aura , [...] 15) Status: Resolved Personal history of asthma (, Z87. 09) Status: Resolved Procedures Procedure Dates [...] Influenza on: Jan-2016 Hepatitis A Lot #: [id number] on: 15-Feb-2016 Hep B (Recombinant) Lot #: [id number] on: 15-Feb-2016 Hepatitis B Lot #: [id number] on: 16-Mar-2016 Hepatitis A, adult Lot #: [id number] on: 21-Aug-2016 Hepatitis B, adult Lot #: [id number] on: 21-Aug-2016 Fluzone INJ on: 15-Dec-2016 Tdap (Adacel) Lot #: [id number] on: 15-Mar-2017 Family History Name Dates Details [...] (finding) Vital Signs Date Test Result Details [id number] Systolic blood pressure 126 mm[Hg] Status: Comments : Location: LUE; Position: Sitting Diastolic blood pressure 82 mm[Hg] Status: Comment s: Location: LUE; Position: Sitting Body height 64 in Status: Weight 217.0625 lb Status: Body mass index (BMI) [Ratio] 37.26 kg/m2 Status: Body surface area Derived from formula 2.03 m2 S tatus: Body temperature 97.8 f Status: Comments: Ar thod: Temporal Heart Rate 84 /min Status: Respiratory rate 16 /min Status: Physical Findings 0 Status: Comments: Al cohol Screen - How many times in the past yr have you had 5 (for M) or 4 (for F) or 4 (for all > 65yrs) or more drinks in a day? Physical Findings 0 Status: Comments: Q-9 Adult Depression Screening Results Date Description Value Details Results not documented Plan of Care Name Dates Details Planned Observations Planned Goals not documented Interventions Provided Medication Changes* Azithromycin 250 MG Oral Tablet - Renew * Meclizine HCl - 12.5 MG Oral Tablet - Start Labs/Procedures/Imaging* Tobacco Use Screening; Done: 21 Aug 2019 * Tobacco Use Screening; Done: 21 Aug 2019 Follow-ups/Referrals* Freezer Unloader Service Request; To Be Done: 21 Aug 2019 Medications/Immunizations Administered* MethylPREDNISolone Acetate 80 MG/ML Injection Suspension Plan* Acute Sinusitis * -- will start antibiotics discussed risk/benefits/alternates and side effects. * -- Patient advised on the course of the illness. Advised on supportive treatment with pushing fluids, getting rest, advised on Tylenol/ibuprofen prn for pain or fever. Also advised on use of mucinex, nasal saline and 1 table spoon of honey as needed for cough. Advised on steam therapy, Afrin and Flonase for nasal symptoms. Patient advised on proper hand hygiene RTC if symptoms do not resolve or worsen. * Dizziness likely BPPV * -- advised on prn meclizine, advised on home PT with Dulce's maneuver * Obesity BMI 37 * -- discussed with patient healthy diet including incorporating fresh or frozen fruits, vegetables without added salt or sugars, increasing fiber in diet, low fat, low carb. * -- advised on regular exercise once feeling better * -- will refer for [facility] healthy program and search manager * Allergic Rhinitis * -- advised on identifying and avoiding triggers * -- advised on anti-histamine and Flonase for symptomatic relief * -- may consider global supply chain vice president referral * RTC PRN or in 3 months Discussion/Summary* DISCHARGE SUMMARY/INSTRUCTIONS: * - Medication benefits, risks, and side effects discussed with patient. * - ER precautions given. * - Patient advised to RTC if symptoms worsen or fail to improve. [...] Diagnosis: Problem not documented On: 16-Jul-2019 10:00 Appointment; JAYLEEN FAIRBANKS M.D. Encounter Diagnosis: Problem not documented On: 21-Aug-2019 13:00
--- OUTSIDE RECORDS SUMMARY | 2019-11-04 13:29 | XMS REPORT | Summary of Care ---
Author Author MICAH Braxton R.N. Organization Unknown Address [facility] Phone Unavailable Care Team Providers Care Indoor Plant Technician Name Role Phone JOSE Rudd, MARGAUX Unavailable Unavailable NUGENT CRM DYNAMICS DEVELOPER, LOLI Unavailable Unavailable VIANEY CROSS, DEVI Unavailable Unavailable TIKI Rudd, FRISIAN Unavailable Unavailable LULY Rudd, STEPHANE Unavailable Unavailable JOSE CLEMENTE [place], MARGAUX MARTIN Unavailable Unavailable VIANEY RAMOS, DEVI Unavailable Unavailable SHOLA CLEMENTE, JELLY Cobb Unavailable Unavailable MAGDALENA CLEMENTE [place], ALFREDO OCONNELL Unavailable Unavailable LULY CLEMENTE, STEPHANE Unavailable Unavailable TIKI CLEMENTE, FRISIAN K Unavailable Unavailable Nixon CLEMENTE, Kristopher Unavailable [...] * Start : 21-Aug-2017 Active 30 ML [place] Btl [employer] Verio w/Device Kit For daily glucose monitoring * Quantity: 1 Refills: 0 LOLI NUGENT APRN * Start : 18-Sep-2017 Active OneTouch Verio In Vitro Strip CHECK 2 TIMES DAILY * Quantity: 2 Refills: 2 LOLI NUGENT APRN * Start : 18-Sep-2017 Active 100 Strip Box OneTouch Addison Bustillo [facility] [place] For glucose monitoring twice daily * Quantity: [...] * Quantity: 30 Refills: 1 TIKI Rudd, FRISIAN * Start : 21-Aug-2019 Active Allergies and [...] Influenza on: Jan-2016 Hepatitis A Lot #: [id number] on: 15-Feb-2016 Hep B (Recombinant) Lot #: [id number] on: 15-Feb-2016 Hepatitis B Lot #: [id number] on: 16-Mar-2016 Hepatitis A, adult Lot #: [id number] on: 21-Aug-2016 Hepatitis B, adult Lot #: [id number] on: 21-Aug-2016 Fluzone INJ on: 15-Dec-2016 Tdap (Adacel) Lot #: [id number] on: 15-Mar-2017 Family History Name Dates Details [...] (finding) Vital Signs Date Test Result Details [id number] Systolic blood pressure 126 mm[Hg] Status: Comments : Location: LUE; Position: Sitting Diastolic blood pressure 82 mm[Hg] Status: Comment s: Location: LUE; Position: Sitting Body height 64 in Status: Weight 217.0625 lb Status: Body mass index (BMI) [Ratio] 37.26 kg/m2 Status: Body surface area Derived from formula 2.03 m2 S tatus: Body temperature 97.8 f Status: Comments: Me thod: Temporal Heart Rate 84 /min Status: [...] Dates Details Instructions not documented Encounters Appointment; JEAN-PIERRE RANGEL M.D. Encounter Diagnosis: Problem [...]
--- OUTSIDE RECORDS SUMMARY | 2019-11-04 13:29 | XMS REPORT | Summary of Care ---
Author Author MICAH Braxton R.N. Organization Unknown Address [facility] Phone Unavailable Care Team Providers Care Dance Studio Manager Name Role Phone JOSE Rudd, MARGAUX Unavailable Unavailable NUGENT SECURITY MONITOR, LOLI Unavailable Unavailable VIANEY CROSS, DEVI Unavailable Unavailable TIKI Rudd, WELSH Unavailable Unavailable LULY Rudd, STEPHANE Unavailable Unavailable JOSE CLEMENTE [place], MARGAUX MARTIN Unavailable Unavailable VIANEY RAMOS, DEVI Unavailable Unavailable SHOLA CLEMENTE, JELLY Cobb Unavailable Unavailable MAGDALENA CLEMENTE [place], ALFREDO OCONNELL Unavailable Unavailable LULY CLEMENTE, STEPHANE Unavailable Unavailable TIKI CLEMENTE, WELSH K Unavailable Unavailable Nixon CLEMENTE, Kristopher Unavailable [...] Lower back pain (724.2, M54.5) Status: Active Screening for hypothyroidism (V77.0, Z13 .29) Status: Active Need for hepatitis A immunization [...] ini tial encounter (916.5, S70.362A) Status: Active Class 2 obesity due to excess calories w ith body mass index (BMI) of 36.0 to 36.9 in adult, unspecified whether serious comorbidity present (278.00, E66.09) Status: Active Cellulitis of thigh (682.6, L03.119) Status: Active Left upper quadrant pain (789.02, R10.12 ) Status: Active Acute recurrent maxillary sinusitis (461 .0, J01.01) Status: Active Dizziness and giddiness (780.4, R42) Status: Active Acute sinusitis (461.9, J01.90) Status: Active Obesity (BMI 35.0-39.9 without comorbidi [...] * Start : 21-Aug-2017 Active 30 ML [place] Btl Good Eggs Verio w/Device Kit For daily glucose monitoring * Quantity: 1 Refills: 0 LOLI NUGENT APRN * Start : 18-Sep-2017 Active OneTouch Verio In Vitro Strip CHECK 2 TIMES DAILY * Quantity: 2 Refills: 2 LOLI NUGENT APRN * Start : 18-Sep-2017 Active 100 Strip Box OneTouch Addison Bustillo [facility] [place] For glucose monitoring twice daily * Quantity: [...] * Quantity: 30 Refills: 1 TIKI Rudd, WELSH * Start : 21-Aug-2019 Active Allergies and [...] Influenza on: Jan-2016 Hepatitis A Lot #: [id number] on: 15-Feb-2016 Hep B (Recombinant) Lot #: [id number] on: 15-Feb-2016 Hepatitis B Lot #: [id number] on: 16-Mar-2016 Hepatitis A, adult Lot #: [id number] on: 21-Aug-2016 Hepatitis B, adult Lot #: [id number] on: 21-Aug-2016 Fluzone INJ on: 15-Dec-2016 Tdap (Adacel) Lot #: [id number] on: 15-Mar-2017 Family History Name Dates Details [...] (finding) Vital Signs Date Test Result Details [id number] Systolic blood pressure 126 mm[Hg] Status: Comments [...]
--- OUTSIDE RECORDS SUMMARY | 2019-11-04 13:29 | XMS REPORT | Summary of Care ---
Author Author MICAH Kirby R.N. Organization Unknown Address Unknown Phone Unavailable Care Team Providers Care Television News Producer Name Role Phone JOSE Rudd, MARGAUX Unavailable Unavailable NUGENT LATHE SET UP OPERATOR, LOLI Unavailable Unavailable VIANEY CROSS, DEVI Unavailable Unavailable TIKI Rudd, MAORI Unavailable Unavailable LULY Rudd, STEPHANE Unavailable Unavailable JOSE CLEMENTE [place], MARGAUX MARTIN Unavailable Unavailable VIANEY DAMIANP, DEVI Unavailable Unavailable SHOLA CLEMENTE, JELLY Cobb Unavailable Unavailable MAGDALENA CLEMENTE [place], ALFREDO OCONNELL Unavailable Unavailable LULY CLEMENTE, STEPHANE Unavailable Unavailable TIKI CLEMENTE, MAORI K Unavailable Unavailable Nixon CLEMENTE, Kristopher Unavailable [...] * Start : 21-Aug-2017 Active 30 ML [place] Btl Boond Verio w/Device Kit For daily glucose monitoring [...] DAILY NEEDED * Quantity: 6 Refills: 0 SAEID GARCIA M.D.NDA * Start : 01-Aug-2019 Active ProAir HFA 108 (90 Base) MCG/ACT Inhalation [...] AT BEDTIME * Quantity: 120 Refills: 0 MARGAUX GARCIA M.D. * Start : 24-Jan-2019 Active Colestipol HCl - 1 GM Oral Tablet TAKE ONE TABLET BY MOUTH ONCE or TWICE DAILY * Quantity: 60 Refills: 1 MARGAUX GARCIA M.D. * Start : 27-Jan-2019 Active Budesonide-Formoterol Fumarate 80-4.5 MCG/ACT Inhalation Aerosol INHALE 2 PUFFS BY MOUTH TWICE DAILY. RINSE MOUTH AFTER USE * Quantity: 30.6 Refills: 0 MARGAUX GARCIA M.D. * Start : 01-Aug-2019 Active Meclizine HCl - 12.5 MG Oral Tablet TAKE 1 TABLET 3 TIMES DAILY NEEDED. * Quantity: 30 Refills: 1 TIKI Rudd, MAORI * Start : 21-Aug-2019 Active Azithromycin 250 MG Oral Tablet TAKE 2 TABLETS ON DAY 1 THEN TAKE 1 TABLET A DAY FOR 4 DAYS. * Quantity: 1 Refills: 0 TIKI Rudd, MAORI * Start : 21-Aug-2019 Active 6 Tablet Pack Allergies and Adverse Reactions Name Dates Details [...] R 10.11) Status: Resolved History of sinusitis (V12., Z87.09) Status: Resolved History of Urinary urgency [...] Influenza on: Jan-2016 Hepatitis A Lot #: [id number] on: 15-Feb-2016 Hep B (Recombinant) Lot #: [id number] on: 15-Feb-2016 Hepatitis B Lot #: [id number] on: 16-Mar-2016 Hepatitis A, adult Lot #: [id number] on: 21-Aug-2016 Hepatitis B, adult Lot #: [id number] on: 21-Aug-2016 Fluzone INJ on: 15-Dec-2016 Tdap (Adacel) Lot #: [id number] on: 15-Mar-2017 Family History Name Dates Details [...] (finding) Vital Signs Date Test Result Details [id number] Systolic blood pressure 126 mm[Hg] Status: Comments [...] a day? Physical Findings 0 Status: Comments: PH Q-9 Adult Depression Screening Results Date Description Value Details Results not documented Plan of Care Name Dates Details Planned Observations Planned Goals not documented Interventions Provided Medication Changes* Azelastine HCl - 0.05 % Ophthalmic Solution - Renew * Fluticasone Propionate 50 MCG/ACT Nasal Suspension - [...]
--- OUTSIDE RECORDS SUMMARY | 2019-11-04 13:29 | XMS REPORT | Summary of Care ---
Author Author MICAH Braxton R.N. Organization Unknown Address [facility] Phone Unavailable Care Team Providers Care Piano Maker Name Role Phone JOSE Rudd, MARGAUX Unavailable Unavailable NUGENT RAG BOILER, LOLI Unavailable Unavailable VIANEY CROSS, DEVI Unavailable Unavailable TIKI Rudd, ITALIAN Unavailable Unavailable LULY Rudd, STEPHANE Unavailable Unavailable JOSE CLEMENTE [place], MARGAUX MARTIN Unavailable Unavailable VIANEY RAMOS, DEVI Unavailable Unavailable SHOLA CLEMENTE, JELLY Cobb Unavailable Unavailable MAGDALENA CLEMENTE [place], ALFREDO OCONNELL Unavailable Unavailable LULY CLEMENTE, STEPHANE Unavailable Unavailable TIKI CLEMENTE, ITALIAN K Unavailable Unavailable Nixon CLEMENTE, Kristopher Unavailable [...] * Start : 21-Aug-2017 Active 30 ML [place] Btl MightyNest Verio w/Device Kit For daily glucose monitoring * Quantity: 1 Refills: 0 LOLI NUGENT APRN * Start : 18-Sep-2017 Active OneTouch Verio In Vitro Strip CHECK 2 TIMES DAILY * Quantity: 2 Refills: 2 LOLI NUGENT APRN * Start : 18-Sep-2017 Active 100 Strip Box OneTouch [place]ison Bustillo [facility] [place] twice daily * Quantity: [...] * Quantity: 30 Refills: 1 TIKI Rudd, ITALIAN * Start : 21-Aug-2019 Active Allergies and [...] Details History of Inguinal Hernia Repair Comple julein History of Cholecystectomy Completed History of Anoscopy For Polyp Removal Co mpleted History of Destruction Of Flat Warts By Laser Completed History of Right Breast Lumpectomy Compl eted Immunization Name Dates Details Td (adult), unspecified formulation on: 18-Jul-2003 Hepatitis B on: 24-Oct-2003 Fluvirin INJ on: 19-Nov-2013 Influenza on: Jan-2016 Hepatitis A Lot #: [id number] on: 15-Feb-2016 Hep B (Recombinant) Lot #: [id number] on: 15-Feb-2016 Hepatitis B Lot #: [id number] on: 16-Mar-2016 Hepatitis A, adult Lot #: [id number] on: 21-Aug-2016 Hepatitis B, adult Lot #: [id number] on: 21-Aug-2016 Fluzone INJ on: 15-Dec-2016 Tdap (Adacel) Lot #: [id number] on: 15-Mar-2017 Family History Name Dates Details [...] (finding) Vital Signs Date Test Result Details [id number] Systolic blood pressure 126 mm[Hg] Status: Comments [...]
--- OUTSIDE RECORDS SUMMARY | 2019-11-04 13:29 | XMS REPORT | Summary of Care ---
Author Author MICAH Kirby R.N. Organization Unknown Address Unknown Phone Unavailable Care Team Providers Care Door To Door Salesman Name Role Phone JOSE Rudd, MARGAUX Unavailable Unavailable NUGENT ACCOUNTING SUPERVISOR, LOLI Unavailable Unavailable VIANEY ACCOUNTING SUPERVISOR, DEVI Unavailable Unavailable LULY Rudd, STEPHANE Unavailable Unavailable JOSE CLEMENTE [place], MARGAUX MARTIN Unavailable Unavailable VIANEY MATERIALS AND PROCESSES MANAGER, DEVI Unavailable Unavailable SHOLA CLEMENTE, JELLY Cobb Unavailable Unavailable MAGDALENA CLEMENTE [place], ALFREDO OCONNELL Unavailable Unavailable LULY CLEMENTE, STEPHANE [...] * Start : 21-Aug-2017 Active 30 ML [place] Btl OneTouch Verio w/Device Kit For daily glucose monitoring * Quantity: 1 Refills: 0 NUGENT LOLI CROSS * Start : 18-Sep-2017 Active OneTouch Verio In Vitro Strip CHECK 2 TIMES DAILY * Quantity: 2 Refills: 2 NUGENT [place] LOLI * Start : 18-Sep-2017 Active 100 Strip Box OneTouch Addison Bustillo [facility] [place] twice daily * Quantity: 2 Refills: 2 NUGENT ACCOUNTING SUPERVISOR, LOLI * Start : 18-Sep-2017 Active 100 [...] DAILY * Quantity: 60 Refills: 1 JOSE Abdullahi.SAEID RojasNDA * Start : 27-Jan-2019 Active Budesonide-Formoterol Fumarate 80-4.5 MCG/ACT Inhalation Aerosol INHALE 2 PUFFS BY MOUTH TWICE DAILY. RINSE MOUTH AFTER USE * Quantity: 30.6 Refills: 0 SAEID GARCIA M.D.NDA * Start : 01-Aug-2019 Active Allergies and Adverse Reactions Name Dates [...] Influenza on: Jan-2016 Hepatitis A Lot #: [id number] on: 15-Feb-2016 Hep B (Recombinant) Lot #: [id number] on: 15-Feb-2016 Hepatitis B Lot #: [id number] on: 16-Mar-2016 Hepatitis A, adult Lot #: [id number] on: 21-Aug-2016 Hepatitis B, adult Lot #: [id number] on: 21-Aug-2016 Fluzone INJ on: 15-Dec-2016 Tdap (Adacel) Lot #: [id number] on: 15-Mar-2017 Family History Name Dates Details [...] (finding) Vital Signs Date Test Result Details [id number] Systolic blood pressure 131 mm[Hg] Status: Comments [...] 0.05 % Ophthalmic Solution - Renew * Budesonide-Formoterol Fumarate 80-4.5 MCG/ACT Inhalation Aerosol - Renew * Fluticasone Propionate 50 MCG/ACT [...]
--- OUTSIDE RECORDS SUMMARY | 2019-11-04 13:29 | XMS REPORT | Summary of Care ---
Author Author MICAH FAIRBANKS M.D. Organization Unknown Address Unknown Phone Unavailable Care Team Providers Care Squad Boss Name Role Phone JOSE Rudd, MARGAUX Unavailable Unavailable NUGENT MANAGER ROOM, LOLI Unavailable Unavailable VIANEY MANAGER ROOM, DEVI Unavailable Unavailable TIKI Rudd, JAYLEEN Unavailable Unavailable LULY Rudd, STEPHANE Unavailable Unavailable JOSE CLEMENTE [place], MARGAUX MARTIN Unavailable Unavailable VIANEY SENIOR BUSINESS OBJECTS DEVELOPER, DEVI Unavailable Unavailable SHOLA CLEMENTE, JELLY Cobb Unavailable Unavailable MAGDALENA CLEMENTE [place], ALFREDO OCONNELL Unavailable Unavailable LULY CLEMENTE, STEPHANE Unavailable Unavailable TIKI CLEMENTE, JAYELEN K Unavailable Unavailable Nixon CLEMENTE, Kristopher Unavailable [...] * Start : 21-Aug-2017 Active 30 ML [place] Btl [employer]Clock Verio w/Device Kit For daily glucose monitoring * Quantity: 1 Refills: 0 LOLI NUGENT APRN * Start : 18-Sep-2017 Active OneTouch Verio In Vitro Strip CHECK 2 TIMES DAILY * Quantity: 2 Refills: 2 LOLI NUGENT APRN * Start : 18-Sep-2017 Active 100 Strip Box OneTouch Addison Bustillo [facility] [place] monitoring twice daily * Quantity: [...] GARCIA M.D. * Start : 01-Aug-2019 Active Azithromycin 250 MG Oral Tablet TAKE 2 TABLETS ON DAY 1 THEN TAKE 1 TABLET A DAY FOR 4 DAYS. * Quantity: 1 Refills: 0 AJYLEEN FAIRBANKS M.D. * Start : 21-Aug-2019 Active [...] Influenza on: Jan-2016 Hepatitis A Lot #: [id number] on: 15-Feb-2016 Hep B (Recombinant) Lot #: [id number] on: 15-Feb-2016 Hepatitis B Lot #: [id number] on: 16-Mar-2016 Hepatitis A, adult Lot #: [id number] on: 21-Aug-2016 Hepatitis B, adult Lot #: [id number] on: 21-Aug-2016 Fluzone INJ on: 15-Dec-2016 Tdap (Adacel) Lot #: [id number] on: 15-Mar-2017 Family History Name Dates Details [...] (finding) Vital Signs Date Test Result Details [id number] Systolic blood pressure 126 mm[Hg] Status: Comments [...] Observations Planned Goals not documented Planned Encounters Game Bird Farmer Service Request Interventions Provided Medication Changes* Azithromycin 250 MG Oral Tablet - Renew * Meclizine HCl - 12.5 MG Oral Tablet - Start Labs/Procedures/Imaging* Tobacco Use Screening; Done: 21 Aug 2019 * Tobacco Use Screening; Done: 21 Aug 2019 Medications/Immunizations Administered* MethylPREDNISolone [...] * -- will refer for [facility] healthy program and customer logistics manager * Allergic Rhinitis * -- advised on identifying and avoiding triggers * -- advised on anti-histamine and Flonase for symptomatic relief * -- may consider claim clinician referral * RTC PRN or in 3 [...]
--- OUTSIDE RECORDS SUMMARY | 2019-11-04 13:30 | XMS REPORT | Summary of Care ---
Author Author MICAH ROSEN Organization Unknown Address Unknown Phone Unavailable Care Team Providers Care Events Assistant Name Role Phone JOSE Rudd, MARGAUX Unavailable Unavailable NUGENT HOME HEALTH CARE PHYSICIAN, LOLI Unavailable Unavailable ABEBE Urbina, MIRA Unavailable Unavailable VIANEY HOME HEALTH CARE PHYSICIAN, DEVI Unavailable Unavailable TIKI Rudd, JAYLEEN Unavailable Unavailable JOSE CLEMENTE UT, MARGAUX MARTIN Unavailable Unavailable VIANEY ORGANIZATIONAL DEVELOPMENT DIRECTOR, DEVI Unavailable Unavailable SHOLA CLEMENTE, JELLY Cobb Unavailable Unavailable MAGDALENA CLEMENTE UT, ALFREDO OCONNELL Unavailable Unavailable LULY CLEMENTE, STEPHANE Unavailable Unavailable TIKI CLEMENTE, JAYLEEN K Unavailable Unavailable MIRA SALGADO Unavailable Unavailable Nixon CLEMENTE, Kristopher Unavailable Unavailable [...] other s inus (461.8, J01.80) Status: Active Screening for diabetes mellitus (V77.1, [...] without comorbidi ty) (278.00, E66.9) Status: Active Sinusitis (473.9, J32.9) Status: Active Suspected 2019 novel coronavirus infecti on (V01.79, Z20.828) Status: Active Medications Name Dates Details Montelukast [...] Active 60 x 3 ML Plas Cont OneTouch Verio w/Device Kit For daily glucose monitoring * Quantity: 1 Refills: 0 LOLI NUGENT APRN * Start : 18-Sep-2017 Active OneTouch Verio In Vitro Strip CHECK 2 TIMES DAILY * Quantity: 2 Refills: 2 NUGENT LOLI CROSS * Start : 18-Sep-2017 Active 100 Strip Box OneTouch Addison Bustillo [facility] [place] For glucose monitoring twice daily * Quantity: 2 Refills: 2 LOLI NUGENT APRN * Start : 18-Sep-2017 Active 100 Unit Box Azelastine HCl - 0.05 % Ophthalmic Solution INSTILL 1 DROP IN EACH EYE TWICE DAILY NEEDED * Quantity: 6 Refills: 0 MARGAUX GARCIA M.D. * Start : 01-Aug-2019 Active ProAir HFA [...] Start : 02-Oct-2018 Active 10.2 GM Inhaler Meclizine HCl - 12.5 MG Oral Tablet TAKE 1 TABLET 3 TIMES DAILY NEEDED. * Quantity: 30 Refills: 1 JAYLEEN FAIRBANKS M.D. * Start : 21-Aug-2019 Active Benzonatate 100 MG Oral Capsule 1-2 PO Q8H PRN cough * Quantity: 40 Refills: 1 ABEBE Kristal.MIRA Valladares * Start : 13-Sep-2019 Active Doxycycline Monohydrate 100 MG Oral Capsule TAKE 1 CAPSULE TWICE DAILY * Quantity: 20 Refills: 0 ABEBE Kristal.MIRA Valladares * Start : 13-Sep-2019 End : 23-Sep-2019 Active Allergies and Adverse Reactions Name Dates Details Amoxicillin TABS (Allergy) Status: Activ e Sulfa Drugs (Allergy) Status: Active Adhesive Tape (Allergy) Status: Active Past Medical History Name Dates Details History of acute sinusitis (, Z87. 09) Status: Resolved History of Chronic migraine without aura , without mention of intractable migraine without mention of status migrainosus (346.70, G43.709) Status: Resolved History of essential hypertension (V12.5 9, Z86.79) Status: Resolved History of Fatty liver (571.8, K76.0) Status: Resolved History of RUQ abdominal pain (789.01, R 10.11) Status: Resolved History of sinusitis (., Z87.09) Status: Resolved History of Urinary urgency (788.63, R39. 15) Status: Resolved Personal history of asthma (V12.69, Z87. 09) Status: Resolved Procedures Procedure Dates Details . [facility] - COVID-19/SARS-Cov-2 Date: 13-Sep-2019 History of Inguinal Hernia Repair Comple julien History of Cholecystectomy Completed History of Anoscopy For Polyp Removal Co mpleted History of Destruction Of Flat Warts By Laser Completed History of Right Breast Lumpectomy Compl eted Immunization Name Dates Details Td (adult), unspecified formulation on: 18-Jul-2003 Hepatitis B on: 24-Oct-2003 Fluvirin INJ on: 19-Nov-2013 Influenza on: Jan-2016 Hepatitis A Lot #: [id number] on: 15-Feb-2016 Hep B (Recombinant) Lot #: [id number] on: 15-Feb-2016 Hepatitis B Lot #: [id number] on: 16-Mar-2016 Hepatitis A, adult Lot #: [id number] on: 21-Aug-2016 Hepatitis B, adult Lot #: [id number] on: 21-Aug-2016 Fluzone INJ on: 15-Dec-2016 Tdap (Adacel) Lot #: [id number] on: 15-Mar-2017 Family History Name Dates Details [...] (finding) Vital Signs Date Test Result Details [id number] Systolic blood pressure 126 mm[Hg] Status: Comments [...] Goals not documented Interventions Provided Medication Changes* Benzonatate 100 MG Oral Capsule - Start * Doxycycline Monohydrate 100 MG Oral Capsule - Start Labs/Procedures/Imaging* . [facility] - COVID-19/SARS-Cov-2; To Be Done: 13 Sep 2019 Plan* Drink plenty of fluids * Rest * Tylenol PRN fever/pain * Mucinex DM PRN cough * F/u or ER if symptoms change/worsen * ER if SOB, persistent CP, cyanosis, confusion, inability to stay awake/wake up * COVID-19 test ordered; pt will be called to schedule covid testing here at clinic * Advised on contact precautions to prevent transmission to others. Advised patient to self quarantine for 14 days after symptom onset due to current COVID-19 pandemic. Discussed proper self-quarantine and how to protect other household members. Can discontinue self-quarantine after 14 days PLUS no fever for 72 hours without fever field reimbursement manager & improved symptoms OR negative COVID test Instructions Name Dates Details Instructions not documented [...] Diagnosis: Problem not documented On: 21-Aug-2019 13:00 Appointment; MIRA LOMAS P.A. Encounter Diagnosis: Problem not documented On: 13-Sep-2019 11:15
--- OUTSIDE RECORDS SUMMARY | 2019-11-04 13:30 | XMS REPORT | Summary of Care ---
Author Author MICAH ROSEN Organization Unknown Address Unknown Phone Unavailable Care Team Providers Care Snuff Grinder Name Role Phone JOSE Rudd, MARGAUX Unavailable Unavailable JOVANNA WASHERETTE MACHINE OPERATOR, LOLI Unavailable Unavailable ABEBE Urbina, MIRA Unavailable Unavailable VIANEY WASHERETTE MACHINE OPERATOR, DEVI Unavailable Unavailable TIKI Rudd, JAYLEEN Unavailable Unavailable JOSE CLEMENTE UT, MARGAUX MARTIN Unavailable Unavailable VIANEY BURNING PLANT OPERATOR, DEVI Unavailable Unavailable SHOLA CLEMENTE, JELLY [...] Active 100 Strip Box OneTouch Addison Bustillo [facility] For glucose monitoring twice daily * Quantity: [...] FAIRBANKS M.D. * Start : 21-Aug-2019 Active Doxycycline Monohydrate 100 MG Oral Capsule TAKE 1 CAPSULE TWICE DAILY * Quantity: 20 Refills: 0 ABEBE MIRA Urbina * Start : 13-Sep-2019 End : 23-Sep-2019 Active Benzonatate 100 MG Oral Capsule 1-2 PO Q8H PRN cough * Quantity: 40 Refills: 1 ABEBE MIRA Urbina * Start : 13-Sep-2019 Active Allergies and Adverse Reactions Name Dates [...] R 10.11) Status: Resolved History of sinusitis (2., Z87.09) Status: Resolved History of Urinary urgency [...] Influenza on: Jan-2016 Hepatitis A Lot #: [id number] on: 15-Feb-2016 Hep B (Recombinant) Lot #: [id number] on: 15-Feb-2016 Hepatitis B Lot #: [id number] on: 16-Mar-2016 Hepatitis A, adult Lot #: [id number] on: 21-Aug-2016 Hepatitis B, adult Lot #: [id number] on: 21-Aug-2016 Fluzone INJ on: 15-Dec-2016 Tdap (Adacel) Lot #: [id number] on: 15-Mar-2017 Family History Name Dates Details [...] (finding) Vital Signs Date Test Result Details [id number] Systolic blood pressure 126 mm[Hg] Status: Comments [...] no fever for 72 hours without fever branch general manager & improved symptoms OR negative COVID test Instructions Name Dates Details Instructions not documented Encounters Appointment; CIRO PATRICIA RD Encounter Diagnosis: Problem [...]
--- OUTSIDE RECORDS SUMMARY | 2019-11-04 13:30 | XMS REPORT | Summary of Care ---
Author Author MICAH Kirby R.N. Organization Unknown Address Unknown Phone Unavailable Care Team Providers Care White Mixing Operator Name Role Phone JOSE Rudd, MARGAUX Unavailable Unavailable JOVANNA SCREEN HANDLER, LOLI Unavailable Unavailable ABEBE P.AMyles, MIRA Unavailable Unavailable VIANEY CROSS, DEVI Unavailable Unavailable TIKI Rudd, JAYLEEN Unavailable Unavailable JOSE CLEMENTE UT, MARGAUX MARTIN Unavailable Unavailable VIANEY TRAVELING ENGINEER, DEVI Unavailable Unavailable SHOLA CLEMENTE, JELLY Cobb Unavailable Unavailable MAGDALENA CLEMENTE UT, ALFREDO OCONNELL Unavailable Unavailable LULY CLEMENTE, STEPHANE Unavailable Unavailable TIKI CELMENTE, JAYLEEN K Unavailable Unavailable ABEBE PA, MIRA FALLON Unavailable Unavailable Nixon CLEMENTE, Kristopher Unavailable Unavailable Unavailable Unavailable Functional Status Name Dates Details Functional status health issues are not documented Status: Name Dates Details Cognitive status health issues are not d ocumented Status: Problems Name Dates Details Mitral valve prolapse syndrome (424.0, I 34.1) Status: Active Depression (311, F32.9) Status: Active Tachycardia (785.0, R00.0) Status: Active Urinary frequency (788.41, R35.0) Status: Active 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 3) Status: Active Urinary incontinence (788.30, R32) Status: Active TMJ (temporomandibular joint syndrome) ( 524.60, M26.609) Status: Active Chronic gastroesophageal reflux disease (530.81, K21.9) Status: Active Myofascial pain on left side (729.1, M79 .18) Status: Active BPPV (benign paroxysmal positional verti go) (386.11, H81.10) Status: Active Hepatic steatosis (571.8, K76.0) Status: Active Orthostatic hypotension (458.0, I95.1) Status: Active Degeneration of intervertebral disc of l umbar region (722.52, M51.36) Status: Active DJD (degenerative joint disease), lumbar (721.3, M47.816) Status: Active Lumbar foraminal stenosis (724.02, M48.0 61) Status: Active GERD (gastroesophageal reflux disease) ( 530.81, K21.9) Status: Active Continuous left upper quadrant pain (789 .02, R10.12) Status: Active Common migraine without aura (346.10, G4 3.009) Status: Active Hiatal hernia with GERD (530.81, K21.9) Status: Active Sleep apnea (780.57, G47.30) Status: Active Daytime somnolence (780.54, R40.0) Status: Active Migraine headache (346.90, G43.909) Status: Active Moderate persistent asthma with acute ex acerbation (493.92, J45.41) Status: Active Hyperglycemia (790.29, R73.9) Status: Active Impaired fasting glucose (790.21, R73.01 ) Status: Active Complex cyst of right ovary (620.2, N83. 291) Status: Active Allergic rhinitis (477.9, J30.9) Status: Active Bilateral sciatica (724.3, M54.31) Status: Active BMI 36.0-36.9,adult (V85.36, Z68.36) Status: Active Essential (primary) hypertension (401.9, I10) Status: Active Anxiety (300.00, F41.9) Status: Active Hyperlipidemia (272.4, E78.5) Status: Active Bilateral posterior neck pain (723.1, M5 4.2) Status: Active Headache, cervicogenic (784.0, R51) Status: Active Acute bilateral thoracic back pain (724. 1, M54.6) Status: Active Thoracic spondylosis (721.2, M47.814) Status: Active Generalized postprandial abdominal pain (789.07, R10.84) Status: Active Chronic pain of left upper extremity (72 9.5, M79.602) Status: Active Mild persistent asthma without complicat ion (493.90, J45.30) Status: Active Lateral epicondylitis of left elbow (726 .32, M77.12) Status: Active Class 2 severe obesity due to excess anne marie ories with serious comorbidity and body mass index (BMI) of 35.0 to 35.9 in adult (278.01, E66.01) Status: Active Postcholecystectomy diarrhea (564.4, R19 .7) Status: Active Infected insect bite of thigh, left, ini tial encounter (916.5, S70.362A) Status: Active Left upper quadrant pain (789.02, R10.12 ) Status: Active Dizziness and giddiness (780.4, R42) Status: Active Suspected 2019 novel coronavirus infecti on (V01.79, Z20.828) Status: Active Medications Name Dates Details Montelukast Sodium 10 MG Oral Tablet TAKE 1 TABLET BY MOUTH DAILY Quantity: 90 MARGAUX GARCIA M.D. * Start : 18-Aug-2013 Active Pantoprazole Sodium 40 MG Oral Tablet Delayed Release TAKE 1 TABLET BY MOUTH DAILY * Quantity: 90 Refills: 0 MARGAUX [...] monitoring * Quantity: 1 Refills: 0 NUGENT SCREEN HANDLER, LOLI * Start : 18-Sep-2017 Active OneTouch Verio In Vitro Strip CHECK 2 TIMES DAILY * Quantity: 2 Refills: 2 NUGENT SCREEN HANDLER, LOLI * Start : 18-Sep-2017 Active 100 Strip Box OneTouch Deladi Lanccarol Bustillo [facility] For glucose monitoring twice daily * Quantity: 2 Refills: 2 NUGENT SCREEN HANDLER, LOLI * Start : 18-Sep-2017 Active 100 Unit Box Azelastine HCl - 0.05 % Ophthalmic Solution INSTILL 1 DROP IN EACH EYE TWICE DAILY NEEDED * Quantity: 1 Refills: 0 MARGAUX GARCIA M.D. * Start : 01-Aug-2019 Active 6 ML [...] PRN cough * Quantity: 40 Refills: 1 MIRA ROSEN * Start : 13-Sep-2019 Active Allergies and [...] liver (571.8, K76.0) Status: Resolved History of sinusitis (V12., Z87.09) Status: Resolved Personal history of asthma (., Z87. 09) Status: Resolved Procedures Procedure Dates [...] Influenza on: Jan-2016 Hepatitis A Lot #: [id number] on: 15-Feb-2016 Hep B (Recombinant) Lot #: [id number] on: 15-Feb-2016 Hepatitis B Lot #: [id number] on: 16-Mar-2016 Hepatitis A, adult Lot #: [id number] on: 21-Aug-2016 Hepatitis B, adult Lot #: [id number] on: 21-Aug-2016 Fluzone INJ on: 15-Dec-2016 Tdap (Adacel) Lot #: [id number] on: 15-Mar-2017 Family History Name Dates Details [...] Name Dates Details Never smoked tobacco (finding) Vital Signs Date Test Result Details No Known Vitals to report Results Date Description Value Details Results not documented Plan of Care Name Dates Details Planned Observations Planned Goals not documented Planned Encounters Appointment; JELLY JOLLEY M.D. On: 27-Oct-2019 14:00 Interventions Provided Medication Changes* Montelukast Sodium 10 [...] Problem not documented On: 08-Feb-2019 9:15 Appointment; MARAGUX GARCIA M.D. Encounter Diagnosis: Problem not documented [...]
--- OUTSIDE RECORDS SUMMARY | 2019-11-04 13:30 | XMS REPORT | Summary of Care ---
Author Author MICAH Kirby R.N. Organization Unknown Address Unknown Phone Unavailable Care Team Providers Care Store Worker Name Role Phone JOSE Rudd, MARGAUX Unavailable Unavailable JOVANNA FURNACE KEEPER, LOLI Unavailable Unavailable ABEBE P.AMyles, MIRA Unavailable Unavailable VIANEY CROSS, DEVI Unavailable Unavailable TIKI Rudd, JAYLEEN Unavailable Unavailable JOSE CLEMENTE UT, MARGAUX MARTIN Unavailable Unavailable VIANEY BRAND PLANNER, DEVI Unavailable Unavailable SHOLA CLEMENTE, JELLY Cobb Unavailable Unavailable MAGDAELNA CLEMENTE UT, ALFREDO OCONNELL Unavailable Unavailable LULY CLEMENTE, STEPHANE Unavailable Unavailable TIKI CLEMENTE, JAYLEEN K Unavailable Unavailable ABEEB PHYLICIA, MIRA FALLON Unavailable Unavailable Nixon CLEMENTE, Kristopher [...] GARCIA M.D. * Start : 06-Nov-2015 Active OneTouch Verio w/Device Kit For daily glucose monitoring * Quantity: 1 Refills: 0 LOLI NUGENT APRN * Start : 18-Sep-2017 Active OneTouch Verio In Vitro Strip CHECK 2 TIMES DAILY * Quantity: 2 Refills: 2 NUGENT FURNACE KEEPER, LOLI * Start : 18-Sep-2017 Active 100 Strip Box OneTouch Addison Bustillo [facility] monitoring twice daily * Quantity: 2 Refills: 2 NUGENT FURNACE KEEPER, LOLI * Start : 18-Sep-2017 Active 100 Unit Box ProAir HFA 108 (90 Base) MCG/ACT Inhalation [...] Start : 02-Oct-2018 Active 10.2 GM Inhaler Albuterol Sulfate (2.5 MG/3ML) 0.083% Inhalation Nebulization Solution INHALE 1 VIAL BY MOUTH VIA NEBULIZER FOUR TIMES DAILY DIRECTED * Quantity: 1 Refills: 0 JOSE Rudd, MARGAUX * Start : 16-Jun-2019 Active 60 x 3 ML Plas Cont Azelastine HCl - 0.05 % Ophthalmic Solution INSTILL 1 DROP IN EACH EYE TWICE DAILY NEEDED * Quantity: 6 Refills: 0 SAEID GARCIA M.D.NDA * Start : 01-Aug-2019 Active Gabapentin 300 MG Oral Capsule TAKE 1 CAPSULE BY MOUTH THREE TIMES DAILY * Quantity: 270 Refills: 0 MARGAUX GARCIA M.D. * Start : 28-Jul-2016 Active Meclizine HCl - 12.5 MG Oral Tablet TAKE 1 TABLET 3 TIMES DAILY NEEDED. * Quantity: 30 Refills: 1 JAYLEEN FAIRBANKS M.D. * Start : 21-Aug-2019 Active Benzonatate 100 MG Oral Capsule 1-2 PO Q8H PRN cough * Quantity: 40 Refills: 1 ABEBE MIRA Urbina * Start : 13-Sep-2019 Active Doxycycline Monohydrate [...] Name Dates Details History of acute sinusitis (., Z87. 09) Status: Resolved History of Chronic [...] Influenza on: Jan-2016 Hepatitis A Lot #: [id number] on: 15-Feb-2016 Hep B (Recombinant) Lot #: [id number] on: 15-Feb-2016 Hepatitis B Lot #: [id number] on: 16-Mar-2016 Hepatitis A, adult Lot #: [id number] on: 21-Aug-2016 Hepatitis B, adult Lot #: [id number] on: 21-Aug-2016 Fluzone INJ on: 15-Dec-2016 Tdap (Adacel) Lot #: [id number] on: 15-Mar-2017 Family History Name Dates Details [...] (finding) Vital Signs Date Test Result Details [id number] Systolic blood pressure 126 mm[Hg] Status: Comments [...] Gabapentin 300 MG Oral Capsule - Renew * Pantoprazole Sodium 40 MG Oral Tablet Delayed [...]
--- OUTSIDE RECORDS SUMMARY | 2019-11-04 13:30 | XMS REPORT | Summary of Care ---
Author MICAH Silvestre M.A. Organization Unknown Address [facility] Phone Unavailable Care Team Providers Care Chief Underwriter Name Role Phone JOSE Rudd, MARGAUX Unavailable Unavailable SHOLA Rudd, JELLY Unavailable Unavailable NUGENT APPLICATION INFRASTRUCTURE ENGINEER, LOLI Unavailable Unavailable ABEBE P.AMyles, MIRA Unavailable Unavailable VIANEY CROSS, DEVI Unavailable Unavailable TIKI Rudd, JAYLEEN Unavailable Unavailable JOSE CLEMENTE UT, MARGAUX MARTIN Unavailable Unavailable VIANEY RAMOS, DEVI Unavailable Unavailable SHOLA CLEMENTE, JELLY S Unavailable Unavailable MAGDALENA CLEMENTE UT, ALFREDO OCONNELL Unavailable Unavailable LULY CLEMENTE, STEPHANE Unavailable Unavailable TIKI CLEMENTE, JAYLEEN Tran Unavailable Unavailable ABEBE PA, MIRA FALLON Unavailable Unavailable Kristopher Altamirano MD Unavailable Unavailable Unavailable Unavailable Functional Status Name [...] Active BMI 36.0-36.9,adult (V85.36, Z68.36) Status: Active Anxiety (300.00, F41.9) Status: Active [...] 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 * Start : 21-Aug-2017 Active 30 ML [place] Btl OneTouch Verio w/Device Kit For daily glucose monitoring * Quantity: 1 Refills: 0 LOLI NUGENT APRN * Start : 18-Sep-2017 Active OneTouch Verio In Vitro Strip CHECK 2 TIMES DAILY * Quantity: 2 Refills: 2 JOVANNA BRIANNLOLI * Start : 18-Sep-2017 Active 100 Strip Box Rachelle Bustillo [facility] [place] For glucose monitoring twice daily * Quantity: 2 Refills: 2 JOVANNA BRIANVadim LOLI * Start : 18-Sep-2017 Active 100 [...] NEEDED. * Quantity: 1 Refills: 2 VIANEY AMERICA DEVI * Start : 01-Oct-2018 Active 8.5 [...] MIRA ROSEN * Start : 13-Sep-2019 Active predniSONE 20 MG Oral Tablet TAKE 3 TABLETS DAILY FOR 3 DAYS, THEN 2 TABLETS DAILY FOR 3 DAYS, THEN 1 TABLET DAILY FOR 3 DAYS. * Quantity: 18 Refills: 0 JELLY JOLLEY M.D. * Start : 27-Oct-2019 Active Cefdinir 300 MG Oral Capsule TAKE 1 CAPSULE TWICE DAILY * Quantity: 20 Refills: 0 JELLY JOLLEY M.D. * Start : 27-Oct-2019 End : 06-Nov-2019 Active Allergies and Adverse Reactions Name Dates [...] liver (571.8, K76.0) Status: Resolved History of Infected insect bite of thigh , left, initial encounter (916.5, S70.362A) Status: Resolved History of sinusitis (V12.69, Z87.09) Status: Resolved Personal history of asthma (V12.69, [...] Influenza on: Jan-2016 Hepatitis A Lot #: [id number] on: 15-Feb-2016 Hep B (Recombinant) Lot #: [id number] on: 15-Feb-2016 Hepatitis B Lot #: [id number] on: 16-Mar-2016 Hepatitis A, adult Lot #: [id number] on: 21-Aug-2016 Hepatitis B, adult Lot #: [id number] on: 21-Aug-2016 Fluzone INJ on: 15-Dec-2016 Tdap (Adacel) Lot #: [id number] on: 15-Mar-2017 Family History Name Dates Details [...] Observations Planned Goals not documented Planned Encounters ENT Referral Instructions Name Dates Details Instructions not documented [...] not documented On: 27-Mar-2019 9:00 Appointment; KRISTOPHER ALTAIMRANO M .D. Encounter Diagnosis: Problem not documented On: 25-Apr-2019 13:40 Appointment; KRISTOPHER ALTAMIRANO M .D. Encounter Diagnosis: Problem not documented On: 17-Jun-2019 11:40 Appointment; STEPHANE MAURICIO M.D. Encounter Diagnosis: Problem not documented On: 16-Jul-2019 10:00 Appointment; JAYLEEN FAIRBANKS M.D. Encounter Diagnosis: Problem not documented On: 21-Aug-2019 13:00 Appointment; MIRA LOMAS P.A. Encounter Diagnosis: Problem not documented On: 13-Sep-2019 11:15 Appointment; JELLY JOLLEY M.D. Encounter Diagnosis: Problem not documented On: 27-Oct-2019 14:00
--- OUTSIDE RECORDS SUMMARY | 2019-11-04 13:30 | XMS REPORT | Summary of Care ---
Author Author MICAH ROSEN Organization Unknown Address Unknown Phone Unavailable Care Team Providers Care Liquor Gallery Operator Name Role Phone JOSE Rudd, MARGAUX Unavailable Unavailable NUGENT CORRECTIONAL NURSE, LOLI Unavailable Unavailable ABEBE Urbina, MIRA Unavailable Unavailable VIANEY CORRECTIONAL NURSE, DEVI Unavailable Unavailable TIKI Rudd, JAYLEEN Unavailable Unavailable JOSE CLEMENTE UT, MARGAUX MARTIN Unavailable Unavailable VIANEY MANAGER HEAVY EQUIPMENT, DEVI Unavailable Unavailable SHOLA CLEMENTE, JELLY Cobb Unavailable Unavailable MAGDALENA CLEMENTE UT, ALFREDO OCONNELL Unavailable Unavailable LULY CLEMENTE, STEPHANE Unavailable Unavailable TIKI CLEMENTE, JAYLEEN K Unavailable Unavailable MIRA SALGADO Unavailable Unavailable Nixno CLEMENTE, Kristopher Unavailable Unavailable Unavailable Unavailable Functional [...] Active 100 Strip Box OneTouch Addison Bustillo [facility] [place] For glucose monitoring twice daily * Quantity: [...] Influenza on: Jan-2016 Hepatitis A Lot #: [id number] on: 15-Feb-2016 Hep B (Recombinant) Lot #: [id number] on: 15-Feb-2016 Hepatitis B Lot #: [id number] on: 16-Mar-2016 Hepatitis A, adult Lot #: [id number] on: 21-Aug-2016 Hepatitis B, adult Lot #: [id number] on: 21-Aug-2016 Fluzone INJ on: 15-Dec-2016 Tdap (Adacel) Lot #: [id number] on: 15-Mar-2017 Family History Name Dates Details [...] (finding) Vital Signs Date Test Result Details [id number] Systolic blood pressure 126 mm[Hg] Status: Comments [...] Planned Goals not documented Planned Encounters Appointment; LYNDA HERNANDEZ On: 15-Sep-2019 14:00 Interventions Provided Medication Changes* Benzonatate 100 MG [...] no fever for 72 hours without fever vending machine host/hostess & improved symptoms OR negative COVID test [...] Problem not documented On: 22-Mar-2018 10:30 Appointment; DVEI WINTERS APRN Encounter Diagnosis: Problem [...]
--- OUTSIDE RECORDS SUMMARY | 2019-11-04 13:30 | XMS REPORT | Summary of Care ---
Author Author MICAH Kirby R.N. Organization Unknown Address Unknown Phone Unavailable Care Team Providers Care Blending Coordinator Name Role Phone JOSE Rudd, MARGAUX Unavailable Unavailable JOVANNA FEED HOUSE SUPERVISOR, LOLI Unavailable Unavailable ABEBE P.AMyles, MIRA Unavailable Unavailable VIANEY CROSS, DEVI Unavailable Unavailable TIKI Rudd, JAYLEEN Unavailable Unavailable JOSE CLEMENTE UT, MARGAUX MARTIN Unavailable Unavailable VIANEY TIRE SERVICE TECHNICIAN, DEVI Unavailable Unavailable SHOLA CLEMENTE, JELLY Cobb Unavailable Unavailable MAGDALENA CLEMENTE UT, LAFREDO OCONNELL Unavailable Unavailable LULY CLEMENTE, STEPHANE Unavailable Unavailable TIKI CLEMENTE, JAYLEEN K Unavailable Unavailable ABEBE PA, MIRA [...] DAILY * Quantity: 2 Refills: 2 NUGENT FEED HOUSE SUPERVISOR, LOLI * Start : 18-Sep-2017 Active 100 Strip Box OneTouch Addison Bustillo [facility] [place] monitoring twice daily * Quantity: 2 Refills: 2 NUGENT FEED HOUSE SUPERVISOR, LOLI * Start : 18-Sep-2017 Active [...] 15) Status: Resolved Personal history of asthma (., [...] Influenza on: Jan-2016 Hepatitis A Lot #: [id number] on: 15-Feb-2016 Hep B (Recombinant) Lot #: [id number] on: 15-Feb-2016 Hepatitis B Lot #: [id number] on: 16-Mar-2016 Hepatitis A, adult Lot #: [id number] on: 21-Aug-2016 Hepatitis B, adult Lot #: [id number] on: 21-Aug-2016 Fluzone INJ on: 15-Dec-2016 Tdap (Adacel) Lot #: [id number] on: 15-Mar-2017 Family History Name Dates Details [...] - 0.05 % Ophthalmic Solution - Renew Instructions Name Dates Details [...]
--- OUTSIDE RECORDS SUMMARY | 2019-11-04 13:30 | XMS REPORT | Summary of Care ---
Author Author MICAH JOLLEY M.D. Organization Unknown Address Unknown Phone Unavailable Care Team Providers Care Local Superintendent Name Role Phone JOSE Rudd, MARGAUX Unavailable Unavailable SHOLA Rudd, JELLY Unavailable Unavailable [employer]UGENT [employer]IDENT[employer] SALES, LOLI Unavailable Unavailable ABEBE P.A., MIRA Unavailable Unavailable VIANEY CROSS, DEVI Unavailable Unavailable TIKI Rudd, JAYLEEN Unavailable Unavailable JOSE CLEMENTE UT, MARGAUX MARTIN Unavailable Unavailable VIANEY INTERACTIVE MEDIA DIRECTOR, DEVI Unavailable Unavailable SHOLA CLEMENTE, JELLY S Unavailable Unavailable MAGDALENA CLEMENTE UT, ALFREDO OCONNELL Unavailable Unavailable LULY CLEMENTE, STEPHANE Unavailable Unavailable TIKI CLEMENTE, JAYLEEN Tran Unavailable Unavailable ABEBE PHYLICIA, MIRA FALLON Unavailable Unavailable Nixon CLEMENTE, [...] * Start : 21-Aug-2017 Active 30 ML [place] Btl OneTouch Verio w/Device Kit For daily glucose monitoring * Quantity: 1 Refills: 0 [employer], LOLI * Start : 18-Sep-2017 Active OneTouch Verio In Vitro Strip CHECK 2 TIMES DAILY * Quantity: 2 Refills: 2 [employer]UG[employer] RESIDENT[employer] SALESLOLI * Start : 18-Sep-2017 Active 100 Strip Box Rachelle Bustillo [facility] [place] For glucose monitoring twice daily * Quantity: 2 Refills: 2 JOVANNA AMERICA LOLI * Start : 18-Sep-2017 Active [...] PRN cough * Quantity: 40 Refills: 1 ABEBEMIRA Mosqueda * Start : 13-Sep-2019 Active predniSONE 20 [...] Influenza on: Jan-2016 Hepatitis A Lot #: [id number] on: 15-Feb-2016 Hep B (Recombinant) Lot #: [id number] on: 15-Feb-2016 Hepatitis B Lot #: [id number] on: 16-Mar-2016 Hepatitis A, adult Lot #: [id number] on: 21-Aug-2016 Hepatitis B, adult Lot #: [id number] on: 21-Aug-2016 Fluzone INJ on: 15-Dec-2016 Tdap (Adacel) Lot #: [id number] on: 15-Mar-2017 Family History Name Dates Details [...] Goals not documented Planned Encounters ENT Referral Interventions Provided Medication Changes* Azelastine HCl - 0.15 % Nasal Solution - Renew * Cefdinir 300 MG Oral Capsule - Start * predniSONE 20 MG Oral Tablet - Start Labs/Procedures/Imaging* Tobacco Use Screening; Done: 27 Oct 2019 Plan* Cefdinir 300 mg bid for 10 days. * Prednisone taper pack. * Referral to ENT. * Continue daily NetiPot. * Continue daily Singulair and Zyrtec. * Consider adding Sudafed 30 mg po bid if needed for congestion. * Take time to rest. Hydrate aggressively. Irrigate the nose with nasal saline. * Drink warm tea with honey and lemon. * Wash your hands frequently and cover any coughing with your elbow. * Contact the clinic if your symptoms worsen or fail to improve. * Recommended social distancing to decrease risk of exposure to coronavirus. Encouraged avoiding large groups of people. Emphasized need to wear a mask when in public spaces. Recommended frequent hand-washing and avoidance of touching the face. * Recommended flu vaccine this fall. Instructions Name Dates Details Instructions not documented [...]
[2019-11-04 13:34] LABS: INR 0.8; PROTHROMBIN TIME 11.5 seconds (11.9-14.5)
[2019-11-04 13:44] LABS: ALANINE AMINOTRANSFERASE 41 IU/L (0-55); ALBUMIN 3.7 g/dL (3.5-5.0); ALBUMIN/GLOBULIN RATIO 1.1 (0.8-2.0); ALKALINE PHOSPHATASE 97 IU/L (40-150); ANION GAP 15.9 mmol/L (8-16); BLOOD UREA NITROGEN 6 mg/dL (7-26); BUN/CREATININE RATIO 8 (6-25); CARBON DIOXIDE 21 mmol/L (22-29); CHLORIDE 105 mmol/L (98-107); CREATININE, SERUM 0.75 mg/dL (0.57-1.11); EST GLOMERULAR FILTRATION RATE > 60 ML/MIN (60-); GLUCOSE 161 mg/dL (74-118); POTASSIUM 3.9 mmol/L (3.5-5.1); SODIUM 138 mmol/L (136-145)
--- NOTE | 2019-11-04 14:52 | Diagnostic Imaging Report ---
EXAMINATION: Head CT HISTORY: 49-year-old female with vertigo, dizziness and nausea COMPARISON: None. TECHNIQUE: Helical axial images of the head were obtained. Reformatted coronal and sagittal images from the axial data. Dose modulation, iterative reconstruction, and/or weight based adjustment of the mA/kV was utilized to reduce the radiation dose to as low as reasonably achievable. Image quality: Motion/streaking artifact limits the evaluation of the skull base and posterior cranial fossa. FINDINGS: Parenchyma: 1. No abnormal densities. 2. No mass or hemorrhage. No CT evidence of acute territorial vascular insult. Extra-axial spaces:No abnormal density. No extra-axial fluid collections Brain volume: Normal for age. Ventricles: No hydrocephalus or displacement. Arteries: No density suggestive of thrombus. Dural sinuses: No abnormal density. Foramen magnum: No mass, Chiari malformation, or basilar invagination. Sella: No obvious mass. Paranasal/mastoid sinuses: Imaged portions unremarkable. Skull/Scalp: No lytic or blastic lesions. No fractures. IMPRESSION: Normal head CT. Signed by: Dr. Samantha Ariza M.D. on 11/04/2019 2:49 PM
--- NOTE | 2019-11-04 15:08 | Diagnostic Imaging Report ---
EXAMINATION: CHEST SINGLE (PORTABLE) INDICATION: Chest pain COMPARISON: Chest radiograph 10/07/2018 FINDINGS: LINES/TUBES:None LUNGS:The lungs are well-inflated. No focal consolidation or pulmonary edema. PLEURA:No pleural effusion or pneumothorax. MEDIASTINUM:The cardiomediastinal silhouette appears normal in size and shape. BONES/SOFT TISSUES:No acute osseous injury. ABDOMEN:No free air under the diaphragm. IMPRESSION: No focal pneumonia or pulmonary edema. Signed by: Faith Arevalo MD on 11/04/2019 3:05 PM
[2019-11-04 16:16] LABS: BACTERIA,URINE FEW /HPF; EPITHELIAL CELLS,URINE MODERATE /LPF; RBC,URINE 0-5 /HPF (0-5); WBC,URINE (MAN) 0-5 /HPF (0-5)
[2019-11-04 16:26] LABS: CLARITY,URINE CLEAR (CLEAR); COLOR,URINE YELLOW (YELLOW); KETONES,URINE NEGATIVE (NEGATIVE); LEUKOCYTE ESTERASE ,URINE NEGATIVE (NEGATIVE); NITRITE,URINE NEGATIVE (NEGATIVE); PROTEIN,URINE DIPSTICK 2+ (NEGATIVE)
[2019-11-04 16:27] LABS: BILIRUBIN,URINE NEGATIVE (NEGATIVE); URINE UROBILINOGEN 0.2 mg/dL (0.2 - 1)
[2019-11-04] MEDS ORDERED: MECLIZINE HCL12.5 MG PO (17:06)
[2019-11-04] MEDS ORDERED: ZOFRAN4 MG PO (17:20)
== END 2019-11-04 17:50 | disposition home or self-care (01) ==
LOC: ER 12:47
DX: R42 Dizziness and giddiness (principal); I10 Essential (primary) hypertension; J45.909 Unspecified asthma, uncomplicated
CPT/HCPCS: 36415; 70450; 71045; 80053; 81001; 83690; 84484; 85025; 85610; 93005; 99284; J2405; J8597

== ENCOUNTER 2020-02-28 08:32 | Emergency (ER) | payer BC ==
[~2020-02-28] VITALS: Ht 162.6 cm; Wt 95.7 kg
[~2020-02-28 08:32] MED LIST changes: +MECLIZINE HCL12.5 MG PO; +ZOFRAN4 MG PO
[2020-02-28] MEDS ORDERED: HYDROCODONE/APAP 7.5MG-325MG 1 EA TAB PO ONE (09:00)
[2020-02-28 10:33] VITALS: BP 126/72
== END 2020-02-28 10:54 | disposition home or self-care (01) ==
LOC: ER 08:34
DX: M23.91 Unspecified internal derangement of right knee (principal); X50.0XXA Overexertion from strenuous movement or load, initial encounter; Y99.0 Civilian activity done for income or pay; J45.909 Unspecified asthma, uncomplicated; K21.9 Gastro-esophageal reflux disease without esophagitis
CPT/HCPCS: 93971; 99284

== ENCOUNTER 2020-12-13 16:42 | Emergency (ER) | payer BC ==
[~2020-12-13] VITALS: Ht 162.6 cm; Wt 95.7 kg
[2020-12-13 18:20] LABS: BASOPHILS % 0.4 % (0.0-1.0); EOSINOPHILS # (AUTO) 0.2 (0.0-0.4); EOSINOPHILS % 2.2 % (0.0-6.0); HEMATOCRIT 39.7 % (34.2-44.1); HEMOGLOBIN 13.3 g/dL (12.0-16.0); LYMPHOCYTES # (AUTO) 2.1 (1.0-3.2); LYMPHOCYTES % 22.3 % (18.0-39.1); MEAN CORPUSCULAR HGB CONC 33.5 g/dL (31-35); MEAN CORPUSCULAR VOLUME 86.7 fL (81-99); MONOCYTES # (AUTO) 0.8 (0.2-0.8); MONOCYTES % 7.9 % (4.4-11.3); NEUTROPHILS # (AUTO) 6.4 (2.1-6.9); NEUTROPHILS % 66.6 % (38.7-80.0); PLATELET COUNT 298 x10e3/uL (140-360); RED BLOOD COUNT 4.58 x10e6/uL (3.6-5.1)
[2020-12-13 18:42] LABS: ALANINE AMINOTRANSFERASE 17 IU/L (0-55); ALBUMIN 4.1 g/dL (3.5-5.0); ALBUMIN/GLOBULIN RATIO 1.1 (0.8-2.0); ALKALINE PHOSPHATASE 93 IU/L (40-150); ANION GAP 13.2 mmol/L (8-16); BLOOD UREA NITROGEN 9 mg/dL (7-26); BUN/CREATININE RATIO 12 (6-25); CALCIUM 9.4 mg/dL (8.4-10.2); CARBON DIOXIDE 27 mmol/L (22-29); CHLORIDE 103 mmol/L (98-107); CREATINE KINASE 44 IU/L (29-168); CREATININE, SERUM 0.75 mg/dL (0.57-1.11); EST GLOMERULAR FILTRATION RATE 81 ML/MIN (60-); GLUCOSE 99 mg/dL (74-118); POTASSIUM 3.2 mmol/L (3.5-5.1); SODIUM 140 mmol/L (136-145)
== END 2020-12-13 20:32 | disposition home or self-care (01) ==
LOC: ER 18:04
DX: R07.81 Pleurodynia (principal); I10 Essential (primary) hypertension; K21.9 Gastro-esophageal reflux disease without esophagitis; J45.909 Unspecified asthma, uncomplicated
CPT/HCPCS: 36415; 71045; 80053; 82550; 82553; 84484; 85025; 85379; 93005; 99283

== ENCOUNTER 2021-03-16 09:22 | Emergency (ER) | payer BC ==
[~2021-03-16] VITALS: Ht 162.6 cm; Wt 95.7 kg
[2021-03-16] MEDS ORDERED: KETOROLAC TROMETHAMINE 30 MG/ML VIAL IV STA (10:07)
[2021-03-16] MEDS ORDERED: SODIUM CHLORIDE 0.9% 1000ML 1,000 ML IV STA (10:07)
[2021-03-16 10:26] LABS: BASOPHILS # (AUTO) 0.1 (0.0-0.1); BASOPHILS % 1.1 % (0.0-1.0); EOSINOPHILS # (AUTO) 0.3 (0.0-0.4); EOSINOPHILS % 4.2 % (0.0-6.0); HEMATOCRIT 39.1 % (34.2-44.1); HEMOGLOBIN 13.5 g/dL (12.0-16.0); LYMPHOCYTES # (AUTO) 1.4 (1.0-3.2); LYMPHOCYTES % 21.1 % (18.0-39.1); MEAN CORPUSCULAR HEMOGLOBIN 29.8 pg (28-32); MEAN CORPUSCULAR HGB CONC 34.5 g/dL (31-35); MEAN CORPUSCULAR VOLUME 86.3 fL (81-99); MONOCYTES # (AUTO) 0.4 (0.2-0.8); MONOCYTES % 6.2 % (4.4-11.3); NEUTROPHILS # (AUTO) 4.3 (2.1-6.9); NEUTROPHILS % 66.9 % (38.7-80.0); PLATELET COUNT 285 x10e3/uL (140-360); RED BLOOD COUNT 4.53 x10e6/uL (3.6-5.1); RED CELL DISTRIBUTION WIDTH 13.2 % (11.7-14.4)
[2021-03-16 10:40] LABS: INR 0.92; PROTHROMBIN TIME 13.1 seconds (11.9-14.5)
[2021-03-16 10:41] LABS: PARTIAL THROMBOPLASTIN TIME 34.8 seconds (23.8-35.5)
[2021-03-16 10:47] LABS: ALANINE AMINOTRANSFERASE 13 IU/L (0-55); ALBUMIN 3.7 g/dL (3.5-5.0); ALBUMIN/GLOBULIN RATIO 0.9 (0.8-2.0); ALKALINE PHOSPHATASE 98 IU/L (40-150); ANION GAP 13.5 mmol/L (8-16); BLOOD UREA NITROGEN 7 mg/dL (7-26); BUN/CREATININE RATIO 9 (6-25); CALCIUM 8.9 mg/dL (8.4-10.2); CARBON DIOXIDE 24 mmol/L (22-29); CHLORIDE 106 mmol/L (98-107); CREATINE KINASE 57 IU/L (29-168); CREATININE, SERUM 0.79 mg/dL (0.57-1.11); EST GLOMERULAR FILTRATION RATE 77 ML/MIN (60-); GLUCOSE 130 mg/dL (74-118); POTASSIUM 3.5 mmol/L (3.5-5.1); SODIUM 140 mmol/L (136-145)
[2021-03-16 12:11] VITALS: BP 158/82
== END 2021-03-16 12:00 | disposition home or self-care (01) ==
LOC: ER 09:28
DX: U07.1 COVID-19 (principal); R11.2 Nausea with vomiting, unspecified; R07.89 Other chest pain; I10 Essential (primary) hypertension; J45.909 Unspecified asthma, uncomplicated; K21.9 Gastro-esophageal reflux disease without esophagitis
CPT/HCPCS: 36415; 70450; 71045; 80053; 82550; 82553; 84484; 85025; 85610; 85730; 93005; 99284; C9113; J1885; J7030; U0002

== ENCOUNTER 2021-07-02 09:18 | Emergency (ER) | payer BC, OTHER ==
[~2021-07-02] VITALS: Ht 162.6 cm; Wt 95.7 kg
[2021-07-02] MEDS ORDERED: DEXAMETHASONE 4 MG TAB PO STA (09:50)
[2021-07-02] MEDS ORDERED: GUAIFENESIN 600MG/DEXTROMETHORPHAN 30MG TABSR PO ONE (10:00)
[2021-07-02] MEDS ORDERED: DEXAMETHASONE SOD PHOS 10 MG/1 ML VIAL IM NR (10:00)
[2021-07-02] MEDS ORDERED: DEXAMETHASONE SOD PHOS 10 MG/1 ML VIAL ONE (10:05)
[2021-07-02] MEDS ORDERED: MUCINEX DM ER1 EAC1 PO (10:37)
[2021-07-02 10:52] VITALS: BP 168/83
== END 2021-07-02 10:57 | disposition home or self-care (01) ==
LOC: ER 09:25
DX: R05.9 Cough, unspecified (principal); J45.909 Unspecified asthma, uncomplicated; T78.40XA Allergy, unspecified, initial encounter; I10 Essential (primary) hypertension; K21.9 Gastro-esophageal reflux disease without esophagitis
CPT/HCPCS: 71045; 99283; J1100